=== PATIENT | female | born 1940 | race Caucasian/White ===

== ENCOUNTER → 2016-04-29 | Outpatient (CLI) | payer MEDICARE ==
--- NOTE | 2016-04-30 09:00 | BD ---
EXAMINATION TYPE: MG DEXA axial skeleton. DATE OF EXAM: 04/29/2016 2:34 PM COMPARISON: NONE CLINICAL HISTORY: Height: 61.5 IN Weight: 236 LBS FRAX RISK QUESTIONS: Alcohol (3 or more units per day): NO Family History (Parent hip fracture): NO Glucocorticoids (More than 3mos): NO (Ex: prednisone, prednisolone, methylprednisolone, dexamethasone, and hydrocortisone). History of Fracture in Adulthood: NO Secondary Osteoporosis: 1. Type 1 Diabetes: NO 2. Hyperthyroidism: NO 3. Menopause before 45: NO AGE 47 4. Malnutrition: NO 5. Chronic liver disease: NO Rheumatoid Arthritis: YES Current Tobacco Use: NO RISK FACTORS HISTORY OF: Active: MODERATE Diet low in dairy products/other sources of calcium: YES Postmenopausal woman: AGE 47 MEDICATIONS: Osteoporosis Medications: NOT NOW Which medication: Fosamax How Long AGE 68- 70 Additional Medications: OMEPRAZOLE, GLIPIZIDE, METFORMIN, DIABETES MED, HIGH BLOOD PRESSURE MED, ASTH MA MED,MULTI VIT,VIT B12 EXAM MEASUREMENTS: Bone mineral densitometry was performed using the GoGuide System. Bone mineral density as measured about the Lumbar spine is: ----- L1-L4(G/cm2): 1.455 T Score Values are as follows: ----- L2: 2.5 ----- L3: 2.2 ----- L4: 2.3 ----- L1-L4: 2.3 Bone mineral density has: Increased 6.3% since study of: 07/15/2011 Bone mineral density about the R hip (g/cm2): 0.871 Bone mineral density about the L hip (g/cm2): 0.906 T Score values are as follows: -----R Neck: -1.2 -----L Neck: -1.0 -----R Intertrochanter: -1.1 -----L Intertrochanter: 0.2 Bone mineral density has: Increased 8.0% since study of: 07/15/2011 IMPRESSION: Osteopenia (T Score between -2.5 and -1 as noted by T score values There is slightly increased risk of fracture and the patient may be considered for treatment. Re-Screen 1-2 years.RT HIP NOTE: T-SCORE=SD OF THE YOUNG ADULT MEAN.
--- NOTE | 2016-05-04 09:04 | MM ---
Reason for exam: screening (asymptomatic). Last mammogram was performed 3 years and 8 months ago. History: Patient is postmenopausal. Family history of breast cancer in sister at age 54. Physical Findings: A clinical breast exam by your physician is recommended on an annual basis and results should be correlated with mammographic findings. MG 3D Screening Mammo W/Cad Bilateral CC and MLO view(s) were taken. Prior study comparison: August 12, 2012, bilateral digital screening mammo w/CAD. July 15, 2011, bilateral digital screening mammo w/CAD. March 07, 2010, bilateral digital screening mammogram. There are scattered fibroglandular densities. No significant changes when compared with prior studies. ASSESSMENT: Negative, BI-RAD 1 RECOMMENDATION: Routine screening mammogram of both breasts in 1 year.
== END | disposition home or self-care (01) ==
LOC: RADMAMWWP 14:29
PROVIDERS: ATTEND Family Medicine
DX: Z12.31 Encounter for screening mammogram for malignant neoplasm of breast (principal); M85.80 Other specified disorders of bone density and structure, unspecified site
CPT/HCPCS: 77080; 77063; G0202

== ENCOUNTER 2020-08-05 09:33 | Observation (INO) | payer MEDICARE ==
[2020-08-05 10:03] LABS: Glucose,Whole Blood 131 mg/dL (75-99)
[2020-08-05 10:15] LABS: Basophils % (A) 0 %; Eosinophils # (A) 0.1 k/uL (0-0.7); Eosinophils % (A) 2 %; HCT 28.2 % (34.0-46.0); HGB 8.4 gm/dL (11.4-16.0); Hypochromasia Marked; Lymphocytes # (A) 0.7 k/uL (1.0-4.8); Lymphocytes % (A) 8 %; MCH 24.6 pg (25.0-35.0); MCV 82.2 fL (80.0-100.0); Mean Platelet Volume 7.7; Monocytes # (A) 0.3 k/uL (0-1.0); Monocytes % (A) 3 %; Neutrophils % (A) 86 %; Platelet Count 305 k/uL (150-450); RBC 3.43 m/uL (3.80-5.40); RDW 15.6 % (11.5-15.5); WBC 9.3 k/uL (3.8-10.6)
[2020-08-05 10:26] LABS: Albumin 3.7 g/dL (3.5-5.0); Calcium 8.7 mg/dL (8.4-10.2); Magnesium 1.8 mg/dL (1.6-2.3); Phosphorus 3.4 mg/dL (2.5-4.5); Total Bilirubin 0.3 mg/dL (0.2-1.3); Total Protein 7.2 g/dL (6.3-8.2)
[2020-08-05 10:30] LABS: INR 0.9 (<1.2); Prothrombin Time 10.2 sec (9.0-12.0)
[2020-08-05 10:34] LABS: Amorphous Sediment,Urine Rare /hpf; Appearance,Urine Clear (Clear); Bacteria,Urine Rare /hpf; Bilirubin,Urine Negative (Negative); Blood,Urine Small (Negative); Color,Urine Colorless; Glucose,Urine (UA) Negative (Negative); Ketones,Urine Negative (Negative); Leukocyte Esterase,Urine Moderate (Negative); Mucus,Urine Rare /hpf; Nitrite,Urine Negative (Negative); PH, Urine 6.5 (5.0-8.0); Protein,Urine 1+ (Negative); RBC,Urine 2 /hpf (0-5); Specific Gravity,Urine 1.007 (1.001-1.035); Squamous Epithelial Cell,Urine 1 /hpf (0-4); Urobilinogen,Urine <2.0 mg/dL (<2.0); WBC,Urine 5 /hpf (0-5)
[2020-08-05 10:35] LABS: Partial Thromboplastin Time 21.1 sec (22.0-30.0)
--- NOTE | 2020-08-05 10:47 | XR ---
EXAMINATION TYPE: XR chest 2V DATE OF EXAM: 08/05/2020 COMPARISON: NONE TECHNIQUE: PA and lateral views submitted. HISTORY: Weakness FINDINGS: Elevated right hemidiaphragm with subsegmental consolidation. Heart size is mildly prominent. Lateral view suggest possible sutures along the anterior abdominal wall. No evidence of pneumothorax. Biapic al pleural thickening no sizable pleural effusion. IMPRESSION: 1. Elevated right hemidiaphragm with right basilar atelectasis favored over infiltrate correlate clin ically.
[2020-08-05] MEDS ORDERED: hydrALAZINE HCL 20 MG/ML 1 ML VIAL IVP STA (11:19)
[2020-08-05] MEDS ORDERED: SODIUM CHLORIDE 0.9% 1,000 ML IV ONE (11:36)
[2020-08-05] MEDS: SODIUM CHLORIDE 0.9% 1,000 ML IV SCH (12:08)
--- NOTE | 2020-08-05 12:37 | ED ---
Weakness HPI - General Chief complaint: Weakness Stated complaint: HYPOGLYCEMIC Time Seen by Provider: 08/05/20 09:37 Source: EMS Mode of arrival: EMS Limitations: no limitations - History of Present Illness Initial comments: 79yo female presenting for cc of weakness, falls. Patient states that she had trouble getting off the toilet yesterday after having a bout of diarrhea after taking her first dose of her iron supplement. States that this morning she also felt very weak she states she could hardly get of bed and when she went to stand up she fell back into the bed she denies hitting her head falling to the ground states that she has not sustained any injuries from the fall, but was too weak to walk and called 911. She states that upon arrival EMS had a blood glucose of 70 she states she feels this is very low for her and could've possibly the source of why she's been feeling weak. Patient denies any nausea vomiting chest pain shortness of breath. Pain arm pain headaches. Patient states she has felt lightheaded she states she does have history of chronic vertigo but has no current symptoms of the room spinning at this time. Patient admits to leg swelling b/l. No calf pain, no hemoptysis. patient dneies fevers, cough. Patient has no additional complaints. upon arrival she appears nontoxic in no acute distress. - Related Data Allergies Allergy/AdvReac Type Severity Reaction Status Date / Time shellfish derived [Shellfish] Allergy Rash/Hives Verified 08/05/20 10:10 Sulfa (Sulfonamide Allergy Rash/Hives Verified 08/05/20 10:10 Antibiotics) Review of Systems ROS Statement: Those systems with pertinent positive or pertinent negative responses have been documented in the HPI. ROS Other: All systems not noted in ROS Statement are negative. Past Medical History Past Medical History: Diabetes Mellitus, Hypertension History of Any Multi-Drug Resistant Organisms: None Reported Past Surgical History: Bladder Surgery, Section Past Psychological History: No Psychological Hx Reported Smoking Status: Never smoker Past Alcohol Use History: None Reported Past Drug Use History: None Reported General Exam - General Exam Comments Initial Comments: General: The patient is awake and alert, in no distress Eye: +3 mm pupils are equal, round and reactive to light, extra-ocular movements are intact. No nystagmus. There is normal conjunctiva bilaterally. No signs of icterus. Ears, nose, mouth and throat: There are moist mucous membranes and no oral lesions. Neck: The neck is supple, there is no tenderness or JVD. Cardiovascular: There is a regular rate and rhythm. No murmur, rub or gallop is appreciated. Respiratory: Lungs are clear to auscultation, respirations are non-labored, breath sounds are equal. No wheezes, stridor, rales, or rhonchi. Gastrointestinal: Soft, non-distended, non-tender abdomen without masses or organomegaly noted. There is no rebound or guarding present. Musculoskeletal: Normal ROM, no tenderness. Strength 5/5. Sensation intact. Radial and DP pulses equal bilaterally 2+. Neurological: A&O x 3. CN II-XII intact, There are no obvious motor or sensory deficits. Coordination appears grossly intact. Speech is normal. Skin: Skin is warm and dry and no rashes or lesions are noted. LE non pitting edema b/l. Psychiatric: Cooperative, appropriate mood & affect, normal judgment. Limitations: no limitations Course Vital Signs 08/05/20 08/05/20 08/05/20 09:36 10:09 12:11 Temperature 98.1 F Pulse Rate 103 H 101 H Respiratory 18 18 Rate Blood Pressure 205/94 201/86 186/126 O2 Sat by Pulse 95 100 Oximetry Medical Decision Making - Medical Decision Making Labs consistent with previous values however patient does have significant lactic acidosis. Anion gap is not elevated. Patient BMP within acceptable limits chest x-ray no pleural effusions Covid negative. pt states she feel just too weak to go home and lives alone. she is scared she is going to fall. patient appears nontoxic in no acute distress. Pt evaluated with my attending Dr Whittington is agreeable to care plan and discharge. Ventricular rate 103 bpm, W[place] interval 180 ms, QRS duration 78 ms, QT/QTC 360/471 ms. This is sinus tachycardia with a right axis oval voltage QRS no ST elevation or depression is appreciated - Lab Data Result diagrams: 08/05/20 09:56 08/05/20 09:56 Lab Results 08/05/20 08/05/20 08/05/20 Range/Units 09:56 09:56 09:56 WBC 9.3 (3.8-10.6) k/uL RBC 3.43 L (3.80-5.40) m/uL Hgb 8.4 L (11.4-16.0) gm/dL Hct 28.2 L (34.0-46.0) % MCV 82.2 (80.0-100.0) fL MCH 24.6 L (25.0-35.0) pg MCHC 30.0 L (31.0-37.0) g/dL RDW 15.6 H (11.5-15.5) % Plt Count 305 (150-450) k/uL MPV 7.7 Neutrophils % 86 % Lymphocytes % 8 % Monocytes % 3 % Eosinophils % 2 % Basophils % 0 % Neutrophils # 8.0 H (1.3-7.7) k/uL Lymphocytes # 0.7 L (1.0-4.8) k/uL Monocytes # 0.3 (0-1.0) k/uL Eosinophils # 0.1 (0-0.7) k/uL Basophils # 0.0 (0-0.2) k/uL Hypochromasia Marked PT 10.2 (9.0-12.0) sec INR 0.9 (<1.2) APTT 21.1 L (22.0-30.0) sec Sodium (137-145) mmol/L Potassium (3.5-5.1) mmol/L Chloride (98-107) mmol/L Carbon Dioxide (22-30) mmol/L Anion Gap mmol/L BUN (7-17) mg/dL Creatinine (0.52-1.04) mg/dL Est GFR (CKD-EPI)AfAm (>60 ml/min/1.73 sqM) Est GFR (CKD-EPI)NonAf (>60 ml/min/1.73 sqM) Glucose (74-99) mg/dL POC Glucose (mg/dL) (75-99) mg/dL POC Glu Senior Engineering Team Leader ID Lactic Ac Sepsis Rflx Plasma Lactic Acid Jg (0.7-2.0) mmol/L Calcium (8.4-10.2) mg/dL Phosphorus (2.5-4.5) mg/dL Magnesium (1.6-2.3) mg/dL Total Bilirubin (0.2-1.3) mg/dL AST (14-36) U/L ALT (4-34) U/L Alkaline Phosphatase (38-126) U/L Troponin I (0.000-0.034) ng/mL NT-Pro-B Natriuret Pep pg/mL Total Protein (6.3-8.2) g/dL Albumin (3.5-5.0) g/dL TSH (0.465-4.680) mIU/L Urine Color Colorless Urine Appearance Clear (Clear) Urine pH 6.5 (5.0-8.0) Ur Specific [place] 1.007 (1.001-1.035) Urine Protein 1+ H (Negative) Urine Glucose (UA) Negative (Negative) Urine Ketones Negative (Negative) Urine Blood Small H (Negative) Urine Nitrite Negative (Negative) Urine Bilirubin Negative (Negative) Urine Urobilinogen <2.0 (<2.0) mg/dL Ur Leukocyte Esterase Moderate H (Negative) Urine RBC 2 (0-5) /hpf Urine WBC 5 (0-5) /hpf Ur Squamous Epith Cells 1 (0-4) /hpf Amorphous Sediment Rare H (None) /hpf Urine Bacteria Rare H (None) /hpf Urine Mucus Rare H (None) /hpf Influenza Type A (PCR) (Not Detectd) Influenza Type B (PCR) (Not Detectd) RSV (PCR) (Not Detectd) SARS-CoV-2 (PCR) (Not Detectd) 08/05/20 08/05/20 08/05/20 Range/Units 09:56 09:56 09:56 WBC (3.8-10.6) k/uL RBC (3.80-5.40) m/uL Hgb (11.4-16.0) gm/dL Hct (34.0-46.0) % MCV (80.0-100.0) fL MCH (25.0-35.0) pg MCHC (31.0-37.0) g/dL RDW (11.5-15.5) % Plt Count (150-450) k/uL MPV Neutrophils % % Lymphocytes % % Monocytes % % Eosinophils % % Basophils % % Neutrophils # (1.3-7.7) k/uL Lymphocytes # (1.0-4.8) k/uL Monocytes # (0-1.0) k/uL Eosinophils # (0-0.7) k/uL Basophils # (0-0.2) k/uL Hypochromasia PT (9.0-12.0) sec INR (<1.2) APTT (22.0-30.0) sec Sodium 139 (137-145) mmol/L Potassium 5.0 (3.5-5.1) mmol/L Chloride 107 (98-107) mmol/L Carbon Dioxide 23 (22-30) mmol/L Anion Gap 9 mmol/L BUN 22 H (7-17) mg/dL Creatinine 1.99 H (0.52-1.04) mg/dL Est GFR (CKD-EPI)AfAm 27 (>60 ml/min/1.73 sqM) Est GFR (CKD-EPI)NonAf 23 (>60 ml/min/1.73 sqM) Glucose 124 H (74-99) mg/dL POC Glucose (mg/dL) (75-99) mg/dL POC Glu Senior Engineering Team Leader ID Lactic Ac Sepsis Rflx Plasma Lactic Acid Jg 3.5 H* (0.7-2.0) mmol/L Calcium 8.7 (8.4-10.2) mg/dL Phosphorus 3.4 (2.5-4.5) mg/dL Magnesium 1.8 (1.6-2.3) mg/dL Total Bilirubin 0.3 (0.2-1.3) mg/dL AST 21 (14-36) U/L ALT 12 (4-34) U/L Alkaline Phosphatase 77 (38-126) U/L Troponin I <0.012 (0.000-0.034) ng/mL NT-Pro-B Natriuret Pep pg/mL Total Protein 7.2 (6.3-8.2) g/dL Albumin 3.7 (3.5-5.0) g/dL TSH 0.629 (0.465-4.680) mIU/L Urine Color Urine Appearance (Clear) Urine pH (5.0-8.0) Ur Specific [place] (1.001-1.035) Urine Protein (Negative) Urine Glucose (UA) (Negative) Urine Ketones (Negative) Urine Blood (Negative) Urine Nitrite (Negative) Urine Bilirubin (Negative) Urine Urobilinogen (<2.0) mg/dL Ur Leukocyte Esterase (Negative) Urine RBC (0-5) /hpf Urine WBC (0-5) /hpf Ur Squamous Epith Cells (0-4) /hpf Amorphous Sediment (None) /hpf Urine Bacteria (None) /hpf Urine Mucus (None) /hpf Influenza Type A (PCR) (Not Detectd) Influenza Type B (PCR) (Not Detectd) RSV (PCR) (Not Detectd) SARS-CoV-2 (PCR) (Not Detectd) 08/05/20 08/05/20 08/05/20 Range/Units 09:56 09:59 10:29 WBC (3.8-10.6) k/uL RBC (3.80-5.40) m/uL Hgb (11.4-16.0) gm/dL Hct (34.0-46.0) % MCV (80.0-100.0) fL MCH (25.0-35.0) pg MCHC (31.0-37.0) g/dL RDW (11.5-15.5) % Plt Count (150-450) k/uL MPV Neutrophils % % Lymphocytes % % Monocytes % % Eosinophils % % Basophils % % Neutrophils # (1.3-7.7) k/uL Lymphocytes # (1.0-4.8) k/uL Monocytes # (0-1.0) k/uL Eosinophils # (0-0.7) k/uL Basophils # (0-0.2) k/uL Hypochromasia PT (9.0-12.0) sec INR (<1.2) APTT (22.0-30.0) sec Sodium (137-145) mmol/L Potassium (3.5-5.1) mmol/L Chloride (98-107) mmol/L Carbon Dioxide (22-30) mmol/L Anion Gap mmol/L BUN (7-17) mg/dL Creatinine (0.52-1.04) mg/dL Est GFR (CKD-EPI)AfAm (>60 ml/min/1.73 sqM) Est GFR (CKD-EPI)NonAf (>60 ml/min/1.73 sqM) Glucose (74-99) mg/dL POC Glucose (mg/dL) 131 H (75-99) mg/dL POC Glu Senior Engineering Team Leader ID Claire Koenig Lactic Ac Sepsis Rflx Y Plasma Lactic Acid Jg (0.7-2.0) mmol/L Calcium (8.4-10.2) mg/dL Phosphorus (2.5-4.5) mg/dL Magnesium (1.6-2.3) mg/dL Total Bilirubin (0.2-1.3) mg/dL AST (14-36) U/L ALT (4-34) U/L Alkaline Phosphatase (38-126) U/L Troponin I (0.000-0.034) ng/mL NT-Pro-B Natriuret Pep 496 pg/mL Total Protein (6.3-8.2) g/dL Albumin (3.5-5.0) g/dL TSH (0.465-4.680) mIU/L Urine Color Urine Appearance (Clear) Urine pH (5.0-8.0) Ur Specific [place] (1.001-1.035) Urine Protein (Negative) Urine Glucose (UA) (Negative) Urine Ketones (Negative) Urine Blood (Negative) Urine Nitrite (Negative) Urine Bilirubin (Negative) Urine Urobilinogen (<2.0) mg/dL Ur Leukocyte Esterase (Negative) Urine RBC (0-5) /hpf Urine WBC (0-5) /hpf Ur Squamous Epith Cells (0-4) /hpf Amorphous Sediment (None) /hpf Urine Bacteria (None) /hpf Urine Mucus (None) /hpf Influenza Type A (PCR) (Not Detectd) Influenza Type B (PCR) (Not Detectd) RSV (PCR) (Not Detectd) SARS-CoV-2 (PCR) (Not Detectd) 08/05/20 Range/Units 11:16 WBC (3.8-10.6) k/uL RBC (3.80-5.40) m/uL Hgb (11.4-16.0) gm/dL Hct (34.0-46.0) % MCV (80.0-100.0) fL MCH (25.0-35.0) pg MCHC (31.0-37.0) g/dL RDW (11.5-15.5) % Plt Count (150-450) k/uL MPV Neutrophils % % Lymphocytes % % Monocytes % % Eosinophils % % Basophils % % Neutrophils # (1.3-7.7) k/uL Lymphocytes # (1.0-4.8) k/uL Monocytes # (0-1.0) k/uL Eosinophils # (0-0.7) k/uL Basophils # (0-0.2) k/uL Hypochromasia PT (9.0-12.0) sec INR (<1.2) APTT (22.0-30.0) sec Sodium (137-145) mmol/L Potassium (3.5-5.1) mmol/L Chloride (98-107) mmol/L Carbon Dioxide (22-30) mmol/L Anion Gap mmol/L BUN (7-17) mg/dL Creatinine (0.52-1.04) mg/dL Est GFR (CKD-EPI)AfAm (>60 ml/min/1.73 sqM) Est GFR (CKD-EPI)NonAf (>60 ml/min/1.73 sqM) Glucose (74-99) mg/dL POC Glucose (mg/dL) (75-99) mg/dL POC Glu Senior Engineering Team Leader ID Lactic Ac Sepsis Rflx Plasma Lactic Acid Jg (0.7-2.0) mmol/L Calcium (8.4-10.2) mg/dL Phosphorus (2.5-4.5) mg/dL Magnesium (1.6-2.3) mg/dL Total Bilirubin (0.2-1.3) mg/dL AST (14-36) U/L ALT (4-34) U/L Alkaline Phosphatase (38-126) U/L Troponin I (0.000-0.034) ng/mL NT-Pro-B Natriuret Pep pg/mL Total Protein (6.3-8.2) g/dL Albumin (3.5-5.0) g/dL TSH (0.465-4.680) mIU/L Urine Color Urine Appearance (Clear) Urine pH (5.0-8.0) Ur Specific [place] (1.001-1.035) Urine Protein (Negative) Urine Glucose (UA) (Negative) Urine Ketones (Negative) Urine Blood (Negative) Urine Nitrite (Negative) Urine Bilirubin (Negative) Urine Urobilinogen (<2.0) mg/dL Ur Leukocyte Esterase (Negative) Urine RBC (0-5) /hpf Urine WBC (0-5) /hpf Ur Squamous Epith Cells (0-4) /hpf Amorphous Sediment (None) /hpf Urine Bacteria (None) /hpf Urine Mucus (None) /hpf Influenza Type A (PCR) Not Detected (Not Detectd) Influenza Type B (PCR) Not Detected (Not Detectd) RSV (PCR) Not Detected (Not Detectd) SARS-CoV-2 (PCR) Not Detected (Not Detectd) Disposition Clinical Impression: Lightheaded, Weakness, Lactic acidosis, Dehydration Disposition: ADMITTED IP TO THIS [facility] Condition: Stable Is patient prescribed a controlled substance at d/c from ED?: No Time of Disposition: 12:45 Decision to Admit Reason: Admit from EC Decision Date: 08/05/20 Decision Time: 12:45
[2020-08-05] MEDS ORDERED: NALOXONE 0.4 MG/ML 1 ML VIAL IV PRN (12:44)
[2020-08-05] MEDS ORDERED: amLODIPine 5 MG TAB PO STA (12:58)
--- NOTE | 2020-08-05 15:00 | P.HPIM ---
History of Present Illness 79yo female presenting for cc of weakness, falls. Patient states that she had trouble getting off the toilet yesterday after having a bout of diarrhea after taking her first dose of her iron supplement. States that this morning she also felt very weak she states she could hardly get of bed and when she went to stand up she fell back into the bed she denies hitting her head falling to the ground states that she has not sustained any injuries from the fall, but was too weak to walk and called 911. She states that upon arrival EMS had a blood glucose of 70 she states she feels this is very low for her and could've possibly the source of why she's been feeling weak. Patient denies any nausea vomiting chest pain shortness of breath. Pain arm pain headaches. Patient states she has felt lightheaded she states she does have history of chronic vertigo but has no current symptoms of the room spinning at this time. Patient admits to leg swelling b/l. No calf pain, no hemoptysis. patient dneies fevers, cough. Patient has no additional complaints. Patient doesn't have any signs or symptoms and infection all the workup is negative for any infection at this time. Patient doesn't have any leukocytosis or fever. Patient is bit tachycardic with elevated lactic acid. Patient is on metformin at home. Patient has elevated creatinine 1.99 baseline appears to be 1.8. Patient is found to have lactic acidosis. Lactic acidosis is believed to be secondary to dehydration and intravascular depletion although patient has b een eating and drinking okay patient says she has a broken tooth because of which her diet was not that great for last couple days patient is being admitted for hydration physical therapy and occupational therapy evaluation. Patient has bilateral pedal edema on exam, clinically doesn't appear to be in heart failure exacerbation Review of Systems REVIEW OF SYSTEMS: CONSTITUTIONAL: No fever, no malaise, no fatigue. HEENT: No recent visual problems or hearing problems. Denied any sore throat. CARDIOVASCULAR: No chest pain, orthopnea, PND, no palpitations, no syncope. PULMONARY: No shortness of breath, no cough, no hemoptysis. GASTROINTESTINAL: No diarrhea, no nausea, no vomiting, no abdominal pain. NEUROLOGICAL: No headaches, no weakness, no numbness. HEMATOLOGICAL: Denies any bleeding or petechiae. GENITOURINARY: Denies any burning micturition, frequency, or urgency. MUSCULOSKELETAL/RHEUMATOLOGICAL: Denies any joint pain, swelling, or any muscle pain. ENDOCRINE: Denies any polyuria or polydipsia. The rest of the 14-point review of systems is negative. Past Medical History Past Medical History: Diabetes Mellitus, Hypertension History of Any Multi-Drug Resistant Organisms: None Reported Past Surgical History: Bladder Surgery, Section Past Psychological History: No Psychological Hx Reported Smoking Status: Never smoker Past Alcohol Use History: None Reported Past Drug Use History: None Reported Medications and Allergies Home Medications Medication Instructions Recorded Confirmed Type HYDROcodone/APAP 5-325MG [Chauncey 1 tab PO TID PRN 08/05/20 08/05/20 History 5-325] Irbesartan [Avapro] 150 mg PO HS 08/05/20 08/05/20 History Meclizine [Antivert] 25 mg PO BID PRN 08/05/20 08/05/20 History Montelukast Sodium [Singulair] 10 mg PO HS 08/05/20 08/05/20 History Pantoprazole Sodium [Protonix] 40 mg PO DAILY 08/05/20 08/05/20 History glipiZIDE XL [Glucotrol Xl] 10 mg PO BID@0800,1200 08/05/20 08/05/20 History sitaGLIPtin PHOS/metFORMIN HCL 1 tab PO BID@1200,1800 08/05/20 08/05/20 History [Janumet 50-1,000 mg Tablet] Allergies Allergy/AdvReac Type Severity Reaction Status Date / Time azithromycin Allergy Rash/Hives Verified 08/05/20 13:08 [From Zithromax Z-Fidel] shellfish derived [Shellfish] Allergy Rash/Hives Verified 08/05/20 13:08 Sulfa (Sulfonamide Allergy Rash/Hives Verified 08/05/20 13:08 Antibiotics) Physical Exam Vitals: Vital Signs Temp Pulse Resp BP Pulse Ox 08/05/20 12:11 101 H 18 186/126 100 08/05/20 10:09 201/86 08/05/20 09:36 98.1 F 103 H 18 205/94 95 Intake and Output 08/04/20 08/05/20 08/05/20 22:59 06:59 14:59 Other: Weight 98.43 kg PHYSICAL EXAMINATION: GENERAL: The patient is alert and oriented x3, not in any acute distress. Well developed, well nourished. HEENT: Pupils are round and equally reacting to light. EOMI. No scleral icterus. No conjunctival pallor. Normocephalic, atraumatic. No pharyngeal erythema. No thyromegaly. CARDIOVASCULAR: S1 and S2 present. No murmurs, rubs, or gallops. PULMONARY: Chest is clear to auscultation, no wheezing or crackles. ABDOMEN: Soft, nontender, nondistended, normoactive bowel sounds. No palpable organomegaly. MUSCULOSKELETAL: No joint swelling or deformity. EXTREMITIES: No cyanosis, clubbing, bilateral pedal edema pitting NEUROLOGICAL: Gross neurological examination did not reveal any focal deficits. SKIN: No rashes. Results CBC & Chem 7: 08/05/20 09:56 08/05/20 09:56 Labs: Abnormal Lab Results - Last 24 Hours (Table) 08/05/20 08/05/20 08/05/20 Range/Units 09:56 09:56 09:56 RBC 3.43 L (3.80-5.40) m/uL Hgb 8.4 L (11.4-16.0) gm/dL Hct 28.2 L (34.0-46.0) % MCH 24.6 L (25.0-35.0) pg MCHC 30.0 L (31.0-37.0) g/dL RDW 15.6 H (11.5-15.5) % Neutrophils # 8.0 H (1.3-7.7) k/uL Lymphocytes # 0.7 L (1.0-4.8) k/uL APTT 21.1 L (22.0-30.0) sec BUN (7-17) mg/dL Creatinine (0.52-1.04) mg/dL Glucose (74-99) mg/dL POC Glucose (mg/dL) (75-99) mg/dL Plasma Lactic Acid Jg (0.7-2.0) mmol/L Urine Protein 1+ H (Negative) Urine Blood Small H (Negative) Ur Leukocyte Esterase Moderate H (Negative) Amorphous Sediment Rare H (None) /hpf Urine Bacteria Rare H (None) /hpf Urine Mucus Rare H (None) /hpf 08/05/20 08/05/20 08/05/20 Range/Units 09:56 09:56 09:59 RBC (3.80-5.40) m/uL Hgb (11.4-16.0) gm/dL Hct (34.0-46.0) % MCH (25.0-35.0) pg MCHC (31.0-37.0) g/dL RDW (11.5-15.5) % Neutrophils # (1.3-7.7) k/uL Lymphocytes # (1.0-4.8) k/uL APTT (22.0-30.0) sec BUN 22 H (7-17) mg/dL Creatinine 1.99 H (0.52-1.04) mg/dL Glucose 124 H (74-99) mg/dL POC Glucose (mg/dL) 131 H (75-99) mg/dL Plasma Lactic Acid Jg 3.5 H* (0.7-2.0) mmol/L Urine Protein (Negative) Urine Blood (Negative) Ur Leukocyte Esterase (Negative) Amorphous Sediment (None) /hpf Urine Bacteria (None) /hpf Urine Mucus (None) /hpf 08/05/20 Range/Units 13:19 RBC (3.80-5.40) m/uL Hgb (11.4-16.0) gm/dL Hct (34.0-46.0) % MCH (25.0-35.0) pg MCHC (31.0-37.0) g/dL RDW (11.5-15.5) % Neutrophils # (1.3-7.7) k/uL Lymphocytes # (1.0-4.8) k/uL APTT (22.0-30.0) sec BUN (7-17) mg/dL Creatinine (0.52-1.04) mg/dL Glucose (74-99) mg/dL POC Glucose (mg/dL) (75-99) mg/dL Plasma Lactic Acid Jg 3.7 H* (0.7-2.0) mmol/L Urine Protein (Negative) Urine Blood (Negative) Ur Leukocyte Esterase (Negative) Amorphous Sediment (None) /hpf Urine Bacteria (None) /hpf Urine Mucus (None) /hpf Assessment and Plan Plan: -Generalized weakness: Most probably secondary to dehydration, patient was started on IV fluids. We will also obtain PT and OT consultation -lactic acidosis may be related to dehydration along with the metformin that she is using at home diabetes mellitus. -Acute renal failure: Hold off on metformin and losartan. 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 Patient blood sugars are bit low on admission mildly hypoglycemic. -Bilateral lower extremity edema secondary to chronic venous insufficiency: Will use compression socks -DVT prophylaxis with subcutaneous heparin
[2020-08-05 17:39] LABS: Glucose,Whole Blood 102 mg/dL (75-99)
[2020-08-05] MEDS: INSULIN ASPART (NovoLOG) 100 UNIT/ML VIAL SQ SCH ×2 (17:39→21:56)
[2020-08-05 21:10] LABS: Glucose,Whole Blood 136 mg/dL (75-99)
[2020-08-05] MEDS: MONTELUKAST 10 MG TAB PO SCH (21:56)
[2020-08-05] MEDS: HEPARIN SODIUM,PORCINE/PF 5,000 UNIT/0.5 ML SYRINGE SQ SCH (21:56)
[2020-08-06] MEDS ORDERED: MECLIZINE 25 MG TAB PO PRN (03:42)
[2020-08-06] MEDS: SODIUM CHLORIDE 0.9% 1,000 ML IV SCH ×2 (04:49→16:35)
[2020-08-06 07:09] LABS: Glucose,Whole Blood 106 mg/dL (75-99)
[2020-08-06] MEDS: HYDROcodone/APAP 5-325MG 1 EACH TAB PO PRN ×2 (07:10→16:34)
[2020-08-06] MEDS: PANTOPRAZOLE 40 MG TABLET PO SCH (07:10)
[2020-08-06] MEDS: HEPARIN SODIUM,PORCINE/PF 5,000 UNIT/0.5 ML SYRINGE SQ SCH ×2 (07:10→21:57)
[2020-08-06] MEDS: amLODIPine 5 MG TAB PO SCH (07:10)
[2020-08-06] MEDS: INSULIN ASPART (NovoLOG) 100 UNIT/ML VIAL SQ SCH ×4 (07:11→21:57)
[2020-08-06] MEDS ORDERED: glipiZIDE 10 MG TAB PO SCH (08:00)
[2020-08-06] MEDS ORDERED: amLODIPine 5 MG TAB PO SCH (09:00)
[2020-08-06 10:03] LABS: HCT 23.1 % (37.2-46.3); HGB 6.8 g/dL (12.0-15.0); MCH 24.8 pg (27.0-32.0); MCHC 29.4 g/dL (32.0-37.0); MCV 84.3 fL (80.0-97.0); Mean Platelet Volume 10.5 fL (9.5-12.2); Platelet Count 308 X 10*3/uL (140-440); RBC 2.74 X 10*6/uL (4.10-5.20); WBC 10.41 X 10*3/uL (4.50-10.00)
[2020-08-06 10:58] LABS: African American GFR (CKD) 30.5 (60.0-200.0); Anion Gap 8.5 mmol/L (4.00-12.00); BUN/Creat Ratio 11.67 Ratio (12.00-20.00); Calcium 8.4 mg/dL (8.7-10.3); Carbon Dioxide 23.5 mmol/L (21.6-31.8); Non-African American GFR(CKD) 26.3 (60.0-200.0); Potassium 4.7 mmol/L (3.5-5.5)
[2020-08-06 11:25] LABS: Glucose,Whole Blood 140 mg/dL (75-99)
--- NOTE | 2020-08-06 15:45 | P.PN ---
Subjective Progress Note Date: 08/06/20 79yo female presenting for cc of weakness, falls. Patient states that she had trouble getting off the toilet yesterday after having a bout of diarrhea after taking her first dose of her iron supplement. States that this morning she also felt very weak she states she could hardly get of bed and when she went to stand up she fell back into the bed she denies hitting her head falling to the ground states that she has not sustained any injuries from the fall, but was too weak to walk and called 911. She states that upon arrival EMS had a blood glucose of 70 she states she feels this is very low for her and could've possibly the source of why she's been feeling weak. Patient denies any nausea vomiting chest pain shortness of breath. Pain arm pain headaches. Patient states she has felt lightheaded she states she does have history of chronic vertigo but has no current symptoms of the room spinning at this time. Patient admits to leg swelling b/l. No calf pain, no hemoptysis. patient dneies fevers, cough. Patient has no additional complaints. Patient doesn't have any signs or symptoms and infection all the workup is negative for any infection at this time. Patient doesn't have any leukocytosis or fever. Patient is bit tachycardic with elevated lactic acid. Patient is on metformin at home. Patient has elevated creatinine 1.99 baseline appears to be 1.8. Patient is found to have lactic acidosis. Lactic acidosis is believed to be secondary to dehydration and intravascular depletion although patient has been eating and drinking okay patient says she has a broken tooth because of which her diet was not that great for last couple days patient is being admitted for hydration physical therapy and occupational therapy evaluation. Patient has bilateral pedal edema on exam, clinically doesn't appear to be in heart failure exacerbation 08/06/2020 Urology is seen and evaluated in follow-up today and hemoglobin was found to be 6.8 and awaiting receive a unit of PRBCs. Patient did have multiple episodes of loose diarrhea since Wednesday and noticed some irritation per rectum and is having bright red blood noted in the stool with the possibility of a hemorrhoid. 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 Will prescribe Anusol and monitor hemoglobin closely and will consult GI and have them evaluate the patient. Patient unknown of last colonoscopy. Patient creatinine slightly improved at 1.8 and will continue gentle IV hydratio n and repeat some labs tomorrow along with hemoglobin. Review of systems: Constitutional: No reports of fatigue, fever, or chills Cardiovascular: No reports of chest pain or palpitations Respiratory: No reports of shortness of breath or cough GI: No reports of nausea, vomiting, or diarrhea : No reports of dysuria or retention Neurovascular: No reports of weakness or numbness All medications have been reviewed Objective - Vital Signs Vital signs: Vital Signs Temp 98.0 F 08/06/20 07:00 Pulse 100 08/06/20 07:00 Resp 18 08/06/20 08:00 BP 154/74 08/06/20 07:00 Pulse Ox 95 08/06/20 07:00 Intake & Output 08/05/20 08/06/20 08/06/20 18:59 06:59 18:59 Intake Total 240 Output Total 600 Balance -360 Weight 98.43 kg 98.43 kg Intake: Oral 240 Output: Urine 600 - Exam GENERAL: The patient is alert and oriented x3, not in any acute distress. Well developed, well nourished. HEENT: Pupils are round and equally reacting to light. EOMI. No scleral icterus. No conjunctival pallor. Normocephalic, atraumatic. No pharyngeal erythema. No thyromegaly. CARDIOVASCULAR: S1 and S2 present. No murmurs, rubs, or gallops. PULMONARY: Chest is clear to auscultation, no wheezing or crackles. ABDOMEN: Soft, nontender, nondistended, normoactive bowel sounds. No palpable organomegaly. MUSCULOSKELETAL: No joint swelling or deformity. EXTREMITIES: No cyanosis, clubbing, bilateral pedal edema pitting NEUROLOGICAL: Gross neurological examination did not reveal any focal deficits. SKIN: No rashes. - Labs CBC & Chem 7: 08/06/20 05:50 08/06/20 05:50 Labs: Abnormal Lab Results - Last 24 Hours (Table) 08/05/20 08/05/20 08/05/20 Range/Units 13:19 16:45 17:37 WBC (4.50-10.00) X 10*3/uL RBC (4.10-5.20) X 10*6/uL Hgb (12.0-15.0) g/dL Hct (37.2-46.3) % MCH (27.0-32.0) pg MCHC (32.0-37.0) g/dL RDW (11.5-14.5) % Chloride (96-109) mmol/L Creatinine (0.6-1.5) mg/dL Est GFR (CKD-EPI)AfAm (60.0-200.0) Est GFR (CKD-EPI)NonAf (60.0-200.0) BUN/Creatinine Ratio (12.00-20.00) Ratio Glucose (70-110) mg/dL POC Glucose (mg/dL) 102 H (75-99) mg/dL Plasma Lactic Acid Jg 3.7 H* 3.0 H* (0.7-2.0) mmol/L Calcium (8.7-10.3) mg/dL Crossmatch 08/05/20 08/05/20 08/06/20 Range/Units 20:06 21:09 05:50 WBC 10.41 H (4.50-10.00) X 10*3/uL RBC 2.74 L (4.10-5.20) X 10*6/uL Hgb 6.8 L* (12.0-15.0) g/dL Hct 23.1 L (37.2-46.3) % MCH 24.8 L (27.0-32.0) pg MCHC 29.4 L (32.0-37.0) g/dL RDW 16.0 H (11.5-14.5) % Chloride (96-109) mmol/L Creatinine (0.6-1.5) mg/dL Est GFR (CKD-EPI)AfAm (60.0-200.0) Est GFR (CKD-EPI)NonAf (60.0-200.0) BUN/Creatinine Ratio (12.00-20.00) Ratio Glucose (70-110) mg/dL POC Glucose (mg/dL) 136 H (75-99) mg/dL Plasma Lactic Acid Jg 2.4 H* (0.7-2.0) mmol/L Calcium (8.7-10.3) mg/dL Crossmatch 08/06/20 08/06/20 08/06/20 Range/Units 05:50 06:44 11:04 WBC (4.50-10.00) X 10*3/uL RBC (4.10-5.20) X 10*6/uL Hgb (12.0-15.0) g/dL Hct (37.2-46.3) % MCH (27.0-32.0) pg MCHC (32.0-37.0) g/dL RDW (11.5-14.5) % Chloride 112 H (96-109) mmol/L Creatinine 1.8 H (0.6-1.5) mg/dL Est GFR (CKD-EPI)AfAm 30.5 L (60.0-200.0) Est GFR (CKD-EPI)NonAf 26.3 L (60.0-200.0) BUN/Creatinine Ratio 11.67 L (12.00-20.00) Ratio Glucose 136 H (70-110) mg/dL POC Glucose (mg/dL) 106 H (75-99) mg/dL Plasma Lactic Acid Jg (0.7-2.0) mmol/L Calcium 8.4 L (8.7-10.3) mg/dL Crossmatch See Detail 08/06/20 Range/Units 11:23 WBC (4.50-10.00) X 10*3/uL RBC (4.10-5.20) X 10*6/uL Hgb (12.0-15.0) g/dL Hct (37.2-46.3) % MCH (27.0-32.0) pg MCHC (32.0-37.0) g/dL RDW (11.5-14.5) % Chloride (96-109) mmol/L Creatinine (0.6-1.5) mg/dL Est GFR (CKD-EPI)AfAm (60.0-200.0) Est GFR (CKD-EPI)NonAf (60.0-200.0) BUN/Creatinine Ratio (12.00-20.00) Ratio Glucose (70-110) mg/dL POC Glucose (mg/dL) 140 H (75-99) mg/dL Plasma Lactic Acid Jg (0.7-2.0) mmol/L Calcium (8.7-10.3) mg/dL Crossmatch Assessment and Plan Assessment: -Generalized weakness: Most probably secondary to dehydration, patient was started on IV fluids. Will have PT/OT evaluate the patient -Acute blood loss anemia possibly secondary to chronic disease, acute lower GI bleed, or possible hemorrhoid: Hemoglobin is 6.8 today and will give 1 unit and repeat labs and GI consulted as she had bright red blood per rectum noted. -Possible hemorrhoid: Will use Anusol cream and Tucks pads for relief as she had rectal tenderness status post multiple episodes of diarrhea since Wednesday. GI consulted -lactic acidosis may be related to dehydration along with the metformin that she is using at home diabetes mellitus. Improved. Discontinued metformin and will continue sliding scale and gentle IV hydration -Acute renal failure: Hold off on metformin and losartan. 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 Patient blood sugars are bit low on admission mildly hypoglycemic. -Bilateral lower extremity edema secondary to chronic venous insufficiency: Will use compression socks -DVT prophylaxis with subcutaneous heparin Plan: Will receive 1 unit of PRBCs and recheck hemoglobin and have GI consulted for possible acute lower GI bleed as there was bright red blood noted in the stool. Most likely hemorrhoid but will have GI evaluate the patient. Continue gentle IV hydration and repeat BMP in the morning. PT/OT to evaluate the patient. Patient is refusing rehab if recommended and states she will be returning home once discharged.
[2020-08-06 17:05] LABS: Glucose,Whole Blood 205 mg/dL (75-99)
[2020-08-06 20:57] LABS: Glucose,Whole Blood 164 mg/dL (75-99)
[2020-08-06] MEDS: HYDROCORTISONE SUPPOSITORY 25 MG SUPP RECTAL SCH (21:57)
[2020-08-06] MEDS: MONTELUKAST 10 MG TAB PO SCH (21:57)
[2020-08-07] MEDS: HYDROcodone/APAP 5-325MG 1 EACH TAB PO PRN ×3 (00:23→20:29)
[2020-08-07 04:10] LABS: Glucose,Whole Blood 131 mg/dL (75-99)
[2020-08-07] MEDS: SODIUM CHLORIDE 0.9% 1,000 ML IV SCH ×2 (04:21→16:05)
[2020-08-07 07:05] LABS: Glucose,Whole Blood 177 mg/dL (75-99)
[2020-08-07 07:13] LABS: Anisocytosis Slight; Basophils % (A) 0 %; Eosinophils # (A) 0.3 k/uL (0-0.7); Eosinophils % (A) 4 %; HCT 28.2 % (34.0-46.0); HGB 8.8 gm/dL (11.4-16.0); Hypochromasia Marked; Lymphocytes # (A) 1.2 k/uL (1.0-4.8); Lymphocytes % (A) 17 %; MCH 26.2 pg (25.0-35.0); MCHC 31.2 g/dL (31.0-37.0); MCV 84.2 fL (80.0-100.0); Mean Platelet Volume 7.8; Monocytes # (A) 0.5 k/uL (0-1.0); Monocytes % (A) 8 %; Neutrophils # (A) 4.6 k/uL (1.3-7.7); Neutrophils % (A) 69 %; Platelet Count 258 k/uL (150-450); Poikilocytosis Slight; RBC 3.35 m/uL (3.80-5.40); RDW 16.1 % (11.5-15.5); WBC 6.7 k/uL (3.8-10.6)
[2020-08-07 07:27] LABS: African American GFR (CKD) 27 (>60 ml/min/1.73 sqM); Anion Gap 8 mmol/L; Blood Urea Nitrogen 23 mg/dL (7-17); Calcium 8.3 mg/dL (8.4-10.2); Carbon Dioxide 21 mmol/L (22-30); Chloride 112 mmol/L (98-107); Glucose 167 mg/dL (74-99); Non-African American GFR(CKD) 24 (>60 ml/min/1.73 sqM); Potassium 4.5 mmol/L (3.5-5.1); Sodium 141 mmol/L (137-145)
[2020-08-07] MEDS: PANTOPRAZOLE 40 MG TABLET PO SCH (07:34)
[2020-08-07] MEDS: HEPARIN SODIUM,PORCINE/PF 5,000 UNIT/0.5 ML SYRINGE SQ SCH ×2 (08:33→22:21)
[2020-08-07] MEDS: amLODIPine 5 MG TAB PO SCH (08:33)
[2020-08-07] MEDS: INSULIN ASPART (NovoLOG) 100 UNIT/ML VIAL SQ SCH ×4 (08:33→20:07)
[2020-08-07] MEDS: HYDROCORTISONE SUPPOSITORY 25 MG SUPP RECTAL SCH ×2 (08:34→20:09)
[2020-08-07 11:58] LABS: Glucose,Whole Blood 206 mg/dL (75-99)
--- NOTE | 2020-08-07 12:03 | P.CONS ---
History of Present Illness - Reason for Consult Consult date: 08/07/20 A GI bleed Requesting physician: Praful Cook - Chief Complaint weakness - History of Present Illness This is a pleasant 79-year-old white female who was brought in by EMS with complaints of weakness, confusion, diarrhea, and hypoglycemia 2 days ago. She has a past medical history including diabetes mellitus and hypertension. Symptoms began Wednesday night and Wednesday morning she called EMS. She states 2-3 weeks ago she was having blood work done at her primary care office where she was told that she has anemia and was started on iron. She states her first dose she took was Wednesday and she started having the diarrhea. She also states she was having sweats and feeling hot. She states previous to coming into the hospital she's had no signs or symptoms of GI bleed. She's had no abdominal pain. Her last colonoscopy she states was in 2003 for which she states she had 2 polyps removed. Yesterday while she was here in the hospital she had a bowel movement which he states had no blood evident however she went to urinate and she states she had a large amount of fresh red blood from her rectum, thus gastroenterology was consulted. She denies any current use of NSAIDs or anticoagulation. She states she does have a prior history of hemorrhoids after for which she underwent a hemorrhoidectomy. She states it was painless. She's had no blood since. Fenton hemoglobin was 8.4 and then dropped yesterday to 6.8. She is status post 1 unit of PRBC transfusion with a repeat hemoglobin today of 8.8. Review of Systems Constitutional: Reports night sweats, Reports sweats, Reports weakness Ears, nose, mouth and throat: Denies headache, Denies sore throat Cardiovascular: Denies chest pain, Denies shortness of breath Respiratory: Denies cough Gastrointestinal: Reports BRBPR, Denies coffee ground emesis, Denies constipation, Denies diarrhea, Denies heartburn, Denies hematemesis, Denies melena, Denies nausea, Denies vomiting Genitourinary: Denies dysuria, Denies hematuria Musculoskeletal: Denies myalgias Integumentary: Denies pruritus, Denies rash Neurological: Reports confusion, Reports weakness Psychiatric: Denies anxiety, Denies depression Endocrine: Reports low blood sugars Past Medical History Past Medical History: Diabetes Mellitus, Hypertension History of Any Multi-Drug Resistant Organisms: None Reported Past Surgical History: Bladder Surgery, Section Past Psychological History: No Psychological Hx Reported Smoking Status: Never smoker Past Alcohol Use History: None Reported Past Drug Use History: None Reported Medications and Allergies Home Medications Medication Instructions Recorded Confirmed Type HYDROcodone/APAP 5-325MG [Burr 1 tab PO TID PRN 08/05/20 08/05/20 History 5-325] Irbesartan [Avapro] 150 mg PO HS 08/05/20 08/05/20 History Meclizine [Antivert] 25 mg PO BID PRN 08/05/20 08/05/20 History Montelukast Sodium [Singulair] 10 mg PO HS 08/05/20 08/05/20 History Pantoprazole Sodium [Protonix] 40 mg PO DAILY 08/05/20 08/05/20 History glipiZIDE XL [Glucotrol Xl] 10 mg PO BID@0800,1200 08/05/20 08/05/20 History sitaGLIPtin PHOS/metFORMIN HCL 1 tab PO BID@1200,1800 08/05/20 08/05/20 History [Janumet 50-1,000 mg Tablet] Allergies Allergy/AdvReac Type Severity Reaction Status Date / Time azithromycin Allergy Rash/Hives Verified 08/05/20 13:08 [From Zithromax Z-Fidel] shellfish derived [Shellfish] Allergy Rash/Hives Verified 08/05/20 13:08 Sulfa (Sulfonamide Allergy Rash/Hives Verified 08/05/20 13:08 Antibiotics) Physical Exam Vitals: Vital Signs Temp Pulse Pulse Resp BP BP Pulse Ox 08/07/20 07:00 98.1 F 97 17 174/78 97 08/07/20 02:00 98.0 F 90 16 135/77 95 08/06/20 20:00 97.8 F 93 18 141/58 97 08/06/20 19:00 103 H 18 143/82 08/06/20 15:55 101 H 16 145/84 08/06/20 15:25 101 H 18 140/81 08/06/20 15:15 102 H 16 146/82 08/06/20 14:00 18 Intake and Output 08/06/20 08/07/20 08/07/20 22:59 06:59 14:59 Intake Total 610 1100 120 Balance 610 1100 120 Intake: Intake, IV Titration 900 Amount Sodium Chloride 0.9% 1, 900 000 ml @ 75 mls/hr IV . [id number] [facility] Rx#:[id number] Oral 300 200 120 Blood Product 310 Rc As-1 Unit 310 [id number] Other: Voiding Method Toilet # Voids 2 2 1 General appearance: The patient is alert, oriented, in no acute distress. HET: Head is normocephalic and atraumatic. Oropharynx is clear without lesions. Neck: Supple without lymphadenopathy. Trachea midline. Heart: S1 S2. Regular rate and rhythm. Lungs: Clear to auscultation. Abdomen: Soft, nontender, nondistended with bowel sounds. Extremities: Normal skin color and turgor. No pedal edema. Neurological: Alert and Oriented 3. Results CBC & Chem 7: 08/07/20 06:19 08/07/20 06:19 Labs: Abnormal Lab Results - Last 24 Hours (Table) 08/06/20 08/06/20 08/06/20 Range/Units 11:04 17:04 20:56 RBC (3.80-5.40) m/uL Hgb (11.4-16.0) gm/dL Hct (34.0-46.0) % RDW (11.5-15.5) % Chloride (98-107) mmol/L Carbon Dioxide (22-30) mmol/L BUN (7-17) mg/dL Creatinine (0.52-1.04) mg/dL Glucose (74-99) mg/dL POC Glucose (mg/dL) 205 H 164 H (75-99) mg/dL Calcium (8.4-10.2) mg/dL Crossmatch See Detail 08/07/20 08/07/20 08/07/20 Range/Units 04:08 06:19 06:19 RBC 3.35 L (3.80-5.40) m/uL Hgb 8.8 L (11.4-16.0) gm/dL Hct 28.2 L (34.0-46.0) % RDW 16.1 H (11.5-15.5) % Chloride 112 H (98-107) mmol/L Carbon Dioxide 21 L (22-30) mmol/L BUN 23 H (7-17) mg/dL Creatinine 1.96 H (0.52-1.04) mg/dL Glucose 167 H (74-99) mg/dL POC Glucose (mg/dL) 131 H (75-99) mg/dL Calcium 8.3 L (8.4-10.2) mg/dL Crossmatch 08/07/20 Range/Units 07:03 RBC (3.80-5.40) m/uL Hgb (11.4-16.0) gm/dL Hct (34.0-46.0) % RDW (11.5-15.5) % Chloride (98-107) mmol/L Carbon Dioxide (22-30) mmol/L BUN (7-17) mg/dL Creatinine (0.52-1.04) mg/dL Glucose (74-99) mg/dL POC Glucose (mg/dL) 177 H (75-99) mg/dL Calcium (8.4-10.2) mg/dL Crossmatch Assessment and Plan (1) Rectal bleeding Narrative/Plan: This is a 79-year-old female who presented to the hospital via EMS for weakness, confusion, hypoglycemia with reported 3 episodes of diarrhea previous to coming in. Derrek been consulted for drop in her hemoglobin with bright red blood per rectum yesterday. Patient states she felt like there was at least a couple in the toilet. She states that it was painless. She reports her last colonoscopy in 2003 where she had 2 polyps removed. She had no follow-up since. She's also been having a workup with her primary care physician for anemia, which she states she was started on oral iron however discontinued because it's not making her feel well. She does have a history of hemorrhoids with hemorrhoidectomy after having her children. States her bowel movements are usually normal, without straining or constipation. Possibility of hemorrhoids, diverticular bleed, and neoplasm cannot be ruled out. Patient agreeable to proceed with colonoscopy tomorrow. Current Visit: Yes Status: Acute Code(s): K62.5 - HEMORRHAGE OF ANUS AND RECTUM SNOMED Code(s): 61409386 (2) Anemia Current Visit: Yes Status: Acute Code(s): D64.9 - ANEMIA, UNSPECIFIED SNOMED Code(s): 932954401 (3) Weakness Current Visit: Yes Status: Acute Code(s): R53.1 - WEAKNESS SNOMED Code(s): 92916843 Plan: 1. Continue symptomatic and supportive care 2. Clear liquid diet, nothing by mouth after midnight 3. Bowel prep this evening 4. Repeat CBC daily, transfuse for hemoglobin less than 7 5. Previous iron studies reviewed, with evidence of iron deficiency anemia 6. IV iron 2 Thank you for this consultation, we will continue to follow Dr. Rukhsana Da Silva I agree with the dictator's note, documented as a scribe by Teri Crane.
[2020-08-07] MEDS ORDERED: BENZOCAINE 20 % GEL 15 GM TUBE MM PRN (13:54)
--- NOTE | 2020-08-07 14:25 | P.PN ---
Subjective Progress Note Date: 08/07/20 79yo female presenting for cc of weakness, falls. Patient states that she had trouble getting off the toilet yesterday after having a bout of diarrhea after taking her first dose of her iron supplement. States that this morning she also felt very weak she states she could hardly get of bed and when she went to stand up she fell back into the bed she denies hitting her head falling to the ground states that she has not sustained any injuries from the fall, but was too weak to walk and called 911. She states that upon arrival EMS had a blood glucose of 70 she states she feels this is very low for her and could've possibly the source of why she's been feeling weak. Patient denies any nausea vomiting chest pain shortness of breath. Pain arm pain headaches. Patient states she has felt lightheaded she states she does have history of chronic vertigo but has no current symptoms of the room spinning at this time. Patient admits to leg swelling b/l. No calf pain, no hemoptysis. patient dneies fevers, cough. Patient has no additional complaints. Patient doesn't have any signs or symptoms and infection all the workup is negative for any infection at this time. Patient doesn't have any leukocytosis or fever. Patient is bit tachycardic with elevated lactic acid. Patient is on metformin at home. Patient has elevated creatinine 1.99 baseline appears to be 1.8. Patient is found to have lactic acidosis. Lactic acidosis is believed to be secondary to dehydration and intravascular depletion although patient has been eating and drinking okay patient says she has a broken tooth because of which her diet was not that great for last couple days patient is being admitted for hydration physical therapy and occupational therapy evaluation. Patient has bilateral pedal edema on exam, clinically doesn't appear to be in heart failure exacerbation 08/06/2020 Patient is seen and evaluated in follow-up today and hemoglobin was found to be 6.8 and awaiting receive a unit of PRBCs. Patient did have multiple episodes of loose diarrhea since Wednesday and noticed some irritation per rectum and is having bright red blood noted in the stool with the possibility of a hemorrhoid. 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 Will prescribe Anusol and monitor hemoglobin closely and will consult GI and have them evaluate the patient. Patient unknown of last colonoscopy. Patient creatinine slightly improved at 1.8 and will continue gentle IV hydratio n and repeat some labs tomorrow along with hemoglobin. 08/07/2020 Patient is seen in follow-up this morning and hemoglobin is 8.8 with no further bleeding noted. GI did evaluate the patient and patient will undergo GoLYTELY prep today and have a colonoscopy in the morning. Patient to continue with gentle IV hydration his creatinine was slightly elevated and we'll continue to hold her blood pressure medications and metformin at this time. Continue with sliding scale. Patient will continue with clear liquids and GoLYTELY prep and be nothing by mouth at midnight. Will repeat a.m. labs to monitor kidney functions along with hemoglobin. Discussed with the patient about staying with family for a few days until she feels better she is absolutely against any form of rehab or ECF facility. Review of systems: Constitutional: No reports of fatigue, fever, or chills Cardiovascular: No reports of chest pain or palpitations Respiratory: No reports of shortness of breath or cough GI: No reports of nausea, vomiting, or diarrhea : No reports of dysuria or retention Neurovascular: No reports of weakness or numbness All medications have been reviewed Objective - Vital Signs Vital signs: Vital Signs Temp 98.1 F 08/07/20 07:00 Pulse 97 08/07/20 07:00 Resp 17 08/07/20 07:00 BP 174/78 08/07/20 07:00 Pulse Ox 97 08/07/20 07:00 Intake & Output 08/06/20 08/07/20 08/07/20 18:59 06:59 18:59 Intake Total 0 1710 120 Balance 0 1710 120 Intake: Intake, IV Titration 900 Amount Sodium Chloride 0.9% 1, 900 000 ml @ 75 mls/hr IV . [id number] [facility] Rx#:[id number] Oral 500 120 Blood Product 0 310 Rc As-1 Unit 0 310 [id number] Other: Voiding Method Toilet # Voids 2 1 # Bowel Movements 5 - Exam GENERAL: The patient is alert and oriented x3, not in any acute distress. Well developed, well nourished. HEENT: Pupils are round and equally reacting to light. EOMI. No scleral icterus. No conjunctival pallor. Normocephalic, atraumatic. No pharyngeal erythema. No thyromegaly. Left bottom molar tooth has a fracture near the filling and causing left tongue discomfort from rubbing CARDIOVASCULAR: S1 and S2 present. No murmurs, rubs, or gallops. PULMONARY: Chest is clear to auscultation, no wheezing or crackles. ABDOMEN: Soft, nontender, nondistended, normoactive bowel sounds. No palpable organomegaly. MUSCULOSKELETAL: No joint swelling or deformity. EXTREMITIES: No cyanosis, clubbing, bilateral pedal edema pitting NEUROLOGICAL: Gross neurological examination did not reveal any focal deficits. SKIN: No rashes. - Labs CBC & Chem 7: 08/07/20 06:19 08/07/20 06:19 Labs: Abnormal Lab Results - Last 24 Hours (Table) 08/06/20 08/06/20 08/06/20 Range/Units 11:04 11:23 17:04 RBC (3.80-5.40) m/uL Hgb (11.4-16.0) gm/dL Hct (34.0-46.0) % RDW (11.5-15.5) % Chloride (98-107) mmol/L Carbon Dioxide (22-30) mmol/L BUN (7-17) mg/dL Creatinine (0.52-1.04) mg/dL Glucose (74-99) mg/dL POC Glucose (mg/dL) 140 H 205 H (75-99) mg/dL Calcium (8.4-10.2) mg/dL Crossmatch See Detail 08/06/20 08/07/20 08/07/20 Range/Units 20:56 04:08 06:19 RBC 3.35 L (3.80-5.40) m/uL Hgb 8.8 L (11.4-16.0) gm/dL Hct 28.2 L (34.0-46.0) % RDW 16.1 H (11.5-15.5) % Chloride (98-107) mmol/L Carbon Dioxide (22-30) mmol/L BUN (7-17) mg/dL Creatinine (0.52-1.04) mg/dL Glucose (74-99) mg/dL POC Glucose (mg/dL) 164 H 131 H (75-99) mg/dL Calcium (8.4-10.2) mg/dL Crossmatch 08/07/20 08/07/20 Range/Units 06:19 07:03 RBC (3.80-5.40) m/uL Hgb (11.4-16.0) gm/dL Hct (34.0-46.0) % RDW (11.5-15.5) % Chloride 112 H (98-107) mmol/L Carbon Dioxide 21 L (22-30) mmol/L BUN 23 H (7-17) mg/dL Creatinine 1.96 H (0.52-1.04) mg/dL Glucose 167 H (74-99) mg/dL POC Glucose (mg/dL) 177 H (75-99) mg/dL Calcium 8.3 L (8.4-10.2) mg/dL Crossmatch Assessment and Plan Assessment: -Generalized weakness: Most probably secondary to dehydration, patient will continue on IV fluids. PT/OT evaluated the patient and patient is against any form of rehab. -Dental caries with left lower jaw molar fracture, will use Anbesol and patient daughter at the bedside scheduled a dental appointment for this weekend -Acute blood loss anemia possibly secondary to chronic disease, acute lower GI bleed, or possible hemorrhoid: Hemoglobin is 8.8 today status post 1 unit of PRBC and patient was evaluated by GI and will undergo colonoscopy with no further bleeding noted. -Possible hemorrhoid: Will use Anusol cream and Tucks pads for relief as she had rectal tenderness status post multiple episodes of diarrhea since Wednesday. GI following and planning colonoscopy in the morning -lactic acidosis may be related to dehydration along with the metformin that she is using at home diabetes mellitus. Improved. Discontinued metformin and will continue sliding scale and gentle IV hydration -Acute renal failure: Hold off on metformin and losartan. 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 Patient blood sugars are bit low on admission mildly hypoglycemic. -Bilateral lower extremity edema secondary to chronic venous insufficiency: Will use compression socks -DVT prophylaxis with subcutaneous heparin Plan: Received 1 unit of PRBCs and hemoglobin today is 8.8 with no further bleeding noted. GI evaluated the patient and patient will be undergoing colonoscopy in the morning and will start the GoLYTELY prep today. Patient is having some left tongue discomfort secondary to a broken tooth of the left lower jaw and will add Anbesol for relief. Creatinine continues to be a little elevated and will continue gentle IV hydration and repeat labs in the morning. Patient is a diabetic and will require a glucometer for testing glucose and monitoring blood sugars. Anticipate discharge in 24-48 hours.
[2020-08-07] MEDS ORDERED: LIDOCAINE 1% (10MG/ML) FOR IV START INTRADERMA PRN (14:54)
[2020-08-07] MEDS ORDERED: PEG 3350-NA SULF,BICARB,CL/KCL 4,000 ML BOTTLE PO ONE (15:00)
[2020-08-07] MEDS: SODIUM FERRIC GLUCONAT-SUCROSE 125 MG in SODIUM CHLORIDE 0.9% 100 ML IVPB SCH (15:03)
[2020-08-07 16:53] LABS: Glucose,Whole Blood 195 mg/dL (75-99)
[2020-08-07] MEDS: LACTATED RINGERS 1,000 ML IV SCH (17:01)
[2020-08-07 20:04] LABS: Glucose,Whole Blood 180 mg/dL (75-99)
[2020-08-07] MEDS: MONTELUKAST 10 MG TAB PO SCH (20:08)
[2020-08-08 00:21] LABS: Hemoglobin A1C 5.8 % (4.0-6.0)
[2020-08-08] MEDS: SODIUM CHLORIDE 0.9% 1,000 ML IV SCH (03:18)
[2020-08-08 06:00] LABS: Anisocytosis Slight; Basophils # (A) 0.1 k/uL (0-0.2); Basophils % (A) 1 %; Eosinophils # (A) 0.3 k/uL (0-0.7); Eosinophils % (A) 4 %; HGB 8.8 gm/dL (11.4-16.0); Hypochromasia Moderate; Lymphocytes # (A) 1.3 k/uL (1.0-4.8); Lymphocytes % (A) 16 %; MCH 26.7 pg (25.0-35.0); MCHC 32.5 g/dL (31.0-37.0); MCV 82.3 fL (80.0-100.0); Mean Platelet Volume 7.5; Monocytes # (A) 0.6 k/uL (0-1.0); Monocytes % (A) 7 %; Neutrophils # (A) 5.9 k/uL (1.3-7.7); Neutrophils % (A) 71 %; Platelet Count 288 k/uL (150-450); Poikilocytosis Slight; RBC 3.28 m/uL (3.80-5.40); RDW 16.2 % (11.5-15.5); WBC 8.2 k/uL (3.8-10.6)
[2020-08-08 06:36] LABS: African American GFR (CKD) 31 (>60 ml/min/1.73 sqM); Anion Gap 9 mmol/L; Blood Urea Nitrogen 15 mg/dL (7-17); Calcium 8.6 mg/dL (8.4-10.2); Carbon Dioxide 23 mmol/L (22-30); Chloride 107 mmol/L (98-107); Glucose 148 mg/dL (74-99); Non-African American GFR(CKD) 27 (>60 ml/min/1.73 sqM); Sodium 139 mmol/L (137-145)
[2020-08-08 08:02] LABS: Glucose,Whole Blood 151 mg/dL (75-99)
[2020-08-08] MEDS: INSULIN ASPART (NovoLOG) 100 UNIT/ML VIAL SQ SCH ×2 (08:36→12:05)
[2020-08-08] MEDS: HYDROCORTISONE SUPPOSITORY 25 MG SUPP RECTAL SCH (08:37)
[2020-08-08] MEDS: HYDROcodone/APAP 5-325MG 1 EACH TAB PO PRN ×2 (08:53→15:26)
[2020-08-08] MEDS: HEPARIN SODIUM,PORCINE/PF 5,000 UNIT/0.5 ML SYRINGE SQ SCH (08:54)
[2020-08-08] MEDS: amLODIPine 5 MG TAB PO SCH (08:54)
[2020-08-08] MEDS: SODIUM FERRIC GLUCONAT-SUCROSE 125 MG in SODIUM CHLORIDE 0.9% 100 ML IVPB SCH (08:54)
[2020-08-08] MEDS: PANTOPRAZOLE 40 MG TABLET PO SCH (08:54)
[2020-08-08 11:57] LABS: Glucose,Whole Blood 147 mg/dL (75-99)
[2020-08-08] MEDS ORDERED: IV FLUID CONTINUATION 500 ML IV ONE (14:08)
[2020-08-08] MEDS ORDERED: PROPOFOL 10 MG/ML 20 ML VIAL IV ONE (14:17)
[2020-08-08] MEDS ORDERED: LIDOCAINE 1% INJ 10MG/ML (20 ML MDV) ONE (14:17)
--- NOTE | 2020-08-08 15:00 | P.PCN ---
Date of Procedure: 08/08/20 Procedure(s) Performed: BRIEF HISTORY: Patient is a 79-year-old pleasant white female scheduled for a colonoscopy as a part of evaluation of an episode of rectal bleeding for which she was admitted to the hospital. Her last colonoscopy was in 2003. PROCEDURE PERFORMED: Colonoscopy and snare polypectomy. PREOPERATIVE DIAGNOSIS: Rectal bleeding. IV sedation per Anesthesia. PROCEDURE: After informed consent was obtained, the patient, was brought into the endoscopy unit. IV sedation was administered by Anesthesia under continuous monitoring. Digital rectal examination was normal. Initially the Olympus CF-160 flexible video colonoscope was then inserted in the rectum, gradually advanced into the cecum without any difficulty. Careful examination was performed as the scope was gradually being withdrawn. Ileocecal valve and the appendiceal orifice were visualized and appeared normal. Prep was fair. Mucosa of the cecum, appeared normal. In the ascending colon there was a 5 mm and 1 m polyp removed by snare polypectomy. Hepatic flexure there was a 1 cm polyp removed by snare polypectomy. In the transverse colon there were 4 polyps measuring between 5 mm to 1.5 cm removed by snare polypectomy. In the descending colon there was another 4 polyps measuring between 1-1.5 cm in size status post polypectomy. In the sigmoid colon there were 5 polyps measuring between 5 mm to 1 cm in size status post polypectomy. There are scattered sigmoid diverticulosis seen. The rectum appeared normal. Retroflexion was performed in the rectum and internal hemorrhoids ere seen. The patient tolerated the procedure well. IMPRESSION: 5 mm and 1 cm ascending colon polyp status post polypectomy 1 cm hepatic flexure polyp status post polypectomy 4 polyps in the transverse colon measuring between 5 mm to 1.5 cm, status post snare polypectomy 4 polyps in the descending colon measuring between 1 cm to 1.5 cm status post snare polypectomy 5 polyps in the sigmoid colon measuring between 5 mm to 1 cm in size status post snare polypectomy Scattered sigmoid diverticulosis Small hemorrhoids RECOMMENDATIONS: Findings of this examination were discussed with the patient as well as her family. She was advised to be a high-fiber diet and avoid straining and constipation. She will follow with the biopsy results and have a repeat colonoscopy in 3 years. She'll be seen in office in 2 weeks from discharge from the hospital].
[2020-08-08 15:54] VITALS: TEMP 97
[2020-08-08] MEDS: LACTATED RINGERS 1,000 ML IV SCH (16:04)
[2020-08-08 16:14] VITALS: BP 166/78; PULSE 91; RESP 20
--- NOTE | 2020-08-09 08:57 | P.DS ---
Providers Date of admission: 08/05/20 12:45 Expected date of discharge: 08/08/20 Attending physician: Praful Cook Consults: 08/06/20 14:43 Consult Physician Urgent Consulting Provider: Earnestine Da Silva Consult Reason/Comments: Possible GI bleed/ hemorrhoids/ drop in hemoglobin requiring transfusion Do you want consulting provider notified?: Yes Primary care physician: Irene Perdomo Hospital Course: Final diagnosis -Generalized weakness: Most probably secondary to dehydration -Dental caries with left lower jaw molar fracture -Acute blood loss anemia secondary to hemorrhoid and recent multiple episodes of diarrhea and irritation -Status post colonoscopy showing multiple polyps with diverticulosis and small hemorrhoids -hemorrhoid is noted on colonoscopy -lactic acidosis may be related to dehydration along with the metformin that she is using at home -Acute renal failure secondary to dehydration from diarrhea and also on metformin and losartan. 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 Patient will follow-up with Dr. Perdomo upon discharge. Patient will also follow-up with GI Dr. Da Silva in the outpatient setting. Total time taken is greater than 35 minutes. Hospital course 79yo female presenting for cc of weakness, falls. Patient states that she had trouble getting off the toilet yesterday after having a bout of diarrhea after taking her first dose of her iron supplement. States that this morning she also felt very weak she states she could hardly get of bed and when she went to stand up she fell back into the bed she denies hitting her head falling to the ground states that she has not sustained any injuries from the fall, but was too weak to walk and called 911. She states that upon arrival EMS had a blood glucose of 70 she states she feels this is very low for her and could've possibly the source of why she's been feeling weak. Patient denies any nausea vomiting chest pain shortness of breath. Pain arm pain headaches. Patient states she has felt lightheaded she states she does have history of chronic vertigo but has no current symptoms of the room spinning at this time. Patient admits to leg swelling b/l. No calf pain, no hemoptysis. patient dneies fevers, cough. Patient has no additional complaints. Patient doesn't have any signs or symptoms and infection all the workup is negative for any infection at this time. Patient doesn't have any leukocytosis or fever. Patient is bit tachycardic with elevated lactic acid. Patient is on metformin at home. Patient has elevated creatinine 1.99 baseline appears to be 1.8. Patient is found to have lactic acidosis. Lactic acidosis is believed to be secondary to dehydration and intravascular depletion although patient has been eating and drinking okay patient says she has a broken tooth because of which her diet was not that great for last couple days patient is being admitted for hydration physical therapy and occupational therapy evaluation. Patient has bilateral pedal edema on exam, clinically doesn't appear to be in heart failure exacerbation 08/06/2020 Patient is seen and evaluated in follow-up today and hemoglobin was found to be 6.8 and awaiting receive a unit of PRBCs. Patient did have multiple episodes of loose diarrhea since Wednesday and noticed some irritation per rectum and is having bright red blood noted in the stool with the possibility of a hemorrhoid. 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 Will prescribe Anusol and monitor hemoglobin closely and will consult GI and have them evaluate the patient. Patient unknown of last colonoscopy. Patient creatinine slightly improved at 1.8 and will continue gentle IV hydration and repeat some labs tomorrow along with hemoglobin. 08/07/2020 Patient is seen in follow-up this morning and hemoglobin is 8.8 with no further bleeding noted. GI did evaluate the patient and patient will undergo GoLYTELY prep today and have a colonoscopy in the morning. Patient to continue with gentle IV hydration his creatinine was slightly elevated and we'll continue to hold her blood pressure medications and metformin at this time. Continue with sliding scale. Patient will continue with clear liquids and GoLYTELY prep and be nothing by mouth at midnight. Will repeat a.m. labs to monitor kidney functions along with hemoglobin. Discussed with the patient about staying with family for a few days until she feels better she is absolutely against any form of rehab or ECF facility. 08/08/2020 Patient is seen in follow-up today status post colonoscopy showing multiple polyps with some scattered sigmoid diverticulosis and small hemorrhoids with biopsies obtained. She will follow-up with GI in the outpatient setting for biopsy results. Patient will be started on Januvia and instructed to discontinue metformin and Janumet combination and provided prescriptions for repeat labs in 2-3 days to monitor kidney functions. No further bleeding noted and patient may use Anusol cream as needed for hemorrhoids. Patient will also be following up outpatient with a dentist for her left lower jaw tooth fracture. Currently no reports of chest pain, shortness of breath, or palpitations. Patient is afebrile. No reports of nausea or vomiting and patient is tolerating diet. She will be discharged to home today. On exam vital signs are stable. Cardio S1, S2 are muffled. Respiratory shows diminished breath sounds at the bases with no wheezing or rhonchi noted. Abdomen is soft and nontender. Nervous system shows no focal deficits. Please refer to medication reconciliation sheet for a list of medications. Patient Condition at Discharge: Stable Plan - Discharge Summary New Discharge Prescriptions: New sitaGLIPtin PHOSPHATE [Januvia] 100 mg PO DAILY 30 Days #30 tab amLODIPine [Norvasc] 10 mg PO DAILY 30 Days #60 tab Continue Pantoprazole Sodium [Protonix] 40 mg PO DAILY Montelukast Sodium [Singulair] 10 mg PO HS Meclizine [Antivert] 25 mg PO BID PRN PRN Reason: Vertigo HYDROcodone/APAP 5-325MG [[place] 5-325] 1 tab PO TID PRN #12 tab PRN Reason: Pain Changed glipiZIDE XL [Glucotrol XL] 10 mg PO DAILY #0 Discontinued sitaGLIPtin PHOS/metFORMIN HCL [Janumet 50-1,000 mg Tablet] 1 tab PO BID@1200,1800 Irbesartan [Avapro] 150 mg PO HS Discharge Medication List Meclizine [Antivert] 25 mg PO BID PRN 08/05/20 [History] Montelukast Sodium [Singulair] 10 mg PO HS 08/05/20 [History] Pantoprazole Sodium [Protonix] 40 mg PO DAILY 08/05/20 [History] HYDROcodone/APAP 5-325MG [[place] 5-325] 1 tab PO TID PRN #12 tab 08/08/20 [Rx] amLODIPine [Norvasc] 10 mg PO DAILY 30 Days #60 tab 08/08/20 [Rx] glipiZIDE XL [Glucotrol XL] 10 mg PO DAILY #0 08/08/20 [Rx] sitaGLIPtin PHOSPHATE [Januvia] 100 mg PO DAILY 30 Days #30 tab 08/08/20 [Rx] Follow up Appointment(s)/Referral(s): [facility], [NON-STAFF] - 1-2 Days Earnestine Da Silva MD [STAFF PHYSICIAN] - 08/21/20 1:30 pm (luis eduardogoyo shaw) Irene Perdomo DO [Primary Care Provider] - 1-2 days Ambulatory/Diagnostic Orders: Basic Metabolic Panel [LAB.AMB] Time Frame: 3 Days, Location: None Selected Patient Instructions/Handouts: Dehydration (DC), High Fiber Diet (DC), Colonoscopy (DC) Activity/Diet/Wound Care/Special Instructions: [employer] is the supplier of your glucometer per your insurance guidelines. They have been faxed information and can be contacted at phone: fax: . Activity Limited until follow-up Follow-up primary care provider upon discharge Follow-up with GI in the outpatient setting for biopsy results Repeat labs in a few days to monitor kidney functions Continue with medications as prescribed Continue to monitor your blood sugars and keep a diary for primary care follow- up Continue with heart healthy consistent carb diet high-fiber diet continue with Protonix daily follow up with dentist regarding tooth fracture Discharge Disposition: HOME WITH HOME HEALTH SERVICES
== END 2020-08-08 17:29 | disposition home health service (06) ==
LOC: EC 09:33 → 1SOBS 12:45 → 6NMEDSUR 17:29
PROVIDERS: ADMIT Internal Medicine; ATTEND Internal Medicine
DX: E86.0 Dehydration (principal); D62 Acute posthemorrhagic anemia; K57.30 Diverticulosis of large intestine without perforation or abscess without bleeding; K64.8 Other hemorrhoids; K63.5 Polyp of colon; I10 Essential (primary) hypertension; K02.9 Dental caries, unspecified; K03.81 Cracked tooth; E11.649 Type 2 diabetes mellitus with hypoglycemia without coma; E11.22 Type 2 diabetes mellitus with diabetic chronic kidney disease; N17.9 Acute kidney failure, unspecified; N18.30 Chronic kidney disease, stage 3 unspecified; Z20.822 Contact with and (suspected) exposure to COVID-19; E87.2 Acidosis; R00.0 Tachycardia, unspecified; E11.21 Type 2 diabetes mellitus with diabetic nephropathy; I87.2 Venous insufficiency (chronic) (peripheral); R60.0 Localized edema; K21.9 Gastro-esophageal reflux disease without esophagitis; Z79.899 Other long term (current) drug therapy; Z79.84 Long term (current) use of oral hypoglycemic drugs; Z91.013 Allergy to seafood; Z88.1 Allergy status to other antibiotic agents; Z88.2 Allergy status to sulfonamides; Z98.891 History of uterine scar from previous surgery
CPT/HCPCS: 36430; 96361 ×3; 96374; 99285; 36415; 93005; 97162; 97165; 86900; 86901; 88305; 83880; 80053; 80048 ×3; 83605; 83735; 84100; 84443; 84484; 85025 ×3; 85027; 85610; 85730; 86850; 86920; 81001; 83036; 87636; 71046; 45385; G0378 ×4; P9016; J0360; J2001; J2916 ×2; J2704; J1644 ×4

== ENCOUNTER → 2020-09-30 | Outpatient (CLI) | payer MEDICARE ==
--- NOTE | 2020-09-30 17:02 | US ---
EXAMINATION TYPE: US kidneys/renal and bladder DATE OF EXAM: 09/30/2020 COMPARISON: NONE CLINICAL HISTORY: N18.31 kidney disease. EXAM MEASUREMENTS: Right Kidney: 10.6 x 4.1 x 4.7 cm Left Kidney: 9.1 x 4.8 x 3.6 cm Right Kidney: hydronephrosis, no shadowing renal calculi are seen. 2.5 x 2.5 x 2.1cm cyst inferior po le Left Kidney: 2.3 x 2.2 x 2.2cm exophytic cyst inferior pole Bladder: not fully distended Bilateral Jets seen: no No renal calculi are seen. IMPRESSION: 1. Moderate right hydronephrosis. No shadowing renal calculi are seen. 2. Bilateral lower pole renal cysts. 3. The urinary bladder is not distended and was not visualized.
== END | disposition home or self-care (01) ==
LOC: RADUSWWP 13:25
PROVIDERS: ATTEND Family Medicine
DX: N28.1 Cyst of kidney, acquired (principal); N13.30 Unspecified hydronephrosis
CPT/HCPCS: 76770

== ENCOUNTER 2021-07-05 00:04 | Observation (INO) | payer MEDICARE ==
[2021-07-05 01:29] LABS: Appearance,Urine Clear (Clear); Bilirubin,Urine Negative (Negative); Blood,Urine Large (Negative); Color,Urine Yellow; Glucose,Urine (UA) Negative (Negative); Ketones,Urine Negative (Negative); Leukocyte Esterase,Urine Negative (Negative); Mucus,Urine Rare /hpf; Nitrite,Urine Negative (Negative); Protein,Urine 2+ (Negative); RBC,Urine >182 /hpf (0-5); Specific Gravity,Urine 1.013 (1.001-1.035); Urobilinogen,Urine <2.0 mg/dL (<2.0); WBC,Urine 3 /hpf (0-5)
--- NOTE | 2021-07-05 02:51 | XR ---
EXAMINATION TYPE: XR abdomen 2V DATE OF EXAM: 07/05/2021 COMPARISON: NONE HISTORY: Dysuria TECHNIQUE: 3 views supine and upright FINDINGS: There is no sign of intestinal obstruction or pneumoperitoneum. Fecal pattern is normal. Th ere is no evidence of a mass. There are no pathologic calcifications over the kidneys. IMPRESSION: Nonacute abdomen.
--- NOTE | 2021-07-05 04:38 | ED ---
Female Urogenital HPI - General Chief complaint: Urogenital Stated complaint: Painful Urination Time Seen by Provider: 07/05/21 04:27 Source: patient Mode of arrival: wheelchair - History of Present Illness MD Complaint: dysuria Onset/Timin -: days(s) Location: suprapubic Radiation: non-radiating Severity: moderate Quality: burning Consistency: intermittent Improves with: none Worsens with: urination Associated Symptoms: denies other symptoms - Related Data Home Medications Medication Instructions Recorded Confirmed Meclizine [Antivert] 25 mg PO BID PRN 08/05/20 08/05/20 Montelukast Sodium [Singulair] 10 mg PO HS 08/05/20 08/05/20 Pantoprazole Sodium [Protonix] 40 mg PO DAILY 08/05/20 08/05/20 Previous Rx's Medication Instructions Recorded HYDROcodone/APAP 5-325MG [[place] 1 tab PO TID PRN #12 tab 08/08/20 5-325] amLODIPine [Norvasc] 10 mg PO DAILY 30 Days #60 tab 08/08/20 glipiZIDE XL [Glucotrol XL] 10 mg PO DAILY #0 08/08/20 sitaGLIPtin PHOSPHATE [Januvia] 100 mg PO DAILY 30 Days #30 tab 08/08/20 Allergies Allergy/AdvReac Type Severity Reaction Status Date / Time azithromycin Allergy Rash/Hives Verified 07/05/21 00:31 [From Zithromax Z-Fidel] shellfish derived [Shellfish] Allergy Rash/Hives Verified 07/05/21 00:31 Sulfa (Sulfonamide Allergy Rash/Hives Verified 07/05/21 00:31 Antibiotics) Review of Systems ROS Statement: Those systems with pertinent positive or pertinent negative responses have been documented in the HPI. ROS Other: All systems not noted in ROS Statement are negative. Constitutional: Denies: fever, chills, weakness Respiratory: Denies: cough, dyspnea Cardiovascular: Reports: edema (Chronic). Denies: chest pain, palpitations Gastrointestinal: Reports: as per HPI, abdominal pain. Denies: nausea, vomiting, diarrhea Genitourinary: Reports: dysuria, frequency, hematuria Musculoskeletal: Denies: back pain Skin: Denies: rash Neurological: Denies: headache, weakness, numbness Hematological/Lymphatic: Denies: easy bleeding Past Medical History Past Medical History: Diabetes Mellitus, Hypertension Additional Past Medical History / Comment(s): kidney issues History of Any Multi-Drug Resistant Organisms: None Reported Past Surgical History: Bladder Surgery, Section Past Psychological History: No Psychological Hx Reported Smoking Status: Never smoker Past Alcohol Use History: None Reported Past Drug Use History: None Reported General Exam General appearance: alert, in no apparent distress Head exam: Present: atraumatic, normocephalic Eye exam: Present: normal appearance. Absent: scleral icterus, conjunctival injection Neck exam: Present: normal inspection Respiratory exam: Present: normal lung sounds bilaterally. Absent: respiratory distress, wheezes, rales, rhonchi Cardiovascular Exam: Present: regular rate, normal rhythm, normal heart sounds. Absent: systolic murmur, diastolic murmur, rubs, gallop GI/Abdominal exam: Present: soft. Absent: distended, tenderness, guarding, rebound, rigid, mass Extremities exam: Present: normal inspection, normal capillary refill, pedal edema. Absent: tenderness, calf tenderness Back exam: Present: normal inspection. Absent: CVA tenderness (R), CVA tenderness (L) Neurological exam: Present: alert Skin exam: Present: warm, dry, intact, normal color. Absent: other Course Vital Signs 07/05/21 07/05/21 00:23 06:30 Temperature 98.3 F Pulse Rate 103 H 92 Respiratory 18 16 Rate Blood Pressure 175/83 197/80 O2 Sat by Pulse 95 94 L Oximetry Medical Decision Making - Lab Data Result diagrams: 07/05/21 04:29 07/05/21 04:29 Lab Results 07/05/21 07/05/21 07/05/21 Range/Units 00:39 04:29 04:29 WBC 12.7 H (3.8-10.6) k/uL RBC 3.82 (3.80-5.40) m/uL Hgb 11.6 (11.4-16.0) gm/dL Hct 36.3 (34.0-46.0) % MCV 94.9 (80.0-100.0) fL MCH 30.3 (25.0-35.0) pg MCHC 31.9 (31.0-37.0) g/dL RDW 13.7 (11.5-15.5) % Plt Count 279 (150-450) k/uL MPV 7.8 Neutrophils % 82 % Lymphocytes % 11 % Monocytes % 4 % Eosinophils % 2 % Basophils % 0 % Neutrophils # 10.4 H (1.3-7.7) k/uL Lymphocytes # 1.4 (1.0-4.8) k/uL Monocytes # 0.5 (0-1.0) k/uL Eosinophils # 0.2 (0-0.7) k/uL Basophils # 0.1 (0-0.2) k/uL Sodium 138 (137-145) mmol/L Potassium 5.1 (3.5-5.1) mmol/L Chloride 108 H (98-107) mmol/L Carbon Dioxide 22 (22-30) mmol/L Anion Gap 8 mmol/L BUN 45 H (7-17) mg/dL Creatinine 2.46 H (0.52-1.04) mg/dL Est GFR (CKD-EPI)AfAm 21 (>60 ml/min/1.73 sqM) Est GFR (CKD-EPI)NonAf 18 (>60 ml/min/1.73 sqM) Glucose 152 H (74-99) mg/dL Calcium 9.7 (8.4-10.2) mg/dL Total Bilirubin 0.5 (0.2-1.3) mg/dL AST 20 (14-36) U/L ALT 11 (4-34) U/L Alkaline Phosphatase 69 (38-126) U/L Total Protein 8.3 H (6.3-8.2) g/dL Albumin 4.2 (3.5-5.0) g/dL Urine Color Yellow Urine Appearance Clear (Clear) Urine pH 6.0 (5.0-8.0) Ur Specific [place] 1.013 (1.001-1.035) Urine Protein 2+ H (Negative) Urine Glucose (UA) Negative (Negative) Urine Ketones Negative (Negative) Urine Blood Large H (Negative) Urine Nitrite Negative (Negative) Urine Bilirubin Negative (Negative) Urine Urobilinogen <2.0 (<2.0) mg/dL Ur Leukocyte Esterase Negative (Negative) Urine RBC >182 H (0-5) /hpf Urine WBC 3 (0-5) /hpf Urine Mucus Rare H (None) /hpf Disposition Clinical Impression: Hydronephrosis, RAIMUNDO (acute kidney injury) Disposition: ADMITTED IP TO THIS HOSP Condition: Fair Is patient prescribed a controlled substance at d/c from ED?: No Referrals: Irene Mann DO [Primary Care Provider] - 1-2 days Decision Time: 07:50
[2021-07-05 04:48] LABS: Basophils # (A) 0.1 k/uL (0-0.2); Basophils % (A) 0 %; Eosinophils # (A) 0.2 k/uL (0-0.7); Eosinophils % (A) 2 %; HCT 36.3 % (34.0-46.0); HGB 11.6 gm/dL (11.4-16.0); Lymphocytes # (A) 1.4 k/uL (1.0-4.8); Lymphocytes % (A) 11 %; MCH 30.3 pg (25.0-35.0); MCHC 31.9 g/dL (31.0-37.0); MCV 94.9 fL (80.0-100.0); Mean Platelet Volume 7.8; Monocytes # (A) 0.5 k/uL (0-1.0); Monocytes % (A) 4 %; Neutrophils # (A) 10.4 k/uL (1.3-7.7); Neutrophils % (A) 82 %; Platelet Count 279 k/uL (150-450); RBC 3.82 m/uL (3.80-5.40); RDW 13.7 % (11.5-15.5); WBC 12.7 k/uL (3.8-10.6)
[2021-07-05 05:16] LABS: Albumin 4.2 g/dL (3.5-5.0); Calcium 9.7 mg/dL (8.4-10.2); Potassium 5.1 mmol/L (3.5-5.1); Total Bilirubin 0.5 mg/dL (0.2-1.3); Total Protein 8.3 g/dL (6.3-8.2)
--- NOTE | 2021-07-05 05:25 | CT ---
EXAMINATION TYPE: CT abdomen pelvis wo con DATE OF EXAM: 07/05/2021 COMPARISON: Abdominal pain HISTORY: abd pain CT DLP: 1135.4 mGycm Automated exposure control for dose reduction was used. Images obtained from the diaphragm to the floor the pelvis without contrast. Lung bases are clear of consolidation. Heart size is normal. There is coronary artery calcification. There is no pleural effusion. There is no pericardial effusion. Liver spleen and stomach pancreas appear normal. The bile ducts are not dilated. Gallbladder appears absent. There is no adrenal mass. Kidneys of normal size. There is severe right-sided hydronephrosis. Bladder distends smoothly. There is proximal right-sided hydroureter. There is no inguinal hernia. No free f luid in the pelvis. Uterus is anteverted. No pelvic mass. Appendix is posterior and appears normal. There are multiple sigmoid diverticula. No diverticulitis. There is renal vascular calcification. No right-sided ureteral calculus seen. There is a 2.5 cm cortical cyst lateral left kidney. There is a first-degree L4-5 spondylolisthesis. There is no spondylolysis. There is moderately severe spinal stenosis at L4-5 with facet arthropathy. No compression fracture. The bony pelvis is intact. The hip joints appear intact. IMPRESSION: There is severe right-sided hydronephrosis. No obstructing lesion seen. No significant renal atrophy. No Obstructing calculus seen. Colonic diverticulosis. Nonobstructing small left renal calculi.
[2021-07-05] MEDS ORDERED: PHENAZOPYRIDINE 100 MG TAB PO STA (06:11)
[2021-07-05] MEDS ORDERED: NALOXONE 0.4 MG/ML 1 ML VIAL IV PRN (07:57)
[2021-07-05] MEDS ORDERED: ACETAMINOPHEN TAB 325 MG TAB PO PRN (07:57)
[2021-07-05] MEDS ORDERED: MORPHINE SULFATE 4 MG/ML SYRINGE IV PRN (07:57)
[2021-07-05] MEDS ORDERED: FAMOTIDINE 20 MG TAB PO SCH ×2 (09:00→21:00)
--- NOTE | 2021-07-05 10:02 | P.GSCN ---
History of Present Illness Consult date: 07/05/21 History of present illness: Pleasant 80-year-old female admitted the hospital with painful urination, hematuria, right-sided hydronephrosis and renal insufficiency. Patient stated in the last 24 hours she developed difficulty urinating, dysuria. She follows with for renal insufficiency. It was recommended that she have a consultation with us. In the emergency room she had a computed tomography scan identifying significant right-sided hydronephrosis of indeterminate etiology. There is no stone seen. Her creatinine was 2.6. In reviewing her x-ray she had an ultrasound back in September 2020 identifying right-sided hydronephrosis. The patient does not have stones. She does not have flank pain. She has been nothing by mouth since last night. Given the symptoms, renal insufficiency, hydronephrosis, no evidence of infection or may be something pathologic causing the obstruction. The obstruction may be contributing to the renal insufficiency. Review of Systems All systems: negative - Constitutional Denies fever, Denies weight loss - EENT Eyes: denies blurred vision Ears, nose, mouth and throat: Denies dysphagia - Cardiovascular Denies chest pain, Denies shortness of breath - Respiratory Denies cough, Denies 7 - Gastrointestinal Reports as per HPI - Genitourinary Genitourinary: Denies dysuria, Denies hematuria - Integumentary Denies rash, Denies unusual bruising - Neurological Denies headaches, Denies syncope - Hematologic/Lymphatic Denies easy bleeding, Denies easy bruising Past Medical History Past Medical History: Diabetes Mellitus, Hypertension Additional Past Medical History / Comment(s): kidney issues History of Any Multi-Drug Resistant Organisms: None Reported Past Surgical History: Bladder Surgery, Section Past Psychological History: No Psychological Hx Reported Smoking Status: Never smoker Past Alcohol Use History: None Reported Past Drug Use History: None Reported Medications and Allergies Home Medications Medication Instructions Recorded Confirmed Type Meclizine [Antivert] 25 mg PO BID PRN 08/05/20 08/05/20 History Montelukast Sodium [Singulair] 10 mg PO HS 08/05/20 08/05/20 History Pantoprazole Sodium [Protonix] 40 mg PO DAILY 08/05/20 08/05/20 History HYDROcodone/APAP 5-325MG [[place] 1 tab PO TID PRN #12 tab 08/08/20 Rx 5-325] sitaGLIPtin PHOSPHATE [Januvia] 100 mg PO DAILY 30 Days #30 tab 08/08/20 Rx Furosemide [Lasix] 20 mg PO WEEKLY 07/05/21 07/05/21 History HYDROcodone/APAP 5-325MG [[place] 5] 1 tab PO TID PRN 07/05/21 07/05/21 History Sodium Bicarbonate Tab 07/05/21 07/05/21 History amLODIPine [Norvasc] 5 mg PO DAILY 07/05/21 History glipiZIDE XL [Glucotrol XL] 5 mg PO DAILY 07/05/21 History Allergies Allergy/AdvReac Type Severity Reaction Status Date / Time azithromycin Allergy Rash/Hives Verified 07/05/21 00:31 [From Zithromax Z-Fidel] Iodine and Iodide Containing Allergy Rash/Hives Verified 07/05/21 09:37 Produc shellfish derived [Shellfish] Allergy Rash/Hives Verified 07/05/21 00:31 Sulfa (Sulfonamide Allergy Rash/Hives Verified 07/05/21 00:31 Antibiotics) Surgical - Exam Vital Signs Temp Pulse Resp BP Pulse Ox 98.3 F 103 H 18 175/83 95 07/05/21 00:23 07/05/21 00:23 07/05/21 00:23 07/05/21 00:23 07/05/21 00:23 - General well developed, well nourished - ENT no hearing loss - Respiratory normal expansion, normal respiratory effort - Cardiovascular Rhythm: regular - Abdomen Abdomen: soft, non tender - Integumentary no growths - Neurologic normal sensation - Musculoskeletal normal posture - Psychiatric oriented to time, oriented to person, oriented to place, speech is normal, memory intact Results - Labs 07/05/21 04:29 07/05/21 04:29 Abnormal Lab Results - Last 24 Hours (Table) 07/05/21 07/05/21 07/05/21 Range/Units 00:39 04:29 04:29 WBC 12.7 H (3.8-10.6) k/uL Neutrophils # 10.4 H (1.3-7.7) k/uL Chloride 108 H (98-107) mmol/L BUN 45 H (7-17) mg/dL Creatinine 2.46 H (0.52-1.04) mg/dL Glucose 152 H (74-99) mg/dL Total Protein 8.3 H (6.3-8.2) g/dL Urine Protein 2+ H (Negative) Urine Blood Large H (Negative) Urine RBC >182 H (0-5) /hpf Urine Mucus Rare H (None) /hpf Diabetes panel 07/05/21 Range/Units 04:29 Sodium 138 (137-145) mmol/L Potassium 5.1 (3.5-5.1) mmol/L Chloride 108 H (98-107) mmol/L Carbon Dioxide 22 (22-30) mmol/L BUN 45 H (7-17) mg/dL Creatinine 2.46 H (0.52-1.04) mg/dL Glucose 152 H (74-99) mg/dL Calcium 9.7 (8.4-10.2) mg/dL AST 20 (14-36) U/L ALT 11 (4-34) U/L Alkaline Phosphatase 69 (38-126) U/L Total Protein 8.3 H (6.3-8.2) g/dL Albumin 4.2 (3.5-5.0) g/dL Calcium panel 07/05/21 Range/Units 04:29 Calcium 9.7 (8.4-10.2) mg/dL Albumin 4.2 (3.5-5.0) g/dL Pituitary panel 07/05/21 Range/Units 04:29 Sodium 138 (137-145) mmol/L Potassium 5.1 (3.5-5.1) mmol/L Chloride 108 H (98-107) mmol/L Carbon Dioxide 22 (22-30) mmol/L BUN 45 H (7-17) mg/dL Creatinine 2.46 H (0.52-1.04) mg/dL Glucose 152 H (74-99) mg/dL Calcium 9.7 (8.4-10.2) mg/dL Adrenal panel 07/05/21 Range/Units 04:29 Sodium 138 (137-145) mmol/L Potassium 5.1 (3.5-5.1) mmol/L Chloride 108 H (98-107) mmol/L Carbon Dioxide 22 (22-30) mmol/L BUN 45 H (7-17) mg/dL Creatinine 2.46 H (0.52-1.04) mg/dL Glucose 152 H (74-99) mg/dL Calcium 9.7 (8.4-10.2) mg/dL Total Bilirubin 0.5 (0.2-1.3) mg/dL AST 20 (14-36) U/L ALT 11 (4-34) U/L Alkaline Phosphatase 69 (38-126) U/L Total Protein 8.3 H (6.3-8.2) g/dL Albumin 4.2 (3.5-5.0) g/dL - Imaging CT scan - abdomen: report reviewed, image reviewed CT scan - pelvis: report reviewed, image reviewed Assessment and Plan Assessment: Impression: Painful urination, difficult urination, hematuria, right sided hydronephrosis, acute and chronic renal insufficiency. Medical illnesses. Recommendation: The patient need cystoscopy, retrograde pyelogram, possible stent and procedures as indicated. There is no stone noted. I'm concerned about the hematuria associated with hydronephrosis. Since the patient is nothing by mouth we'll do this today.
[2021-07-05] MEDS ORDERED: MIDAZOLAM 2 MG/2 ML VIAL ONE (11:19)
[2021-07-05] MEDS ORDERED: ONDANSETRON 4 MG/2 ML VIAL ONE (11:19)
[2021-07-05] MEDS ORDERED: LIDOCAINE 1% INJ 10MG/ML (20 ML MDV) ONE (11:19)
[2021-07-05] MEDS ORDERED: fentaNYL (PF) 50 MCG/ML 2 ML AMP ONE (11:19)
[2021-07-05] MEDS ORDERED: PROPOFOL 10 MG/ML 20 ML VIAL IV ONE (11:19)
[2021-07-05] MEDS ORDERED: SODIUM CHLORIDE 0.9% 1,000 ML IV ONE (11:22)
[2021-07-05] MEDS ORDERED: IOPAMIDOL-370 50ML BTL IRRIGATION ONE ×3 (11:36→11:59)
[2021-07-05] MEDS ORDERED: ALPRAZolam 0.5 MG TAB PO PRN (12:12)
[2021-07-05] MEDS ORDERED: SODIUM CHLORIDE 0.45% 1,000 ML IV SCH (12:15)
--- NOTE | 2021-07-05 12:18 | P.OP ---
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 She came to the hospital with this area. She is found to have significant hydronephrosis. She also has hematuria. She is admitted with saw the patient. Because of the above-mentioned findings she'll undergo cystoscopy retrograde pyelogram and stent placement as her creatinine is 2.6 Description of Procedure: Patient brought operating suite she given general anesthesia. She's placed lithotomy position with sterile prep and drape cystoscopy Foroblique lens and 21-Chinese sheath identifies a normal urethra. The bladder howard a totally unremarkable. Both ureteral orifices were normal. Within a cone-tipped catheter a right retrograde pyelogram performed. Above the right iliac vessels there is a distinct filling defect and irregularity with obstruction consistent with urothelial carcinoma. Pass an 035 wire through the ureter up into the collecting system over this passed a reentry ureteral catheter so that I can pass the ureteroscope up to the area of abnormality. I do so. It is very edematous irregular consistent with urothelial carcinoma although quite bloody and somewhat difficult to see. Over the wire pass a scope into the collecting system and again there is so much edema and blunt I cannot really tell anything else. I do pull back ureteroscopy but again due to bleeding it is impossible to say for certain but is totally consistent with urothelial carcinoma. Removed the ureteroscope. The wires and backloaded onto the cystoscope. 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 The patient will probably need a nephroureterectomy at some point time. This will be discussed with the patient later today or tomorrow.
--- NOTE | 2021-07-05 12:31 | FL ---
EXAMINATION TYPE: FL urography retrograde DATE OF EXAM: 07/05/2021 COMPARISON: CT abdomen and pelvis earlier today HISTORY: Right ureter stricture. Right-sided hydronephrosis. TECHNIQUE: Fluoroscopy. FINDINGS: Fluoroscopic guidance was provided during right ureter stent insertion procedure performed by urologist. A total of 1.54 minutes of fluoroscopic time was utilized during the procedure and 5 spot images was acquired. Images acquired show proximal portion of ureter stent after access. IMPRESSION: As Above.
[2021-07-05] MEDS ORDERED: ALPRAZolam 0.25 MG TAB PO PRN (14:26)
[2021-07-05] MEDS: HYDROcodone/APAP 5-325MG 1 EACH TAB PO PRN (14:26)
[2021-07-05] MEDS ORDERED: polyethylene glycoL 3350 17 GM POWD.PACK PO PRN (14:27)
--- NOTE | 2021-07-05 14:35 | P.HPIM ---
History of Present Illness Patient is a pleasant 80-year-old female came in with the complaints hematuria right-sided flank pain and right-sided hydronephrosis and found to have elevated creatinine of around 2.4 baseline is around 1.4. Patient was evaluated by urology. Patient underwent cystoscopy by ureteral stent placement and found to have a lesion in the ureter probably urothelial cancer. Patient doesn't have any fever chills. Patient is still having significant dysuria although urine is significant for hematuria no white blood cell count not significant for any UTI. REVIEW OF SYSTEMS: CONSTITUTIONAL: No fever, no malaise, no fatigue. HEENT: No recent visual problems or hearing problems. Denied any sore throat. CARDIOVASCULAR: No chest pain, orthopnea, PND, no palpitations, no syncope. PULMONARY: No shortness of breath, no cough, no hemoptysis. GASTROINTESTINAL: No diarrhea, no nausea, no vomiting NEUROLOGICAL: No headaches, no weakness, no numbness. HEMATOLOGICAL: Denies any bleeding or petechiae. GENITOURINARY: As mentioned in HPI MUSCULOSKELETAL/RHEUMATOLOGICAL: Denies any joint pain, swelling, or any muscle pain. ENDOCRINE: Denies any polyuria or polydipsia. The rest of the 14-point review of systems is negative. PHYSICAL EXAMINATION: GENERAL: The patient is alert and oriented x3, not in any acute distress. Well developed, well nourished. HEENT: Pupils are round and equally reacting to light. EOMI. No scleral icterus. No conjunctival pallor. Normocephalic, atraumatic. No pharyngeal erythema. No thyromegaly. CARDIOVASCULAR: S1 and S2 present. No murmurs, rubs, or gallops. PULMONARY: Chest is clear to auscultation, no wheezing or crackles. ABDOMEN: Soft and is in the right lower quadrant as well as right flank area., nondistended, normoactive bowel sounds. No palpable organomegaly. MUSCULOSKELETAL: No joint swelling or deformity. EXTREMITIES: No cyanosis, clubbing, or pedal edema. NEUROLOGICAL: Gross neurological examination did not reveal any focal deficits. SKIN: No rashes. Assessment and plan -Acute renal failure secondary to obstructive uropathy from possible urothelial cancer as mentioned above patient underwent a cystoscopy and a stent placement. Patient is on IV fluids which will be continued and old off on diuretics. -Hematuria secondary to above-mentioned reasons symptomatic treatmentpyridium for burning sensation-Chronic kidney disease secondary to diabetic nephropathy patient has stage III chronic kidney disease. Baseline creatinine around 1.4 I from hypertension resume amlodipine -Type 2 diabetes mellitus hold off on oral hypoglycemic agents patient will be started on sliding scale insulin - DVT prophylaxis: Once hematuria resolves patient was started on subcutaneous heparin twice a day Past Medical History Past Medical History: Diabetes Mellitus, Hypertension Additional Past Medical History / Comment(s): kidney issues History of Any Multi-Drug Resistant Organisms: None Reported Past Surgical History: Bladder Surgery, Section Past Psychological History: No Psychological Hx Reported Smoking Status: Never smoker Past Alcohol Use History: None Reported Past Drug Use History: None Reported Medications and Allergies Home Medications Medication Instructions Recorded Confirmed Type Montelukast Sodium [Singulair] 10 mg PO HS 08/05/20 07/05/21 History Pantoprazole Sodium [Protonix] 40 mg PO DAILY 08/05/20 07/05/21 History ALPRAZolam [Xanax] 0.5 mg PO DAILY PRN 07/05/21 07/05/21 History Furosemide [Lasix] 20 mg PO TUTH 07/05/21 07/05/21 History HYDROcodone/APAP 5-325MG [[place] 5] 1 tab PO TID PRN 07/05/21 07/05/21 History Sodium Bicarbonate Tab 650 mg PO DAILY@1200 07/05/21 07/05/21 History amLODIPine [Norvasc] 10 mg PO DAILY 07/05/21 07/05/21 History glipiZIDE XL [Glucotrol Xl] 5 mg PO DAILY 07/05/21 07/05/21 History sitaGLIPtin PHOSPHATE [Januvia] 100 mg PO DAILY@1200 07/05/21 07/05/21 History Allergies Allergy/AdvReac Type Severity Reaction Status Date / Time azithromycin Allergy Rash/Hives Verified 07/05/21 12:03 [From Zithromax Z-Fidel] Iodine and Iodide Containing Allergy Rash/Hives Verified 07/05/21 12:03 Produc shellfish derived [Shellfish] Allergy Rash/Hives Verified 07/05/21 12:03 Sulfa (Sulfonamide Allergy Rash/Hives Verified 07/05/21 12:03 Antibiotics) Physical Exam Vitals: Vital Signs Temp Pulse Pulse Pulse Resp BP BP 07/05/21 12:47 86 16 190/72 07/05/21 12:33 83 16 187/81 07/05/21 12:18 97 F L 88 16 175/81 07/05/21 09:19 97.6 F 84 18 181/85 07/05/21 07:57 97.7 F 89 18 168/67 07/05/21 06:30 92 16 197/80 07/05/21 00:23 98.3 F 103 H 18 175/83 Pulse Ox 07/05/21 12:47 95 07/05/21 12:33 99 07/05/21 12:18 96 07/05/21 09:19 97 07/05/21 07:57 97 07/05/21 06:30 94 L 07/05/21 00:23 95 Intake and Output 07/04/21 07/05/21 07/05/21 22:59 06:59 14:59 Intake Total 120 Output Total 0 Balance 120 Intake: IV 120 Output: Estimated Blood Loss 0 Other: Voiding Method Diaper Weight 98.883 kg 98.883 kg Results CBC & Chem 7: 07/05/21 04:29 07/05/21 04:29 Labs: Abnormal Lab Results - Last 24 Hours (Table) 07/05/21 07/05/21 07/05/21 Range/Units 00:39 04:29 04:29 WBC 12.7 H (3.8-10.6) k/uL Neutrophils # 10.4 H (1.3-7.7) k/uL Chloride 108 H (98-107) mmol/L BUN 45 H (7-17) mg/dL Creatinine 2.46 H (0.52-1.04) mg/dL Glucose 152 H (74-99) mg/dL Total Protein 8.3 H (6.3-8.2) g/dL Urine Protein 2+ H (Negative) Urine Blood Large H (Negative) Urine RBC >182 H (0-5) /hpf Urine Mucus Rare H (None) /hpf Thrombosis Risk Factor Assmnt - Choose All That Apply Each Factor Represents 1 point: Minor surgery planned, Obesity (BMI >25) Each Risk Factor Represents 3 Points: Age 75 years or older Thrombosis Risk Factor Assessment Total Risk Factor Score: 5 Thrombosis Risk Factor Assessment Level: High Risk
[2021-07-05] MEDS: amLODIPine 10 MG TAB PO SCH (15:17)
[2021-07-05] MEDS: SODIUM CHLORIDE 0.9% 1,000 ML IV SCH (15:20)
[2021-07-05 15:21] VITALS: RESP 18
--- NOTE | 2021-07-05 15:49 | P.PN ---
Subjective Progress Note Date: 07/05/21 I just had a 45 minute discussion with the patient and her daughter about the clinical situation. The patient has hydronephrosis now for several months on the right side, this is asymptomatic hydronephrosis. She has microscopic hematuria. Computed tomography scan showed a proximal obstruction without o bvious stone. Retrograde pyelogram shows a distinct filling defect in the mid to proximal right ureter. Attempts at biopsying or identify this was challenging due to the bleeding from the presumed tumor. A double-J catheter was placed Based on the clinical findings of a slow progression of disease, hematuria, obstruction of the proximal ureter without a stone and filling defect on retrograde pyelogram ,significant bleeding from the area of obstruction is CONSISTENT with a ureteral cancer. I did not identify any obvious lymphadenopathy on the computed tomography scan. The liver looks clear. I discussed with the patient and her daughter that I would like to review the computed tomography scan with radiology. Whether further metastatic workup would be required will be dependent on their interpretation. We then discussed treatment including open nephroureterectomy, robotic nephroureterectomy. We also discussed having the surgery done at a [facility] center such as [facility] which is near her daughter's house in [place]. They will discuss this tonight. I will see the patient in the morning. From my standpoint she can be discharged home while the final decisions as to further evaluation and/or treatment are made. Objective - Vital Signs Vital signs: Vital Signs Temp 97.6 F 07/05/21 13:45 Pulse 86 07/05/21 14:30 Resp 18 07/05/21 13:45 BP 180/80 07/05/21 14:30 Pulse Ox 95 07/05/21 14:00 Intake & Output 07/04/21 07/05/21 07/05/21 18:59 06:59 18:59 Intake Total 120 Output Total 0 Balance 120 Weight 98.883 kg 98.883 kg Intake: IV 120 Output: Estimated Blood Loss 0 Other: Voiding Method Diaper - Labs CBC & Chem 7: 07/05/21 04:29 07/05/21 04:29 Labs: Abnormal Lab Results - Last 24 Hours (Table) 07/05/21 07/05/21 07/05/21 Range/Units 00:39 04:29 04:29 WBC 12.7 H (3.8-10.6) k/uL Neutrophils # 10.4 H (1.3-7.7) k/uL Chloride 108 H (98-107) mmol/L BUN 45 H (7-17) mg/dL Creatinine 2.46 H (0.52-1.04) mg/dL Glucose 152 H (74-99) mg/dL Total Protein 8.3 H (6.3-8.2) g/dL Urine Protein 2+ H (Negative) Urine Blood Large H (Negative) Urine RBC >182 H (0-5) /hpf Urine Mucus Rare H (None) /hpf
[2021-07-05 16:07] LABS: Glucose,Whole Blood 149 mg/dL (75-99)
[2021-07-05] MEDS: INSULIN ASPART (NovoLOG) 100 UNIT/ML VIAL SQ SCH ×2 (18:35→21:15)
[2021-07-05 20:47] LABS: Glucose,Whole Blood 130 mg/dL (75-99)
[2021-07-05] MEDS ORDERED: MONTELUKAST 10 MG TAB PO SCH (21:00)
[2021-07-05] MEDS: HYDROmorphone 0.5 MG/0.5 ML SYRINGE IVP PRN (21:38)
[2021-07-06] MEDS: HYDROmorphone 0.5 MG/0.5 ML SYRINGE IVP PRN (02:27)
[2021-07-06 06:26] LABS: Glucose,Whole Blood 99 mg/dL (75-99)
[2021-07-06] MEDS ORDERED: PANTOPRAZOLE 40 MG TABLET PO SCH (07:30)
[2021-07-06] MEDS: INSULIN ASPART (NovoLOG) 100 UNIT/ML VIAL SQ SCH ×2 (07:36→11:43)
[2021-07-06] MEDS: amLODIPine 10 MG TAB PO SCH (07:37)
[2021-07-06] MEDS: SODIUM CHLORIDE 0.9% 1,000 ML IV SCH (07:43)
[2021-07-06] MEDS ORDERED: ENOXAPARIN 40 MG/0.4 ML SYRINGE SQ SCH (09:00)
[2021-07-06] MEDS ORDERED: amLODIPine 10 MG TAB PO SCH (09:00)
[2021-07-06 09:58] LABS: HCT 31.8 % (37.2-46.3); HGB 9.7 g/dL (12.0-15.0); MCH 29.7 pg (27.0-32.0); MCHC 30.5 g/dL (32.0-37.0); MCV 97.2 fL (80.0-97.0); Mean Platelet Volume 10.7 fL (9.5-12.2); NRBC Per 100 WBC 0 /100 WBCS (0.0-0.0); Platelet Count 240 X 10*3/uL (140-440); RBC 3.27 X 10*6/uL (4.10-5.20); RDW 12.9 % (11.5-14.5); WBC 10.17 X 10*3/uL (4.50-10.00)
[2021-07-06] MEDS ORDERED: BENZOCAINE/MENTHOL LOZENG 1 EACH LOZENGE MUCOUS MEM PRN (10:54)
[2021-07-06] MEDS ORDERED: PHENAZOPYRIDINE 200 MG TAB PO SCH (11:00)
--- NOTE | 2021-07-06 11:03 | P.PN ---
Subjective Progress Note Date: 07/06/21 The patient is in the hospital with right hydronephrosis due to an obstructing lesion in the right mid upper ureter consistent with urothelial carcinoma. She has also had hematuria there is no evidence of infection. There is no evidence of stones. It is my belief she has a urothelial carcinoma based on the clinical evidence of. Scopic cleared appears as if there is a tumor. I discussed with the patient in the family the treatment and evaluation options. The plan is for me to review the CAT scan with radiology to make sure there is no obvious metastatic disease. If there is none and then she'll be set up for a right nephroureterectomy. She wishes that I do it so this will be done open. The risks complications and alternatives have been discussed. Referral to a Medical Center is also been discussed. From urologic standpoint she can be discharged home today and I will follow with her in the near future after review the x-rays with radiology. I'll then set her up for surgery assuming there is no obvious metastatic disease which I do not see personally on x-ray. Objective - Vital Signs Vital signs: Vital Signs Temp 98.5 F 07/06/21 02:00 Pulse 86 07/06/21 02:00 Resp 18 07/06/21 07:45 BP 136/76 07/06/21 02:00 Pulse Ox 93 L 07/06/21 02:00 Intake & Output 07/05/21 07/06/21 07/06/21 18:59 06:59 18:59 Intake Total 120 Output Total 0 Balance 120 Weight 98.883 kg 100.335 kg Intake: IV 120 Output: Estimated Blood Loss 0 Other: Voiding Method Diaper Toilet Toilet # Voids 2 4 1 # Bowel Movements 1 - Labs CBC & Chem 7: 07/06/21 06:40 07/05/21 04:29 Labs: Abnormal Lab Results - Last 24 Hours (Table) 07/05/21 07/05/21 07/06/21 Range/Units 16:05 20:37 06:40 WBC 10.17 H (4.50-10.00) X 10*3/uL RBC 3.27 L (4.10-5.20) X 10*6/uL Hgb 9.7 L (12.0-15.0) g/dL Hct 31.8 L (37.2-46.3) % MCV 97.2 H (80.0-97.0) fL MCHC 30.5 L (32.0-37.0) g/dL POC Glucose (mg/dL) 149 H 130 H (75-99) mg/dL
[2021-07-06 11:19] LABS: Glucose,Whole Blood 136 mg/dL (75-99)
[2021-07-06] MEDS ORDERED: LINAGLIPTIN 5 MG TABLET PO SCH (12:00)
[2021-07-06] MEDS ORDERED: SODIUM BICARBONATE TAB 650 MG TAB PO SCH (12:00)
[2021-07-06] MEDS ORDERED: FUROSEMIDE 10 MG/ML 4 ML VIAL IV STA (12:20)
--- NOTE | 2021-07-06 12:20 | P.NPCON ---
History of Present Illness - Reason for Consult chronic renal failure - History of Present Illness Patient is a 80-year-old female with history of chronic kidney disease NKF stage IV with previous creatinine around 2.3-2.4 mg/dL. Patient is admitted to the hospital with complaints of abdominal pain, discom fort as well as brian bleeding in the urine. Abdominal CT shows severe right-sided hydronephrosis. Patient had cystoscopy yesterday on 07/05/2021 with right ureteroscopy and was found to have lesion highly suggestive of a right urothelial carcinoma of the proximal ureter right nephroureterectomy has been suggested. A right ureteral stent was placed Patient's daughter is present with her and at this time they're considering open nephrectomy locally versus robotic-assisted laparoscopic procedure at of . It appears that they're leaning 2 words staying local Review of Systems Continues to have hematuria Other systems negative Past Medical History Past Medical History: Diabetes Mellitus, Hypertension Additional Past Medical History / Comment(s): kidney issues History of Any Multi-Drug Resistant Organisms: None Reported Past Surgical History: Bladder Surgery, Section Past Psychological History: No Psychological Hx Reported Smoking Status: Never smoker Past Alcohol Use History: None Reported Past Drug Use History: None Reported Medications and Allergies Home Medications Medication Instructions Recorded Confirmed Type Montelukast Sodium [Singulair] 10 mg PO HS 08/05/20 07/05/21 History Pantoprazole Sodium [Protonix] 40 mg PO DAILY 08/05/20 07/05/21 History ALPRAZolam [Xanax] 0.5 mg PO DAILY PRN 07/05/21 07/05/21 History Furosemide [Lasix] 20 mg PO TUTH 07/05/21 07/05/21 History HYDROcodone/APAP 5-325MG [[place] 1 tab PO TID PRN 07/05/21 07/05/21 History 5-325] Sodium Bicarbonate Tab 650 mg PO DAILY@1200 07/05/21 07/05/21 History amLODIPine [Norvasc] 10 mg PO DAILY 07/05/21 07/05/21 History glipiZIDE XL [Glucotrol XL] 5 mg PO DAILY 07/05/21 07/05/21 History sitaGLIPtin PHOSPHATE [Januvia] 100 mg PO DAILY@1200 07/05/21 07/05/21 History Acetaminophen Tab [Tylenol] 650 mg PO Q6HR PRN tab 07/06/21 Rx Phenazopyridine [Pyridium] 200 mg PO TID PRN #9 tab 07/06/21 Rx Allergies Allergy/AdvReac Type Severity Reaction Status Date / Time azithromycin Allergy Rash/Hives Verified 07/05/21 12:03 [From Zithromax Z-Fidel] Iodine and Iodide Containing Allergy Rash/Hives Verified 07/05/21 12:03 Produc shellfish derived [Shellfish] Allergy Rash/Hives Verified 07/05/21 12:03 Sulfa (Sulfonamide Allergy Rash/Hives Verified 07/05/21 12:03 Antibiotics) Physical Exam Vitals: Vital Signs Temp Pulse Pulse Resp BP Pulse Ox 07/06/21 07:45 18 07/06/21 02:00 98.5 F 86 18 136/76 93 L 07/05/21 19:29 81 18 174/83 07/05/21 14:30 86 180/80 07/05/21 14:15 97 190/78 07/05/21 14:00 85 184/87 95 07/05/21 13:45 97.6 F 90 18 194/75 92 L 07/05/21 12:47 86 16 190/72 95 07/05/21 12:33 83 16 187/81 99 07/05/21 12:18 97 F L 88 16 175/81 96 Intake and Output 07/05/21 07/06/21 07/06/21 22:59 06:59 14:59 Other: Voiding Method Toilet Toilet # Voids 2 4 1 # Bowel Movements 1 Weight 100.335 kg Awake, comfortable, not in any acute distress Examination of the heart S1 and S2 Examination lungs decreased breath sounds at the bases Abdomen is soft nontender Examination lower extremity shows 3+ edema bilaterally 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 Chronic kidney disease NKF stage IV secondary to nephrosclerosis possibly the right hydronephrosis contributing to the CK D as well. Baseline creatinine about 2.3 mg/dL as of October 2020. Discussed with patient regarding impact of nephrectomy. At this time it is unclear as to how much the right kidney is con tributing to the renal function since this appears to be chronic. Patient is advised that renal function maY deteriorate significantly enough to require renal replacement therapy. 2. Right hydronephrosis secondary to right ureteral lesion most likely urothelial carcinoma with plans for right nephroureterectomy 3. Bilateral lower extremity edema, Norvasc appropriately discontinued 4. Hematuria secondary to above, CBC being monitored 5. Metabolic acidosis associated with chronic kidney disease maintained on sodium bicarb Plan: IV Lasix 1 DC Norvasc Repeat labs in a.m. Monitor CBC
[2021-07-06 12:46] LABS: African American GFR (CKD) 18.5 (60.0-200.0); Anion Gap 13.8 mmol/L (10.00-18.00); BUN/Creat Ratio 16.19 Ratio (12.00-20.00); Blood Urea Nitrogen 43.7 mg/dL (9.0-27.0); Carbon Dioxide 18.2 mmol/L (20.0-27.5); Potassium 5.2 mmol/L (3.5-5.5)
[2021-07-06 15:00] VITALS: BP 145/72; PULSE 89; TEMP 98.6
[2021-07-06] MEDS: HYDROcodone/APAP 5-325MG 1 EACH TAB PO PRN (15:32)
[2021-07-06] MEDS ORDERED: carvediloL 6.25 MG TAB PO SCH (17:30)
[2021-07-06 17:42] LABS: % Iron Saturation 10.94 (12.00-45.00)
--- NOTE | 2021-07-07 14:37 | P.DS ---
Providers Date of admission: 07/05/21 07:57 Expected date of discharge: 07/06/21 Attending physician: Violeta Cunningham Consults: 07/05/21 07:58 Consult Physician Routine Consulting Provider: Gregory Zhao Consult Reason/Comments: Hydronephrosis Do you want consulting provider notified?: Yes Consult Physician Routine Consulting Provider: Laurie Walker Consult Reason/Comments: Acute on chronic renal failure Do you want consulting provider notified?: Yes Primary care physician: Irene Perdomo Hospital Course: Final diagnosis Acute renal failure secondary to obstructive uropathy from possible urothelial cancer Status post cystoscopy and ureteral stent placement with urology Hematuria secondary to the above-mentioned diagnosis Chronic kidney disease secondary to diabetic nephropathy, stage III chronic kidney disease Hypertension Type 2 diabetes mellitus DVT prophylaxis Full code Discharge disposition Patient is being discharged in a stable condition with guarded prognosis to home. Patient will follow-up with Dr. Perdomo in the outpatient setting upon discharge. Patient is to also follow-up with Dr. Pavel gonzales in the outpatient setting. [facility] office will be contacting patient in regards to further testing and outpatient procedures. Prescriptions provided for repeat labs and recommend monitoring CBC closely. Total time taken is greater than 35 minutes. Hospital course This is a 80-year-old female who was recently admitted with hematuria and right- sided flank pain and found to have right-sided hydronephrosis with elevated creatinine. Patient was evaluated by urology and underwent cystoscopy with ureteral stent placement and found to have a lesion in the ureter which is most probably urothelial cancer and urology following closely and discussing the imaging with radiology and will be following up with the patient and arranging for outpatient procedure. Family at the bedside along with patient and this was discussed in detail with Dr. Zhao. She was also seen and evaluated by nephrology and will follow-up in the outpatient setting. Patient is reported to having some continued bleeding noted although hemoglobin is stable and states sh e would like to go home and follow-up outpatient. Currently no reports of chest pain, shortness of breath, or palpitations. Patient is afebrile. No reports of nausea or vomiting and patient is tolerating diet. Patient will be discharged home today. Guarded prognosis. Physical exam: GENERAL EXAM: Alert and oriented 3, sitting up in bed, no acute distress HEAD: Normocephalic/atraumatic,MMM. EYES: Normal reaction of pupils, equal size. Conjunctiva pink, sclera white. NECK: Supple, no JVD LUNGS: Equal air entry with minimal expiratory wheeze CVS: Regular rate and rhythm, normal S1 and S2, no gallops, no murmurs, no rubs ABDOMEN: Soft, nontender. normal bowel sounds, no guarding or rigidity. EXTREMITIES: No clubbing, no edema, no cyanosis, 2+ pulses and upper and lower extremities. SKIN: Warm and dry, no rashes NERVOUS SYSTEM: Cranial nerves II through XII grossly intact No focal deficits, tone is normal in all 4 extremities. PSYCHIATRIC: Alert and oriented -3. Mood and affect normal. Please refer to medication reconciliation sheet for a list of medications. The impression and plan of care has been dictated by Mari Abrams, Nurse Practitioner as directed. Dr. Joey MD I have performed a history and examination and MDM of this patient, discussed the same with the dictator, and agree with the dictator's assessment and plan as written ,documented as a scribe. Based on total visit time, I have performed more than 50% of the visit. Patient Condition at Discharge: Fair Plan - Discharge Summary Discharge Rx Participant: No New Discharge Prescriptions: New Phenazopyridine [Pyridium] 200 mg PO TID PRN #9 tab PRN Reason: Pain Acetaminophen Tab [Tylenol] 650 mg PO Q6HR PRN tab PRN Reason: Mild Pain Or Fever > 100.5 Continue Pantoprazole Sodium [Protonix] 40 mg PO DAILY Sodium Bicarbonate Tab 650 mg PO DAILY@1200 HYDROcodone/APAP 5-325MG [[place] 5-325] 1 tab PO TID PRN PRN Reason: Pain glipiZIDE XL [Glucotrol XL] 5 mg PO DAILY amLODIPine [Norvasc] 10 mg PO DAILY sitaGLIPtin PHOSPHATE [Januvia] 100 mg PO DAILY@1200 Montelukast Sodium [Singulair] 10 mg PO HS Furosemide [Lasix] 20 mg PO TUTH ALPRAZolam [Xanax] 0.5 mg PO DAILY PRN PRN Reason: Anxiety Discharge Medication List Montelukast Sodium [Singulair] 10 mg PO HS 08/05/20 [History] Pantoprazole Sodium [Protonix] 40 mg PO DAILY 08/05/20 [History] ALPRAZolam [Xanax] 0.5 mg PO DAILY PRN 07/05/21 [History] Furosemide [Lasix] 20 mg PO TUTH 07/05/21 [History] HYDROcodone/APAP 5-325MG [[place] 5-325] 1 tab PO TID PRN 07/05/21 [History] Sodium Bicarbonate Tab 650 mg PO DAILY@1200 07/05/21 [History] amLODIPine [Norvasc] 10 mg PO DAILY 07/05/21 [History] glipiZIDE XL [Glucotrol XL] 5 mg PO DAILY 07/05/21 [History] sitaGLIPtin PHOSPHATE [Januvia] 100 mg PO DAILY@1200 07/05/21 [History] Acetaminophen Tab [Tylenol] 650 mg PO Q6HR PRN tab 07/06/21 [Rx] Phenazopyridine [Pyridium] 200 mg PO TID PRN #9 tab 07/06/21 [Rx] Follow up Appointment(s)/Referral(s): Irene Perdomo DO [Primary Care Provider] - 1-2 days (office closed at time of discharge. Please call Wednesday to schedule appointment ) Gregory Zhao MD [STAFF PHYSICIAN] - 1 Week (Dr. Zhao's office will be calling to arrange for an appointment outpatient) Ambulatory/Diagnostic Orders: Basic Metabolic Panel [LAB.AMB] Time Frame: 2 Days, Location: None Selected Complete Blood Count w/diff [LAB.AMB] Time Frame: 2 Days, Location: None Selected Patient Instructions/Handouts: Hydronephrosis (DC) Activity/Diet/Wound Care/Special Instructions: Activity Limited until follow-up Follow-up with primary care provider on discharge Urology office will be calling to schedule an appointment Follow-up with urology outpatient Monitor for any worsening bleeding Recommend repeat labs in 2 days to monitor hemoglobin Continue diabetic diet Discharge Disposition: HOME SELF-CARE
[2021-07-08] MEDS ORDERED: FUROSEMIDE 20 MG TAB PO SCH (09:00)
== END 2021-07-06 15:38 | disposition home or self-care (01) ==
LOC: EC 00:04 → INTOOBSV 07:57 → 4SSUR 07:57 → UNDODISIN 07-06 15:38
PROVIDERS: ADMIT Hospitalist; ATTEND Hospitalist
PROC: BT1D1ZZ Fluoroscopy of Right Kidney, Ureter and Bladder using Low Osmolar Contrast (ICD-10-PCS; 2021-07-05)
PROC: 0T9680Z Drainage of Right Ureter with Drainage Device, Via Natural or Artificial Opening Endoscopic (ICD-10-PCS; principal; 2021-07-05 10:43)
DX: N13.1 Hydronephrosis with ureteral stricture, not elsewhere classified (principal); N28.9 Disorder of kidney and ureter, unspecified; N17.9 Acute kidney failure, unspecified; E87.2 Acidosis; I12.9 Hypertensive chronic kidney disease with stage 1 through stage 4 chronic kidney disease, or unspecified chronic kidney disease; N18.30 Chronic kidney disease, stage 3 unspecified; E11.22 Type 2 diabetes mellitus with diabetic chronic kidney disease; K57.30 Diverticulosis of large intestine without perforation or abscess without bleeding; E66.9 Obesity, unspecified; Z68.41 Body mass index [BMI] 40.0-44.9, adult; Z79.84 Long term (current) use of oral hypoglycemic drugs; Z79.899 Other long term (current) drug therapy; Z88.2 Allergy status to sulfonamides; Z88.1 Allergy status to other antibiotic agents; Z91.013 Allergy to seafood; Z98.891 History of uterine scar from previous surgery; Z98.890 Other specified postprocedural states
CPT/HCPCS: 52351; 52332; 99285; 36415; 80053; 80048; 83540; 83550; 85025; 85027; 81001; 74420; 74019; 74176; G0378 ×2; C2625; C1758; C1769; J2250; J1940; J2405; J2001; J3010; J2704; J1170 ×2; Q9967

== ENCOUNTER → 2021-07-14 | Outpatient (CLI) | payer MEDICARE ==
--- NOTE | 2021-07-14 13:00 | XR ---
EXAMINATION TYPE: XR chest 2V DATE OF EXAM: 07/14/2021 COMPARISON: X-ray dated 08/05/2020 HISTORY: Presurgical testing TECHNIQUE: Frontal and lateral views of the chest are obtained. FINDINGS: Slightly prominent interstitial lung markings, nonspecific. Grossly unremarkable lungs otherwise. No sizable pleural effusion or definite pneumothorax. Slightly increased cardiac transverse diameter. Elevated right hemidiaphragm. Degenerative changes of the thoracic spine. IMPRESSION: As above.
[2021-07-14 14:16] LABS: Appearance,Urine Cloudy (Clear); Bacteria,Urine Occasional /hpf; Bilirubin,Urine Negative (Negative); Blood,Urine Large (Negative); Color,Urine Dark Brown; Glucose,Urine (UA) Negative (Negative); Ketones,Urine Negative (Negative); Leukocyte Esterase,Urine Moderate (Negative); Nitrite,Urine Negative (Negative); Protein,Urine 2+ (Negative); RBC,Urine >182 /hpf (0-5); Specific Gravity,Urine 1.013 (1.001-1.035); Squamous Epithelial Cell,Urine 1 /hpf (0-4); Urobilinogen,Urine <2.0 mg/dL (<2.0); WBC,Urine 36 /hpf (0-5)
[2021-07-14 18:28] LABS: Basophils # (A) 0.09 X 10*3/uL (0.00-0.10); Basophils % (A) 0.9 %; Eosinophils # (A) 0.26 X 10*3/uL (0.04-0.35); Eosinophils % (A) 2.6 %; HCT 33.3 % (37.2-46.3); HGB 9.7 g/dL (12.0-15.0); Immature Grans, Automated 0.5 %; Lymphocytes # (A) 1.63 X 10*3/uL (0.90-5.00); MCH 28.5 pg (27.0-32.0); MCHC 29.1 g/dL (32.0-37.0); MCV 97.9 fL (80.0-97.0); Mean Platelet Volume 10.4 fL (9.5-12.2); Monocytes # (A) 0.69 X 10*3/uL (0.20-1.00); Monocytes % (A) 6.8 %; NRBC Per 100 WBC 0 /100 WBCS (0.0-0.0); Neutrophils # (A) 7.46 X 10*3/uL (1.80-7.70); Neutrophils % (A) 73.2 %; Platelet Count 335 X 10*3/uL (140-440); RDW 12.6 % (11.5-14.5); WBC 10.18 X 10*3/uL (4.50-10.00)
[2021-07-14 18:42] LABS: African American GFR (CKD) 19.4 (60.0-200.0); Albumin 3.9 g/dL (3.8-4.9); Albumin/Globulin Ratio 1.11 (1.60-3.17); Anion Gap 13.2 mmol/L (10.00-18.00); BUN/Creat Ratio 15.88 Ratio (12.00-20.00); Blood Urea Nitrogen 41.3 mg/dL (9.0-27.0); Calcium 9.1 mg/dL (8.7-10.3); Carbon Dioxide 16.8 mmol/L (20.0-27.5); Globulin 3.5 g/dL (1.6-3.3); Non-African American GFR(CKD) 16.7 (60.0-200.0); Potassium 4.8 mmol/L (3.5-5.5); Total Bilirubin 0.2 mg/dL (0.30-1.20); Total Protein 7.4 g/dL (6.2-8.2)
== END | disposition home or self-care (01) ==
LOC: LABPAT 12:02
PROVIDERS: ATTEND Urology
DX: Z01.812 Encounter for preprocedural laboratory examination (principal); C66.1 Malignant neoplasm of right ureter
CPT/HCPCS: 36415; 71046; 80053; 81001; 85025; 87086

== ENCOUNTER 2021-07-23 09:16 | Inpatient (IN) | payer MEDICARE ==
--- NOTE | 2021-07-22 17:30 | P.GSHP ---
History of Present Illness H&P Date: 07/22/21 80 yo female who came to the hospital recently with dysuria and hematuria. She was found to have arf[cr 2.6] A ct scan identified right hydronephrosis. A cysto , right retrograde and ureteroscopy identified a mid to proximal ureteral mass c/w ca of the right ureter. Metastatic w/u was negative. THe xrays were reviewed with radiology and they concurred that this was c/w ca of the right ureter. She comes for a right nephroureterctomy. The risks, alternatives and complications were discussed. he understands that dialysis is possible in the future. She comes for this procedure. - Constitutional Constitutional: Denies chills, Denies fever - EENT Eyes: denies blurred vision, denies pain Ears, nose, mouth and throat: Denies headache, Denies sore throat - Cardiovascular Cardiovascular: Denies chest pain, Denies shortness of breath - Respiratory Respiratory: Denies cough, Denies 7 - Gastrointestinal Gastrointestinal: Denies abdominal pain, Denies diarrhea, Denies nausea, Denies vomiting - Genitourinary (Female) Genitourinary: Denies dysuria, Denies hematuria - Genitourinary (Male) Genitourinary: Denies dysuria, Denies hematuria - Musculoskeletal Musculoskeletal: Denies myalgias - Integumentary Integumentary: Denies pruritus, Denies rash - Neurological Neurological: Denies numbness, Denies weakness - Psychiatric Psychiatric: Denies anxiety, Denies depression - Endocrine Endocrine: Denies fatigue, Denies weight change Past Medical History Past Medical History: Asthma, Diabetes Mellitus, Hypertension, Osteoarthritis (OA), Renal Disease Additional Past Medical History / Comment(s): rt kidney CA,bloody urine History of Any Multi-Drug Resistant Organisms: None Reported Past Surgical History: Section, Cholecystectomy Additional Past Surgical History / Comment(s): c sect x2 Past Anesthesia/Blood Transfusion Reactions: No Reported Reaction Additional Past Anesthesia/Blood Transfusion Reaction / Comment(s): no problems blood transfusion Smoking Status: Never smoker - Past Family History Mother Family Medical History: No Reported History Sister(s) Family Medical History: Cancer Additional Family Medical History / Comment(s): breast Father Family Medical History: Liver Disease Medications and Allergies Home Medications Medication Instructions Recorded Confirmed Type Montelukast Sodium [Singulair] 10 mg PO HS 08/05/20 07/21/21 History Pantoprazole Sodium [Protonix] 40 mg PO QAM 08/05/20 07/21/21 History ALPRAZolam [Xanax] 0.5 mg PO DAILY PRN 07/05/21 07/21/21 History Furosemide [Lasix] 20 mg PO TUTH 07/05/21 07/21/21 History HYDROcodone/APAP 5-325MG [[place] 1 - 2 tab PO TID PRN 07/05/21 07/21/21 History 5-325] Sodium Bicarbonate Tab 650 mg PO TID 07/05/21 07/21/21 History amLODIPine [Norvasc] 5 mg PO QAM 07/05/21 07/21/21 History glipiZIDE XL [Glucotrol XL] 5 mg PO DAILY 07/05/21 07/21/21 History sitaGLIPtin PHOSPHATE [Januvia] 100 mg PO DAILY@1200 07/05/21 07/21/21 History Phenazopyridine [Pyridium] 200 mg PO TID PRN #9 tab 07/06/21 07/21/21 Rx Diclofenac Sodium [Voltaren 1 applic TOPICAL DAILY PRN 07/21/21 07/21/21 History Arthritis Pain 1% Gel] Allergies Allergy/AdvReac Type Severity Reaction Status Date / Time adhesive tape Allergy brown skin Verified 07/21/21 14:47 azithromycin Allergy Rash/Hives Verified 07/21/21 14:09 [From Zithromax Z-Fidel] Iodine and Iodide Containing Allergy Rash/Hives Verified 07/21/21 14:09 Produc shellfish derived [Shellfish] Allergy Rash/Hives Verified 07/21/21 14:09 Sulfa (Sulfonamide Allergy Rash/Hives Verified 07/21/21 14:09 Antibiotics) iron AdvReac Nausea & Verified 07/21/21 14:10 Vomiting & Diarrhea,hypoglycemia Surgical - Exam - General well developed, well nourished, no distress - Eyes normal ocular movement, no icteric - ENT no hearing loss, no congestion - Neck no masses, trachea midline - Respiratory normal respiratory effort, clear to auscultation - Abdomen Abdomen: soft, non tender, no guarding, no rigid, no rebound - Integumentary no rash, no abnormal pigmentation - Neurologic no disoriented, no combative - Psychiatric oriented to time, oriented to person, oriented to place, speech is normal, memory intact Results - Imaging Abdominal x-ray: report reviewed, image reviewed CT scan - abdomen: report reviewed, image reviewed CT scan - pelvis: report reviewed, image reviewed Assessment and Plan Assessment: Impression: right ureteral cancer. crf Plan: right nephroureterctomy
[~2021-07-23 09:16] MED LIST: DEXAMETHASONE SOD PHOSPHATE 4 MG/ML 1 ML VIAL IV ONE; HYDROmorphone 0.5 MG/0.5 ML SYRINGE IVP PRN; ONDANSETRON 4 MG/2 ML VIAL IVP ONE
[2021-07-23 10:17] LABS: Glucose,Whole Blood 105 mg/dL (75-99)
[2021-07-23] MEDS ORDERED: ONDANSETRON 4 MG/2 ML VIAL ONE (10:19)
[2021-07-23] MEDS: LACTATED RINGERS 1,000 ML IV SCH ×2 (10:22→15:27)
[2021-07-23] MEDS ORDERED: fentaNYL (PF) 50 MCG/ML 2 ML AMP IVP ONE (10:37)
[2021-07-23] MEDS ORDERED: MIDAZOLAM 2 MG/2 ML VIAL IVP ONE (10:37)
[2021-07-23] MEDS ORDERED: SUCCINYLCHOLINE CHLORIDE 100 MG/5 ML SYR IV ONE (11:00)
[2021-07-23] MEDS ORDERED: NEOSTIGMINE 1 MG/ML 10 ML VIAL ONE (11:00)
[2021-07-23] MEDS ORDERED: LIDOCAINE 2% INJ 20 MG/ML (2 ML VIAL) ONE (11:00)
[2021-07-23] MEDS ORDERED: fentaNYL (PF) 50 MCG/ML 2 ML AMP ONE (11:00)
[2021-07-23] MEDS ORDERED: GLYCOPYRROLATE 0.2 MG/ML 2 ML VIAL ONE (11:00)
[2021-07-23] MEDS ORDERED: MIDAZOLAM 2 MG/2 ML VIAL ONE (11:00)
[2021-07-23] MEDS ORDERED: PROPOFOL 10 MG/ML 20 ML VIAL IV ONE (11:00)
[2021-07-23] MEDS ORDERED: ROCURONIUM 10 MG/ML (5 ML VIAL) IV ONE (11:00)
[2021-07-23] MEDS ORDERED: NALOXONE 0.4 MG/ML 1 ML VIAL IV PRN (11:16)
--- NOTE | 2021-07-23 11:19 | P.ANPRN ---
Procedure Note - Anesthesia - Epidural/Spinal Epidural Time Out Performed: Yes Date of Procedure: 07/23/21 Procedure Start Time: 10:37 Procedure Stop Time: 10:50 Location of Patient: PreOp Indication: Acute Post-Operative Pain, Requested by Surgeon (Dr Zhao) Sedation Type: Sedate with meaningful contact maintained Preparation: Sterile Dressing Position: Sitting Catheter: Indwelling Needle Guage: 18 Injectate: Test Dose Lidocaine1.5% w/1:200,000 epi (3cc without reponse) Blood Aspirated: No Pain Paresthesia on Injection Noted: No Events: Uneventful and Well Tolerated
[2021-07-23] MEDS ORDERED: LACTATED RINGERS 1,000 ML IV ONE (12:40)
--- NOTE | 2021-07-23 14:08 | P.OP ---
Date of Procedure: 07/23/21 Preoperative Diagnosis: Right ureteral cancer Postoperative Diagnosis: Same Procedure(s) Performed: Right nephro ureterectomy Anesthesia: GETA, epidural Surgeon: Gregory Zhao Dough Mixing Machine Operator #1: Franky Patel Estimated Blood Loss (ml): 300 Pathology: other (Kidney and ureter right) Condition: stable Disposition: PACU Indications for Procedure: Patient is a 80. She is in the hospital recently with hematuria and flank pain. She had right hydronephrosis. A retrograde pyelogram identified a tumor in the proximal ureter. She come for right nephroureterectomy metastatic workup was negative Description of Procedure: Patient is brought to the operating suite. She is given an epidural followed by general endotracheal anesthesia. The epidural for intraoperative and postoperative pain control. Steinberg catheters introduced sterilely. She is prepped and draped abdominally. A right subcostal incision is made. I dissect through the rectus fascia and oblique fascia. There is dense adherence of the omentum to the peritoneum. I tediously dissect this off the peritoneum. His in densely adherent to the liver which after dissect off it. I then dissected off the body wall. Once I get the omentum off the liver and body wall and then have to remove the colonic attachments to the liver. Once this is done I'm able to incise the white line of Toldt and reflect the colon medially. I then do a Tunas maneuver and reflect the duodenum medially. I then identify the vena cava. Identify larger right gonadal vein which is taken between 2-0 silk ties. I eventually identify the renal vein. Behind it is identified the right renal artery which is tied with 2-0 silk. Then doubly ligate the renal vein and transected. I then moved down to the renal artery and doubly ligate and transect it. Dissect the top of the kidney off the adrenal gland is we do not need to remove the adrenal gland appeared I dissect the kidney off the body wall laterally and then medially. Identify the ureter. I followed the ureter distally. I then clamped below the level a tumor proximally and distally. I transected the ureter and deliver the kidney and the ureter proximal ureter from the wound. I then 9 continue to the dissect the distal ureter down to the iliac vessels. I make a counter suprapubic incision. I dissected open the rectus fascia in the midline. I dissect extraperitoneally down to the bladder. Identify where the ureter and the bladder and I followed the ureter proximally. I transected tie and then transect the ureter after he leaves the bladder. I do not need to completely open the bladder is there was no tumor in the distal ureter and endoscopically. I removed the ureter and the rest of the ureter from the wound. I then closed the rectus fascia with a running double-stranded 0 PDS a. I then closed the abdominal the upper abdominal wound with #1 Vicryl in 3 layers. I then closed the skin both this both suprapubically and subcostally with jerry. Blood loss is approximately 300 mL. The patient's awake and returned recovery in good condition. She continues to make urine. I inspect the ureter on the kidney side and see the tumor emanating in the proximal ureter. The patient tolerated procedure well be placed in the hospital postoperatively.
[2021-07-23] MEDS ORDERED: diphenhydrAMINE 50 MG/ML 1 ML VIAL IVP ONE (14:40)
[2021-07-23] MEDS: ROPIVACAINE 250 MG, fentaNYL (PF) 625 MCG in SODIUM CHLORIDE 0.9% 188 ML EPIDURAL PRN (14:59)
[2021-07-23 16:21] LABS: Glucose,Whole Blood 290 mg/dL (75-99)
[2021-07-23] MEDS: SODIUM CHLORIDE 0.45% 1,000 ML IV SCH (17:39)
[2021-07-23] MEDS: INSULIN ASPART (NovoLOG) 100 UNIT/ML VIAL SQ SCH ×2 (17:40→21:41)
--- NOTE | 2021-07-23 19:21 | P.CONS ---
History of Present Illness - History of Present Illness This is a pleasant 80 years old female with past medical history of diabetes mellitus, asthma, hypertension, osteoarthritis, right kidney cancer. She was admitted today under urology service and underwent right nephroureterectomy. Today is postop day #0. Medical consult has been requested for postoperative management of glucose and diabetes. Patient was in her bed in the room for 78, she was sleepy from anesthesia and during her surgery today, therefore information were limited Currently at to check his 89 At home patient is on glipizide 5 mg by mouth daily and sitagliptin 100 mg daily. Which is Currently switched to limit lifting 5 mg daily for nonformulary. Patient just came from surgery and he started eating therefore we would recommend to hold his diabetes medication today and continue with insulin sliding scale, discussed with bed side nurse Review of Systems n/a inflammation could not be obtained because patient was sleepy from her anesthesia during surgery Past Medical History Past Medical History: Asthma, Diabetes Mellitus, Hypertension, Osteoarthritis (OA), Renal Disease Additional Past Medical History / Comment(s): rt kidney CA,bloody urine History of Any Multi-Drug Resistant Organisms: None Reported Past Surgical History: Section, Cholecystectomy Additional Past Surgical History / Comment(s): c sect x2 Past Anesthesia/Blood Transfusion Reactions: No Reported Reaction Additional Past Anesthesia/Blood Transfusion Reaction / Comm: no problems blood transfusion Smoking Status: Never smoker - Past Family History Mother Family Medical History: No Reported History Sister(s) Family Medical History: Cancer Additional Family Medical History / Comment(s): breast Father Family Medical History: Liver Disease Medications and Allergies Home Medications Medication Instructions Recorded Confirmed Type Montelukast Sodium [Singulair] 10 mg PO HS 08/05/20 07/21/21 History Pantoprazole Sodium [Protonix] 40 mg PO QAM 08/05/20 07/21/21 History ALPRAZolam [Xanax] 0.5 mg PO DAILY PRN 07/05/21 07/21/21 History Furosemide [Lasix] 20 mg PO TUTH 07/05/21 07/21/21 History HYDROcodone/APAP 5-325MG [[place] 1 - 2 tab PO TID PRN 07/05/21 07/21/21 History 5-325] Sodium Bicarbonate Tab 650 mg PO TID 07/05/21 07/21/21 History amLODIPine [Norvasc] 5 mg PO QAM 07/05/21 07/21/21 History glipiZIDE XL [Glucotrol XL] 5 mg PO DAILY 07/05/21 07/21/21 History sitaGLIPtin PHOSPHATE [Januvia] 100 mg PO DAILY@1200 07/05/21 07/21/21 History Phenazopyridine [Pyridium] 200 mg PO TID PRN #9 tab 07/06/21 07/21/21 Rx Diclofenac Sodium [Voltaren 1 applic TOPICAL DAILY PRN 07/21/21 07/21/21 History Arthritis Pain 1% Gel] Allergies Allergy/AdvReac Type Severity Reaction Status Date / Time adhesive tape Allergy brown skin Verified 07/23/21 09:37 azithromycin Allergy Rash/Hives Verified 07/23/21 09:37 [From Zithromax Z-Fidel] Iodine and Iodide Containing Allergy Rash/Hives Verified 07/23/21 09:37 Produc shellfish derived [Shellfish] Allergy Rash/Hives Verified 07/23/21 09:37 Sulfa (Sulfonamide Allergy Rash/Hives Verified 07/23/21 09:37 Antibiotics) iron AdvReac Nausea & Verified 07/23/21 09:37 Vomiting & Diarrhea,hypoglycemia Physical Exam Vitals: Vital Signs Temp Pulse Pulse Resp BP Pulse Ox 07/23/21 15:01 77 16 109/54 94 L 07/23/21 14:45 68 16 115/53 94 L 07/23/21 14:16 77 16 114/56 98 07/23/21 14:00 97.0 F L 76 16 151/65 99 07/23/21 10:55 90 16 173/74 96 07/23/21 10:23 97.8 F 85 16 187/78 98 Intake and Output 07/23/21 07/23/21 07/23/21 06:59 14:59 22:59 Intake Total 1574 Output Total 500 Balance 1074 Intake: IV 1574 Output: Urine 200 Estimated Blood Loss 300 Other: Weight 97.8 kg -GENERAL: The patient is sleepy from surgery, not in any acute distress. Well developed, well nourished. HEENT: Pupils are round and equally reacting to light. EOMI. No scleral icterus. No conjunctival pallor. Normocephalic, atraumatic. No pharyngeal erythema. No thyromegaly. CARDIOVASCULAR: S1 and S2 present. No murmurs, rubs, or gallops. PULMONARY: Chest is clear to auscultation, no wheezing or crackles. -ABDOMEN: Soft, nontender, nondistended, normoactive bowel sounds. No palpable organomegaly. Right surgical wound with a Place, rest of the exam is deferred to surgery primary team MUSCULOSKELETAL: No joint swelling or deformity. EXTREMITIES: No cyanosis, clubbing, or pedal edema. NEUROLOGICAL: Gross neurological examination did not reveal any focal deficits. SKIN: No rashes. No petechiae Results Labs: Abnormal Lab Results - Last 24 Hours (Table) 07/23/21 Range/Units 10:16 POC Glucose (mg/dL) 105 H (75-99) mg/dL Assessment and Plan Assessment: Right kidney cancer status post right nephroureterectomy Type 2 diabetes mellitus Hypertension History of osteoarthritis History of asthma, not an active issue Plan: This is a pleasant 8 years old female who presents for right nephrectomy. Continue with monitoring glucose Hold diabetes medication on 07/23 and continue with insulin sliding scale. Tomorrow patient can resume her glipizide 2.5 twice a day but I would hold linagliptin for now Labs and medication were reviewed.. Continue same treatment. Continue with symptomatic treatment. Resume home medication. Monitor lytes and vitals. DVT and GI prophylaxis. Further recommendations depends on the clinical course of the patient DVT prophylaxis: (Deferred management Per surgery primary team) GI Prophylaxis: Ppi Thank you for consulting us, we will follow up with you
[2021-07-23 20:41] LABS: Glucose,Whole Blood 242 mg/dL (75-99)
[2021-07-23] MEDS: MONTELUKAST 10 MG TAB PO SCH (21:42)
[2021-07-24] MEDS: SODIUM CHLORIDE 0.45% 1,000 ML IV SCH ×3 (02:28→20:58)
--- NOTE | 2021-07-24 06:48 | P.PN ---
Progress Note - Text Progress Note Date: 07/24/21 POD 1 catheter day 2 for nephrectomy. catheter running at 8cc/hr, increased overnight. Pain better with increase. Still having some pain in upper abdomen, nothing down low. no lower ext weakness. Vitals stable, mentation is clear this morning. Catheter is in place, clean and dry site. Steinberg in place for surgical reasons. Catheter can be removed from the epidural stand point. Can continue to increase catheter up to 12cc/hr as tolerated if BP is stable. recommend getting out of bed today if tolerated. If pain is not controlled with epidural despite increase in rate, the catheter can be d/c tomorrow.
[2021-07-24 06:55] LABS: Glucose,Whole Blood 177 mg/dL (75-99)
--- NOTE | 2021-07-24 07:33 | P.PN ---
Subjective Progress Note Date: 07/24/21 The patient is in her first postoperative day from a right nephroureterectomy for ureteral cancer. She is doing well. The epidural is controlling her pain. Her vital signs are stable. Urine output adequate. The medical doctors are controlling her diabetes. Her wounds are dry. Her abdomen is soft. I will continue with epidural catheter and Steinberg catheter. When the epidural comes out the Steinberg may come out also. Discussed a follow-up cystoscopy with cauterization of the right ureteral stump at a later date. I will increase her diet to clear liquids. She'll be up and around sitting and ambulating. I will add incentive spirometry. Her BUN/creatinine from this morning are pending Objective - Vital Signs Vital signs: Vital Signs Temp 98.5 F 07/24/21 01:33 Pulse 89 07/24/21 01:33 Resp 18 07/24/21 01:33 BP 130/72 07/24/21 01:33 Pulse Ox 93 L 07/24/21 01:33 Intake & Output 07/23/21 07/24/21 07/24/21 18:59 06:59 18:59 Intake Total 1574 53.70 Output Total 500 1000 Balance 1074 -946.30 Weight 97.8 kg Intake: IV 1574 Intake, IV Titration 0 53.70 Amount Ropivacaine 250 mg 0 53.70 fentaNYL (PF) 625 mcg In Sodium Chloride 0.9% 188 ml @ Per Protocol EPIDURAL .Q0M PRN Rx#: [id number] Output: Urine 200 1000 Estimated Blood Loss 300 Other: Voiding Method Indwelling Catheter - Labs Labs: Abnormal Lab Results - Last 24 Hours (Table) 07/23/21 07/23/21 07/23/21 Range/Units 10:16 16:19 20:39 POC Glucose (mg/dL) 105 H 290 H 242 H (75-99) mg/dL 07/24/21 Range/Units 06:43 POC Glucose (mg/dL) 177 H (75-99) mg/dL
[2021-07-24] MEDS: amLODIPine 5 MG TAB PO SCH (08:37)
[2021-07-24] MEDS: FUROSEMIDE 20 MG TAB PO SCH (08:37)
[2021-07-24] MEDS: INSULIN ASPART (NovoLOG) 100 UNIT/ML VIAL SQ SCH ×4 (08:37→20:46)
[2021-07-24] MEDS: PANTOPRAZOLE 40 MG TABLET PO SCH (08:37)
[2021-07-24 09:43] LABS: Basophils # (A) 0.03 X 10*3/uL (0.00-0.10); Basophils % (A) 0.2 %; Eosinophils # (A) 0 X 10*3/uL (0.04-0.35); Eosinophils % (A) 0 %; HCT 25.5 % (37.2-46.3); Immature Grans, Automated 0.7 %; Lymphocytes # (A) 0.96 X 10*3/uL (0.90-5.00); MCH 30.3 pg (27.0-32.0); MCHC 31.4 g/dL (32.0-37.0); MCV 96.6 fL (80.0-97.0); Monocytes # (A) 1.45 X 10*3/uL (0.20-1.00); Monocytes % (A) 7.6 %; NRBC Per 100 WBC 0 /100 WBCS (0.0-0.0); Neutrophils # (A) 16.55 X 10*3/uL (1.80-7.70); Neutrophils % (A) 86.5 %; Platelet Count 281 X 10*3/uL (140-440); RBC 2.64 X 10*6/uL (4.10-5.20); RDW 13.2 % (11.5-14.5); WBC 19.12 X 10*3/uL (4.50-10.00)
[2021-07-24] MEDS: BENZOCAINE/MENTHOL LOZENG 1 EACH LOZENGE MUCOUS MEM PRN ×3 (10:07→20:57)
[2021-07-24 11:23] LABS: Glucose,Whole Blood 125 mg/dL (75-99)
[2021-07-24] MEDS: ROPIVACAINE 250 MG, fentaNYL (PF) 625 MCG in SODIUM CHLORIDE 0.9% 188 ML EPIDURAL PRN (11:57)
[2021-07-24] MEDS ORDERED: LINAGLIPTIN 5 MG TABLET PO SCH (12:00)
[2021-07-24] MEDS: LACTATED RINGERS 1,000 ML IV SCH (12:06)
--- NOTE | 2021-07-24 12:06 | P.PN ---
Subjective This is a pleasant 80 years old female with past medical history of diabetes mellitus, asthma, hypertension, osteoarthritis, right kidney cancer. She was admitted today under urology service and underwent right nephroureterectomy. Today is postop day #0. Medical consult has been requested for postoperative management of glucose and diabetes. Patient was in her bed in the room for 78, she was sleepy from anesthesia and during her surgery today, therefore information were limited Currently at to check his 89 At home patient is on glipizide 5 mg by mouth daily and sitagliptin 100 mg daily. Which is Currently switched to limit lifting 5 mg daily for nonformulary. Patient just came from surgery and he started eating therefore we would rec ommend to hold his diabetes medication today and continue with insulin sliding scale, discussed with bed side nurse 07/24/2021 Patient is awake and alert today, she is complaining from some little pain at the surgical site. She was started eating clear liquids diet and some Jello this morning. Her glucose is controlled. She is currently kept on glipizide 2.5 mg twice a day. linagliptin still on hold. She is a little short of breath most likely from post operative effect. However we will check chest x-rays, as her oxygen little bit on the low normal side. Patient does not have chest pain or significant cough and or tachypnea. WBCs elevated 19.1, most likely secondary to surgical effect as well as low hemoglobin of 8. She still on normal saline 100 mL per hour. Discussed with the primary team and surgery team to start on DVT prophylaxis on subcu heparin. Objective - Vital Signs Vital signs: Vital Signs Temp 98.8 F 07/24/21 06:57 Pulse 90 07/24/21 06:57 Resp 18 07/24/21 06:57 BP 118/69 07/24/21 06:57 Pulse Ox 93 L 07/24/21 06:57 Intake & Output 07/23/21 07/24/21 07/24/21 18:59 06:59 18:59 Intake Total 1574 53.70 Output Total 500 1000 Balance 1074 -946.30 Weight 97.8 kg Intake: IV 1574 Intake, IV Titration 0 53.70 Amount Ropivacaine 250 mg 0 53.70 fentaNYL (PF) 625 mcg In Sodium Chloride 0.9% 188 ml @ Per Protocol EPIDURAL .Q0M PRN Rx#: [id number] Output: Urine 200 1000 Estimated Blood Loss 300 Other: Voiding Method Indwelling Catheter Indwelling Catheter - Exam GENERAL: The patient is alert and oriented x3, not in any acute distress. Well developed, well nourished. HEENT: Pupils are round and equally reacting to light. EOMI. No scleral icterus. No conjunctival pallor. Normocephalic, atraumatic. No pharyngeal erythema. No thyromegaly. CARDIOVASCULAR: S1 and S2 present. No murmurs, rubs, or gallops. PULMONARY: Chest is clear to auscultation, no wheezing or crackles. -ABDOMEN: Soft, nontender, nondistended, normoactive bowel sounds. No palpable organomegaly. right-side surgical wound with a Place, rest of the exam is de ferred to surgery primary team surgical wound with a Place, rest of the exam is deferred to surgery primary team MUSCULOSKELETAL: No joint swelling or deformity. EXTREMITIES: No cyanosis, clubbing, or pedal edema. NEUROLOGICAL: Gross neurological examination did not reveal any focal deficits. SKIN: No rashes. no petechiae. - Labs CBC & Chem 7: 07/24/21 05:13 Labs: Abnormal Lab Results - Last 24 Hours (Table) 07/23/21 07/23/21 07/23/21 Range/Units 10:16 16:19 20:39 WBC (4.50-10.00) X 10*3/uL RBC (4.10-5.20) X 10*6/uL Hgb (12.0-15.0) g/dL Hct (37.2-46.3) % MCHC (32.0-37.0) g/dL Immature Gran # (0.00-0.04) X 10*3/uL Neutrophils # (1.80-7.70) X 10*3/uL Monocytes # (0.20-1.00) X 10*3/uL Eosinophils # (0.04-0.35) X 10*3/uL POC Glucose (mg/dL) 105 H 290 H 242 H (75-99) mg/dL 07/24/21 07/24/21 Range/Units 05:13 06:43 WBC 19.12 H (4.50-10.00) X 10*3/uL RBC 2.64 L (4.10-5.20) X 10*6/uL Hgb 8.0 L (12.0-15.0) g/dL Hct 25.5 L (37.2-46.3) % MCHC 31.4 L (32.0-37.0) g/dL Immature Gran # 0.13 H (0.00-0.04) X 10*3/uL Neutrophils # 16.55 H (1.80-7.70) X 10*3/uL Monocytes # 1.45 H (0.20-1.00) X 10*3/uL Eosinophils # 0 L (0.04-0.35) X 10*3/uL POC Glucose (mg/dL) 177 H (75-99) mg/dL Assessment and Plan Assessment: Right kidney cancer status post right nephroureterectomy Type 2 diabetes mellitus Hypertension History of osteoarthritis History of asthma, not an active issue Plan: This is a pleasant 8 years old female who presents for right nephrectomy. Continue with monitoring glucose Hold diabetes medication on 07/23 and continue with insulin sliding scale. Tomorrow patient can resume her glipizide 2.5 twice a day but I would hold linagliptin for now Labs and medication were reviewed.. Continue same treatment. Continue with symptomatic treatment. Resume home medication. Monitor lytes and vitals. DVT and GI prophylaxis. Further recommendations depends on the clinical course of the patient DVT prophylaxis: (Deferred management Per surgery primary team) GI Prophylaxis: Ppi Thank you for consulting us, we will follow up with you
[2021-07-24 16:12] LABS: Glucose,Whole Blood 130 mg/dL (75-99)
--- NOTE | 2021-07-24 16:44 | XR ---
EXAMINATION TYPE: XR chest 1V DATE OF EXAM: 07/24/2021 COMPARISON: X-ray dated 07/14/2021 HISTORY: Pain TECHNIQUE: Single frontal view of the chest is obtained. FINDINGS: Persistent elevation of the right hemidiaphragm. Suspected bilateral basal pulmonary atelectasis. Neal ssly unremarkable lungs otherwise. Increased cardiac transverse diameter. No sizable pleural effusion. No definite pneumothorax. Degener ative changes of the thoracic spine. IMPRESSION: As above.
[2021-07-24 20:39] LABS: Glucose,Whole Blood 97 mg/dL (75-99)
[2021-07-24] MEDS: MONTELUKAST 10 MG TAB PO SCH (20:57)
[2021-07-24] MEDS: ALPRAZolam 0.5 MG TAB PO PRN (22:26)
[2021-07-25 06:43] LABS: Glucose,Whole Blood 96 mg/dL (75-99)
--- NOTE | 2021-07-25 07:04 | P.PN ---
Progress Note - Text Progress Note Date: 07/25/21 POD 2 with epidural catheter placed for post operative pain management. Patient seen and examined this morning. Epidural rate increased to 9cc/hr. Patient reports better pain relief than yesterday. Can increased rate up to 12cc/hr if vital signs remain stable. Patient denies motor or sensory weakness in her lower extremities. Continue with Physical therapy to get patient ambulating today. Site is clean and dry. Continue epidural catheter today, removal over the weekend. We will continue to follow.
--- NOTE | 2021-07-25 07:47 | P.PN ---
Subjective Progress Note Date: 07/25/21 The patient is in her second postoperative day from a right nephroureterectomy. Her pain is reasonably well controlled. Vital signs are stable. Urine output is good. Wounds are dry. She is tolerating liquids at. She was up in the chair yesterday. Not get done yesterday. I will do a BUN/creatinine and CBC this morning. She'll continue on liquids and advanced as tolerated. She'll ambulate. We'll continue with epidural. The Steinberg catheter will come out when epidural comes out. Objective - Vital Signs Vital signs: Vital Signs Temp 98.5 F 07/25/21 07:22 Pulse 102 H 07/25/21 07:22 Resp 17 07/25/21 07:22 BP 156/69 07/25/21 07:22 Pulse Ox 93 L 07/25/21 07:22 Intake & Output 07/24/21 07/25/21 07/25/21 18:59 06:59 18:59 Intake Total 81.683 Output Total 700 800 Balance -618.317 -800 Intake: Intake, IV Titration 81.683 Amount Ropivacaine 250 mg 81.683 fentaNYL (PF) 625 mcg In Sodium Chloride 0.9% 188 ml @ Per Protocol EPIDURAL .Q0M PRN Rx#: [id number] Output: Urine 700 800 Other: Voiding Method Indwelling Catheter Indwelling Catheter - Labs CBC & Chem 7: 07/24/21 05:13 Labs: Abnormal Lab Results - Last 24 Hours (Table) 07/24/21 07/24/21 07/24/21 Range/Units 05:13 11:20 16:08 WBC 19.12 H (4.50-10.00) X 10*3/uL RBC 2.64 L (4.10-5.20) X 10*6/uL Hgb 8.0 L (12.0-15.0) g/dL Hct 25.5 L (37.2-46.3) % MCHC 31.4 L (32.0-37.0) g/dL Immature Gran # 0.13 H (0.00-0.04) X 10*3/uL Neutrophils # 16.55 H (1.80-7.70) X 10*3/uL Monocytes # 1.45 H (0.20-1.00) X 10*3/uL Eosinophils # 0 L (0.04-0.35) X 10*3/uL POC Glucose (mg/dL) 125 H 130 H (75-99) mg/dL
[2021-07-25] MEDS: INSULIN ASPART (NovoLOG) 100 UNIT/ML VIAL SQ SCH ×4 (08:06→22:01)
[2021-07-25] MEDS: HEPARIN SODIUM,PORCINE/PF 5,000 UNIT/0.5 ML SYRINGE SQ SCH ×2 (08:10→19:59)
[2021-07-25] MEDS: PANTOPRAZOLE 40 MG TABLET PO SCH (08:10)
[2021-07-25] MEDS: amLODIPine 5 MG TAB PO SCH (08:10)
[2021-07-25] MEDS: SODIUM CHLORIDE 0.45% 1,000 ML IV SCH ×2 (08:20→17:10)
[2021-07-25 08:22] LABS: African American GFR (CKD) 18 (>60 ml/min/1.73 sqM); Anion Gap 7 mmol/L; Blood Urea Nitrogen 49 mg/dL (7-17); Calcium 7.9 mg/dL (8.4-10.2); Carbon Dioxide 22 mmol/L (22-30); Chloride 107 mmol/L (98-107); Glucose 84 mg/dL (74-99); Non-African American GFR(CKD) 15 (>60 ml/min/1.73 sqM); Sodium 136 mmol/L (137-145)
[2021-07-25 09:43] LABS: HGB 6.7 g/dL (12.0-15.0); MCH 28.5 pg (27.0-32.0); MCHC 29.1 g/dL (32.0-37.0); MCV 97.9 fL (80.0-97.0); NRBC Per 100 WBC 0 /100 WBCS (0.0-0.0); Platelet Count 188 X 10*3/uL (140-440); RBC 2.35 X 10*6/uL (4.10-5.20); RDW 13.3 % (11.5-14.5); WBC 17.38 X 10*3/uL (4.50-10.00)
[2021-07-25 10:12] LABS: Basophils # (A) 0.07 X 10*3/uL (0.00-0.10); Basophils % (A) 0.4 %; Eosinophils % (A) 1.2 %; Immature Grans, Automated 0.7 %; Lymphocytes # (A) 1.57 X 10*3/uL (0.90-5.00); Monocytes # (A) 1.65 X 10*3/uL (0.20-1.00); Monocytes % (A) 9.5 %; Neutrophils # (A) 13.77 X 10*3/uL (1.80-7.70); Neutrophils % (A) 79.2 %
[2021-07-25 11:42] LABS: Glucose,Whole Blood 124 mg/dL (75-99)
[2021-07-25] MEDS: ROPIVACAINE 250 MG, fentaNYL (PF) 625 MCG in SODIUM CHLORIDE 0.9% 188 ML EPIDURAL PRN (12:38)
[2021-07-25] MEDS: LACTATED RINGERS 1,000 ML IV SCH (13:40)
--- NOTE | 2021-07-25 14:20 | P.PN ---
Subjective Progress Note Date: 07/25/21 Patient's creatinine is 2.79. Hemoglobin is dropped to 6.7 which at her age I want to give her unit of packed cells. She is 8 preoperatively. I'll give her urine when unit of packed cells repeat her labs in the morning. Most of this anemia is chronic but I there is some acute blood loss and the hemoglobin 6.7 and at 80-year-old I will give her a unit of blood. Objective - Vital Signs Vital signs: Vital Signs Temp 97.9 F 07/25/21 14:00 Pulse 99 07/25/21 14:00 Resp 18 07/25/21 14:00 BP 142/78 07/25/21 14:00 Pulse Ox 92 L 07/25/21 14:00 Intake & Output 07/24/21 07/25/21 07/25/21 18:59 06:59 18:59 Intake Total 81.683 222.15 Output Total 700 800 Balance -618.317 -800 222.15 Intake: Intake, IV Titration 81.683 222.15 Amount Ropivacaine 250 mg 81.683 222.15 fentaNYL (PF) 625 mcg In Sodium Chloride 0.9% 188 ml @ Per Protocol EPIDURAL .Q0M PRN Rx#: [id number] Output: Urine 700 800 Other: Voiding Method Indwelling Catheter Indwelling Catheter Indwelling Catheter - Labs CBC & Chem 7: 07/25/21 04:39 07/25/21 04:39 Labs: Abnormal Lab Results - Last 24 Hours (Table) 07/24/21 07/25/21 07/25/21 Range/Units 16:08 04:39 04:39 WBC 17.38 H (4.50-10.00) X 10*3/uL RBC 2.35 L (4.10-5.20) X 10*6/uL Hgb 6.7 L* (12.0-15.0) g/dL Hct 23.0 L (37.2-46.3) % MCV 97.9 H (80.0-97.0) fL MCHC 29.1 L (32.0-37.0) g/dL Immature Gran # 0.12 H (0.00-0.04) X 10*3/uL Neutrophils # 13.77 H (1.80-7.70) X 10*3/uL Monocytes # 1.65 H (0.20-1.00) X 10*3/uL Sodium 136 L (137-145) mmol/L BUN 49 H (7-17) mg/dL Creatinine 2.79 H (0.52-1.04) mg/dL POC Glucose (mg/dL) 130 H (75-99) mg/dL Calcium 7.9 L (8.4-10.2) mg/dL 07/25/21 Range/Units 11:40 WBC (4.50-10.00) X 10*3/uL RBC (4.10-5.20) X 10*6/uL Hgb (12.0-15.0) g/dL Hct (37.2-46.3) % MCV (80.0-97.0) fL MCHC (32.0-37.0) g/dL Immature Gran # (0.00-0.04) X 10*3/uL Neutrophils # (1.80-7.70) X 10*3/uL Monocytes # (0.20-1.00) X 10*3/uL Sodium (137-145) mmol/L BUN (7-17) mg/dL Creatinine (0.52-1.04) mg/dL POC Glucose (mg/dL) 124 H (75-99) mg/dL Calcium (8.4-10.2) mg/dL
--- NOTE | 2021-07-25 14:38 | CDI ---
Documentation Clarification Form Date: 07/25/2021 02:30:23 PM From: Tasneem Piper CCS, CCDS Admit Date: 07/23/2021 09:16:00 AM Patient Name: Cathy Burton Visit Number: [id number] Discharge Date: ATTENTION: The Clinical Documentation Specialists (CDI) and [facility] Coding Staff appreciate your assistance in clarifying documentation. Please respond to the clarification below the line at the bottom and electronically sign. The CDI & [facility] Coding staff will review the response and follow-up if needed. Please note: Queries are made part of the Legal Health Record. If you have any questions, please contact the author of this message via ITS. Dr. Gregory Zhao: The following anemia diagnosis is documented in the 07/25 Urology Progress Note: Most of this Anemia is chronic but I there is some Acute Blood Loss and the Hemoglobin 6.7 and at [id number] I will give her a unit of blood. Additional clarification is requested regarding the relationship, if any, that exists between the diagnosis of Acute Blood Loss Anemia and the procedure. Patients Admitting Diagnosis per the 07/23 Procedure Note: Right Ureteral Cancer Post-Operative Diagnosis: Same Procedure performed 07/23: Right Nephroureterectomy History/Risk Factors per the 07/22 H/P: Asthma, DM II, Hypertension, Osteoarthritis, Right Kidney Cancer with Hematuria Clinical Indicators: Presented to the ED on 07/23 for the above documented procedure. 07/23 Hemoglobin: not documented. 07/24: 8.0. 07/25: 6.7 07/23 Hematocrit: not documented. 07/24: 25.5. 07/25: 23.0 Treatment 07/25: 1 Unit PRBCs ordered (pending transfusion), Heparin SQ q12H What relationship, if any, exists between the diagnosis of Acute Blood Loss Anemia and the procedure: [ ] ABLA is a complication of surgical procedure [ ] ABLA is an expected outcome of the surgical procedure [ ] ABLA is related to patients co-morbid condition(s) of, please specify: & not a complication of the procedure [ ] Other please specify: [ ] Unable to determine (Template Last Revised: June 2020) The anemia is due to the disease and the surgery both MTDD
[2021-07-25 14:43] LABS: HCT 26.4 % (34.0-46.0); Hypochromasia Moderate; MCH 30.1 pg (25.0-35.0); MCHC 31.1 g/dL (31.0-37.0); MCV 96.9 fL (80.0-100.0); Mean Platelet Volume 8.1; Platelet Count 253 k/uL (150-450); RBC 2.72 m/uL (3.80-5.40); RDW 13.9 % (11.5-15.5); Reticulocyte % 3.3 % (0.5-2.0); WBC 18.4 k/uL (3.8-10.6)
[2021-07-25 14:57] LABS: HGB 8.2 gm/dL (11.4-16.0)
[2021-07-25 16:48] LABS: Glucose,Whole Blood 92 mg/dL (75-99)
--- NOTE | 2021-07-25 17:17 | P.PN ---
Subjective This is a pleasant 80 years old female with past medical history of diabetes mellitus, asthma, hypertension, osteoarthritis, right kidney cancer. She was admitted today under urology service and underwent right nephroureterectomy. Today is postop day #0. Medical consult has been requested for postoperative management of glucose and diabetes. Patient was in her bed in the room for 78, she was sleepy from anesthesia and during her surgery today, therefore information were limited Currently at to check his 105 At home patient is on glipizide 5 mg by mouth daily and sitagliptin 100 mg daily. Which is Currently switched to limit lifting 5 mg daily for nonformulary. Patient just came from surgery and he started eating therefore we would rec ommend to hold his diabetes medication today and continue with insulin sliding scale, discussed with bed side nurse 07/24/2021 Patient is awake and alert today, she is complaining from some little pain at the surgical site. She was started eating clear liquids diet and some Jello this morning. Her glucose is controlled. She is currently kept on glipizide 2.5 mg twice a day. linagliptin still on hold. She is a little short of breath most likely from post operative effect. However we will check chest x-rays, as her oxygen little bit on the low normal side. Patient does not have chest pain or significant cough and or tachypnea. WBCs elevated 19.1, most likely secondary to surgical effect as well as low hemoglobin of 8. She still on normal saline 100 mL per hour. Discussed with the primary team and surgery team to start on DVT prophylaxis on subcu heparin. 07/25/2021 Patient sitting in chair, not in distress, no specific complaint. She is hemodynamically stable. Labs done today hemoglobin was 6.7 compared to yesterday of 8. Hemoglobin and she is back to 8.2. She has leukocytosis with WBC 18,000. Creatinine is stable at 2.7. Glucose controlled on glipizide 2.5 twice a day. Limit lifting is on hold since admission as it is felt patient does not need it. Currently kept on normal saline 100 mL per hour Also she is on Protonix and subcu heparin. We will ask for UA, ordered Chest x-ray 2 yesterday was stable showing elevation of right hemidiaphragm, and atelectasis, grossly unremarkable lungs otherwise Objective - Vital Signs Vital signs: Vital Signs Temp 97.9 F 07/25/21 14:00 Pulse 99 07/25/21 14:00 Resp 18 07/25/21 14:00 BP 142/78 07/25/21 14:00 Pulse Ox 92 L 07/25/21 14:00 Intake & Output 07/24/21 07/25/21 07/25/21 18:59 06:59 18:59 Intake Total 81.683 222.15 Output Total 700 800 Balance -618.317 -800 222.15 Intake: Intake, IV Titration 81.683 222.15 Amount Ropivacaine 250 mg 81.683 222.15 fentaNYL (PF) 625 mcg In Sodium Chloride 0.9% 188 ml @ Per Protocol EPIDURAL .Q0M PRN Rx#: [id number] Output: Urine 700 800 Other: Voiding Method Indwelling Catheter Indwelling Catheter Indwelling Catheter - Exam GENERAL: The patient is alert and oriented x3, not in any acute distress. Well developed, well nourished. HEENT: Pupils are round and equally reacting to light. EOMI. No scleral icterus. No conjunctival pallor. Normocephalic, atraumatic. No pharyngeal erythema. No thyromegaly. CARDIOVASCULAR: S1 and S2 present. No murmurs, rubs, or gallops. PULMONARY: Chest is clear to auscultation, no wheezing or crackles. -ABDOMEN: Soft, nontender, nondistended, normoactive bowel sounds. No palpable organomegaly. right-side surgical wound with a Place, rest of the exam is deferred to surgery primary team surgical wound with a Place, rest of the exam is deferred to surgery primary team MUSCULOSKELETAL: No joint swelling or deformity. EXTREMITIES: No cyanosis, clubbing, or pedal edema. NEUROLOGICAL: Gross neurological examination did not reveal any focal deficits. SKIN: No rashes. no petechiae. - Labs CBC & Chem 7: 07/25/21 13:47 07/25/21 04:39 Labs: Abnormal Lab Results - Last 24 Hours (Table) 07/24/21 07/25/21 07/25/21 Range/Units 16:08 04:39 04:39 WBC 17.38 H (4.50-10.00) X 10*3/uL RBC 2.35 L (4.10-5.20) X 10*6/uL Hgb 6.7 L* (12.0-15.0) g/dL Hct 23.0 L (37.2-46.3) % MCV 97.9 H (80.0-97.0) fL MCHC 29.1 L (32.0-37.0) g/dL Immature Gran # 0.12 H (0.00-0.04) X 10*3/uL Neutrophils # 13.77 H (1.80-7.70) X 10*3/uL Monocytes # 1.65 H (0.20-1.00) X 10*3/uL Retic Count (0.5-2.0) % Sodium 136 L (137-145) mmol/L BUN 49 H (7-17) mg/dL Creatinine 2.79 H (0.52-1.04) mg/dL POC Glucose (mg/dL) 130 H (75-99) mg/dL Calcium 7.9 L (8.4-10.2) mg/dL 07/25/21 07/25/21 Range/Units 11:40 13:47 WBC 18.4 H (4.50-10.00) X 10*3/uL RBC 2.72 L (4.10-5.20) X 10*6/uL Hgb 8.2 L D (12.0-15.0) g/dL Hct 26.4 L (37.2-46.3) % MCV (80.0-97.0) fL MCHC (32.0-37.0) g/dL Immature Gran # (0.00-0.04) X 10*3/uL Neutrophils # (1.80-7.70) X 10*3/uL Monocytes # (0.20-1.00) X 10*3/uL Retic Count 3.3 H (0.5-2.0) % Sodium (137-145) mmol/L BUN (7-17) mg/dL Creatinine (0.52-1.04) mg/dL POC Glucose (mg/dL) 124 H (75-99) mg/dL Calcium (8.4-10.2) mg/dL Assessment and Plan Assessment: Right kidney cancer status post right nephroureterectomy Type 2 diabetes mellitus Hypertension History of osteoarthritis History of asthma, not an active issue Plan: This is a pleasant 8 years old female who presents for right nephrectomy. Continue with monitoring glucose Continue with glipizide 2.5 twice a day but I would hold linagliptin for now. Keep monitoring glucose Continue with normal saline Encourage incentive spirometry Labs and medication were reviewed.. Continue same treatment. Continue with symptomatic treatment. Resume home medication. Monitor lytes and vitals. DVT and GI prophylaxis. Further recommendations depends on the clinical course of the patient DVT prophylaxis: (Deferred management Per surgery primary team) GI Prophylaxis: Ppi Thank you for consulting us, we will follow up with you
[2021-07-25 18:05] LABS: Appearance,Urine Clear (Clear); Bacteria,Urine Rare /hpf; Bilirubin,Urine Negative (Negative); Blood,Urine Moderate (Negative); Color,Urine Yellow; Glucose,Urine (UA) Negative (Negative); Ketones,Urine Negative (Negative); Leukocyte Esterase,Urine Small (Negative); Mucus,Urine Rare /hpf; Nitrite,Urine Negative (Negative); Protein,Urine 1+ (Negative); RBC,Urine 36 /hpf (0-5); Specific Gravity,Urine 1.013 (1.001-1.035); Squamous Epithelial Cell,Urine <1 /hpf (0-4); Urobilinogen,Urine <2.0 mg/dL (<2.0); WBC,Urine 10 /hpf (0-5)
[2021-07-25] MEDS: MONTELUKAST 10 MG TAB PO SCH (19:59)
[2021-07-25 21:53] LABS: Glucose,Whole Blood 114 mg/dL (75-99)
[2021-07-25] MEDS: ALPRAZolam 0.5 MG TAB PO PRN (22:36)
[2021-07-26] MEDS: SODIUM CHLORIDE 0.45% 1,000 ML IV SCH ×3 (05:36→23:46)
[2021-07-26 07:35] LABS: Glucose,Whole Blood 162 mg/dL (75-99)
[2021-07-26] MEDS: HEPARIN SODIUM,PORCINE/PF 5,000 UNIT/0.5 ML SYRINGE SQ SCH ×2 (08:07→22:46)
[2021-07-26] MEDS: INSULIN ASPART (NovoLOG) 100 UNIT/ML VIAL SQ SCH ×4 (08:07→22:41)
[2021-07-26] MEDS: amLODIPine 5 MG TAB PO SCH (08:07)
[2021-07-26] MEDS: PANTOPRAZOLE 40 MG TABLET PO SCH (08:07)
[2021-07-26] MEDS ORDERED: NALOXONE 0.4 MG/ML 1 ML VIAL IV PRN (08:28)
--- NOTE | 2021-07-26 08:31 | P.PN ---
Subjective Progress Note Date: 07/26/21 The patient is in her third postoperative day from a left nephroureterectomy. She is in moderate pain. 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 She is splinting and therefore some atelectasis. She's been encouraged to increase her respiratory effort. Her dressings removed and her wounds look good. Her hemoglobin yesterday had dropped to 6.8 but repeat at 8.2. The anemia is chronic aggravated by some mild blood loss intraoperatively. This juncture we will not transfuse her. Urine output is good. We'll discontinue her Steinberg. We'll continue with the recuperation. Objective - Vital Signs Vital signs: Vital Signs Temp 98.3 F 07/26/21 07:37 Pulse 102 H 07/26/21 07:37 Resp 18 07/26/21 07:37 BP 118/64 07/26/21 07:37 Pulse Ox 90 L 07/26/21 07:37 Intake & Output 07/25/21 07/26/21 07/26/21 18:59 06:59 18:59 Intake Total 222.15 1500 Output Total 1500 Balance -1277.85 1500 Intake: Intake, IV Titration 222.15 1200 Amount Ropivacaine 250 mg 222.15 fentaNYL (PF) 625 mcg In Sodium Chloride 0.9% 188 ml @ Per Protocol EPIDURAL .Q0M PRN Rx#: [id number] Sodium Chloride 0.45% 1, 1200 000 ml @ 100 mls/hr IV . Q10H KIP Rx#:[id number] Oral 300 Output: Urine 1500 Other: Voiding Method Indwelling Catheter Indwelling Catheter - Labs CBC & Chem 7: 07/25/21 13:47 07/25/21 04:39 Labs: Abnormal Lab Results - Last 24 Hours (Table) 07/25/21 07/25/21 07/25/21 Range/Units 04:39 11:40 13:47 WBC 17.38 H 18.4 H (4.50-10.00) X 10*3/uL RBC 2.35 L 2.72 L (4.10-5.20) X 10*6/uL Hgb 6.7 L* 8.2 L D (12.0-15.0) g/dL Hct 23.0 L 26.4 L (37.2-46.3) % MCV 97.9 H (80.0-97.0) fL MCHC 29.1 L (32.0-37.0) g/dL Immature Gran # 0.12 H (0.00-0.04) X 10*3/uL Neutrophils # 13.77 H (1.80-7.70) X 10*3/uL Monocytes # 1.65 H (0.20-1.00) X 10*3/uL Retic Count 3.3 H (0.5-2.0) % POC Glucose (mg/dL) 124 H (75-99) mg/dL Urine Protein (Negative) Urine Blood (Negative) Ur Leukocyte Esterase (Negative) Urine RBC (0-5) /hpf Urine WBC (0-5) /hpf Urine Bacteria (None) /hpf Urine Mucus (None) /hpf 07/25/21 07/25/21 07/26/21 Range/Units 17:00 21:52 07:33 WBC (4.50-10.00) X 10*3/uL RBC (4.10-5.20) X 10*6/uL Hgb (12.0-15.0) g/dL Hct (37.2-46.3) % MCV (80.0-97.0) fL MCHC (32.0-37.0) g/dL Immature Gran # (0.00-0.04) X 10*3/uL Neutrophils # (1.80-7.70) X 10*3/uL Monocytes # (0.20-1.00) X 10*3/uL Retic Count (0.5-2.0) % POC Glucose (mg/dL) 114 H 162 H (75-99) mg/dL Urine Protein 1+ H (Negative) Urine Blood Moderate H (Negative) Ur Leukocyte Esterase Small H (Negative) Urine RBC 36 H (0-5) /hpf Urine WBC 10 H (0-5) /hpf Urine Bacteria Rare H (None) /hpf Urine Mucus Rare H (None) /hpf
[2021-07-26 09:18] LABS: African American GFR (CKD) 10 (>60 ml/min/1.73 sqM); Anion Gap 4 mmol/L; Blood Urea Nitrogen 67 mg/dL (7-17); Calcium 11.8 mg/dL (8.4-10.2); Carbon Dioxide 32 mmol/L (22-30); Chloride 98 mmol/L (98-107); Glucose 92 mg/dL (74-99); Non-African American GFR(CKD) 9 (>60 ml/min/1.73 sqM); Potassium 4.4 mmol/L (3.5-5.1); Sodium 134 mmol/L (137-145)
[2021-07-26 10:06] LABS: Basophils # (A) 0.05 X 10*3/uL (0.00-0.10); Basophils % (A) 0.3 %; Eosinophils # (A) 0.05 X 10*3/uL (0.04-0.35); Eosinophils % (A) 0.3 %; HCT 22.5 % (37.2-46.3); HGB 6.9 g/dL (12.0-15.0); Immature Grans, Automated 0.7 %; Lymphocytes # (A) 1.03 X 10*3/uL (0.90-5.00); Lymphocytes % (A) 5.6 %; MCH 29.1 pg (27.0-32.0); MCHC 30.7 g/dL (32.0-37.0); MCV 94.9 fL (80.0-97.0); Mean Platelet Volume 10.9 fL (9.5-12.2); Monocytes # (A) 1.77 X 10*3/uL (0.20-1.00); Monocytes % (A) 9.6 %; NRBC Per 100 WBC 0 /100 WBCS (0.0-0.0); Neutrophils # (A) 15.34 X 10*3/uL (1.80-7.70); Neutrophils % (A) 83.5 %; Platelet Count 188 X 10*3/uL (140-440); RBC 2.37 X 10*6/uL (4.10-5.20); RDW 13.1 % (11.5-14.5); WBC 18.36 X 10*3/uL (4.50-10.00)
[2021-07-26 11:45] LABS: Glucose,Whole Blood 199 mg/dL (75-99)
[2021-07-26] MEDS: HYDROmorphone PCA 10 MG/50 ML BAG IV PRN (11:50)
--- NOTE | 2021-07-26 12:19 | P.PN ---
Progress Note - Text Progress Note Date: 07/26/21 (4434) Anesthesia Postop day #3 Status post right nephroureterectomy with epidural day #4 Patient seen and examined. 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 VAS currently 8 out of 10. No nausea vomiting or pruritus. Epidural was stopped about 2-1/2 hours ago. Objective: Vital signs reviewed Lungs: Good chest excursion Abdomen: Appears nondistended Other: Epidural Site Intact without induration. Dressing intact Neuro: No apparent motor block. Sensory within normal limits. Assessment: Status post right nephro ureterectomy postop day #3 Plan: Continue current care with your medical management. Discontinue epidural today. Patient received subcu heparin at 8:07 AM. Spoke with nurse to discontinue catheter between 2 and 3 PM today. She stated understanding.
[2021-07-26] MEDS: LACTATED RINGERS 1,000 ML IV SCH (12:55)
[2021-07-26 16:15] LABS: Glucose,Whole Blood 142 mg/dL (75-99)
--- NOTE | 2021-07-26 21:05 | P.PN ---
Subjective Progress Note Date: 07/26/21 The hgb is at 6.9, cr at 4.5, I will give her some packed cells to see if that helps her bun/cr She is resting comfortably Objective - Vital Signs Vital signs: Vital Signs Temp 98.4 F 07/26/21 14:00 Pulse 86 07/26/21 14:00 Resp 17 07/26/21 14:00 BP 142/73 07/26/21 14:00 Pulse Ox 97 07/26/21 14:00 Intake & Output 07/26/21 07/26/21 07/27/21 06:59 18:59 06:59 Intake Total 1500 Output Total 2300 Balance 1500 -2300 Intake: Intake, IV Titration 1200 Amount Sodium Chloride 0.45% 1, 1200 000 ml @ 100 mls/hr IV . Q10H KIP Rx#:[id number] Oral 300 Output: Urine 2300 Other: Voiding Method Indwelling Catheter Indwelling Catheter - Labs CBC & Chem 7: 07/26/21 05:08 07/26/21 05:08 Labs: Abnormal Lab Results - Last 24 Hours (Table) 07/25/21 07/26/21 07/26/21 Range/Units 21:52 05:08 05:08 WBC 18.36 H (4.50-10.00) X 10*3/uL RBC 2.37 L (4.10-5.20) X 10*6/uL Hgb 6.9 L* (12.0-15.0) g/dL Hct 22.5 L (37.2-46.3) % MCHC 30.7 L (32.0-37.0) g/dL Immature Gran # 0.12 H (0.00-0.04) X 10*3/uL Neutrophils # 15.34 H (1.80-7.70) X 10*3/uL Monocytes # 1.77 H (0.20-1.00) X 10*3/uL Sodium 134 L (137-145) mmol/L Carbon Dioxide 32 H (22-30) mmol/L BUN 67 H (7-17) mg/dL Creatinine 4.37 H (0.52-1.04) mg/dL POC Glucose (mg/dL) 114 H (75-99) mg/dL Calcium 11.8 H (8.4-10.2) mg/dL 04/23/22 04/23/22 04/23/22 Range/Units 07:33 11:43 16:13 WBC (4.50-10.00) X 10*3/uL RBC (4.10-5.20) X 10*6/uL Hgb (12.0-15.0) g/dL Hct (37.2-46.3) % MCHC (32.0-37.0) g/dL Immature Gran # (0.00-0.04) X 10*3/uL Neutrophils # (1.80-7.70) X 10*3/uL Monocytes # (0.20-1.00) X 10*3/uL Sodium (137-145) mmol/L Carbon Dioxide (22-30) mmol/L BUN (7-17) mg/dL Creatinine (0.52-1.04) mg/dL POC Glucose (mg/dL) 162 H 199 H 142 H (75-99) mg/dL Calcium (8.4-10.2) mg/dL
[2021-07-26 22:03] LABS: Glucose,Whole Blood 98 mg/dL (75-99)
[2021-07-26] MEDS: MONTELUKAST 10 MG TAB PO SCH (22:47)
--- NOTE | 2021-07-26 23:31 | P.PN ---
Subjective Progress Note Date: 07/26/21 This is a pleasant 80 years old female with past medical history of diabetes mellitus, asthma, hypertension, osteoarthritis, right kidney cancer. She was admitted today under urology service and underwent right nephroureterectomy. Today is postop day #0. Medical consult has been requested for postoperative management of glucose and diabetes. Patient was in her bed in the room for 78, she was sleepy from anesthesia and during her surgery today, therefore information were limited Currently at to check his 105 At home patient is on glipizide 5 mg by mouth daily and sitagliptin 100 mg daily. Which is Currently switched to limit lifting 5 mg daily for nonformulary. Patient just came from surgery and he started eating therefore we would recommend to hold his diabetes medication today and continue with insulin sliding scale, discussed with bed side nurse 07/24/2021 Patient is awake and alert today, she is complaining from some little pain at the surgical site. She was started eating clear liquids diet and some Jello this morning. Her glucose is controlled. She is currently kept on glipizide 2.5 mg twice a day. linagliptin still on hold. She is a little short of breath most likely from post operative effect. However we will check chest x-rays, as her oxygen little bit on the low normal side. Patient does not have chest pain or significant cough and or tachypnea. WBCs elevated 19.1, most likely secondary to surgical effect as well as low hemoglobin of 8. She still on normal saline 100 mL per hour. Discussed with the primary team and surgery team to start on DVT prophylaxis on subcu heparin. 07/25/2021 Patient sitting in chair, not in distress, no specific complaint. She is hemodynamically stable. Labs done today hemoglobin was 6.7 compared to yesterday of 8. Hemoglobin and she is back to 8.2. She has leukocytosis with WBC 18,000. Creatinine is stable at 2.7. Glucose controlled on glipizide 2.5 twice a day. Limit lifting is on hold since admission as it is felt patient does not need it. Currently kept on normal saline 100 mL per hour Also she is on Protonix and subcu heparin. We will ask for UA, ordered Chest x-ray 2 yesterday was stable showing elevation of right hemidiaphragm, and atelectasis, grossly unremarkable lungs otherwise 07/26/2021 Patient is currently lying in the bed. Awake alert and oriented x3. Patient is status post rt nephroureterectomy. Pain is fairly controlled. Patient is on [employer] pump. Patient does have a history of right nephrectomy. Laboratory data showed WBC 18.3 hemoglobin 6.9 and platelets 188 Sodium 134 potassium 4.4 chloride 98 BUN 67 creatinine worsened to 4.37. Calcium 11.8 and magnesium 1.6 Patient is being current IV hydration with half-normal saline at 100 cc/h. Current medications reviewed. Objective - Vital Signs Vital signs: Vital Signs Temp 98.3 F 07/26/21 07:37 Pulse 102 H 07/26/21 07:37 Resp 18 07/26/21 07:37 BP 118/64 07/26/21 07:37 Pulse Ox 90 L 07/26/21 07:37 Intake & Output 07/25/21 07/26/21 07/26/21 18:59 06:59 18:59 Intake Total 222.15 1500 Output Total 1500 Balance -1277.85 1500 Intake: Intake, IV Titration 222.15 1200 Amount Ropivacaine 250 mg 222.15 fentaNYL (PF) 625 mcg In Sodium Chloride 0.9% 188 ml @ Per Protocol EPIDURAL .Q0M PRN Rx#: [id number] Sodium Chloride 0.45% 1, 1200 000 ml @ 100 mls/hr IV . Q10H KIP Rx#:[id number] Oral 300 Output: Urine 1500 Other: Voiding Method Indwelling Catheter Indwelling Catheter Indwelling Catheter - Exam - Exam GENERAL: The patient is alert and oriented x3, not in any acute distress. Well developed, well nourished. HEENT: Pupils are round and equally reacting to light. EOMI. No scleral icterus. No conjunctival pallor. Normocephalic, atraumatic. No pharyngeal erythema. No thyromegaly. CARDIOVASCULAR: S1 and S2 present. No murmurs, rubs, or gallops. PULMONARY: Chest is clear to auscultation, no wheezing or crackles. -ABDOMEN: Soft, nontender, nondistended, normoactive bowel sounds. No palpable organomegaly. right-side surgical wound with a Place MUSCULOSKELETAL: No joint swelling or deformity. EXTREMITIES: No cyanosis, clubbing, or pedal edema. NEUROLOGICAL: Gross neurological examination did not reveal any focal deficits. SKIN: No rashes. no petechiae. - Labs CBC & Chem 7: 07/26/21 05:08 07/26/21 05:08 Labs: Abnormal Lab Results - Last 24 Hours (Table) 07/25/21 07/25/21 07/25/21 Range/Units 11:40 13:47 17:00 WBC 18.4 H (3.8-10.6) k/uL RBC 2.72 L (3.80-5.40) m/uL Hgb 8.2 L D (11.4-16.0) gm/dL Hct 26.4 L (34.0-46.0) % MCHC (32.0-37.0) g/dL Immature Gran # (0.00-0.04) X 10*3/uL Neutrophils # (1.80-7.70) X 10*3/uL Monocytes # (0.20-1.00) X 10*3/uL Retic Count 3.3 H (0.5-2.0) % Sodium (137-145) mmol/L Carbon Dioxide (22-30) mmol/L BUN (7-17) mg/dL Creatinine (0.52-1.04) mg/dL POC Glucose (mg/dL) 124 H (75-99) mg/dL Calcium (8.4-10.2) mg/dL Urine Protein 1+ H (Negative) Urine Blood Moderate H (Negative) Ur Leukocyte Esterase Small H (Negative) Urine RBC 36 H (0-5) /hpf Urine WBC 10 H (0-5) /hpf Urine Bacteria Rare H (None) /hpf Urine Mucus Rare H (None) /hpf 07/25/21 07/26/21 07/26/21 Range/Units 21:52 05:08 05:08 WBC 18.36 H (3.8-10.6) k/uL RBC 2.37 L (3.80-5.40) m/uL Hgb 6.9 L* (11.4-16.0) gm/dL Hct 22.5 L (34.0-46.0) % MCHC 30.7 L (32.0-37.0) g/dL Immature Gran # 0.12 H (0.00-0.04) X 10*3/uL Neutrophils # 15.34 H (1.80-7.70) X 10*3/uL Monocytes # 1.77 H (0.20-1.00) X 10*3/uL Retic Count (0.5-2.0) % Sodium 134 L (137-145) mmol/L Carbon Dioxide 32 H (22-30) mmol/L BUN 67 H (7-17) mg/dL Creatinine 4.37 H (0.52-1.04) mg/dL POC Glucose (mg/dL) 114 H (75-99) mg/dL Calcium 11.8 H (8.4-10.2) mg/dL Urine Protein (Negative) Urine Blood (Negative) Ur Leukocyte Esterase (Negative) Urine RBC (0-5) /hpf Urine WBC (0-5) /hpf Urine Bacteria (None) /hpf Urine Mucus (None) /hpf 07/26/21 Range/Units 07:33 WBC (3.8-10.6) k/uL RBC (3.80-5.40) m/uL Hgb (11.4-16.0) gm/dL Hct (34.0-46.0) % MCHC (32.0-37.0) g/dL Immature Gran # (0.00-0.04) X 10*3/uL Neutrophils # (1.80-7.70) X 10*3/uL Monocytes # (0.20-1.00) X 10*3/uL Retic Count (0.5-2.0) % Sodium (137-145) mmol/L Carbon Dioxide (22-30) mmol/L BUN (7-17) mg/dL Creatinine (0.52-1.04) mg/dL POC Glucose (mg/dL) 162 H (75-99) mg/dL Calcium (8.4-10.2) mg/dL Urine Protein (Negative) Urine Blood (Negative) Ur Leukocyte Esterase (Negative) Urine RBC (0-5) /hpf Urine WBC (0-5) /hpf Urine Bacteria (None) /hpf Urine Mucus (None) /hpf Assessment and Plan Assessment: Right kidney cancer status post right nephroureterectomy Anemia of chronic disease and mild acute blood loss anemia hemoglobin 6.9 today. Type 2 diabetes mellitus Hypertension History of osteoarthritis History of asthma, not an active issue Plan: This is a pleasant 80 years old female who presents for right nephrectomy. Continue with monitoring glucose Continue with glipizide 2.5 twice a day but I would hold linagliptin for now. Keep monitoring glucose Continue with normal saline Encourage incentive spirometry Labs and medication were reviewed..monitor H&H. Monitor lytes and vitals. DVT and GI prophylaxis. Further recommendations depends on the clinical course of the patient DVT prophylaxis: (Deferred management Per surgery primary team) GI Prophylaxis: Ppi Time with Patient: Greater than 30
[2021-07-27 07:11] LABS: Glucose,Whole Blood 62 mg/dL (75-99)
[2021-07-27] MEDS: INSULIN ASPART (NovoLOG) 100 UNIT/ML VIAL SQ SCH ×4 (07:21→21:11)
[2021-07-27] MEDS: PANTOPRAZOLE 40 MG TABLET PO SCH (07:28)
[2021-07-27] MEDS: SODIUM CHLORIDE 0.45% 1,000 ML IV SCH ×2 (07:28→17:29)
[2021-07-27 07:43] LABS: Glucose,Whole Blood 66 mg/dL (75-99)
[2021-07-27] MEDS: HEPARIN SODIUM,PORCINE/PF 5,000 UNIT/0.5 ML SYRINGE SQ SCH ×2 (08:11→21:11)
[2021-07-27] MEDS: amLODIPine 5 MG TAB PO SCH (08:11)
[2021-07-27 08:25] LABS: Glucose,Whole Blood 96 mg/dL (75-99)
[2021-07-27 09:10] LABS: Basophils # (A) 0.04 X 10*3/uL (0.00-0.10); Basophils % (A) 0.3 %; Eosinophils # (A) 0.39 X 10*3/uL (0.04-0.35); Eosinophils % (A) 2.5 %; HCT 25.2 % (37.2-46.3); HGB 7.7 g/dL (12.0-15.0); Immature Grans, Automated 0.7 %; Lymphocytes # (A) 1.17 X 10*3/uL (0.90-5.00); Lymphocytes % (A) 7.4 %; MCH 29.4 pg (27.0-32.0); MCHC 30.6 g/dL (32.0-37.0); MCV 96.2 fL (80.0-97.0); Monocytes # (A) 1.74 X 10*3/uL (0.20-1.00); Monocytes % (A) 11.1 %; NRBC Per 100 WBC 0 /100 WBCS (0.0-0.0); Neutrophils # (A) 12.26 X 10*3/uL (1.80-7.70); Platelet Count 212 X 10*3/uL (140-440); RBC 2.62 X 10*6/uL (4.10-5.20); RDW 13.2 % (11.5-14.5); WBC 15.71 X 10*3/uL (4.50-10.00)
[2021-07-27 09:29] LABS: African American GFR (CKD) 18.5 (60.0-200.0); Anion Gap 11.1 mmol/L (10.00-18.00); BUN/Creat Ratio 15.59 Ratio (12.00-20.00); Blood Urea Nitrogen 42.1 mg/dL (9.0-27.0); Calcium 7.8 mg/dL (8.7-10.3); Carbon Dioxide 18.9 mmol/L (20.0-27.5); Potassium 4.4 mmol/L (3.5-5.5)
--- NOTE | 2021-07-27 10:43 | P.PN ---
Subjective Progress Note Date: 07/27/21 The patient is in her third day status post right nephroureterectomy for ureteral cancer. Her hemoglobin drifted to 6.9. Her creatinine elevated at 4.7. She was given a unit of packed cells and her hemoglobin was up to 7.7 and creatinine down to 2.7. To maximize her respiratory status her medical cond ition I'll give her 1 more unit of blood. She'll continue to work on the respiration. Her wound looks good. Her pain is reasonably under control. She is eating a little bit. She is passing gas. We will continue with her postoperative care. Objective - Vital Signs Vital signs: Vital Signs Temp 99.3 F 07/27/21 07:55 Pulse 109 H 07/27/21 08:00 Resp 16 07/27/21 07:55 BP 138/69 07/27/21 07:55 Pulse Ox 94 L 07/27/21 08:05 Intake & Output 07/26/21 07/27/21 07/27/21 18:59 06:59 18:59 Intake Total 310 596 Output Total 2300 100 Balance -2300 210 596 Intake: Oral 596 Blood Product 310 Rc As-1 Unit 310 [id number] Output: Urine 2300 100 Other: Voiding Method Indwelling Catheter # Bowel Movements 0 - Labs CBC & Chem 7: 07/27/21 04:59 07/27/21 04:59 Labs: Abnormal Lab Results - Last 24 Hours (Table) 07/26/21 07/26/21 07/26/21 Range/Units 11:43 16:13 21:42 WBC (4.50-10.00) X 10*3/uL RBC (4.10-5.20) X 10*6/uL Hgb (12.0-15.0) g/dL Hct (37.2-46.3) % MCHC (32.0-37.0) g/dL Immature Gran # (0.00-0.04) X 10*3/uL Neutrophils # (1.80-7.70) X 10*3/uL Monocytes # (0.20-1.00) X 10*3/uL Eosinophils # (0.04-0.35) X 10*3/uL Sodium (135-145) mmol/L Carbon Dioxide (20.0-27.5) mmol/L BUN (9.0-27.0) mg/dL Creatinine (0.6-1.5) mg/dL Est GFR (CKD-EPI)AfAm (60.0-200.0) Est GFR (CKD-EPI)NonAf (60.0-200.0) Glucose (70-110) mg/dL POC Glucose (mg/dL) 199 H 142 H (75-99) mg/dL Calcium (8.7-10.3) mg/dL Crossmatch See Detail 07/27/21 07/27/21 07/27/21 Range/Units 04:59 04:59 07:08 WBC 15.71 H (4.50-10.00) X 10*3/uL RBC 2.62 L (4.10-5.20) X 10*6/uL Hgb 7.7 L (12.0-15.0) g/dL Hct 25.2 L (37.2-46.3) % MCHC 30.6 L (32.0-37.0) g/dL Immature Gran # 0.11 H (0.00-0.04) X 10*3/uL Neutrophils # 12.26 H (1.80-7.70) X 10*3/uL Monocytes # 1.74 H (0.20-1.00) X 10*3/uL Eosinophils # 0.39 H (0.04-0.35) X 10*3/uL Sodium 134 L (135-145) mmol/L Carbon Dioxide 18.9 L (20.0-27.5) mmol/L BUN 42.1 H (9.0-27.0) mg/dL Creatinine 2.7 H (0.6-1.5) mg/dL Est GFR (CKD-EPI)AfAm 18.5 L (60.0-200.0) Est GFR (CKD-EPI)NonAf 16.0 L (60.0-200.0) Glucose 46 L* (70-110) mg/dL POC Glucose (mg/dL) 62 L (75-99) mg/dL Calcium 7.8 L (8.7-10.3) mg/dL Crossmatch 07/27/21 Range/Units 07:42 WBC (4.50-10.00) X 10*3/uL RBC (4.10-5.20) X 10*6/uL Hgb (12.0-15.0) g/dL Hct (37.2-46.3) % MCHC (32.0-37.0) g/dL Immature Gran # (0.00-0.04) X 10*3/uL Neutrophils # (1.80-7.70) X 10*3/uL Monocytes # (0.20-1.00) X 10*3/uL Eosinophils # (0.04-0.35) X 10*3/uL Sodium (135-145) mmol/L Carbon Dioxide (20.0-27.5) mmol/L BUN (9.0-27.0) mg/dL Creatinine (0.6-1.5) mg/dL Est GFR (CKD-EPI)AfAm (60.0-200.0) Est GFR (CKD-EPI)NonAf (60.0-200.0) Glucose (70-110) mg/dL POC Glucose (mg/dL) 66 L (75-99) mg/dL Calcium (8.7-10.3) mg/dL Crossmatch
[2021-07-27 11:29] LABS: Glucose,Whole Blood 123 mg/dL (75-99)
[2021-07-27] MEDS: LACTATED RINGERS 1,000 ML IV SCH (11:32)
[2021-07-27 17:18] LABS: Glucose,Whole Blood 122 mg/dL (75-99)
[2021-07-27] MEDS: MONTELUKAST 10 MG TAB PO SCH (21:11)
[2021-07-27 21:21] LABS: Glucose,Whole Blood 129 mg/dL (75-99)
[2021-07-27] MEDS ORDERED: ONDANSETRON 4 MG/2 ML VIAL IVP PRN (22:53)
--- NOTE | 2021-07-28 01:52 | P.PN ---
Subjective Progress Note Date: 07/27/21 This is a pleasant 80 years old female with past medical history of diabetes mellitus, asthma, hypertension, osteoarthritis, right kidney cancer. She was admitted today under urology service and underwent right nephroureterectomy. Today is postop day #0. Medical consult has been requested for postoperative management of glucose and diabetes. Patient was in her bed in the room for 78, she was sleepy from anesthesia and during her surgery today, therefore information were limited Currently at to check his 105 At home patient is on glipizide 5 mg by mouth daily and sitagliptin 100 mg daily. Which is Currently switched to limit lifting 5 mg daily for nonformulary. Patient just came from surgery and he started eating therefore we would recommend to hold his diabetes medication today and continue with insulin sliding scale, discussed with bed side nurse 07/24/2021 Patient is awake and alert today, she is complaining from some little pain at the surgical site. She was started eating clear liquids diet and some Jello this morning. Her glucose is controlled. She is currently kept on glipizide 2.5 mg twice a day. linagliptin still on hold. She is a little short of breath most likely from post operative effect. However we will check chest x-rays, as her oxygen little bit on the low normal side. Patient does not have chest pain or significant cough and or tachypnea. WBCs elevated 19.1, most likely secondary to surgical effect as well as low hemoglobin of 8. She still on normal saline 100 mL per hour. Discussed with the primary team and surgery team to start on DVT prophylaxis on subcu heparin. 07/25/2021 Patient sitting in chair, not in distress, no specific complaint. She is hemodynamically stable. Labs done today hemoglobin was 6.7 compared to yesterday of 8. Hemoglobin and she is back to 8.2. She has leukocytosis with WBC 18,000. Creatinine is stable at 2.7. Glucose controlled on glipizide 2.5 twice a day. Limit lifting is on hold since admission as it is felt patient does not need it. Currently kept on normal saline 100 mL per hour Also she is on Protonix and subcu heparin. We will ask for UA, ordered Chest x-ray 2 yesterday was stable showing elevation of right hemidiaphragm, and atelectasis, grossly unremarkable lungs otherwise 07/26/2021 Patient is currently lying in the bed. Awake alert and oriented x3. Patient is status post rt nephroureterectomy. Pain is fairly controlled. Patient is on SEAT P[employer] INSPECTOR pump. Patient does have a history of right nephrectomy. Laboratory data showed WBC 18.3 hemoglobin 6.9 and platelets 188 Sodium 134 potassium 4.4 chloride 98 BUN 67 creatinine worsened to 4.37. Calcium 11.8 and magnesium 1.6 Patient is being current IV hydration with half-normal saline at 100 cc/h. 07/27/2021 Patient is currently lying in bed. Still complains of right flank and abdominal pain. No fever no chills. No nausea vomiting or diarrhea. Patient was tachycardic this morning with heart rate around 107. Hemoglobin level improved to 7.7 after 1 unit of PRBC transfusion. Laboratory data showed WBC 15.7 hemoglobin 7.7 platelets 212 Sodium 134 potassium 4.4 chloride 104 BUN 42.1 and creatinine 2.7 and blood sugar is 46 this morning. Glipizide will be on hold and continue with insulin sliding scale. Encourage oral intake. Current medications reviewed. Objective - Vital Signs Vital signs: Vital Signs Temp 98.7 F 07/27/21 14:40 Pulse 108 H 07/27/21 14:40 Resp 16 07/27/21 14:40 BP 152/75 07/27/21 14:40 Pulse Ox 97 07/27/21 14:40 Intake & Output 07/26/21 07/27/21 07/27/21 18:59 06:59 18:59 Intake Total 310 1142 Output Total 2300 100 Balance -2300 210 1142 Intake: Oral 832 Blood Product 310 310 As-1 Unit 310 [id number] As-1 Unit 310 [id number] Output: Urine 2300 100 Other: Voiding Method Indwelling Catheter # Bowel Movements 0 - Exam - Exam GENERAL: The patient is alert and oriented x3, not in any acute distress. Well developed, well nourished. HEENT: Pupils are round and equally reacting to light. EOMI. No scleral icterus. No conjunctival pallor. Normocephalic, atraumatic. No pharyngeal erythema. No thyromegaly. CARDIOVASCULAR: S1 and S2 present. No murmurs, rubs, or gallops. PULMONARY: Chest is clear to auscultation, no wheezing or crackles. -ABDOMEN: Soft, nontender, nondistended, normoactive bowel sounds. No palpable organomegaly. right-side surgical wound with a Place MUSCULOSKELETAL: No joint swelling or deformity. EXTREMITIES: No cyanosis, clubbing, or pedal edema. NEUROLOGICAL: Gross neurological examination did not reveal any focal deficits. SKIN: No rashes. no petechiae. - Labs CBC & Chem 7: 07/27/21 04:59 07/27/21 04:59 Labs: Abnormal Lab Results - Last 24 Hours (Table) 07/26/21 07/26/21 07/27/21 Range/Units 16:13 21:42 04:59 WBC 15.71 H (4.50-10.00) X 10*3/uL RBC 2.62 L (4.10-5.20) X 10*6/uL Hgb 7.7 L (12.0-15.0) g/dL Hct 25.2 L (37.2-46.3) % MCHC 30.6 L (32.0-37.0) g/dL Immature Gran # 0.11 H (0.00-0.04) X 10*3/uL Neutrophils # 12.26 H (1.80-7.70) X 10*3/uL Monocytes # 1.74 H (0.20-1.00) X 10*3/uL Eosinophils # 0.39 H (0.04-0.35) X 10*3/uL Sodium (135-145) mmol/L Carbon Dioxide (20.0-27.5) mmol/L BUN (9.0-27.0) mg/dL Creatinine (0.6-1.5) mg/dL Est GFR (CKD-EPI)AfAm (60.0-200.0) Est GFR (CKD-EPI)NonAf (60.0-200.0) Glucose (70-110) mg/dL POC Glucose (mg/dL) 142 H (75-99) mg/dL Calcium (8.7-10.3) mg/dL Crossmatch See Detail 07/27/21 07/27/21 07/27/21 Range/Units 04:59 07:08 07:42 WBC (4.50-10.00) X 10*3/uL RBC (4.10-5.20) X 10*6/uL Hgb (12.0-15.0) g/dL Hct (37.2-46.3) % MCHC (32.0-37.0) g/dL Immature Gran # (0.00-0.04) X 10*3/uL Neutrophils # (1.80-7.70) X 10*3/uL Monocytes # (0.20-1.00) X 10*3/uL Eosinophils # (0.04-0.35) X 10*3/uL Sodium 134 L (135-145) mmol/L Carbon Dioxide 18.9 L (20.0-27.5) mmol/L BUN 42.1 H (9.0-27.0) mg/dL Creatinine 2.7 H (0.6-1.5) mg/dL Est GFR (CKD-EPI)AfAm 18.5 L (60.0-200.0) Est GFR (CKD-EPI)NonAf 16.0 L (60.0-200.0) Glucose 46 L* (70-110) mg/dL POC Glucose (mg/dL) 62 L 66 L (75-99) mg/dL Calcium 7.8 L (8.7-10.3) mg/dL Crossmatch 07/27/21 Range/Units 11:28 WBC (4.50-10.00) X 10*3/uL RBC (4.10-5.20) X 10*6/uL Hgb (12.0-15.0) g/dL Hct (37.2-46.3) % MCHC (32.0-37.0) g/dL Immature Gran # (0.00-0.04) X 10*3/uL Neutrophils # (1.80-7.70) X 10*3/uL Monocytes # (0.20-1.00) X 10*3/uL Eosinophils # (0.04-0.35) X 10*3/uL Sodium (135-145) mmol/L Carbon Dioxide (20.0-27.5) mmol/L BUN (9.0-27.0) mg/dL Creatinine (0.6-1.5) mg/dL Est GFR (CKD-EPI)AfAm (60.0-200.0) Est GFR (CKD-EPI)NonAf (60.0-200.0) Glucose (70-110) mg/dL POC Glucose (mg/dL) 123 H (75-99) mg/dL Calcium (8.7-10.3) mg/dL Crossmatch Assessment and Plan Assessment: Right kidney cancer status post right nephroureterectomy Anemia of chronic disease and mild acute blood loss anemia hemoglobin 6.9 --7.7. Type 2 diabetes mellitus Hypertension History of osteoarthritis History of asthma, not an active issue Plan: This is a pleasant 80 years old female who presents for right nephrectomy. Continue with monitoring glucose hold glipizide 2.5 twice a day and linagliptin for now. Keep monitoring glucose. SSI Continue with normal saline Encourage incentive spirometry Labs and medication were reviewed..monitor H&H. Monitor lytes and vitals. DVT and GI prophylaxis. Further recommendations depends on the clinical course of the patient DVT prophylaxis: (Deferred management Per surgery primary team) GI Prophylaxis: Ppi Time with Patient: Greater than 30
[2021-07-28] MEDS ORDERED: HEPARIN SODIUM,PORCINE 5,000 UNIT/ML 1 ML VIAL ONE (09:00)
[2021-07-28] MEDS ORDERED: PANTOPRAZOLE 40 MG TABLET PO ONE (09:00)
[2021-07-28] MEDS ORDERED: amLODIPine 5 MG TAB ONE (09:00)
[2021-07-28 10:45] LABS: Glucose,Whole Blood 140 mg/dL (75-99)
[2021-07-28 11:40] LABS: Glucose,Whole Blood 131 mg/dL (75-99)
[2021-07-28] MEDS: SODIUM CHLORIDE 0.45% 1,000 ML IV SCH (11:45)
[2021-07-28] MEDS: INSULIN ASPART (NovoLOG) 100 UNIT/ML VIAL SQ SCH ×4 (11:45→21:41)
[2021-07-28] MEDS: amLODIPine 5 MG TAB PO SCH (11:46)
[2021-07-28] MEDS: LACTATED RINGERS 1,000 ML IV SCH (11:46)
[2021-07-28] MEDS: PANTOPRAZOLE 40 MG TABLET PO SCH (11:46)
[2021-07-28] MEDS: HEPARIN SODIUM,PORCINE/PF 5,000 UNIT/0.5 ML SYRINGE SQ SCH ×2 (11:46→21:41)
[2021-07-28 13:03] LABS: African American GFR (CKD) 20 (>60 ml/min/1.73 sqM); Anion Gap 8 mmol/L; Blood Urea Nitrogen 49 mg/dL (7-17); Calcium 7.4 mg/dL (8.4-10.2); Carbon Dioxide 17 mmol/L (22-30); Chloride 106 mmol/L (98-107); Glucose 154 mg/dL (74-99); Non-African American GFR(CKD) 17 (>60 ml/min/1.73 sqM); Potassium 4.9 mmol/L (3.5-5.1); Sodium 131 mmol/L (137-145)
--- NOTE | 2021-07-28 13:05 | P.PN ---
Subjective Progress Note Date: 07/28/21 This is a pleasant 80 years old female with past medical history of diabetes mellitus, asthma, hypertension, osteoarthritis, right kidney cancer. She was admitted today under urology service and underwent right nephroureterectomy. Today is postop day #0. Medical consult has been requested for postoperative management of glucose and diabetes. Patient was in her bed in the room for 78, she was sleepy from anesthesia and during her surgery today, therefore information were limited Currently at to check his 105 At home patient is on glipizide 5 mg by mouth daily and sitagliptin 100 mg daily. Which is Currently switched to limit lifting 5 mg daily for nonformulary. Patient just came from surgery and he started eating therefore we would recommend to hold his diabetes medication today and continue with insulin sliding scale, discussed with bed side nurse 07/24/2021 Patient is awake and alert today, she is complaining from some little pain at the surgical site. She was started eating clear liquids diet and some Jello this morning. Her glucose is controlled. She is currently kept on glipizide 2.5 mg twice a day. linagliptin still on hold. She is a little short of breath most likely from post operative effect. However we will check chest x-rays, as her oxygen little bit on the low normal side. Patient does not have chest pain or significant cough and or tachypnea. WBCs elevated 19.1, most likely secondary to surgical effect as well as low hemoglobin of 8. She still on normal saline 100 mL per hour. Discussed with the primary team and surgery team to start on DVT prophylaxis on subcu heparin. 07/25/2021 Patient sitting in chair, not in distress, no specific complaint. She is hemodynamically stable. Labs done today hemoglobin was 6.7 compared to yesterday of 8. Hemoglobin and she is back to 8.2. She has leukocytosis with WBC 18,000. Creatinine is stable at 2.7. Glucose controlled on glipizide 2.5 twice a day. Limit lifting is on hold since admission as it is felt patient does not need it. Currently kept on normal saline 100 mL per hour Also she is on Protonix and subcu heparin. We will ask for UA, ordered Chest x-ray 2 yesterday was stable showing elevation of right hemidiaphragm, and atelectasis, grossly unremarkable lungs otherwise 07/26/2021 Patient is currently lying in the bed. Awake alert and oriented x3. Patient is status post rt nephroureterectomy. Pain is fairly controlled. Patient is on NATURALIZATION EXAMINER pump. Patient does have a history of right nephrectomy. Laboratory data showed WBC 18.3 hemoglobin 6.9 and platelets 188 Sodium 134 potassium 4.4 chloride 98 BUN 67 creatinine worsened to 4.37. Calcium 11.8 and magnesium 1.6 Patient is being current IV hydration with half-normal saline at 100 cc/h. 07/27/2021 Patient is currently lying in bed. Still complains of right flank and abdominal pain. No fever no chills. No nausea vomiting or diarrhea. Patient was tachycardic this morning with heart rate around 107. Hemoglobin level improved to 7.7 after 1 unit of PRBC transfusion. Laboratory data showed WBC 15.7 hemoglobin 7.7 platelets 212 Sodium 134 potassium 4.4 chloride 104 BUN 42.1 and creatinine 2.7 and blood sugar is 46 this morning. Glipizide will be on hold and continue with insulin sliding scale. Encourage oral intake. 07/28/2021 Patient evaluated today resting in bed. She is postoperative day #5 right nephroureterectomy. She is currently denying any pain, no acute events overnight. She is requesting to lay on her side. Main complaint today is abdominal distention and states she has not had a BM in 5 days. She is passing some gas. She is distended with tympanic abdomen. Lactulose x 1 has been ordered. Labs today are pending. Patient is being followed closely by urology. Review of Systems Constitutional: Denied any fatigue denied any fever. Cardio vascular: denied any chest pain, palpitations Gastrointestinal: denied any nausea, vomiting, diarrhea, Reports constipation Pulmonary: Denied any shortness of breath cough Neurologic denied any new focal deficits All inpatient medications were reviewed and appropriate changes in these medications as dictated in the interval history and assessment and plan. PHYSICAL EXAMINATION: GENERAL: The patient is alert and oriented x3, not in any acute distress. Well developed, well nourished. HEENT: Pupils are round and equally reacting to light. EOMI. No scleral icterus. No conjunctival pallor. Normocephalic, atraumatic. No pharyngeal erythema. No thyromegaly. CARDIOVASCULAR: S1 and S2 present. No murmurs, rubs, or gallops. PULMONARY: Chest is clear to auscultation, no wheezing or crackles. ABDOMEN: Soft, tender, distended, tympanic on examination, hypoactive bowel sounds. No palpable organomegaly. MUSCULOSKELETAL: No joint swelling or deformity. EXTREMITIES: No cyanosis, clubbing, or pedal edema. NEUROLOGICAL: Gross neurological examination did not reveal any focal deficits. SKIN: No rashes. right upper quadrant incision and medial lower quadrant abdominal incision present with staple closure Assessment and Plan Assessment Right kidney cancer status post right nephroureterectomy Anemia of chronic disease and mild acute blood loss anemia hemoglobin 6.9 --7.7 status post 2 unit PRBCs Leukocytosis, reactive Type 2 diabetes mellitus Hypertension History of osteoarthritis History of asthma, not an active issue GI Prophylaxis DVT Prophylaxis Plan Bowel Regimine Continue with NATURALIZATION EXAMINER pump as per anesthesia/primary EKG once for tachycardia Abdomen xray Lactulose x1 Repeat labs in AM Continue to encourage incentive spirometry PT/OT consultation Thank you kindly for this consultation. The impression and plan of care has been dictated by Megan Unger, Nurse Practitioner as directed. Dr. Joey MD I have performed a history and physical examination and medical decision making of this patient, discussed the same with the dictator, and agree with the dictators assessment and plan as written, documented as a scribe. Based on total visit time, I have performed more than 50% of this visit. Objective - Vital Signs Vital signs: Vital Signs Temp 97.6 F 07/28/21 02:22 Pulse 114 H 07/28/21 02:22 Resp 19 07/28/21 02:22 BP 168/76 07/28/21 02:22 Pulse Ox 92 L 07/28/21 02:22 Intake & Output 07/27/21 07/28/21 07/28/21 18:59 06:59 18:59 Intake Total 1378 Balance 1378 Intake: Oral 1068 Blood Product 310 Rc As-1 Unit 310 [id number] Other: # Voids 1 - Labs CBC & Chem 7: 07/27/21 04:59 07/27/21 04:59 Labs: Abnormal Lab Results - Last 24 Hours (Table) 07/26/21 07/27/21 07/27/21 Range/Units 21:42 11:28 17:13 POC Glucose (mg/dL) 123 H 122 H (75-99) mg/dL Crossmatch See Detail 07/27/21 07/28/21 Range/Units 20:46 06:58 POC Glucose (mg/dL) 129 H 140 H (75-99) mg/dL Crossmatch Assessment and Plan Time with Patient: Less than 30
[2021-07-28] MEDS ORDERED: LACTULOSE 20 GM/30 ML CUP ONE (13:17)
[2021-07-28] MEDS ORDERED: LACTULOSE 20 GM/30 ML CUP PO ONE (13:30)
[2021-07-28 13:51] LABS: HCT 31.1 % (34.0-46.0); Hypochromasia Slight; MCH 30.7 pg (25.0-35.0); MCHC 31.9 g/dL (31.0-37.0); MCV 96.2 fL (80.0-100.0); Mean Platelet Volume 9.6; Platelet Count 238 k/uL (150-450); RBC 3.23 m/uL (3.80-5.40); RDW 13.6 % (11.5-15.5); WBC 15.2 k/uL (3.8-10.6)
[2021-07-28 13:58] LABS: HGB 9.9 gm/dL (11.4-16.0)
--- NOTE | 2021-07-28 14:19 | P.PN ---
Subjective Progress Note Date: 07/28/21 POD #5 S/P right NephU , recieved 2 units of blood this weekend , Hgb now stable 9.9. Her creatinine down 2.5 from 4.7. tolerating diet, Denies N/V. passing flatus. Her pain is controlled Objective - Vital Signs Vital signs: Vital Signs Temp 97.6 F 07/28/21 02:22 Pulse 114 H 07/28/21 02:22 Resp 19 07/28/21 02:22 BP 168/76 07/28/21 02:22 Pulse Ox 92 L 07/28/21 02:22 Intake & Output 07/27/21 07/28/21 07/28/21 18:59 06:59 18:59 Intake Total 1378 Output Total 500 Balance 1378 -500 Intake: Oral 1068 Blood Product 310 Rc As-1 Unit 310 [id number] Output: Urine 500 Other: # Voids 1 - Constitutional General appearance: Present: no acute distress - Gastrointestinal General gastrointestinal: Present: soft, tenderness. Absent: distended - Labs CBC & Chem 7: 07/28/21 05:17 07/28/21 05:17 Labs: Abnormal Lab Results - Last 24 Hours (Table) 07/26/21 07/27/21 07/27/21 Range/Units 21:42 17:13 20:46 WBC (3.8-10.6) k/uL RBC (3.80-5.40) m/uL Hgb (11.4-16.0) gm/dL Hct (34.0-46.0) % Sodium (137-145) mmol/L Carbon Dioxide (22-30) mmol/L BUN (7-17) mg/dL Creatinine (0.52-1.04) mg/dL Glucose (74-99) mg/dL POC Glucose (mg/dL) 122 H 129 H (75-99) mg/dL Calcium (8.4-10.2) mg/dL Crossmatch See Detail 07/28/21 07/28/21 07/28/21 Range/Units 05:17 05:17 06:58 WBC 15.2 H (3.8-10.6) k/uL RBC 3.23 L (3.80-5.40) m/uL Hgb 9.9 L D (11.4-16.0) gm/dL Hct 31.1 L (34.0-46.0) % Sodium 131 L (137-145) mmol/L Carbon Dioxide 17 L (22-30) mmol/L BUN 49 H (7-17) mg/dL Creatinine 2.54 H (0.52-1.04) mg/dL Glucose 154 H (74-99) mg/dL POC Glucose (mg/dL) 140 H (75-99) mg/dL Calcium 7.4 L (8.4-10.2) mg/dL Crossmatch 07/28/21 Range/Units 11:39 WBC (3.8-10.6) k/uL RBC (3.80-5.40) m/uL Hgb (11.4-16.0) gm/dL Hct (34.0-46.0) % Sodium (137-145) mmol/L Carbon Dioxide (22-30) mmol/L BUN (7-17) mg/dL Creatinine (0.52-1.04) mg/dL Glucose (74-99) mg/dL POC Glucose (mg/dL) 131 H (75-99) mg/dL Calcium (8.4-10.2) mg/dL Crossmatch Assessment and Plan Assessment: POD # 5 S/P RT NephU, slow to progress given age and comorbidities -Pain control -Ambulate
--- NOTE | 2021-07-28 16:30 | XR ---
EXAMINATION TYPE: XR abdomen 2V DATE OF EXAM: 07/28/2021 HISTORY: Pain. Technique: 4 views of the abdomen are submitted. Comparison: 07/05/2021 Findings: There is no convincing evidence of pneumoperitoneum. Upper abdominal skin jerry are noted. [place] also seen within the left inguinal region. There are distended loops of small bowel which could reflect postoperative ileus. Air is seen within the colon. No sizable air-fluid levels are seen. No mass effects are noted. No renal calcifications are identified. IMPRESSION: 1. Correlate for postoperative ileus. Distal obstruction difficult to exclude. Continued progress mike dies are advised.
[2021-07-28 17:27] LABS: Glucose,Whole Blood 141 mg/dL (75-99)
[2021-07-28] MEDS: HYDROmorphone PCA 10 MG/50 ML BAG IV PRN (18:27)
[2021-07-28 21:14] LABS: Glucose,Whole Blood 189 mg/dL (75-99)
[2021-07-28] MEDS: MONTELUKAST 10 MG TAB PO SCH (21:41)
[2021-07-29] MEDS: SODIUM CHLORIDE 0.45% 1,000 ML IV SCH ×2 (00:45→09:33)
[2021-07-29] MEDS: LACTATED RINGERS 1,000 ML IV SCH (06:44)
[2021-07-29 07:01] LABS: Glucose,Whole Blood 160 mg/dL (75-99)
[2021-07-29] MEDS ORDERED: methocarbamoL 750 MG TAB PO PRN (09:04)
[2021-07-29] MEDS: HEPARIN SODIUM,PORCINE/PF 5,000 UNIT/0.5 ML SYRINGE SQ SCH ×2 (09:08→20:31)
[2021-07-29 09:09] LABS: Basophils # (A) 0.07 X 10*3/uL (0.00-0.10); Basophils % (A) 0.5 %; Eosinophils # (A) 0.58 X 10*3/uL (0.04-0.35); Eosinophils % (A) 3.9 %; HCT 32.6 % (37.2-46.3); Immature Grans, Automated 0.9 %; Lymphocytes % (A) 5.3 %; MCH 28.8 pg (27.0-32.0); MCHC 30.7 g/dL (32.0-37.0); MCV 93.9 fL (80.0-97.0); Mean Platelet Volume 10.7 fL (9.5-12.2); Monocytes # (A) 1.41 X 10*3/uL (0.20-1.00); Monocytes % (A) 9.4 %; NRBC Per 100 WBC 0 /100 WBCS (0.0-0.0); Neutrophils # (A) 11.99 X 10*3/uL (1.80-7.70); Platelet Count 246 X 10*3/uL (140-440); RBC 3.47 X 10*6/uL (4.10-5.20); RDW 13.3 % (11.5-14.5); WBC 14.99 X 10*3/uL (4.50-10.00)
[2021-07-29] MEDS: INSULIN ASPART (NovoLOG) 100 UNIT/ML VIAL SQ SCH ×4 (09:09→20:38)
[2021-07-29] MEDS: FUROSEMIDE 20 MG TAB PO SCH (09:09)
[2021-07-29] MEDS: PANTOPRAZOLE 40 MG TABLET PO SCH (09:09)
[2021-07-29] MEDS: amLODIPine 5 MG TAB PO SCH (09:14)
[2021-07-29 09:29] LABS: African American GFR (CKD) 18.5 (60.0-200.0); Anion Gap 12.5 mmol/L (10.00-18.00); BUN/Creat Ratio 19.85 Ratio (12.00-20.00); Blood Urea Nitrogen 53.6 mg/dL (9.0-27.0); Carbon Dioxide 16.5 mmol/L (20.0-27.5); Potassium 4.7 mmol/L (3.5-5.5)
[2021-07-29] MEDS: LIDOCAINE 4% CREAM 5 GM TUBE TOPICAL PRN ×3 (10:17→20:32)
[2021-07-29] MEDS: HYDROcodone/APAP 5-325MG 1 EACH TAB PO PRN ×3 (10:19→20:36)
--- NOTE | 2021-07-29 11:03 | P.PN ---
Subjective POD #6 S/P right NephU, distention slightly worse compared to yesterday. Indicated she's still passing flatus, denies any nausea or vomiting. Her creatinine stable at 2.7. Her pain is mainly at her joint rather than incision Objective - Vital Signs Vital signs: Vital Signs Temp 97.8 F 07/29/21 07:28 Pulse 105 H 07/29/21 07:28 Resp 17 07/29/21 07:28 BP 169/94 07/29/21 07:28 Pulse Ox 95 07/29/21 07:28 Intake & Output 07/28/21 07/29/21 07/29/21 18:59 06:59 18:59 Output Total 500 Balance -500 Output: Urine 500 Other: Voiding Method Bedside Commode External Catheter External Catheter - Constitutional General appearance: Present: no acute distress - Gastrointestinal General gastrointestinal: Present: distended, soft, tenderness (Lower quadrant ) - Integumentary Integumentary Comment(s): Incision: CDI - Psychiatric Psychiatric: Present: A&O x's 3 - Labs CBC & Chem 7: 07/29/21 04:34 07/29/21 04:34 Labs: Abnormal Lab Results - Last 24 Hours (Table) 07/28/21 07/28/21 07/28/21 Range/Units 05:17 05:17 06:58 WBC 15.2 H (3.8-10.6) k/uL RBC 3.23 L (3.80-5.40) m/uL Hgb 9.9 L D (11.4-16.0) gm/dL Hct 31.1 L (34.0-46.0) % MCHC (32.0-37.0) g/dL Immature Gran # (0.00-0.04) X 10*3/uL Neutrophils # (1.80-7.70) X 10*3/uL Lymphocytes # (0.90-5.00) X 10*3/uL Monocytes # (0.20-1.00) X 10*3/uL Eosinophils # (0.04-0.35) X 10*3/uL Sodium 131 L (137-145) mmol/L Carbon Dioxide 17 L (22-30) mmol/L BUN 49 H (7-17) mg/dL Creatinine 2.54 H (0.52-1.04) mg/dL Est GFR (CKD-EPI)AfAm (60.0-200.0) Est GFR (CKD-EPI)NonAf (60.0-200.0) Glucose 154 H (74-99) mg/dL POC Glucose (mg/dL) 140 H (75-99) mg/dL Calcium 7.4 L (8.4-10.2) mg/dL 07/28/21 07/28/21 07/28/21 Range/Units 11:39 17:26 21:13 WBC (3.8-10.6) k/uL RBC (3.80-5.40) m/uL Hgb (11.4-16.0) gm/dL Hct (34.0-46.0) % MCHC (32.0-37.0) g/dL Immature Gran # (0.00-0.04) X 10*3/uL Neutrophils # (1.80-7.70) X 10*3/uL Lymphocytes # (0.90-5.00) X 10*3/uL Monocytes # (0.20-1.00) X 10*3/uL Eosinophils # (0.04-0.35) X 10*3/uL Sodium (137-145) mmol/L Carbon Dioxide (22-30) mmol/L BUN (7-17) mg/dL Creatinine (0.52-1.04) mg/dL Est GFR (CKD-EPI)AfAm (60.0-200.0) Est GFR (CKD-EPI)NonAf (60.0-200.0) Glucose (74-99) mg/dL POC Glucose (mg/dL) 131 H 141 H 189 H (75-99) mg/dL Calcium (8.4-10.2) mg/dL 07/29/21 07/29/21 07/29/21 Range/Units 04:34 04:34 06:59 WBC 14.99 H (3.8-10.6) k/uL RBC 3.47 L (3.80-5.40) m/uL Hgb 10.0 L (11.4-16.0) gm/dL Hct 32.6 L (34.0-46.0) % MCHC 30.7 L (32.0-37.0) g/dL Immature Gran # 0.14 H (0.00-0.04) X 10*3/uL Neutrophils # 11.99 H (1.80-7.70) X 10*3/uL Lymphocytes # 0.80 L (0.90-5.00) X 10*3/uL Monocytes # 1.41 H (0.20-1.00) X 10*3/uL Eosinophils # 0.58 H (0.04-0.35) X 10*3/uL Sodium 132 L (137-145) mmol/L Carbon Dioxide 16.5 L (22-30) mmol/L BUN 53.6 H (7-17) mg/dL Creatinine 2.7 H (0.52-1.04) mg/dL Est GFR (CKD-EPI)AfAm 18.5 L (60.0-200.0) Est GFR (CKD-EPI)NonAf 16.0 L (60.0-200.0) Glucose 161 H (74-99) mg/dL POC Glucose (mg/dL) 160 H (75-99) mg/dL Calcium 8.0 L (8.4-10.2) mg/dL Assessment and Plan Assessment: POD # 6 S/P RT NephU, slow to progress given age and comorbidities -Pain control -Ambulate -Given worsening distention will place on CLD -D/C DIRECTOR OF SPORTS PERFORMANCE and switch to [place] and Robaxin for pain control.
[2021-07-29 11:30] LABS: Glucose,Whole Blood 155 mg/dL (75-99)
--- NOTE | 2021-07-29 15:06 | P.PN ---
Subjective Progress Note Date: 07/29/21 This is a pleasant 80 years old female with past medical history of diabetes mellitus, asthma, hypertension, osteoarthritis, right kidney cancer. She was admitted today under urology service and underwent right nephroureterectomy. Today is postop day #0. Medical consult has been requested for postoperative management of glucose and diabetes. Patient was in her bed in the room for 78, she was sleepy from anesthesia and during her surgery today, therefore information were limited Currently at to check his 105 At home patient is on glipizide 5 mg by mouth daily and sitagliptin 100 mg daily. Which is Currently switched to limit lifting 5 mg daily for nonformulary. Patient just came from surgery and he started eating therefore we would recommend to hold his diabetes medication today and continue with insulin sliding scale, discussed with bed side nurse 07/24/2021 Patient is awake and alert today, she is complaining from some little pain at the surgical site. She was started eating clear liquids diet and some Jello this morning. Her glucose is controlled. She is currently kept on glipizide 2.5 mg twice a day. linagliptin still on hold. She is a little short of breath most likely from post operative effect. However we will check chest x-rays, as her oxygen little bit on the low normal side. Patient does not have chest pain or significant cough and or tachypnea. WBCs elevated 19.1, most likely secondary to surgical effect as well as low hemoglobin of 8. She still on normal saline 100 mL per hour. Discussed with the primary team and surgery team to start on DVT prophylaxis on subcu heparin. 07/25/2021 Patient sitting in chair, not in distress, no specific complaint. She is hemodynamically stable. Labs done today hemoglobin was 6.7 compared to yesterday of 8. Hemoglobin and she is back to 8.2. She has leukocytosis with WBC 18,000. Creatinine is stable at 2.7. Glucose controlled on glipizide 2.5 twice a day. Limit lifting is on hold since admission as it is felt patient does not need it. Currently kept on normal saline 100 mL per hour Also she is on Protonix and subcu heparin. We will ask for UA, ordered Chest x-ray 2 yesterday was stable showing elevation of right hemidiaphragm, and atelectasis, grossly unremarkable lungs otherwise 07/26/2021 Patient is currently lying in the bed. Awake alert and oriented x3. Patient is status post rt nephroureterectomy. Pain is fairly controlled. Patient is on SPECIMEN TRANSPORTER pump. Patient does have a history of right nephrectomy. Laboratory data showed WBC 18.3 hemoglobin 6.9 and platelets 188 Sodium 134 potassium 4.4 chloride 98 BUN 67 creatinine worsened to 4.37. Calcium 11.8 and magnesium 1.6 Patient is being current IV hydration with half-normal saline at 100 cc/h. 07/27/2021 Patient is currently lying in bed. Still complains of right flank and abdominal pain. No fever no chills. No nausea vomiting or diarrhea. Patient was tachycardic this morning with heart rate around 107. Hemoglobin level improved to 7.7 after 1 unit of PRBC transfusion. Laboratory data showed WBC 15.7 hemoglobin 7.7 platelets 212 Sodium 134 potassium 4.4 chloride 104 BUN 42.1 and creatinine 2.7 and blood sugar is 46 this morning. Glipizide will be on hold and continue with insulin sliding scale. Encourage oral intake. 07/28/2021 Patient evaluated today resting in bed. She is postoperative day #5 right nephroureterectomy. She is currently denying any pain, no acute events overnight. She is requesting to lay on her side. Main complaint today is abdominal distention and states she has not had a BM in 5 days. She is passing some gas. She is distended with tympanic abdomen. Lactulose x 1 has been ordered. Labs today are pending. Patient is being followed closely by urology. 07/29/2021 Patient evaluated today in bed. SPECIMEN TRANSPORTER pump has been discontinued by primary and she is started on norco for pain management. Abdominal xray correlating for postoperative ileus with distal obstruction difficult to exclude. Still with tympanic abdomen. Hypoactive bowel sounds all 4 quadrants, she is passing gas. No BM. Diet decreased to clear liquid and lactulose was given yesterday. Encourage ambulation, encourage spirometry. Patient able to walk to bathroom with assistance, discourage use of bedside commode. Labs today show white count 14.99, hemoglobin 10.0, sodium 132, BUN 52.6, creatinine 2.7, blood glucose in the 150s. Magnesium 2.0. Patient is afebrile, heart rate 102, blood pressure 138/77, 98% room air. Review of Systems Constitutional: Denied any fatigue denied any fever. Cardio vascular: denied any chest pain, palpitations Gastrointestinal: denied any nausea, vomiting, diarrhea, Reports constipation Pulmonary: Denied any shortness of breath cough Neurologic denied any new focal deficits All inpatient medications were reviewed and appropriate changes in these medications as dictated in the interval history and assessment and plan. PHYSICAL EXAMINATION: GENERAL: The patient is alert and oriented x3, not in any acute distress. Well developed, well nourished. HEENT: Pupils are round and equally reacting to light. EOMI. No scleral icterus. No conjunctival pallor. Normocephalic, atraumatic. No pharyngeal erythema. No thyromegaly. CARDIOVASCULAR: S1 and S2 present. No murmurs, rubs, or gallops. PULMONARY: Chest is clear to auscultation, no wheezing or crackles. ABDOMEN: Soft, tender, distended, tympanic on examination, hypoactive bowel sounds. No palpable organomegaly. MUSCULOSKELETAL: No joint swelling or deformity. EXTREMITIES: No cyanosis, clubbing, or pedal edema. NEUROLOGICAL: Gross neurological examination did not reveal any focal deficits. SKIN: No rashes. right upper quadrant incision and medial lower quadrant abdominal incision present with staple closure Assessment and Plan Assessment Right kidney cancer status post right nephroureterectomy Anemia of chronic disease and mild acute blood loss anemia hemoglobin hemoglobin up to 10.0 Leukocytosis, reactive Type 2 diabetes mellitus Hypertension History of osteoarthritis History of asthma, not an active issue GI Prophylaxis DVT Prophylaxis Plan Bowel Regimine SPECIMEN TRANSPORTER pump discontinued per primary Clear liquid diet Repeat labs in AM Continue to encourage incentive spirometry Encourage ambulation PT/OT consultation Thank you kindly for this consultation. The impression and plan of care has been dictated by Megan Unger, Nurse Practitioner as directed. Dr. Joey MD I have performed a history and physical examination and medical decision making of this patient, discussed the same with the dictator, and agree with the dictators assessment and plan as written, documented as a scribe. Based on total visit time, I have performed more than 50% of this visit. Objective - Vital Signs Vital signs: Vital Signs Temp 97.8 F 07/29/21 07:28 Pulse 105 H 07/29/21 07:28 Resp 17 07/29/21 07:28 BP 169/94 07/29/21 07:28 Pulse Ox 95 07/29/21 07:28 Intake & Output 07/28/21 07/29/21 07/29/21 18:59 06:59 18:59 Output Total 500 300 Balance -500 -300 Output: Urine 500 300 Other: Voiding Method Bedside Commode External Catheter External Catheter - Labs CBC & Chem 7: 07/29/21 04:34 07/29/21 04:34 Labs: Abnormal Lab Results - Last 24 Hours (Table) 07/28/21 07/28/21 07/28/21 Range/Units 05:17 17:26 21:13 WBC 15.2 H (3.8-10.6) k/uL RBC 3.23 L (3.80-5.40) m/uL Hgb 9.9 L D (11.4-16.0) gm/dL Hct 31.1 L (34.0-46.0) % MCHC (32.0-37.0) g/dL Immature Gran # (0.00-0.04) X 10*3/uL Neutrophils # (1.80-7.70) X 10*3/uL Lymphocytes # (0.90-5.00) X 10*3/uL Monocytes # (0.20-1.00) X 10*3/uL Eosinophils # (0.04-0.35) X 10*3/uL Sodium (135-145) mmol/L Carbon Dioxide (20.0-27.5) mmol/L BUN (9.0-27.0) mg/dL Creatinine (0.6-1.5) mg/dL Est GFR (CKD-EPI)AfAm (60.0-200.0) Est GFR (CKD-EPI)NonAf (60.0-200.0) Glucose (70-110) mg/dL POC Glucose (mg/dL) 141 H 189 H (75-99) mg/dL Calcium (8.7-10.3) mg/dL 07/29/21 07/29/21 07/29/21 Range/Units 04:34 04:34 06:59 WBC 14.99 H (3.8-10.6) k/uL RBC 3.47 L (3.80-5.40) m/uL Hgb 10.0 L (11.4-16.0) gm/dL Hct 32.6 L (34.0-46.0) % MCHC 30.7 L (32.0-37.0) g/dL Immature Gran # 0.14 H (0.00-0.04) X 10*3/uL Neutrophils # 11.99 H (1.80-7.70) X 10*3/uL Lymphocytes # 0.80 L (0.90-5.00) X 10*3/uL Monocytes # 1.41 H (0.20-1.00) X 10*3/uL Eosinophils # 0.58 H (0.04-0.35) X 10*3/uL Sodium 132 L (135-145) mmol/L Carbon Dioxide 16.5 L (20.0-27.5) mmol/L BUN 53.6 H (9.0-27.0) mg/dL Creatinine 2.7 H (0.6-1.5) mg/dL Est GFR (CKD-EPI)AfAm 18.5 L (60.0-200.0) Est GFR (CKD-EPI)NonAf 16.0 L (60.0-200.0) Glucose 161 H (70-110) mg/dL POC Glucose (mg/dL) 160 H (75-99) mg/dL Calcium 8.0 L (8.7-10.3) mg/dL 07/29/21 Range/Units 11:28 WBC (3.8-10.6) k/uL RBC (3.80-5.40) m/uL Hgb (11.4-16.0) gm/dL Hct (34.0-46.0) % MCHC (32.0-37.0) g/dL Immature Gran # (0.00-0.04) X 10*3/uL Neutrophils # (1.80-7.70) X 10*3/uL Lymphocytes # (0.90-5.00) X 10*3/uL Monocytes # (0.20-1.00) X 10*3/uL Eosinophils # (0.04-0.35) X 10*3/uL Sodium (135-145) mmol/L Carbon Dioxide (20.0-27.5) mmol/L BUN (9.0-27.0) mg/dL Creatinine (0.6-1.5) mg/dL Est GFR (CKD-EPI)AfAm (60.0-200.0) Est GFR (CKD-EPI)NonAf (60.0-200.0) Glucose (70-110) mg/dL POC Glucose (mg/dL) 155 H (75-99) mg/dL Calcium (8.7-10.3) mg/dL Assessment and Plan Time with Patient: Less than 30
[2021-07-29 16:35] LABS: Glucose,Whole Blood 178 mg/dL (75-99)
[2021-07-29] MEDS: MONTELUKAST 10 MG TAB PO SCH (20:32)
[2021-07-29 20:34] LABS: Glucose,Whole Blood 151 mg/dL (75-99)
[2021-07-30] MEDS: SODIUM CHLORIDE 0.45% 1,000 ML IV SCH (02:25)
[2021-07-30] MEDS: HYDROcodone/APAP 5-325MG 1 EACH TAB PO PRN ×3 (02:26→22:02)
[2021-07-30] MEDS: LIDOCAINE 4% CREAM 5 GM TUBE TOPICAL PRN ×2 (02:33→23:22)
[2021-07-30 06:54] LABS: Glucose,Whole Blood 161 mg/dL (75-99)
[2021-07-30] MEDS ORDERED: SODIUM CHLORIDE 0.45% 1,000 ML IV ONE (09:06)
[2021-07-30] MEDS: HEPARIN SODIUM,PORCINE/PF 5,000 UNIT/0.5 ML SYRINGE SQ SCH ×2 (09:14→22:02)
[2021-07-30] MEDS: amLODIPine 5 MG TAB PO SCH (09:14)
[2021-07-30] MEDS: PANTOPRAZOLE 40 MG TABLET PO SCH (09:14)
[2021-07-30] MEDS: INSULIN ASPART (NovoLOG) 100 UNIT/ML VIAL SQ SCH ×4 (09:14→22:03)
--- NOTE | 2021-07-30 10:24 | XR ---
EXAMINATION TYPE: XR KUB DATE OF EXAM: 07/30/2021 10:10 AM CLINICAL HISTORY: Pain and constipation. TECHNIQUE: Two portable supine KUB images of the abdomen are obtained. COMPARISON: CT abdomen and pelvis July 05, 2021. Abdominal x-ray 2 days ago. FINDINGS: Exam suboptimal secondary to patient's large body habitus. Multiple cholecystectomy clips a re redemonstrated. There are persistent overlying horizontal clips in the right upper to mid abdomen. There are persistent surgical clips overlying the lower pelvis. Gas is seen in nondistended stomach along with nondistended small bowel loops. One gas-filled bowel loop in the left lower quadrant is sl ightly more prominent. Gas is seen in nondistended colon along the periphery. Degree of small bowel g aseous distention is improved from 2 days earlier. Elevated right hemidiaphragm redemonstrated. Oley us structures are intact. IMPRESSION: Improving gas prominent small bowel loops suggests resolving ileus or obstruction.
[2021-07-30 10:52] LABS: Basophils # (A) 0.08 X 10*3/uL (0.00-0.10); Basophils % (A) 0.7 %; Eosinophils # (A) 0.66 X 10*3/uL (0.04-0.35); Eosinophils % (A) 6.2 %; HCT 29.1 % (37.2-46.3); HGB 9.1 g/dL (12.0-15.0); Immature Grans, Automated 0.9 %; Lymphocytes # (A) 0.84 X 10*3/uL (0.90-5.00); Lymphocytes % (A) 7.9 %; MCH 29.1 pg (27.0-32.0); MCHC 31.3 g/dL (32.0-37.0); Mean Platelet Volume 10.3 fL (9.5-12.2); Monocytes # (A) 1.03 X 10*3/uL (0.20-1.00); Monocytes % (A) 9.6 %; NRBC Per 100 WBC 0 /100 WBCS (0.0-0.0); Neutrophils # (A) 7.97 X 10*3/uL (1.80-7.70); Neutrophils % (A) 74.7 %; Platelet Count 220 X 10*3/uL (140-440); RBC 3.13 X 10*6/uL (4.10-5.20); RDW 13.2 % (11.5-14.5); WBC 10.68 X 10*3/uL (4.50-10.00)
[2021-07-30 11:02] LABS: Glucose,Whole Blood 154 mg/dL (75-99)
[2021-07-30 14:41] VITALS: BMI 40.7
[2021-07-30 16:44] LABS: Glucose,Whole Blood 204 mg/dL (75-99)
[2021-07-30] MEDS ORDERED: bisacodyL 10 MG SUPP RECTAL STA (19:46)
--- NOTE | 2021-07-30 19:51 | P.PN ---
Subjective This is a pleasant 80 years old female with past medical history of diabetes mellitus, asthma, hypertension, osteoarthritis, right kidney cancer. She was admitted today under urology service and underwent right nephroureterectomy. Today is postop day #0. Medical consult has been requested for postoperative management of glucose and diabetes. Patient was in her bed in the room for 78, she was sleepy from anesthesia and during her surgery today, therefore information were limited Currently at to check his 105 At home patient is on glipizide 5 mg by mouth daily and sitagliptin 100 mg daily. Which is Currently switched to limit lifting 5 mg daily for nonformulary. Patient just came from surgery and he started eating therefore we would rec ommend to hold his diabetes medication today and continue with insulin sliding scale, discussed with bed side nurse 07/24/2021 Patient is awake and alert today, she is complaining from some little pain at the surgical site. She was started eating clear liquids diet and some Jello this morning. Her glucose is controlled. She is currently kept on glipizide 2.5 mg twice a day. linagliptin still on hold. She is a little short of breath most likely from post operative effect. However we will check chest x-rays, as her oxygen little bit on the low normal side. Patient does not have chest pain or significant cough and or tachypnea. WBCs elevated 19.1, most likely secondary to surgical effect as well as low hemoglobin of 8. She still on normal saline 100 mL per hour. Discussed with the primary team and surgery team to start on DVT prophylaxis on subcu heparin. 07/25/2021 Patient sitting in chair, not in distress, no specific complaint. She is hemodynamically stable. Labs done today hemoglobin was 6.7 compared to yesterday of 8. Hemoglobin and she is back to 8.2. She has leukocytosis with WBC 18,000. Creatinine is stable at 2.7. Glucose controlled on glipizide 2.5 twice a day. Limit lifting is on hold since admission as it is felt patient does not need it. Currently kept on normal saline 100 mL per hour Also she is on Protonix and subcu heparin. We will ask for UA, ordered Chest x-ray 2 yesterday was stable showing elevation of right hemidiaphragm, and atelectasis, grossly unremarkable lungs otherwise 07/26/2021 Patient is currently lying in the bed. Awake alert and oriented x3. Patient is status post rt nephroureterectomy. Pain is fairly controlled. Patient is on WAX PUMPER pump. Patient does have a history of right nephrectomy. Laboratory data showed WBC 18.3 hemoglobin 6.9 and platelets 188 Sodium 134 potassium 4.4 chloride 98 BUN 67 creatinine worsened to 4.37. Eduardo cium 11.8 and magnesium 1.6 Patient is being current IV hydration with half-normal saline at 100 cc/h. 07/27/2021 Patient is currently lying in bed. Still complains of right flank and abdominal pain. No fever no chills. No nausea vomiting or diarrhea. Patient was tachycardic this morning with heart rate around 107. Hemoglobin level improved to 7.7 after 1 unit of PRBC transfusion. Laboratory data showed WBC 15.7 hemoglobin 7.7 platelets 212 Sodium 134 potassium 4.4 chloride 104 BUN 42.1 and creatinine 2.7 and blood sugar is 46 this morning. Glipizide will be on hold and continue with insulin sliding scale. Encourage oral intake. 07/28/2021 Patient evaluated today resting in bed. She is postoperative day #5 right nephroureterectomy. She is currently denying any pain, no acute events overnight. She is requesting to lay on her side. Main complaint today is abdominal distention and states she has not had a BM in 5 days. She is passing some gas. She is distended with tympanic abdomen. Lactulose x 1 has been ordered. Labs today are pending. Patient is being followed closely by urology. 07/29/2021 Patient evaluated today in bed. WAX PUMPER pump has been discontinued by primary and she is started on norco for pain management. Abdominal xray correlating for postoperative ileus with distal obstruction difficult to exclude. Still with tympanic abdomen. Hypoactive bowel sounds all 4 quadrants, she is passing gas. No BM. Diet decreased to clear liquid and lactulose was given yesterday. Encourage ambulation, encourage spirometry. Patient able to walk to bathroom with assistance, discourage use of bedside commode. Labs today show white count 14.99, hemoglobin 10.0, sodium 132, BUN 52.6, creatinine 2.7, blood glucose in the 150s. Magnesium 2.0. Patient is afebrile, heart rate 102, blood pressure 138/77, 98% room air. Subjective: Resume in the care of the patient today 07/30/2021 Patient alert and awake. She developed postoperative ileus and she was on liquid diet but advanced today to regular diet by primary team. She still complaining from mild abdominal pain but is improving. Repeat KUB showing improved ileus. Patient is passing gases but no bowel movement. Dulcolax 1 time dose is given. WBC is 10.6, hemoglobin 9.1 Check CBC and BMP tomorrow Continue with normal saline at 50 mL per hour Currently glipizide and linagliptin on hold and glucose controlled with insulin sliding scale Objective - Vital Signs Vital signs: Vital Signs Temp 98.1 F 07/30/21 18:14 Pulse 104 H 07/30/21 18:14 Resp 20 07/30/21 07:47 BP 132/65 07/30/21 18:14 Pulse Ox 96 07/30/21 18:14 Intake & Output 07/30/21 07/30/21 07/31/21 06:59 18:59 06:59 Weight 97.8 kg Other: Voiding Method Toilet External Catheter # Voids 2 - Exam GENERAL: The patient is alert and oriented x3, not in any acute distress. Well developed, well nourished. HEENT: Pupils are round and equally reacting to light. EOMI. No scleral icterus. No conjunctival pallor. Normocephalic, atraumatic. No pharyngeal erythema. No thyromegaly. CARDIOVASCULAR: S1 and S2 present. No murmurs, rubs, or gallops. PULMONARY: Chest is clear to auscultation, no wheezing or crackles. -ABDOMEN: Soft, mild right-sided tenderness, nondistended, normoactive bowel sounds. No palpable organomegaly. right-side surgical wound with a Place, rest of the exam is deferred to surgery primary team MUSCULOSKELETAL: No joint swelling or deformity. EXTREMITIES: No cyanosis, clubbing, or pedal edema. NEUROLOGICAL: Gross neurological examination did not reveal any focal deficits. SKIN: No rashes. no petechiae. - Labs CBC & Chem 7: 07/30/21 04:08 07/29/21 04:34 Labs: Abnormal Lab Results - Last 24 Hours (Table) 07/29/21 07/30/21 07/30/21 Range/Units 20:33 04:08 06:53 WBC 10.68 H (4.50-10.00) X 10*3/uL RBC 3.13 L (4.10-5.20) X 10*6/uL Hgb 9.1 L (12.0-15.0) g/dL Hct 29.1 L (37.2-46.3) % MCHC 31.3 L (32.0-37.0) g/dL Immature Gran # 0.10 H (0.00-0.04) X 10*3/uL Neutrophils # 7.97 H (1.80-7.70) X 10*3/uL Lymphocytes # 0.84 L (0.90-5.00) X 10*3/uL Monocytes # 1.03 H (0.20-1.00) X 10*3/uL Eosinophils # 0.66 H (0.04-0.35) X 10*3/uL POC Glucose (mg/dL) 151 H 161 H (75-99) mg/dL 07/30/21 07/30/21 Range/Units 11:01 16:43 WBC (4.50-10.00) X 10*3/uL RBC (4.10-5.20) X 10*6/uL Hgb (12.0-15.0) g/dL Hct (37.2-46.3) % MCHC (32.0-37.0) g/dL Immature Gran # (0.00-0.04) X 10*3/uL Neutrophils # (1.80-7.70) X 10*3/uL Lymphocytes # (0.90-5.00) X 10*3/uL Monocytes # (0.20-1.00) X 10*3/uL Eosinophils # (0.04-0.35) X 10*3/uL POC Glucose (mg/dL) 154 H 204 H (75-99) mg/dL Assessment and Plan Assessment: Right kidney cancer status post right nephroureterectomy Postoperative ileus Type 2 diabetes mellitus Hypertension History of osteoarthritis History of asthma, not an active issue Plan: This is a pleasant 8 years old female who presents for right nephrectomy. Continue with monitoring glucose hold glipizide 2.5 twice a day and hold linagliptin for now. Keep monitoring glucose Continue with normal saline Encourage incentive spirometry Give Dulcolax 1 Labs and medication were reviewed.. Continue same treatment. Continue with symptomatic treatment. Resume home medication. Monitor lytes and vitals. DVT and GI prophylaxis. Further recommendations depends on the clinical course of the patient DVT prophylaxis: On heparin GI Prophylaxis: Ppi Thank you for consulting us, we will follow up with you
[2021-07-30 21:44] LABS: Glucose,Whole Blood 160 mg/dL (75-99)
[2021-07-30] MEDS: MONTELUKAST 10 MG TAB PO SCH (22:03)
[2021-07-31] MEDS: HYDROcodone/APAP 5-325MG 1 EACH TAB PO PRN ×4 (04:47→22:07)
[2021-07-31] MEDS: LIDOCAINE 4% CREAM 5 GM TUBE TOPICAL PRN (04:48)
[2021-07-31 06:56] LABS: Glucose,Whole Blood 136 mg/dL (75-99)
[2021-07-31] MEDS: PANTOPRAZOLE 40 MG TABLET PO SCH (07:37)
[2021-07-31] MEDS: amLODIPine 5 MG TAB PO SCH (07:37)
[2021-07-31] MEDS: HEPARIN SODIUM,PORCINE/PF 5,000 UNIT/0.5 ML SYRINGE SQ SCH ×2 (07:37→21:52)
[2021-07-31] MEDS: INSULIN ASPART (NovoLOG) 100 UNIT/ML VIAL SQ SCH ×4 (07:38→21:53)
[2021-07-31] MEDS ORDERED: bisacodyL 10 MG SUPP RECTAL PRN (08:42)
--- NOTE | 2021-07-31 09:17 | XR ---
EXAMINATION TYPE: XR KUB DATE OF EXAM: 07/31/2021 9:10 AM CLINICAL HISTORY: Lower abdominal pain. TECHNIQUE: Two portable supine KUB images of the abdomen are obtained. COMPARISON: Abdominal x-ray from yesterday and older studies. FINDINGS: Exam remains suboptimal secondary to portable technique and patient's large body habitus. M ultiple cholecystectomy clips are redemonstrated. There are persistent overlying horizontal clips in the right upper to mid abdomen. There are better visualized or new sutures extending vertically over the right abdomen There are persistent vertical oriented surgical clips overlying the lower pelvis. Gas is seen in nondistended stomach along with nondistended small bowel loops. Gas is seen in nondist ended colon along the periphery. No suspicious new or increasing gas prominent small bowel loops. Callie vated right hemidiaphragm redemonstrated. Osseous structures are intact. IMPRESSION: Continued Improving gas prominent small bowel loops. No suspicious dilatation to suggest obstruction currently.
[2021-07-31] MEDS: CEPHALEXIN 500 MG CAP PO SCH ×3 (10:09→21:53)
[2021-07-31] MEDS: FUROSEMIDE 20 MG TAB PO SCH (10:09)
[2021-07-31] MEDS: CAPSAICIN 0.025% CREAM 60 GM TUBE TOPICAL SCH ×3 (10:15→22:13)
[2021-07-31] MEDS: NYSTATIN 100,000UNIT/GM CREAM 30 GM TUBE TOPICAL SCH ×3 (10:16→22:13)
[2021-07-31 11:27] LABS: Glucose,Whole Blood 180 mg/dL (75-99)
--- NOTE | 2021-07-31 15:22 | P.PN ---
Subjective POD #8 S/P right NephU, abdomen soft nontender.. Indicated she's still passing flatus, denies any nausea or vomiting. Her pain is mainly at her joint rather than incision, evidence of candidiasis along the lower edge of the abdominal incision Objective - Vital Signs Vital signs: Vital Signs Temp 98.1 F 07/31/21 14:00 Pulse 99 07/31/21 14:00 Resp 16 07/31/21 14:00 BP 156/77 07/31/21 14:00 Pulse Ox 96 07/31/21 14:00 Intake & Output 07/30/21 07/31/21 07/31/21 18:59 06:59 18:59 Intake Total 592 Balance 592 Weight 97.8 kg Intake: Oral 592 Other: Voiding Method Toilet External Catheter # Voids 2 1 # Bowel Movements 1 - Constitutional General appearance: Present: no acute distress - Gastrointestinal General gastrointestinal: Present: soft. Absent: distended, tenderness - Integumentary Integumentary Comment(s): Subcostal incision is clean dry and intact. Lower incision clean dry and intact, evidence of candidiasis along the lower margin of the incision secondary to her abdominal fold - Psychiatric Psychiatric: Present: A&O x's 3 - Labs CBC & Chem 7: 07/30/21 04:08 07/29/21 04:34 Labs: Abnormal Lab Results - Last 24 Hours (Table) 07/30/21 07/30/21 07/31/21 Range/Units 16:43 21:43 06:54 POC Glucose (mg/dL) 204 H 160 H 136 H (75-99) mg/dL 07/31/21 Range/Units 11:26 POC Glucose (mg/dL) 180 H (75-99) mg/dL Assessment and Plan Assessment: POD # 8 S/P RT NephU, slow to progress given age and comorbidities -Pain control -Ambulate -Stable from discharge from urology standpoint, patient will likely will need placement to [id number]
[2021-07-31 16:29] LABS: Glucose,Whole Blood 154 mg/dL (75-99)
--- NOTE | 2021-07-31 18:07 | P.PN ---
Subjective This is a pleasant 80 years old female with past medical history of diabetes mellitus, asthma, hypertension, osteoarthritis, right kidney cancer. She was admitted today under urology service and underwent right nephroureterectomy. Today is postop day #0. Medical consult has been requested for postoperative management of glucose and diabetes. Patient was in her bed in the room for 78, she was sleepy from anesthesia and during her surgery today, therefore information were limited Currently at to check his 105 At home patient is on glipizide 5 mg by mouth daily and sitagliptin 100 mg daily. Which is Currently switched to limit lifting 5 mg daily for nonformulary. Patient just came from surgery and he started eating therefore we would rec ommend to hold his diabetes medication today and continue with insulin sliding scale, discussed with bed side nurse 07/24/2021 Patient is awake and alert today, she is complaining from some little pain at the surgical site. She was started eating clear liquids diet and some Jello this morning. Her glucose is controlled. She is currently kept on glipizide 2.5 mg twice a day. linagliptin still on hold. She is a little short of breath most likely from post operative effect. However we will check chest x-rays, as her oxygen little bit on the low normal side. Patient does not have chest pain or significant cough and or tachypnea. WBCs elevated 19.1, most likely secondary to surgical effect as well as low hemoglobin of 8. She still on normal saline 100 mL per hour. Discussed with the primary team and surgery team to start on DVT prophylaxis on subcu heparin. 07/25/2021 Patient sitting in chair, not in distress, no specific complaint. She is hemodynamically stable. Labs done today hemoglobin was 6.7 compared to yesterday of 8. Hemoglobin and she is back to 8.2. She has leukocytosis with WBC 18,000. Creatinine is stable at 2.7. Glucose controlled on glipizide 2.5 twice a day. Limit lifting is on hold since admission as it is felt patient does not need it. Currently kept on normal saline 100 mL per hour Also she is on Protonix and subcu heparin. We will ask for UA, ordered Chest x-ray 2 yesterday was stable showing elevation of right hemidiaphragm, and atelectasis, grossly unremarkable lungs otherwise 07/26/2021 Patient is currently lying in the bed. Awake alert and oriented x3. Patient is status post rt nephroureterectomy. Pain is fairly controlled. Patient is on GAS FITTER HELPER pump. Patient does have a history of right nephrectomy. Laboratory data showed WBC 18.3 hemoglobin 6.9 and platelets 188 Sodium 134 potassium 4.4 chloride 98 BUN 67 creatinine worsened to 4.37. Eduardo cium 11.8 and magnesium 1.6 Patient is being current IV hydration with half-normal saline at 100 cc/h. 07/27/2021 Patient is currently lying in bed. Still complains of right flank and abdominal pain. No fever no chills. No nausea vomiting or diarrhea. Patient was tachycardic this morning with heart rate around 107. Hemoglobin level improved to 7.7 after 1 unit of PRBC transfusion. Laboratory data showed WBC 15.7 hemoglobin 7.7 platelets 212 Sodium 134 potassium 4.4 chloride 104 BUN 42.1 and creatinine 2.7 and blood sugar is 46 this morning. Glipizide will be on hold and continue with insulin sliding scale. Encourage oral intake. 07/28/2021 Patient evaluated today resting in bed. She is postoperative day #5 right nephroureterectomy. She is currently denying any pain, no acute events overnight. She is requesting to lay on her side. Main complaint today is abdominal distention and states she has not had a BM in 5 days. She is passing some gas. She is distended with tympanic abdomen. Lactulose x 1 has been ordered. Labs today are pending. Patient is being followed closely by urology. 07/29/2021 Patient evaluated today in bed. GAS FITTER HELPER pump has been discontinued by primary and she is started on norco for pain management. Abdominal xray correlating for postoperative ileus with distal obstruction difficult to exclude. Still with tympanic abdomen. Hypoactive bowel sounds all 4 quadrants, she is passing gas. No BM. Diet decreased to clear liquid and lactulose was given yesterday. Encourage ambulation, encourage spirometry. Patient able to walk to bathroom with assistance, discourage use of bedside commode. Labs today show white count 14.99, hemoglobin 10.0, sodium 132, BUN 52.6, creatinine 2.7, blood glucose in the 150s. Magnesium 2.0. Patient is afebrile, heart rate 102, blood pressure 138/77, 98% room air. Subjective: Resume in the care of the patient today 07/30/2021 Patient alert and awake. She developed postoperative ileus and she was on liquid diet but advanced today to regular diet by primary team. She still complaining from mild abdominal pain but is improving. Repeat KUB showing improved ileus. Patient is passing gases but no bowel movement. Dulcolax 1 time dose is given. WBC is 10.6, hemoglobin 9.1 Check CBC and BMP tomorrow Continue with normal saline at 50 mL per hour Currently glipizide and linagliptin on hold and glucose controlled with insulin sliding scale 07/31/2021 pt is tolerating diet well, she has a good bowel movement eraly morning around 4 am , her abd pain is better , kub: no distension . acutally she is complaining from pain in the lower abd at the level of her lower incisional wound , with area surrounding it is macerated and fungal infection is suspceted as it is located in the mid of thick abd skin folds. although there is evidance of cellulitis , pt is started on nystatin and keflex. pt is medically stable , she is sitting in chair most of the time ,with no other physicial complaint labs reviewed she is on half normal saline at 5 ml per hr Objective - Vital Signs Vital signs: Vital Signs Temp 98.1 F 07/31/21 14:00 Pulse 99 07/31/21 14:00 Resp 16 07/31/21 14:00 BP 156/77 07/31/21 14:00 Pulse Ox 96 07/31/21 14:00 Intake & Output 07/30/21 07/31/21 07/31/21 18:59 06:59 18:59 Intake Total 592 Balance 592 Weight 97.8 kg Intake: Oral 592 Other: Voiding Method Toilet External Catheter # Voids 2 1 # Bowel Movements 1 - Exam GENERAL: The patient is alert and oriented x3, not in any acute distress. Well developed, well nourished. HEENT: Pupils are round and equally reacting to light. EOMI. No scleral icterus. No conjunctival pallor. Normocephalic, atraumatic. No pharyngeal erythema. No thyromegaly. CARDIOVASCULAR: S1 and S2 present. No murmurs, rubs, or gallops. PULMONARY: Chest is clear to auscultation, no wheezing or crackles. -ABDOMEN: Soft, mild right-sided tenderness, nondistended, normoactive bowel sounds. No palpable organomegaly. right-side surgical wound with a Place, rest of the exam is deferred to surgery primary team MUSCULOSKELETAL: No joint swelling or deformity. EXTREMITIES: No cyanosis, clubbing, or pedal edema. NEUROLOGICAL: Gross neurological examination did not reveal any focal deficits. SKIN: No rashes. no petechiae. - Labs CBC & Chem 7: 07/30/21 04:08 07/29/21 04:34 Labs: Abnormal Lab Results - Last 24 Hours (Table) 07/30/21 07/30/21 07/31/21 Range/Units 16:43 21:43 06:54 POC Glucose (mg/dL) 204 H 160 H 136 H (75-99) mg/dL 07/31/21 Range/Units 11:26 POC Glucose (mg/dL) 180 H (75-99) mg/dL Assessment and Plan Assessment: Right kidney cancer status post right nephroureterectomy Postoperative ileus, resolved lower abd fungal infection and cellulitis around the lower abd incision surgical wound Type 2 diabetes mellitus Hypertension History of osteoarthritis History of asthma, not an active issue Plan: This is a pleasant 8 years old female who presents for right nephrectomy. Continue with monitoring glucose hold glipizide 2.5 twice a day and hold linagliptin for now. Keep monitoring glucose Continue with normal saline start keflex and nystatin Encourage incentive spirometry Give Dulcolax 1 prn Labs and medication were reviewed.. Continue same treatment. Continue with symptomatic treatment. Resume home medication. Monitor lytes and vitals. DVT and GI prophylaxis. Further recommendations depends on the clinical course of the patient DVT prophylaxis: On heparin GI Prophylaxis: Ppi pt is pending placement Thank you for consulting us, we will follow up with you
[2021-07-31 19:06] LABS: Basophils # (A) 0.1 k/uL (0-0.2); Basophils % (A) 1 %; Eosinophils # (A) 0.5 k/uL (0-0.7); Eosinophils % (A) 5 %; HCT 32.8 % (34.0-46.0); HGB 10.1 gm/dL (11.4-16.0); Hypochromasia Moderate; Lymphocytes # (A) 1.1 k/uL (1.0-4.8); Lymphocytes % (A) 11 %; MCH 29.6 pg (25.0-35.0); MCHC 30.9 g/dL (31.0-37.0); MCV 95.9 fL (80.0-100.0); Mean Platelet Volume 7.9; Monocytes # (A) 0.6 k/uL (0-1.0); Monocytes % (A) 6 %; Neutrophils # (A) 7.8 k/uL (1.3-7.7); Neutrophils % (A) 75 %; Platelet Count 283 k/uL (150-450); RBC 3.42 m/uL (3.80-5.40); WBC 10.3 k/uL (3.8-10.6)
[2021-07-31 19:13] LABS: African American GFR (CKD) 18 (>60 ml/min/1.73 sqM); Anion Gap 8 mmol/L; Blood Urea Nitrogen 51 mg/dL (7-17); Calcium 8.6 mg/dL (8.4-10.2); Carbon Dioxide 20 mmol/L (22-30); Chloride 108 mmol/L (98-107); Glucose 190 mg/dL (74-99); Non-African American GFR(CKD) 16 (>60 ml/min/1.73 sqM); Potassium 5.3 mmol/L (3.5-5.1); Sodium 136 mmol/L (137-145)
[2021-07-31 20:53] LABS: Glucose,Whole Blood 166 mg/dL (75-99)
[2021-07-31] MEDS ORDERED: FUROSEMIDE 10 MG/ML 2 ML VIAL IV ONE (21:17)
[2021-07-31] MEDS: MONTELUKAST 10 MG TAB PO SCH (21:53)
[2021-08-01] MEDS: HYDROcodone/APAP 5-325MG 1 EACH TAB PO PRN ×4 (03:41→20:11)
[2021-08-01 07:11] LABS: Glucose,Whole Blood 135 mg/dL (75-99)
[2021-08-01] MEDS: amLODIPine 5 MG TAB PO SCH (08:16)
[2021-08-01] MEDS: PANTOPRAZOLE 40 MG TABLET PO SCH (08:16)
[2021-08-01] MEDS: INSULIN ASPART (NovoLOG) 100 UNIT/ML VIAL SQ SCH ×4 (08:16→20:12)
[2021-08-01] MEDS: CEPHALEXIN 500 MG CAP PO SCH ×4 (08:16→20:11)
[2021-08-01] MEDS: FUROSEMIDE 20 MG TAB PO SCH (08:16)
[2021-08-01] MEDS: HEPARIN SODIUM,PORCINE/PF 5,000 UNIT/0.5 ML SYRINGE SQ SCH ×2 (08:17→20:11)
[2021-08-01 11:41] LABS: Glucose,Whole Blood 158 mg/dL (75-99)
--- NOTE | 2021-08-01 13:26 | P.PN ---
Subjective This is a pleasant 80 years old female with past medical history of diabetes mellitus, asthma, hypertension, osteoarthritis, right kidney cancer. She was admitted today under urology service and underwent right nephroureterectomy. Today is postop day #0. Medical consult has been requested for postoperative management of glucose and diabetes. Patient was in her bed in the room for 78, she was sleepy from anesthesia and during her surgery today, therefore information were limited Currently at to check his 105 At home patient is on glipizide 5 mg by mouth daily and sitagliptin 100 mg daily. Which is Currently switched to limit lifting 5 mg daily for nonformulary. Patient just came from surgery and he started eating therefore we would rec ommend to hold his diabetes medication today and continue with insulin sliding scale, discussed with bed side nurse 07/24/2021 Patient is awake and alert today, she is complaining from some little pain at the surgical site. She was started eating clear liquids diet and some Jello this morning. Her glucose is controlled. She is currently kept on glipizide 2.5 mg twice a day. linagliptin still on hold. She is a little short of breath most likely from post operative effect. However we will check chest x-rays, as her oxygen little bit on the low normal side. Patient does not have chest pain or significant cough and or tachypnea. WBCs elevated 19.1, most likely secondary to surgical effect as well as low hemoglobin of 8. She still on normal saline 100 mL per hour. Discussed with the primary team and surgery team to start on DVT prophylaxis on subcu heparin. 07/25/2021 Patient sitting in chair, not in distress, no specific complaint. She is hemodynamically stable. Labs done today hemoglobin was 6.7 compared to yesterday of 8. Hemoglobin and she is back to 8.2. She has leukocytosis with WBC 18,000. Creatinine is stable at 2.7. Glucose controlled on glipizide 2.5 twice a day. Limit lifting is on hold since admission as it is felt patient does not need it. Currently kept on normal saline 100 mL per hour Also she is on Protonix and subcu heparin. We will ask for UA, ordered Chest x-ray 2 yesterday was stable showing elevation of right hemidiaphragm, and atelectasis, grossly unremarkable lungs otherwise 07/26/2021 Patient is currently lying in the bed. Awake alert and oriented x3. Patient is status post rt nephroureterectomy. Pain is fairly controlled. Patient is on SITE COORDINATOR pump. Patient does have a history of right nephrectomy. Laboratory data showed WBC 18.3 hemoglobin 6.9 and platelets 188 Sodium 134 potassium 4.4 chloride 98 BUN 67 creatinine worsened to 4.37. Eduardo cium 11.8 and magnesium 1.6 Patient is being current IV hydration with half-normal saline at 100 cc/h. 07/27/2021 Patient is currently lying in bed. Still complains of right flank and abdominal pain. No fever no chills. No nausea vomiting or diarrhea. Patient was tachycardic this morning with heart rate around 107. Hemoglobin level improved to 7.7 after 1 unit of PRBC transfusion. Laboratory data showed WBC 15.7 hemoglobin 7.7 platelets 212 Sodium 134 potassium 4.4 chloride 104 BUN 42.1 and creatinine 2.7 and blood sugar is 46 this morning. Glipizide will be on hold and continue with insulin sliding scale. Encourage oral intake. 07/28/2021 Patient evaluated today resting in bed. She is postoperative day #5 right nephroureterectomy. She is currently denying any pain, no acute events overnight. She is requesting to lay on her side. Main complaint today is abdominal distention and states she has not had a BM in 5 days. She is passing some gas. She is distended with tympanic abdomen. Lactulose x 1 has been ordered. Labs today are pending. Patient is being followed closely by urology. 07/29/2021 Patient evaluated today in bed. SITE COORDINATOR pump has been discontinued by primary and she is started on norco for pain management. Abdominal xray correlating for postoperative ileus with distal obstruction difficult to exclude. Still with tympanic abdomen. Hypoactive bowel sounds all 4 quadrants, she is passing gas. No BM. Diet decreased to clear liquid and lactulose was given yesterday. Encourage ambulation, encourage spirometry. Patient able to walk to bathroom with assistance, discourage use of bedside commode. Labs today show white count 14.99, hemoglobin 10.0, sodium 132, BUN 52.6, creatinine 2.7, blood glucose in the 150s. Magnesium 2.0. Patient is afebrile, heart rate 102, blood pressure 138/77, 98% room air. Subjective: Resume in the care of the patient today 07/30/2021 Patient alert and awake. She developed postoperative ileus and she was on liquid diet but advanced today to regular diet by primary team. She still complaining from mild abdominal pain but is improving. Repeat KUB showing improved ileus. Patient is passing gases but no bowel movement. Dulcolax 1 time dose is given. WBC is 10.6, hemoglobin 9.1 Check CBC and BMP tomorrow Continue with normal saline at 50 mL per hour Currently glipizide and linagliptin on hold and glucose controlled with insulin sliding scale 07/31/2021 pt is tolerating diet well, she has a good bowel movement eraly morning around 4 am , her abd pain is better , kub: no distension . acutally she is complaining from pain in the lower abd at the level of her lower incisional wound , with area surrounding it is macerated and fungal infection is suspceted as it is located in the mid of thick abd skin folds. although there is evidance of cellulitis , pt is started on nystatin and keflex. pt is medically stable , she is sitting in chair most of the time ,with no other physicial complaint labs reviewed she is on half normal saline at 5 ml per hr 08/01/2021 Patient clinically looks his stable. She is fully awake and oriented. She is improving. Her bowel obstruction resolved and she had bowel movements yesterday and this morning. She is tolerating that well. No abdominal pain but she has pain at the surgical site in the lower abdominal fold. Her surgical wound cellulitis looks improving. She is started on Keflex and nystatin yesterday. Of the fluid, this stopped. WBCs 10.3, hemoglobin 10.1. Creatinine at baseline at 2.7. Calcium 5.3. Repeat potassium today is pending. She is a [employer] stable. She remains on Keflex and nystatin. IV fluids stopped. Discussed with staff and bedside nurse. Patient is medically stable for discharge pending placement Her glipizide and Linagliptin are still on hold both, her sugar is controlled on ISS Objective - Vital Signs Vital signs: Vital Signs Temp 98.2 F 08/01/21 08:00 Pulse 91 08/01/21 08:32 Resp 16 08/01/21 08:32 BP 131/73 08/01/21 08:00 Pulse Ox 97 08/01/21 08:00 Intake & Output 07/31/21 08/01/21 08/01/21 18:59 06:59 18:59 Intake Total 888 296 Balance 888 296 Intake: Oral 888 296 Other: Voiding Method Toilet Toilet Toilet External Catheter External Catheter External Catheter # Voids 10 # Bowel Movements 1 - Exam GENERAL: The patient is alert and oriented x3, not in any acute distress. Well developed, well nourished. HEENT: Pupils are round and equally reacting to light. EOMI. No scleral icterus. No conjunctival pallor. Normocephalic, atraumatic. No pharyngeal erythema. No thyromegaly. CARDIOVASCULAR: S1 and S2 present. No murmurs, rubs, or gallops. PULMONARY: Chest is clear to auscultation, no wheezing or crackles. -ABDOMEN: Soft, mild right-sided tenderness, nondistended, normoactive bowel sounds. No palpable organomegaly. right-side surgical wound with a Place, rest of the exam is deferred to surgery primary team MUSCULOSKELETAL: No joint swelling or deformity. EXTREMITIES: No cyanosis, clubbing, or pedal edema. NEUROLOGICAL: Gross neurological examination did not reveal any focal deficits. SKIN: No rashes. no petechiae. - Labs CBC & Chem 7: 07/31/21 18:29 07/31/21 18:29 Labs: Abnormal Lab Results - Last 24 Hours (Table) 07/31/21 07/31/21 07/31/21 Range/Units 16:27 18:29 18:29 RBC 3.42 L (3.80-5.40) m/uL Hgb 10.1 L (11.4-16.0) gm/dL Hct 32.8 L (34.0-46.0) % MCHC 30.9 L (31.0-37.0) g/dL Neutrophils # 7.8 H (1.3-7.7) k/uL Sodium 136 L (137-145) mmol/L Potassium 5.3 H (3.5-5.1) mmol/L Chloride 108 H (98-107) mmol/L Carbon Dioxide 20 L (22-30) mmol/L BUN 51 H (7-17) mg/dL Creatinine 2.72 H (0.52-1.04) mg/dL Glucose 190 H (74-99) mg/dL POC Glucose (mg/dL) 154 H (75-99) mg/dL 07/31/21 08/01/21 08/01/21 Range/Units 20:51 07:10 11:40 RBC (3.80-5.40) m/uL Hgb (11.4-16.0) gm/dL Hct (34.0-46.0) % MCHC (31.0-37.0) g/dL Neutrophils # (1.3-7.7) k/uL Sodium (137-145) mmol/L Potassium (3.5-5.1) mmol/L Chloride (98-107) mmol/L Carbon Dioxide (22-30) mmol/L BUN (7-17) mg/dL Creatinine (0.52-1.04) mg/dL Glucose (74-99) mg/dL POC Glucose (mg/dL) 166 H 135 H 158 H (75-99) mg/dL Assessment and Plan Assessment: Right kidney cancer status post right nephroureterectomy Postoperative ileus, resolved lower abd fungal infection and cellulitis around the lower abd incision surgical wound Type 2 diabetes mellitus Hypertension History of osteoarthritis History of asthma, not an active issue Plan: This is a pleasant 8 years old female who presents for right nephrectomy. Continue with monitoring glucose hold glipizide 2.5 twice a day and hold linagliptin for now. Keep monitoring glucose Continue with normal saline start keflex and nystatin Encourage incentive spirometry Give Dulcolax 1 prn Labs and medication were reviewed.. Continue same treatment. Continue with symptomatic treatment. Resume home medication. Monitor lytes and vitals. DVT and GI prophylaxis. Further recommendations depends on the clinical course of the patient DVT prophylaxis: On heparin GI Prophylaxis: Ppi pt is pending placement Thank you for consulting us, we will follow up with you
--- NOTE | 2021-08-01 14:15 | P.PN ---
Subjective POD #9 S/P right NephU, abdomen soft nontender.. Indicated she's still passing flatus, denies any nausea or vomiting. Her pain is mainly at her joint rather than incision, evidence of candidiasis along the lower edge of the abdominal incision. Plan to discharge patient to [facility] tomorrow Objective - Vital Signs Vital signs: Vital Signs Temp 98.6 F 08/01/21 14:00 Pulse 88 08/01/21 14:00 Resp 16 08/01/21 14:00 BP 136/77 08/01/21 14:00 Pulse Ox 98 08/01/21 14:00 Intake & Output 07/31/21 08/01/21 08/01/21 18:59 06:59 18:59 Intake Total 888 592 Balance 888 592 Intake: Oral 888 592 Other: Voiding Method Toilet Toilet Toilet External Catheter External Catheter External Catheter # Voids 10 # Bowel Movements 1 - Constitutional General appearance: Present: no acute distress - Gastrointestinal General gastrointestinal: Present: soft. Absent: distended, tenderness - Psychiatric Psychiatric: Present: A&O x's 3 - Labs CBC & Chem 7: 07/31/21 18:29 07/31/21 18:29 Labs: Abnormal Lab Results - Last 24 Hours (Table) 07/31/21 07/31/21 07/31/21 Range/Units 16:27 18:29 18:29 RBC 3.42 L (3.80-5.40) m/uL Hgb 10.1 L (11.4-16.0) gm/dL Hct 32.8 L (34.0-46.0) % MCHC 30.9 L (31.0-37.0) g/dL Neutrophils # 7.8 H (1.3-7.7) k/uL Sodium 136 L (137-145) mmol/L Potassium 5.3 H (3.5-5.1) mmol/L Chloride 108 H (98-107) mmol/L Carbon Dioxide 20 L (22-30) mmol/L BUN 51 H (7-17) mg/dL Creatinine 2.72 H (0.52-1.04) mg/dL Glucose 190 H (74-99) mg/dL POC Glucose (mg/dL) 154 H (75-99) mg/dL 07/31/21 08/01/2108/01/22 Range/Units 20:51 07:10 11:40 RBC (3.80-5.40) m/uL Hgb (11.4-16.0) gm/dL Hct (34.0-46.0) % MCHC (31.0-37.0) g/dL Neutrophils # (1.3-7.7) k/uL Sodium (137-145) mmol/L Potassium (3.5-5.1) mmol/L Chloride (98-107) mmol/L Carbon Dioxide (22-30) mmol/L BUN (7-17) mg/dL Creatinine (0.52-1.04) mg/dL Glucose (74-99) mg/dL POC Glucose (mg/dL) 166 H 135 H 158 H (75-99) mg/dL Assessment and Plan Assessment: POD # 9 S/P RT NephU, slow to progress given age and comorbidities -Pain control -Ambulate -Stable from discharge from urology standpoint, plan to discharge patient to [facility] tomorrow
[2021-08-01] MEDS: CAPSAICIN 0.025% CREAM 60 GM TUBE TOPICAL SCH ×3 (14:53→23:36)
[2021-08-01] MEDS: NYSTATIN 100,000UNIT/GM CREAM 30 GM TUBE TOPICAL SCH ×3 (14:53→23:36)
[2021-08-01 16:31] LABS: Glucose,Whole Blood 191 mg/dL (75-99)
[2021-08-01] MEDS: MONTELUKAST 10 MG TAB PO SCH (20:11)
[2021-08-01 20:12] LABS: Glucose,Whole Blood 178 mg/dL (75-99)
[2021-08-01 22:42] VITALS: RESP 18
[2021-08-02] MEDS: HYDROcodone/APAP 5-325MG 1 EACH TAB PO PRN ×3 (01:31→12:35)
[2021-08-02 07:07] LABS: Glucose,Whole Blood 143 mg/dL (75-99)
[2021-08-02] MEDS: FUROSEMIDE 20 MG TAB PO SCH (07:53)
[2021-08-02] MEDS: amLODIPine 5 MG TAB PO SCH (07:54)
[2021-08-02] MEDS: INSULIN ASPART (NovoLOG) 100 UNIT/ML VIAL SQ SCH ×2 (07:54→11:46)
[2021-08-02] MEDS: CEPHALEXIN 500 MG CAP PO SCH (07:54)
[2021-08-02] MEDS: PANTOPRAZOLE 40 MG TABLET PO SCH (07:54)
[2021-08-02] MEDS: HEPARIN SODIUM,PORCINE/PF 5,000 UNIT/0.5 ML SYRINGE SQ SCH (07:55)
[2021-08-02] MEDS: NYSTATIN 100,000UNIT/GM CREAM 30 GM TUBE TOPICAL SCH (07:56)
[2021-08-02] MEDS: CAPSAICIN 0.025% CREAM 60 GM TUBE TOPICAL SCH (07:56)
[2021-08-02 08:54] VITALS: BP 146/81; PULSE 104; TEMP 98.1
[2021-08-02] MEDS ORDERED: CEPHALEXIN 500 MG CAP PO SCH (09:00)
[2021-08-02 11:19] LABS: Glucose,Whole Blood 183 mg/dL (75-99)
--- NOTE | 2021-08-02 11:22 | P.DS ---
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 Underwent a nephroureterectomy on July [address] Zhao. Please see op note dated July 23 for surgery detail. She had a prolonged hospital course secondary to her comorbidities, age and ileus. She required 2 units of transfusion on postop day #2 for hemoglobin of 6.6. But of note her hemoglobin was 8 preoperatively. She responded appropriately after transfusion. Steinberg catheter was removed On POD #3. She was very slow to progress. Internal medical consult was placed for medical management. Physical therapy evaluate the patient and recommended subacute rehab. She was discharged to subacute rehab on postop day #9. At time of discharge she was tolerating a diet, ambulating, pain was well controlled. She will follow up with Dr. Byrd 1 week Plan - Discharge Summary Discharge Rx Participant: No New Discharge Prescriptions: New Lidocaine 4% Cream [Lmx 4] 1 applic TOPICAL Q6HR PRN PRN Reason: Pain INSULIN ASPART (NovoLOG) [NovoLOG (formulary)] 0 unit SQ ACHS ml Cephalexin [Keflex] 500 mg PO Q8HR 7 Days #21 cap Benzocaine/Menthol Lozeng [Cepacol lozenge] 1 each MUCOUS MEM Q4HR PRN lozenge PRN Reason: throat discomfort bisacodyL [Dulcolax] 10 mg RECTAL DAILY PRN supp PRN Reason: Constipation Nystatin 100,000Unit/gm Cream [Mycostatin Cream] 1 applic TOPICAL TID 7 Days #1 cream Capsaicin Cream [Trixaicin Cream] 1 applic TOPICAL TID cream HYDROcodone/APAP 5-325MG [[place] 5-325] 1 each PO Q8HR PRN 3 Days #9 tab PRN Reason: Pain Continue Pantoprazole Sodium [Protonix] 40 mg PO QAM Sodium Bicarbonate Tab 650 mg PO TID amLODIPine [Norvasc] 5 mg PO QAM Montelukast Sodium [Singulair] 10 mg PO HS Furosemide [Lasix] 20 mg PO TUTH Diclofenac Sodium [Voltaren Arthritis Pain 1% Gel] 1 applic TOPICAL DAILY PRN PRN Reason: Pain Discontinued HYDROcodone/APAP 5-325MG [[place] 5-325] 1 - 2 tab PO TID PRN PRN Reason: Pain glipiZIDE XL [Glucotrol XL] 5 mg PO DAILY sitaGLIPtin PHOSPHATE [Januvia] 100 mg PO DAILY@1200 Phenazopyridine [Pyridium] 200 mg PO TID PRN #9 tab PRN Reason: Pain ALPRAZolam [Xanax] 0.5 mg PO DAILY PRN PRN Reason: Anxiety Discharge Medication List Montelukast Sodium [Singulair] 10 mg PO HS 08/05/20 [History] Pantoprazole Sodium [Protonix] 40 mg PO QAM 08/05/20 [History] Furosemide [Lasix] 20 mg PO TUTH 07/05/21 [History] Sodium Bicarbonate Tab 650 mg PO TID 07/05/21 [History] amLODIPine [Norvasc] 5 mg PO QAM 07/05/21 [History] Diclofenac Sodium [Voltaren Arthritis Pain 1% Gel] 1 applic TOPICAL DAILY PRN 07/21/21 [History] Benzocaine/Menthol Lozeng [Cepacol lozenge] 1 each MUCOUS MEM Q4HR PRN lozenge 08/01/21 [Rx] Capsaicin Cream [Trixaicin Cream] 1 applic TOPICAL TID cream 08/01/21 [Rx] INSULIN ASPART (NovoLOG) [NovoLOG (formulary)] 0 unit SQ ACHS ml 08/01/21 [Rx] Lidocaine 4% Cream [Lmx 4] 1 applic TOPICAL Q6HR PRN 08/01/21 [Rx] Nystatin 100,000Unit/gm Cream [Mycostatin Cream] 1 applic TOPICAL TID 7 Days #1 cream 08/01/21 [Rx] bisacodyL [Dulcolax] 10 mg RECTAL DAILY PRN supp 08/01/21 [Rx] Cephalexin [Keflex] 500 mg PO Q8HR 7 Days #21 cap 08/02/21 [Rx] HYDROcodone/APAP 5-325MG [[place] 5-325] 1 each PO Q8HR PRN 3 Days #9 tab 08/02/21 [Rx] Activity/Diet/Wound Care/Special Instructions: [facility] rehab diabetic diet; low carbohydrate 1600 kcal per day Activity as tolerated ((Discharge instructions:-)) - We recommend wound care for her lower abdominal wound - keep holding her glipizide 5 g once a day and Januvia 100 mg daily; Her sugar is controlled with insulin sliding scale only for now Discharge Disposition: TRANSFER TO SNF/ECF
--- NOTE | 2021-08-02 21:33 | P.PN ---
Subjective This is a pleasant 80 years old female with past medical history of diabetes mellitus, asthma, hypertension, osteoarthritis, right kidney cancer. She was admitted today under urology service and underwent right nephroureterectomy. Today is postop day #0. Medical consult has been requested for postoperative management of glucose and diabetes. Patient was in her bed in the room for 78, she was sleepy from anesthesia and during her surgery today, therefore information were limited Currently at to check his 105 At home patient is on glipizide 5 mg by mouth daily and sitagliptin 100 mg daily. Which is Currently switched to limit lifting 5 mg daily for nonformulary. Patient just came from surgery and he started eating therefore we would rec ommend to hold his diabetes medication today and continue with insulin sliding scale, discussed with bed side nurse 07/24/2021 Patient is awake and alert today, she is complaining from some little pain at the surgical site. She was started eating clear liquids diet and some Jello this morning. Her glucose is controlled. She is currently kept on glipizide 2.5 mg twice a day. linagliptin still on hold. She is a little short of breath most likely from post operative effect. However we will check chest x-rays, as her oxygen little bit on the low normal side. Patient does not have chest pain or significant cough and or tachypnea. WBCs elevated 19.1, most likely secondary to surgical effect as well as low hemoglobin of 8. She still on normal saline 100 mL per hour. Discussed with the primary team and surgery team to start on DVT prophylaxis on subcu heparin. 07/25/2021 Patient sitting in chair, not in distress, no specific complaint. She is hemodynamically stable. Labs done today hemoglobin was 6.7 compared to yesterday of 8. Hemoglobin and she is back to 8.2. She has leukocytosis with WBC 18,000. Creatinine is stable at 2.7. Glucose controlled on glipizide 2.5 twice a day. Limit lifting is on hold since admission as it is felt patient does not need it. Currently kept on normal saline 100 mL per hour Also she is on Protonix and subcu heparin. We will ask for UA, ordered Chest x-ray 2 yesterday was stable showing elevation of right hemidiaphragm, and atelectasis, grossly unremarkable lungs otherwise 07/26/2021 Patient is currently lying in the bed. Awake alert and oriented x3. Patient is status post rt nephroureterectomy. Pain is fairly controlled. Patient is on PACKAGE DELIVERY ROOM SERVICE RUNNER pump. Patient does have a history of right nephrectomy. Laboratory data showed WBC 18.3 hemoglobin 6.9 and platelets 188 Sodium 134 potassium 4.4 chloride 98 BUN 67 creatinine worsened to 4.37. Eduardo cium 11.8 and magnesium 1.6 Patient is being current IV hydration with half-normal saline at 100 cc/h. 07/27/2021 Patient is currently lying in bed. Still complains of right flank and abdominal pain. No fever no chills. No nausea vomiting or diarrhea. Patient was tachycardic this morning with heart rate around 107. Hemoglobin level improved to 7.7 after 1 unit of PRBC transfusion. Laboratory data showed WBC 15.7 hemoglobin 7.7 platelets 212 Sodium 134 potassium 4.4 chloride 104 BUN 42.1 and creatinine 2.7 and blood sugar is 46 this morning. Glipizide will be on hold and continue with insulin sliding scale. Encourage oral intake. 07/28/2021 Patient evaluated today resting in bed. She is postoperative day #5 right nephroureterectomy. She is currently denying any pain, no acute events overnight. She is requesting to lay on her side. Main complaint today is abdominal distention and states she has not had a BM in 5 days. She is passing some gas. She is distended with tympanic abdomen. Lactulose x 1 has been ordered. Labs today are pending. Patient is being followed closely by urology. 07/29/2021 Patient evaluated today in bed. PACKAGE DELIVERY ROOM SERVICE RUNNER pump has been discontinued by primary and she is started on norco for pain management. Abdominal xray correlating for postoperative ileus with distal obstruction difficult to exclude. Still with tympanic abdomen. Hypoactive bowel sounds all 4 quadrants, she is passing gas. No BM. Diet decreased to clear liquid and lactulose was given yesterday. Encourage ambulation, encourage spirometry. Patient able to walk to bathroom with assistance, discourage use of bedside commode. Labs today show white count 14.99, hemoglobin 10.0, sodium 132, BUN 52.6, creatinine 2.7, blood glucose in the 150s. Magnesium 2.0. Patient is afebrile, heart rate 102, blood pressure 138/77, 98% room air. Subjective: Resume in the care of the patient today 07/30/2021 Patient alert and awake. She developed postoperative ileus and she was on liquid diet but advanced today to regular diet by primary team. She still complaining from mild abdominal pain but is improving. Repeat KUB showing improved ileus. Patient is passing gases but no bowel movement. Dulcolax 1 time dose is given. WBC is 10.6, hemoglobin 9.1 Check CBC and BMP tomorrow Continue with normal saline at 50 mL per hour Currently glipizide and linagliptin on hold and glucose controlled with insulin sliding scale 07/31/2021 pt is tolerating diet well, she has a good bowel movement eraly morning around 4 am , her abd pain is better , kub: no distension . acutally she is complaining from pain in the lower abd at the level of her lower incisional wound , with area surrounding it is macerated and fungal infection is suspceted as it is located in the mid of thick abd skin folds. although there is evidance of cellulitis , pt is started on nystatin and keflex. pt is medically stable , she is sitting in chair most of the time ,with no other physicial complaint labs reviewed she is on half normal saline at 5 ml per hr 08/01/2021 Patient clinically looks his stable. She is fully awake and oriented. She is improving. Her bowel obstruction resolved and she had bowel movements yesterday and this morning. She is tolerating that well. No abdominal pain but she has pain at the surgical site in the lower abdominal fold. Her surgical wound cellulitis looks improving. She is started on Keflex and nystatin yesterday. Of the fluid, this stopped. WBCs 10.3, hemoglobin 10.1. Creatinine at baseline at 2.7. Calcium 5.3. Repeat potassium today is pending. She is a [employer] stable. She remains on Keflex and nystatin. IV fluids stopped. Discussed with staff and bedside nurse. Patient is medically stable for discharge pending placement Her glipizide and Linagliptin are still on hold both, her sugar is controlled on ISS 08/02/2021 Patient today keep doing well, she is fully awake and oriented, she is tolerating diet, no abdominal pain other than lower abdominal cellulitis pain and had small bowel movement today. Her pain and cellulitis in the lower abdomen improving although there was some discharge in the wound area. However patient with no fever or leukocytosis. Al so patient will be discharged on nystatin and Keflex for 7 days with close outpatient follow-up. Also she feels benefit from Sitting for Her Knee Pain. She Is Hemodynamically Stable. Looks like Patient Improving and Back to Baseline Other Than Generalized Weakness and She Is Able to Go to Rehab Today. Patient is medically stable for transfer to ECF today. Case discussed with the urologist today Objective - Vital Signs Vital signs: Vital Signs Temp 98.1 F 08/02/21 08:00 Pulse 104 H 08/02/21 08:00 Resp 18 08/02/21 08:00 BP 146/81 08/02/21 08:00 Pulse Ox 97 08/02/21 08:00 Intake & Output 08/01/21 08/02/21 08/02/21 18:59 06:59 18:59 Intake Total 888 Balance 888 Intake: Oral 888 Other: Voiding Method Toilet Toilet Toilet External Catheter External Catheter External Catheter # Voids 6 2 # Bowel Movements 0 - Exam GENERAL: The patient is alert and oriented x3, not in any acute distress. Well developed, well nourished. HEENT: Pupils are round and equally reacting to light. EOMI. No scleral icterus. No conjunctival pallor. Normocephalic, atraumatic. No pharyngeal erythema. No thyromegaly. CARDIOVASCULAR: S1 and S2 present. No murmurs, rubs, or gallops. PULMONARY: Chest is clear to auscultation, no wheezing or crackles. -ABDOMEN: Soft, mild right-sided tenderness, nondistended, normoactive bowel sounds. No palpable organomegaly. right-side surgical wound with a Place, rest of the exam is deferred to surgery primary team MUSCULOSKELETAL: No joint swelling or deformity. EXTREMITIES: No cyanosis, clubbing, or pedal edema. NEUROLOGICAL: Gross neurological examination did not reveal any focal deficits. SKIN: No rashes. no petechiae. - Labs CBC & Chem 7: 07/31/21 18:29 08/01/21 14:11 Labs: Abnormal Lab Results - Last 24 Hours (Table) 08/01/21 08/01/21 08/01/21 Range/Units 11:40 16:30 20:05 POC Glucose (mg/dL) 158 H 191 H 178 H (75-99) mg/dL 08/02/21 Range/Units 07:05 POC Glucose (mg/dL) 143 H (75-99) mg/dL Assessment and Plan Assessment: Right kidney cancer status post right nephroureterectomy Postoperative ileus, resolved lower abd fungal infection and cellulitis around the lower abd incision surgical wound Type 2 diabetes mellitus Hypertension History of osteoarthritis History of asthma, not an active issue Plan: This is a pleasant 8 years old female who presents for right nephrectomy. Continue with monitoring glucose hold glipizide 2.5 twice a day and hold linagliptin for now. Keep monitoring glucose. Continue with insulin sliding scale continue with keflex and nystatin 7 days Encourage incentive spirometry Give Dulcolax 1 prn Labs and medication were reviewed.. Continue same treatment. Continue with symptomatic treatment. Resume home medication. Monitor lytes and vitals. DVT and GI prophylaxis. Further recommendations depends on the clinical course of the patient DVT prophylaxis: On heparin GI Prophylaxis: Ppi Patient is medically stable for transfer to F today. Close outpatient follow-up are discussed with the patient with recommendation to follow up with PCP in one week and she agrees Thank you for consulting us, we will follow up with you
--- NOTE | 2021-08-06 11:22 | CDI ---
Documentation Clarification Form Date: 08/06/21 From: Fiona Ratliff Admit Date: 07/23/2021 09:16:00 AM Patient Name: Cathy Burton Visit Number: [id number] Discharge Date: 08/02/2021 01:30:00 PM ATTENTION: The Clinical Documentation Specialists (CDI) and [employer] Coding Staff appreciate your assistance in clarifying documentation. Please respond to the clarification below the line at the bottom and electronically sign. The CDI & [employer] Coding staff will review the response and follow-up if needed. Please note: Queries are made part of the Legal Health Record. If you have any questions, please contact the author of this message via ITS. Dr. Gregory Zhao, Unspecified CKD is documented in the H&P. Additional clarification regarding the stage of CKD is requested. History/Risk Factors: HTN, cancer of right ureter and kidney, hydronephrosis Clinical Indicators: Current BUN: 49, 67, 42.1, 49, 53.6, 51 Current CR: 2.79, 4.37, 2.7, 2.54, 2.7, 2.72 Current GFR: 15, 9, 16.0, 17, 16.0, 16 Treatment: Under went right nephroureterectomy. Please clarify the stage of the CKD, if known: [ ] CKD Stage 1 (GFR > 90) [ ] CKD Stage 2 (GFR 60-89) [ ] CKD Stage 3 (GFR 30-59) [ ] CKD Stage 3a (GFR 45-59) [ ] CKD Stage 3b (GFR 30-44) [ ] CKD Stage 4 (GFR 15-29) [ ] CKD Stage 5 (GFR <15) [ ] ESRD [ ] Other, please specify [ ] Unable to determine The patients chronic kidney disease is due to htn aggravated by a right nephroureterectomy MTDD
--- NOTE | 2021-08-07 09:06 | CDI ---
Documentation Clarification Form Date: 08/07/2021 08:50:08 AM From: Tasneem Piper CCS, CCDS Admit Date: 07/23/2021 09:16:00 AM Patient Name: Cathy Burton Visit Number: [id number] Discharge Date: 08/02/2021 01:30:00 PM ATTENTION: The Clinical Documentation Specialists (CDI) and [facility] Coding Staff appreciate your assistance in clarifying documentation. Please respond to the clarification below the line at the bottom and electronically sign. The CDI & [facility] Coding staff will review the response and follow-up if needed. Please note: Queries are made part of the Legal Health Record. If you have any questions, please contact the author of this message via ITS. Dr. Franky Patel: Ileus and Postoperative Ileus is documented in the following notes: 07/29 Medical Management Progress Note: Abdominal xray correlating for postoperative ileus with distal obstruction difficult to exclude. 07/30 - 08/02 Medical Management Progress Notes: Right kidney cancer status post right nephroureterectomy Postoperative Ileus. 08/01 Medical Management Progress Note: Bowel obstruction resolved. 08/02 Discharge Summary: She had a prolonged hospital course secondary to her comorbidities, age and Ileus. Additional clarification is requested regarding the relationship, if any, that exists between the diagnosis of Ileus (Postoperative Ileus and the procedure. Patients Admitting Diagnosis per the 07/23 Procedure Note: Right ureteral cancer. Post-Operative Diagnosis: Same. Procedure performed 07/23: Right Nephroureterectomy. History/Risk Factors per the 07/22 History & Physical: Right Kidney Cancer status post partial Nephrectomy, DM, Hypertension, Osteoarthritis, Asthma. Clinical Indicators: Presented on 07/23 for elective procedure as described above. Per the 07/23 Procedure Note the patient tolerated the procedure well and was admitted postoperatively. 07/28 Abdominal XR: Correlate for postoperative Ileus. Distal obstruction difficult to exclude. 07/30 XR KUB: Improving gas prominent small bowel loops suggests resolving ileus or obstruction. 07/31 XR KUB: Continued Improving gas prominent small bowel loops. No suspicious dilatation to suggest obstruction currently. Treatment 07/29: Bowel Regime, DIE CAST ENGINEER pump discontinued, started on Cresco. Clear liquid diet, Lactulose given (07/28). Encouraged ambulation. 07/30: Dulcolax x1. Diet advanced today, IV normal sale 50mL/Hr. 07/31: IV half normal saline 5 mL/Hr, Dulcolax x1/prn. What relationship, if any, exists between the diagnosis of Postoperative Ileus and the procedure: [ ] Ileus is a complication of surgical procedure [ ] Ileus is an expected outcome of the surgical procedure [ X ] Ileus is related to the patients co-morbid condition(s) of Previous abdominal surgery and limited mobility due to arthritis and obesity and is not a complication of the procedure [ ] Other please specify: [ ] Unable to determine (Template Last Revised: June 2020) MTDD
--- NOTE | 2021-08-07 09:31 | CDI ---
Documentation Clarification Form Date: 08/07/2021 09:20:00 AM From: Tasneem PiperMALI fay, CCDS Admit Date: 07/23/2021 09:16:00 AM Patient Name: Cathy Burton Visit Number: [id number] Discharge Date: 08/02/2021 01:30:00 PM ATTENTION: The Clinical Documentation Specialists (CDI) and [facility] Coding Staff appreciate your assistance in clarifying documentation. Please respond to the clarification below the line at the bottom and electronically sign. The CDI & [facility] Coding staff will review the response and follow-up if needed. Please note: Queries are made part of the Legal Health Record. If you have any questions, please contact the author of this message via ITS. Dr. Taylor Sheet: Infection and Cellulitis status post Right Nephroureterectomy on 07/23 is documented in the following notes: 07/31, 08/01 & 08/02 Medical Management Progress Notes: lower abdominal fungal infection and cellulitis around the lower abdominal incision surgical wound Additional clarification is requested regarding the relationship, if any, that exists between the diagnosis of Cellulitis and the procedure. Patients Admitting Diagnosis per the 07/23 Procedure Note: Right ureteral cancer. Post-Operative Diagnosis: Same. Procedure performed 07/23: Right Nephroureterectomy. History/Risk Factors per the 07/22 History & Physical: Right Kidney Cancer status post partial Nephrectomy, DM, Hypertension, Osteoarthritis, Asthma. Clinical Indicators: Presented on 07/23 for elective procedure as described above. Per the 07/23 Procedure Note the patient tolerated the procedure well and was admitted postoperatively. Per the same Progress Notes as described above, the following is documented: Actually, she is complaining from pain in the lower abdomen at the level of her lower incisional wound, with area surrounding it is macerated and fungal infection is suspected as it is located in the mid of thick abdominal skin folds. Although there is evidence of cellulitis, patient is started on Nystatin and Keflex. Treatment 07/31: po Keflex 500 mg TID, Topical Nystatin TID 08/01: po Keflex 500 mg TID What relationship, if any, exists between the diagnosis of Abdominal Cellulitis and the procedure: [ ] Cellulitis is a complication of surgical procedure [ ] Cellulitis is an expected outcome of the surgical procedure [ ] Cellulitis is related to patients co-morbid condition(s) of (please specify condition): and is not a complication of the procedure [ ] Other please specify: [ ] Unable to determine (Template Last Revised: June 2020) Cellulitis is related to patients co-morbid condition , including obesity MTDD
== END 2021-08-02 13:30 | DRG 657 ==
LOC: 2ORMAIN 09:16 → 4SSUR 14:21
PROVIDERS: ADMIT Urology; ATTEND Urology
PROC: 0TT00ZZ Resection of Right Kidney, Open Approach (ICD-10-PCS; principal; 2021-07-23 11:15)
PROC: 0TT60ZZ Resection of Right Ureter, Open Approach (ICD-10-PCS; principal; 2021-07-23 11:15)
PROC: 30233N1 Transfusion of Nonautologous Red Blood Cells into Peripheral Vein, Percutaneous Approach (ICD-10-PCS; 2021-07-27)
DX: C66.1 Malignant neoplasm of right ureter (principal); D62 Acute posthemorrhagic anemia; N17.9 Acute kidney failure, unspecified; N13.30 Unspecified hydronephrosis; K56.7 Ileus, unspecified; C64.1 Malignant neoplasm of right kidney, except renal pelvis; J98.11 Atelectasis; L03.311 Cellulitis of abdominal wall; Z68.41 Body mass index [BMI] 40.0-44.9, adult; D63.1 Anemia in chronic kidney disease; E11.22 Type 2 diabetes mellitus with diabetic chronic kidney disease; E66.9 Obesity, unspecified; D63.0 Anemia in neoplastic disease; B36.8 Other specified superficial mycoses; N18.9 Chronic kidney disease, unspecified; I12.9 Hypertensive chronic kidney disease with stage 1 through stage 4 chronic kidney disease, or unspecified chronic kidney disease; J45.909 Unspecified asthma, uncomplicated; M19.90 Unspecified osteoarthritis, unspecified site; Z79.84 Long term (current) use of oral hypoglycemic drugs; Z79.899 Other long term (current) drug therapy; Z90.49 Acquired absence of other specified parts of digestive tract; Z98.891 History of uterine scar from previous surgery; Z87.19 Personal history of other diseases of the digestive system; Z98.890 Other specified postprocedural states; Z71.3 Dietary counseling and surveillance; Z88.1 Allergy status to other antibiotic agents; Z91.041 Radiographic dye allergy status; Z91.013 Allergy to seafood; Z88.2 Allergy status to sulfonamides; Z88.8 Allergy status to other drugs, medicaments and biological substances; Z91.048 Other nonmedicinal substance allergy status; Z83.79 Family history of other diseases of the digestive system; Z80.3 Family history of malignant neoplasm of breast
CPT/HCPCS: 71045; 74018; 74019; 80048; 81001; 83735; 84132; 85025; 85027; 85045; 86850; 86900; 86901; 86920; 88307; 94760

== ENCOUNTER → 2022-01-21 | Outpatient (CLI) | payer MEDICARE ==
--- NOTE | 2022-01-21 15:28 | BD ---
EXAMINATION TYPE: Axial Bone Density DATE OF EXAM: 01/21/2022 COMPARISON: NONE CLINICAL HISTORY: 81 years year old Female. ICD-10 CODE: Z78.0 ASYMPTOMATIC MENOPAUSAL STATE Height: 5 FT 1 IN Weight: 207 FRAX RISK QUESTIONS: Alcohol (3 or more units per day): NO Family History (Parent hip fracture): NO Glucocorticoids (More than 3mos): NO (Ex: prednisone, prednisolone, methylprednisolone, dexamethasone, and hydrocortisone). History of Fracture in Adulthood: NO Secondary Osteoporosis: 1. Type 1 Diabetes: NO 2. Hyperthyroidism: NO 3. Menopause before 45: NO 4. Malnutrition: NO 5. Chronic liver disease: NO Rheumatoid Arthritis: NO Current Tobacco Use: NO RISK FACTORS HISTORY OF: Surgery to Spine/Hip(right/left)/Wrist (right/left): NO Family History of Osteoporosis: NO Active: NO Diet low in dairy products/other sources of calcium: NO Postmenopausal woman: YES Take estrogen and/or progesterone medications: NO Lost more than 2 inches in height since high school: NO Frequent falls: NO Poor Health: GOOD Hyperparathyroidism: NO Adrenal Insufficiency: REMOVED KIDNEY CANCER MEDICATIONS: Additional Medications: PANTOPRAZOLE, AMLODIPINE, JANUVIA, MONTELUKAST, FUROSEMIDE,HYDROCODONE Additional History: EXAM MEASUREMENTS: Bone mineral densitometry was performed using the [employer]. Bone mineral density as measured about the Lumbar spine is: ----- L1-L4(G/cm2): 1.450 T Score Values are as follows: ----- L1: 1.6 ----- L2: 2.1 ----- L3: 2.9 ----- L4: 2.3 ----- L1-L4: 2.3 Bone mineral density has: INCREASED 0.9 % since study of: 2017 Bone mineral density about the R hip (g/cm2): 0.880 Bone mineral density about the L hip (g/cm2): 0.910 T Score values are as follows: -----R Neck: -1.1 -----L Neck: -0.9 -----R Total: -0.2 -----L Total: 0.3 Bone mineral density has: DECREASED -6.4 % since study of: 2017 FRAX%s: The graph provided illustrates a 13.9 % chance for a major osteoporotic fx and a 3.1 % chance for the hips probability for fx in 10 years time. IMPRESSION: Osteopenia (T Score between -2.5 and -1). There is slightly increased risk of fracture and the patient may be considered for treatment. Re-Screen 2-5 years. NOTE: T-SCORE=SD OF THE YOUNG ADULT MEAN.
== END | disposition home or self-care (01) ==
LOC: RADBDWWP 14:29
PROVIDERS: ATTEND Family Medicine
DX: M85.89 Other specified disorders of bone density and structure, multiple sites (principal); Z78.0 Asymptomatic menopausal state
CPT/HCPCS: 77080

== ENCOUNTER 2022-09-18 08:46 | Inpatient (IN) | payer MEDICARE ==
[2022-09-18] MEDS ORDERED: FUROSEMIDE 10 MG/ML 10 ML VIAL IV STA (09:07)
[2022-09-18] MEDS ORDERED: NITROGLYCERIN OINT 1 INCH/GM PACKET TOPICAL STA (09:08)
--- NOTE | 2022-09-18 09:11 | ED ---
General Adult HPI - General Chief complaint: Shortness of Breath Stated complaint: sob Time Seen by Provider: 09/18/22 09:00 Source: patient, RN notes reviewed, old records reviewed Mode of arrival: EMS Limitations: no limitations - History of Present Illness Initial comments: This is an 81-year-old female presents emergency Department complaining of di fficulty breathing. Patient states his been ongoing for at least a week and she was given inhaler by her physician and they have not helped at all. Patient states she has chronic edema to her legs and she takes Lasix for a couple days and is off 1 day. Patient states she's had no chest pain or palpitations. Patient denies any fever chills or cough per patient states last night breathing got considerably worse and was very difficult to lie down at all. Patient again denies any pain but she is having shortness of breath. Patient states exertion definitely makes it worse. Patient states she has a past medical history of high blood pressure diabetes and has had a nephrectomy for renal cancer - Related Data Home Medications Medication Instructions Recorded Confirmed Montelukast Sodium [Singulair] 10 mg PO HS 08/05/20 07/21/21 Pantoprazole Sodium [Protonix] 40 mg PO QAM 08/05/20 07/21/21 Furosemide [Lasix] 20 mg PO TUTH 07/05/21 07/21/21 Sodium Bicarbonate Tab 650 mg PO TID 07/05/21 07/21/21 amLODIPine [Norvasc] 5 mg PO QAM 07/05/21 07/21/21 Diclofenac Sodium [Voltaren 1 applic TOPICAL DAILY PRN 07/21/21 07/21/21 Arthritis Pain 1% Gel] Previous Rx's Medication Instructions Recorded Benzocaine/Menthol Lozeng [Cepacol 1 each MUCOUS MEM Q4HR PRN lozenge 08/01/21 lozenge] Capsaicin Cream [Trixaicin Cream] 1 applic TOPICAL TID cream 08/01/21 INSULIN ASPART (NovoLOG) [NovoLOG 0 unit SQ ACHS ml 08/01/21 (formulary)] Lidocaine 4% Cream [Lmx 4] 1 applic TOPICAL Q6HR PRN 08/01/21 Nystatin 100,000Unit/gm Cream 1 applic TOPICAL TID 7 Days #1 08/01/21 [Mycostatin Cream] cream bisacodyL [Dulcolax] 10 mg RECTAL DAILY PRN supp 08/01/21 Cephalexin [Keflex] 500 mg PO Q8HR 7 Days #21 cap 08/02/21 HYDROcodone/APAP 5-325MG [[place] 1 each PO Q8HR PRN 3 Days #9 tab 08/02/21 5-325] Allergies Allergy/AdvReac Type Severity Reaction Status Date / Time adhesive tape Allergy brown skin Verified 07/23/21 09:37 azithromycin Allergy Rash/Hives Verified 07/23/21 09:37 [From Zithromax Z-Fidel] Iodine and Iodide Containing Allergy Rash/Hives Verified 07/23/21 09:37 Produc shellfish derived [Shellfish] Allergy Rash/Hives Verified 07/23/21 09:37 Sulfa (Sulfonamide Allergy Rash/Hives Verified 07/23/21 09:37 Antibiotics) iron AdvReac Nausea & Verified 07/23/21 09:37 Vomiting & Diarrhea,hypoglycemia Review of Systems ROS Statement: Those systems with pertinent positive or pertinent negative responses have been documented in the HPI. ROS Other: All systems not noted in ROS Statement are negative. Past Medical History Past Medical History: Cancer, Diabetes Mellitus, Hypertension Additional Past Medical History / Comment(s): kidney issues History of Any Multi-Drug Resistant Organisms: None Reported Past Surgical History: Bladder Surgery, Section Additional Past Surgical History / Comment(s): R nephrectomy Past Anesthesia/Blood Transfusion Reactions: No Reported Reaction Additional Past Anesthesia/Blood Transfusion Reaction / Comment(s): no problems blood transfusion Past Psychological History: No Psychological Hx Reported Smoking Status: Never smoker Past Alcohol Use History: None Reported Past Drug Use History: None Reported - Past Family History Mother Family Medical History: No Reported History Sister(s) Family Medical History: Cancer Additional Family Medical History / Comment(s): breast Father Family Medical History: Liver Disease General Exam - General Exam Comments Initial Comments: GENERAL: Patient is well-developed and well-nourished. Patient is nontoxic and well- hydrated and is in mild distress. ENT: Neck is soft and supple. No significant lymphadenopathy is noted. Oropharynx is clear. Moist mucous membranes. Neck has full range of motion without eliciting any pain. EYES: The sclera were anicteric and conjunctiva were pink and moist. Extraocular movements were intact and pupils were equal round and reactive to light. Eyelids were unremarkable. PULMONARY: Unlabored respirations. Good breath sounds bilaterally. Patient has crackles in the bases bilaterally CARDIOVASCULAR: There is a regular rate and rhythm without any murmurs gallops or rubs. ABDOMEN: Soft and nontender with normal bowel sounds. SKIN: Skin is clear with no lesions or rashes and otherwise unremarkable. NEUROLOGIC: Patient is alert and oriented x3. Cranial nerves II through XII are grossly intact. Motor and sensory are also intact. Normal speech, volume and content. Symmetrical smile. MUSCULOSKELETAL: Normal extremities with adequate strength and full range of motion. 2+ edema LYMPHATICS: No significant lymphadenopathy is noted PSYCHIATRIC: Normal psychiatric evaluation. Limitations: no limitations Course Vital Signs 09/18/22 09/18/22 08:57 10:13 Temperature 98 F Pulse Rate 99 94 Respiratory 26 H 18 Rate Blood Pressure 198/74 194/87 O2 Sat by Pulse 96 95 Oximetry Medical Decision Making - Medical Decision Making EKG was interpreted by myself shows a sinus rhythm at 98 bpm FL interval 216 QRS is 94 QT interval 362 QTC is 418. Patient's EKG shows occasional PVC there is no ST segment elevation. Was pt. sent in by a medical professional or institution (, PA, [employer]ER [employer], urgent care, hospital, or correction...) When possible be specific @ -No Did you speak to anyone other than the patient for history (EMS, parent, family, police, friend...)? What history was obtained from this source @ -No Did you review nursing and triage notes (agree or disagree)? Why? @ -I reviewed and agree with nursing and triage notes Were old charts reviewed (outside hosp., previous admission, EMS record, old EKG, old radiological studies, urgent care reports/EKG's, correction records)? Report findings @ -I reviewed prior lab work prior radiological studies in prior charts on this patient Differential Diagnosis (chest pain, altered mental status, abdominal pain women, abdominal pain men, vaginal bleeding, weakness, fever, dyspnea, syncope, headache, dizziness, GI bleed, back pain, seizure, CVA, palpatations, mental health, musculoskeletal)? @ -Differential Dyspnea: Coronary syndrome, arrhythmia, tamponade, asthma, COPD, pulmonary embolism, pneumonia, pneumothorax, pulmonary effusion, anaphylaxis, diabetic ketoacidosis, flailed chest, pulmonary contusion, diaphragmatic rupture, anemia, neuromuscular, this is not meant to be an all-inclusive list. EKG interpreted by me (3pts min.). @ -As above X-rays interpreted by me (1pt min.). @ -Chest x-ray is consistent with pulmonary edema CT interpreted by me (1pt min.). @ -None done U/S interpreted by me (1pt. min.). @ -None done What testing was considered but not performed or refused? (CT, X-rays, U/S, labs)? Why? @ -None What meds were considered but not given or refused? Why? @ -None Did you discuss the management of the patient with other professionals (professionals i.e. , PA, [employer]ER [employer], lab, RT, psych nurse, social problems specialist, av specialist, t eacher, antisubmarine weapons officer, case liner)? Give summary @ -I spoke with the [facility] hospitalist and they agreed to admit the patient admitted the patient I wrote admitting orders Was smoking cessation discussed for >3mins.? @ -No Was critical care preformed (if so, how long)? @ -No Were there social determinants of health that impacted care today? How? (Homelessness, low income, unemployed, alcoholism, drug addiction, transportation, low edu. Level, literacy, decrease access to med. care, [facility], rehab)? @ -No Was there de-escalation of care discussed even if they declined (Discuss DNR or withdrawal of care, Hospice)? DNR status @ -No What co-morbidities impacted this encounter? (DM, HTN, Smoking, COPD, CAD, Cancer, CVA, ARF, Chemo, Hep., AIDS, mental health diagnosis, sleep apnea, morbid obesity)? @ -None Was patient admitted / discharged? Hospital course, mention meds given and route, prescriptions, significant lab abnormalities, going to OR and other p ertinent info. @ -Patient had pulmonary edema and was given Lasix and Nitropaste emergency department. Patient was admitted she [facility] hospitalist who I spoke with. Cardiology will be consulted. Undiagnosed new problem with uncertain prognosis? @ -No Drug Therapy requiring intensive monitoring for toxicity (Heparin, Nitro, Insulin, Cardizem)? @ -No Were any procedures done? @ -No Diagnosis/symptom? @ -Pulmonary edema Acute, or Chronic, or Acute on Chronic? @ -Acute Uncomplicated (without systemic symptoms) or Complicated (systemic symptoms)? @ -Complicated Side effects of treatment? @ -No Exacerbation, Progression, or Severe Exacerbation? @ -No Poses a threat to life or bodily function? How? (Chest pain, USA, VT, pneumonia, PE, COPD, DKA, ARF, appy, cholecystitis, CVA, Diverticulitis, Homicidal, Suicidal, threat to staff... and all critical care pts) @ -Yes this could lead to hypoxia and end organ dysfunction - Lab Data Result diagrams: 09/18/22 09:30 09/18/22 09:30 Lab Results 09/18/22 09/18/22 09/18/22 Range/Units 09:30 09:30 09:30 WBC 8.8 (3.8-10.6) k/uL RBC 3.48 L (3.80-5.40) m/uL Hgb 9.2 L (11.4-16.0) gm/dL Hct 29.5 L (34.0-46.0) % MCV 84.7 (80.0-100.0) fL MCH 26.4 (25.0-35.0) pg MCHC 31.1 (31.0-37.0) g/dL RDW 15.8 H (11.5-15.5) % Plt Count 245 (150-450) k/uL MPV 8.3 Neutrophils % 84 % Lymphocytes % 8 % Monocytes % 4 % Eosinophils % 2 % Basophils % 0 % Neutrophils # 7.4 (1.3-7.7) k/uL Lymphocytes # 0.7 L (1.0-4.8) k/uL Monocytes # 0.4 (0-1.0) k/uL Eosinophils # 0.2 (0-0.7) k/uL Basophils # 0.0 (0-0.2) k/uL Hypochromasia Marked PT 11.0 (9.0-12.0) sec INR 1.1 (<1.2) APTT 29.6 (22.0-30.0) sec Sodium 143 (137-145) mmol/L Potassium 4.6 (3.5-5.1) mmol/L Chloride 115 H (98-107) mmol/L Carbon Dioxide 18 L (22-30) mmol/L Anion Gap 10 mmol/L BUN 32 H (7-17) mg/dL Creatinine 2.68 H (0.52-1.04) mg/dL Est GFR (CKD-EPI)AfAm 19 (>60 ml/min/1.73 sqM) Est GFR (CKD-EPI)NonAf 16 (>60 ml/min/1.73 sqM) Glucose 176 H (74-99) mg/dL Plasma Lactic Acid Jg (0.7-2.0) mmol/L Calcium 9.1 (8.4-10.2) mg/dL Magnesium 2.1 (1.6-2.3) mg/dL Total Bilirubin 0.5 (0.2-1.3) mg/dL AST 19 (14-36) U/L ALT 14 (4-34) U/L Alkaline Phosphatase 81 (38-126) U/L Troponin I (0.000-0.034) ng/mL NT-Pro-B Natriuret Pep pg/mL Total Protein 8.0 (6.3-8.2) g/dL Albumin 4.2 (3.5-5.0) g/dL 09/18/22 09/18/22 09/18/22 Range/Units 09:30 09:30 09:30 WBC (3.8-10.6) k/uL RBC (3.80-5.40) m/uL Hgb (11.4-16.0) gm/dL Hct (34.0-46.0) % MCV (80.0-100.0) fL MCH (25.0-35.0) pg MCHC (31.0-37.0) g/dL RDW (11.5-15.5) % Plt Count (150-450) k/uL MPV Neutrophils % % Lymphocytes % % Monocytes % % Eosinophils % % Basophils % % Neutrophils # (1.3-7.7) k/uL Lymphocytes # (1.0-4.8) k/uL Monocytes # (0-1.0) k/uL Eosinophils # (0-0.7) k/uL Basophils # (0-0.2) k/uL Hypochromasia PT (9.0-12.0) sec INR (<1.2) APTT (22.0-30.0) sec Sodium (137-145) mmol/L Potassium (3.5-5.1) mmol/L Chloride (98-107) mmol/L Carbon Dioxide (22-30) mmol/L Anion Gap mmol/L BUN (7-17) mg/dL Creatinine (0.52-1.04) mg/dL Est GFR (CKD-EPI)AfAm (>60 ml/min/1.73 sqM) Est GFR (CKD-EPI)NonAf (>60 ml/min/1.73 sqM) Glucose (74-99) mg/dL Plasma Lactic Acid Jg 1.0 (0.7-2.0) mmol/L Calcium (8.4-10.2) mg/dL Magnesium (1.6-2.3) mg/dL Total Bilirubin (0.2-1.3) mg/dL AST (14-36) U/L ALT (4-34) U/L Alkaline Phosphatase (38-126) U/L Troponin I <0.012 (0.000-0.034) ng/mL NT-Pro-B Natriuret Pep 1580 pg/mL Total Protein (6.3-8.2) g/dL Albumin (3.5-5.0) g/dL Disposition Clinical Impression: Acute pulmonary edema Disposition: ADMITTED IP TO THIS HOSP Referrals: Irene Mann DO [Primary Care Provider] - 1-2 days Time of Disposition: 10:40
[2022-09-18 09:46] LABS: Basophils % (A) 0 %; Eosinophils # (A) 0.2 k/uL (0-0.7); Eosinophils % (A) 2 %; HCT 29.5 % (34.0-46.0); HGB 9.2 gm/dL (11.4-16.0); Hypochromasia Marked; Lymphocytes # (A) 0.7 k/uL (1.0-4.8); Lymphocytes % (A) 8 %; MCH 26.4 pg (25.0-35.0); MCHC 31.1 g/dL (31.0-37.0); MCV 84.7 fL (80.0-100.0); Mean Platelet Volume 8.3; Monocytes # (A) 0.4 k/uL (0-1.0); Monocytes % (A) 4 %; Neutrophils # (A) 7.4 k/uL (1.3-7.7); Neutrophils % (A) 84 %; Platelet Count 245 k/uL (150-450); RBC 3.48 m/uL (3.80-5.40); RDW 15.8 % (11.5-15.5); WBC 8.8 k/uL (3.8-10.6)
[2022-09-18 09:54] LABS: INR 1.1 (<1.2); Partial Thromboplastin Time 29.6 sec (22.0-30.0)
[2022-09-18 09:56] LABS: ALT 14 U/L (4-34); AST 19 U/L (14-36); African American GFR (CKD) 19 (>60 ml/min/1.73 sqM); Albumin 4.2 g/dL (3.5-5.0); Alkaline Phosphatase 81 U/L (38-126); Anion Gap 10 mmol/L; Blood Urea Nitrogen 32 mg/dL (7-17); Calcium 9.1 mg/dL (8.4-10.2); Carbon Dioxide 18 mmol/L (22-30); Chloride 115 mmol/L (98-107); Glucose 176 mg/dL (74-99); Magnesium 2.1 mg/dL (1.6-2.3); Non-African American GFR(CKD) 16 (>60 ml/min/1.73 sqM); Potassium 4.6 mmol/L (3.5-5.1); Sodium 143 mmol/L (137-145); Total Bilirubin 0.5 mg/dL (0.2-1.3)
--- NOTE | 2022-09-18 09:58 | XR ---
EXAMINATION TYPE: XR chest 2V DATE OF EXAM: 09/18/2022 COMPARISON: 07/24/2021 HISTORY: 81-year-old female shortness of breath, difficulty breathing TECHNIQUE: AP and lateral views FINDINGS: Heart mildly enlarged. Diffuse interstitial and vascular prominence. Some mild patchy density at the right base. Asymmetric elevation right hemidiaphragm. IMPRESSION: 1. Cardiomegaly and interstitial/vascular densities. Correlate for mild CHF with pulmonary vascular c ongestion. 2. Redemonstrated asymmetric elevation right hemidiaphragm. If concern for hemidiaphragmatic paralysi s, a fluoroscopic sniff test could be performed.
[2022-09-18] MEDS ORDERED: DEXTROSE 50% SYRINGE 50 ML IVP PRN ×2 (14:37)
[2022-09-18] MEDS: ALBUTEROL NEBULIZED 2.5 MG/3 ML INHALATION SCH ×2 (15:26→21:02)
[2022-09-18] MEDS: FUROSEMIDE 10 MG/ML 4 ML VIAL IV SCH ×2 (16:35→23:26)
[2022-09-18] MEDS: amLODIPine 10 MG TAB PO SCH (16:36)
[2022-09-18 17:01] LABS: Glucose,Whole Blood 137 mg/dL (70-110)
[2022-09-18] MEDS: INSULIN ASPART (NovoLOG) 100 UNIT/ML VIAL SQ SCH ×2 (17:01→20:30)
[2022-09-18 20:22] LABS: Glucose,Whole Blood 144 mg/dL (70-110)
[2022-09-18] MEDS: MONTELUKAST 10 MG TAB PO SCH (20:29)
[2022-09-18] MEDS: HYDROcodone/APAP 5-325MG 1 EACH TAB PO PRN (23:25)
--- NOTE | 2022-09-19 00:06 | P.HPIM ---
History of Present Illness H&P Date: 09/18/22 Chief Complaint: Shortness of breath Patient is a 81-year-old female with known history of hypertension, diabetes type 2 [id number], history of renal cancer status post right nephrectomy, asthma and no prior history of smoking presents to ER with complaints of difficulty in breathing. Patient has been having worsening shortness of breath and leg swelling for the past 1 week. Patient was given inhaler by her primary care physician but is not helping her. Patient is having leg swelling increase from her baseline. Patient does take Lasix 2 to 3 days a week. Otherwise denies any complaints of chest pain. No nausea vomiting or abdominal pain diarrhea. No cough or sputum production. No fever no chills. Patient states that last night her breathing got considerably worse and had difficulty to lie down. Patient was brought to the hospital by her family. 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 Chest x-ray showed cardiomegaly and interstitial/vascular densities. Correlate for mild CHF with pulmonary vascular congestion. Redemonstrated asymmetric elevation right hemidiaphragm if concern for hemidiaphragmatic paralysis if fluoroscopy sniff test could be performed. EKG showed sinus rhythm with first-degree AV block. Laboratory data showed WBC 8.8 hemoglobin 9.2 and platelets 245 Sodium 143 potassium 4.6 chloride 115 bicarb is 18 BUN 32 and creatinine 2.68 and blood sugar 176. Liver enzymes are not elevated. Troponin less than 0.012 and proBNP is 1580 Blood pressure was elevated at 198/74 on admission. Review of Systems Constitutional: Patient denies any fever or chills . no Generalized weakness. Abdomen: Patient denied any nausea or vomiting or abd. pain Cardiovascular: Patient denies any chest pain. Patient does have shortness of breath and leg swelling. No palpitations. Respiratory: patient denied any cough . no sputum production. Patient does have shortness of breath Neurologic: Patient denied any numbness or tingling headache. Musculoskeletal: Patient denies any complaints of joint swelling or deformity. Skin: Negative Psychiatric: Negative Endocrine: No heat or cold intolerance. No recent weight gain. Genitourinary: No dysuria or hematuria. All other 14 point ROS negative except the above Past Medical History Past Medical History: Cancer, Diabetes Mellitus, Hypertension Additional Past Medical History / Comment(s): kidney issues History of Any Multi-Drug Resistant Organisms: None Reported Past Surgical History: Bladder Surgery, Section Additional Past Surgical History / Comment(s): R nephrectomy Past Anesthesia/Blood Transfusion Reactions: No Reported Reaction Additional Past Anesthesia/Blood Transfusion Reaction / Comment(s): no problems blood transfusion Past Psychological History: No Psychological Hx Reported Smoking Status: Never smoker Past Alcohol Use History: None Reported Past Drug Use History: None Reported - Past Family History Mother Family Medical History: No Reported History Sister(s) Family Medical History: Cancer Additional Family Medical History / Comment(s): breast Father Family Medical History: Liver Disease Medications and Allergies Home Medications Medication Instructions Recorded Confirmed Type Montelukast Sodium [Singulair] 10 mg PO HS 08/05/20 09/18/22 History Pantoprazole Sodium [Protonix] 40 mg PO DAILY 08/05/20 09/18/22 History amLODIPine [Norvasc] 10 mg PO DAILY 07/05/21 09/18/22 History Albuterol Inhaler [Ventolin Hfa 2 puff INHALATION RT-Q4H PRN 09/18/22 09/18/22 History Inhaler] Fluticasone Propion/Salmeterol 1 puff INHALATION RT-BID 09/18/22 09/18/22 History [Advair 250-50 Diskus] Furosemide [Lasix] 40 mg PO DAILY 09/18/22 09/18/22 History HYDROcodone/APAP 5-325MG [[place] 1 tab PO Q8H PRN 09/18/22 09/18/22 History 5-325] sitaGLIPtin [Januvia] 100 mg PO DAILY 09/18/22 09/18/22 History Allergies Allergy/AdvReac Type Severity Reaction Status Date / Time adhesive tape Allergy brown skin Verified 09/18/22 10:58 azithromycin Allergy Rash/Hives Verified 09/18/22 10:58 [From Zithromax Z-Fidel] Iodine and Iodide Containing Allergy Rash/Hives Verified 09/18/22 10:58 Produc shellfish derived [Shellfish] Allergy Rash/Hives Verified 09/18/22 10:58 Sulfa (Sulfonamide Allergy Rash/Hives Verified 09/18/22 10:58 Antibiotics) iron AdvReac Nausea & Verified 09/18/22 10:58 Vomiting & Diarrhea,hypoglycemia Physical Exam Vitals: Vital Signs Temp Pulse Resp BP Pulse Ox 09/18/22 13:00 85 22 192/88 97 09/18/22 12:00 88 20 187/78 97 09/18/22 11:00 90 24 185/75 96 09/18/22 10:13 94 18 194/87 95 09/18/22 08:57 98 F 99 26 H 198/74 96 Intake and Output 09/17/22 09/18/22 09/18/22 22:59 06:59 14:59 Output Total 400 Balance -400 Output: Urine 400 Other: Weight 97.069 kg PHYSICAL EXAMINATION: Patient is lying in the bed comfortably, no acute distress, awake alert and oriented.. HEENT: Normocephalic. Neck is supple. Pupils reactive. Nostrils clear. Oral cavity is moist. Neck reveals no JVD, carotid bruits, or thyromegaly. CHEST EXAMINATION: Trachea is central. Symmetrical expansion. Bibasilar diminished sounds. Mild expiratory wheeze. No rhonchi.. CARDIAC: Normal S1, S2 with no gallops. No murmurs ABDOMEN: Soft. Bowel sounds present. Nontender. No organomegaly. No abdominal bruits. Extremities: Lower extremity 2+ pedal edema. No clubbing or cyanosis Neurologically awake, alert, oriented x3 with well-coordinated movements. No focal deficits noted Skin: No rash or skin lesions. Psychiatric: Coperative. Nonsuicidal, Musculoskeletal: No joint swelling or deformity. Normal range of motion. Results CBC & Chem 7: 09/18/22 09:30 09/18/22 09:30 Labs: Abnormal Lab Results - Last 24 Hours (Table) 09/18/22 09/18/22 Range/Units 09:30 09:30 RBC 3.48 L (3.80-5.40) m/uL Hgb 9.2 L (11.4-16.0) gm/dL Hct 29.5 L (34.0-46.0) % RDW 15.8 H (11.5-15.5) % Lymphocytes # 0.7 L (1.0-4.8) k/uL Chloride 115 H (98-107) mmol/L Carbon Dioxide 18 L (22-30) mmol/L BUN 32 H (7-17) mg/dL Creatinine 2.68 H (0.52-1.04) mg/dL Glucose 176 H (74-99) mg/dL Thrombosis Risk Factor Assmnt - DVT/VTE Prophylaxis DVT/VTE Prophylaxis: Pharmacologic Prophylaxis ordered Assessment and Plan Assessment: Worsening shortness of breath and leg swelling Acute CHF with ejection fraction of known at this time. 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 DVT prophylaxis with Lovenox subcu Plan: Patient will be continued on telemetry monitoring. Was started on Lasix 40 mg every 8 hourly. Continue with home blood pressure medications. 2D echocardiogram was ordered. Continue with insulin sliding scale and better blood sugar control. Cardiology and nephrology will be consulted. Follow-up closely. Prognosis guarded at this time. Time with Patient: Greater than 30
[2022-09-19] MEDS: SYMBICORT 80-4.5 MCG INHALER INHALATION SCH (01:02)
[2022-09-19 05:12] LABS: Basophils % (A) 1 %; Eosinophils # (A) 0.3 k/uL (0-0.7); Eosinophils % (A) 4 %; HCT 27.6 % (34.0-46.0); HGB 8.2 gm/dL (11.4-16.0); Hypochromasia Marked; Lymphocytes # (A) 1.2 k/uL (1.0-4.8); Lymphocytes % (A) 16 %; MCH 25.5 pg (25.0-35.0); MCHC 29.8 g/dL (31.0-37.0); MCV 85.7 fL (80.0-100.0); Mean Platelet Volume 9.3; Monocytes # (A) 0.4 k/uL (0-1.0); Monocytes % (A) 6 %; Neutrophils # (A) 4.9 k/uL (1.3-7.7); Neutrophils % (A) 70 %; Platelet Count 210 k/uL (150-450); RBC 3.21 m/uL (3.80-5.40)
[2022-09-19 05:45] LABS: African American GFR (CKD) 17 (>60 ml/min/1.73 sqM); Anion Gap 9 mmol/L; Blood Urea Nitrogen 37 mg/dL (7-17); Calcium 8.9 mg/dL (8.4-10.2); Carbon Dioxide 20 mmol/L (22-30); Chloride 113 mmol/L (98-107); Glucose 117 mg/dL (74-99); Non-African American GFR(CKD) 15 (>60 ml/min/1.73 sqM); Potassium 4.7 mmol/L (3.5-5.1); Sodium 142 mmol/L (137-145)
[2022-09-19 06:18] LABS: Glucose,Whole Blood 122 mg/dL (70-110)
[2022-09-19] MEDS: INSULIN ASPART (NovoLOG) 100 UNIT/ML VIAL SQ SCH ×4 (06:22→20:17)
--- NOTE | 2022-09-19 07:45 | P.CRDCN ---
History of Present Illness Consult date: 09/19/22 Chief complaint: SOB History of present illness: The patient is a very pleasant 81-year-old female patient with a past medical history significant for diabetes and hypertension and dyslipidemia and chronic kidney disease and chronic anemia and history of right nephrectomy secondary to cancer presented to the hospital complaining of shortness of breath and bilateral lower extremity edema. The symptoms started about a week ago with increasing in the shortness of breath which has progressed and also increasing in the lower extremity edema. She was receiving Lasix but she states she has been taken at an as-needed basis. No history of coronary artery disease and she never informed that she has congestive heart failure or any cardiac arrhythmia and never seen by a frog or oyster farmworker before. No symptoms of any chest pain or chest discomfort and no dizziness or light of this and no feeling of heart racing or fluttering and no presyncope or syncope. No fever or chills or cough or sputum production. She underwent further workup including EKG showing sinus mechanism was low voltage QRS. Troponin first set came in to be unremarkable. Blood work came in to be abnormal was a hemoglobin of 8.20 to have chronic anemia and as her baseline also creatinine came in to be 2.86 and also does her baseline. Currently she is on Lasix IV. An echo is in process to be done The examination is remarkable for regular rhythm with systolic murmur at the right upper sternal border and severe bilateral lower extremity edema and diminished breathing sounds bilaterally Assessment Heart failure exacerbation with evidence of right and left heart failure of unknown etiology Chronic kidney disease History of nephrectomy [place] anemia Multiple comorbid conditions including hypertension and dyslipidemia and diabetes Plan Continue the current medical regimen Continue the current dose of Lasix IV Follow-up on the echocardiogram which was ordered Follow-up with the patient Past Medical History Past Medical History: Cancer, Diabetes Mellitus, Hypertension Additional Past Medical History / Comment(s): kidney issues History of Any Multi-Drug Resistant Organisms: None Reported Past Surgical History: Bladder Surgery, Section Additional Past Surgical History / Comment(s): R nephrectomy Past Anesthesia/Blood Transfusion Reactions: No Reported Reaction Additional Past Anesthesia/Blood Transfusion Reaction / Comment(s): no problems blood transfusion Past Psychological History: No Psychological Hx Reported Smoking Status: Never smoker Past Alcohol Use History: None Reported Past Drug Use History: None Reported - Past Family History Mother Family Medical History: No Reported History Sister(s) Family Medical History: Cancer Additional Family Medical History / Comment(s): breast Father Family Medical History: Liver Disease Medications and Allergies Home Medications Medication Instructions Recorded Confirmed Type Montelukast Sodium [Singulair] 10 mg PO HS 08/05/20 09/18/22 History Pantoprazole Sodium [Protonix] 40 mg PO DAILY 08/05/20 09/18/22 History amLODIPine [Norvasc] 10 mg PO DAILY 07/05/21 09/18/22 History Albuterol Inhaler [Ventolin Hfa 2 puff INHALATION RT-Q4H PRN 09/18/22 09/18/22 History Inhaler] Fluticasone Propion/Salmeterol 1 puff INHALATION RT-BID 09/18/22 09/18/22 History [Advair 250-50 Diskus] Furosemide [Lasix] 40 mg PO DAILY 09/18/22 09/18/22 History HYDROcodone/APAP 5-325MG [[place] 1 tab PO Q8H PRN 09/18/22 09/18/22 History 5-325] sitaGLIPtin [Januvia] 100 mg PO DAILY 09/18/22 09/18/22 History Allergies Allergy/AdvReac Type Severity Reaction Status Date / Time adhesive tape Allergy brown skin Verified 09/18/22 10:58 azithromycin Allergy Rash/Hives Verified 09/18/22 10:58 [From Zithromax Z-Fidel] Iodine and Iodide Containing Allergy Rash/Hives Verified 09/18/22 10:58 Produc shellfish derived [Shellfish] Allergy Rash/Hives Verified 09/18/22 10:58 Sulfa (Sulfonamide Allergy Rash/Hives Verified 09/18/22 10:58 Antibiotics) iron AdvReac Nausea & Verified 09/18/22 10:58 Vomiting & Diarrhea,hypoglycemia Physical Exam Vitals: Vital Signs Temp Pulse Pulse Resp BP BP Pulse Ox 09/19/22 04:00 84 16 154/65 95 09/18/22 23:57 83 17 171/76 95 09/18/22 20:00 97.8 F 79 18 164/75 96 09/18/22 16:11 75 16 179/90 98 09/18/22 15:39 78 09/18/22 15:30 77 09/18/22 13:00 85 22 192/88 97 09/18/22 12:00 88 20 187/78 97 09/18/22 11:00 90 24 185/75 96 09/18/22 10:13 94 18 194/87 95 09/18/22 08:57 98 F 99 26 H 198/74 96 Intake and Output 09/18/22 09/19/22 09/19/22 22:59 06:59 14:59 Intake Total 180 Output Total 300 950 100 Balance -120 -950 -100 Intake: Oral 180 Output: Urine 300 950 100 Other: # Voids 2 1 # Bowel Movements 1 Weight 97.069 kg 97.6 kg Results 09/19/22 04:37 09/19/22 04:37 Cardiac Enzymes 09/18/22 09/18/22 Range/Units 09:30 09:30 AST 19 (14-36) U/L Troponin I <0.012 (0.000-0.034) ng/mL Coagulation 09/18/22 Range/Units 09:30 PT 11.0 (9.0-12.0) sec APTT 29.6 (22.0-30.0) sec CBC 09/18/22 09/19/22 Range/Units 09:30 04:37 WBC 8.8 7.0 (3.8-10.6) k/uL RBC 3.48 L 3.21 L (3.80-5.40) m/uL Hgb 9.2 L 8.2 L (11.4-16.0) gm/dL Hct 29.5 L 27.6 L (34.0-46.0) % Plt Count 245 210 (150-450) k/uL Comprehensive Metabolic Panel 09/18/22 09/19/22 Range/Units 09:30 04:37 Sodium 143 142 (137-145) mmol/L Potassium 4.6 4.7 (3.5-5.1) mmol/L Chloride 115 H 113 H (98-107) mmol/L Carbon Dioxide 18 L 20 L (22-30) mmol/L BUN 32 H 37 H (7-17) mg/dL Creatinine 2.68 H 2.86 H (0.52-1.04) mg/dL Glucose 176 H 117 H (74-99) mg/dL Calcium 9.1 8.9 (8.4-10.2) mg/dL AST 19 (14-36) U/L ALT 14 (4-34) U/L Alkaline Phosphatase 81 (38-126) U/L Total Protein 8.0 (6.3-8.2) g/dL Albumin 4.2 (3.5-5.0) g/dL Current Medications Generic Name Dose Route Start Last Admin Trade Name Freq PRN Reason Stop Dose Admin Hydrocodone Bitart/Acetaminophen 1 each 09/18/22 14:36 09/18/22 23:25 Hydrocodone/Apap 5-325mg 1 Each Tab PO 1 each Q8H PRN Administration Pain Albuterol Sulfate 2.5 mg 09/19/22 08:00 Albuterol Nebulized 2.5 Mg/3 Ml INHALATION RT-QID KIP Amlodipine Besylate 10 mg 09/18/22 14:45 09/18/22 16:36 Amlodipine 10 Mg Tab PO 10 mg DAILY KIP Administration Aspirin 81 mg 09/19/22 09:00 Aspirin 81 Mg PO DAILY KIP Budesonide/Formoterol Fumarate 2 puff 09/18/22 20:00 09/19/22 01:02 Symbicort 80-4.5 Mcg Inhaler INHALATION Not Given RT-BID KIP Dextrose/Water 25 ml 09/18/22 14:37 Dextrose 50% Syringe 50 Ml IVP PER PROTOCOL PRN Hypoglycemia Protocol Dextrose/Water 50 ml 09/18/22 14:37 Dextrose 50% Syringe 50 Ml IVP PER PROTOCOL PRN Hypoglycemia Protocol Enoxaparin Sodium 40 mg 09/19/22 09:00 Enoxaparin 40 Mg/0.4 Ml Syringe SQ DAILY KIP Furosemide 40 mg 09/18/22 16:00 09/18/22 23:26 Furosemide 10 Mg/Ml 4 Ml Vial IV 40 mg Q8H KIP Administration Insulin Aspart 0 unit 09/18/22 17:30 09/19/22 06:22 Insulin Aspart (Novolog) 100 Unit/Ml Vial SQ Not Given ACHS KIP Protocol Montelukast Sodium 10 mg 09/18/22 21:00 09/18/22 20:29 Montelukast 10 Mg Tab PO 10 mg HS KIP Administration Nitroglycerin 1 inch 09/19/22 13:00 Nitroglycerin Oint 1 Inch/Gm Packet TOPICAL QID KIP Pantoprazole Sodium 40 mg 09/19/22 09:00 Pantoprazole 40 Mg Tablet PO DAILY KIP Intake and Output 09/18/22 09/19/2223 22:59 06:59 14:59 Intake Total 180 Output Total 300 950 100 Balance -120 -950 -100 Intake: Oral 180 Output: Urine 300 950 100 Other: # Voids 2 1 # Bowel Movements 1 Weight 97.069 kg 97.6 kg 09/19/22 04:37 09/19/22 04:37
[2022-09-19] MEDS: ALBUTEROL NEBULIZED 2.5 MG/3 ML INHALATION SCH ×4 (08:13→22:50)
[2022-09-19] MEDS ORDERED: ENOXAPARIN 40 MG/0.4 ML SYRINGE SQ SCH (09:00)
[2022-09-19] MEDS: FUROSEMIDE 10 MG/ML 4 ML VIAL IV SCH ×3 (09:21→23:12)
[2022-09-19] MEDS: ASPIRIN 81 MG PO SCH (09:21)
[2022-09-19] MEDS: amLODIPine 10 MG TAB PO SCH (09:21)
[2022-09-19] MEDS: PANTOPRAZOLE 40 MG TABLET PO SCH (09:21)
[2022-09-19] MEDS: ENOXAPARIN 30 MG/0.3 ML SYRINGE SQ SCH (09:22)
--- NOTE | 2022-09-19 11:30 | P.NPCON ---
History of Present Illness - History of Present Illness Patient is an 81-year-old female with history of hypertension, type 2 diabetes, chronic kidney disease NKF stage IV with baseline creatinine about 2.5-2.6 mg/dL as of 08/29/2021. Patient has a history of right renal cell cancer status post right nephrectomy about 1 year ago. Patient has not followed up as outpatient. Ptient is admitted to the hospital with complaints of increased shortness of breath progressively worsening over the last few weeks. Patient also has incre asing lower extremity swelling. No complaints of chest pain Patient has been voiding well. 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 Blood pressure is not low Patient has been voiding on her own. Review of Systems As per HPI Past Medical History Past Medical History: Cancer, Diabetes Mellitus, Hypertension Additional Past Medical History / Comment(s): kidney issues History of Any Multi-Drug Resistant Organisms: None Reported Past Surgical History: Bladder Surgery, Section Additional Past Surgical History / Comment(s): R nephrectomy Past Anesthesia/Blood Transfusion Reactions: No Reported Reaction Additional Past Anesthesia/Blood Transfusion Reaction / Comment(s): no problems blood transfusion Past Psychological History: No Psychological Hx Reported Smoking Status: Never smoker Past Alcohol Use History: None Reported Past Drug Use History: None Reported - Past Family History Mother Family Medical History: No Reported History Sister(s) Family Medical History: Cancer Additional Family Medical History / Comment(s): breast Father Family Medical History: Liver Disease Medications and Allergies Home Medications Medication Instructions Recorded Confirmed Type Montelukast Sodium [Singulair] 10 mg PO HS 08/05/20 09/18/22 History Pantoprazole Sodium [Protonix] 40 mg PO DAILY 08/05/20 09/18/22 History amLODIPine [Norvasc] 10 mg PO DAILY 07/05/21 09/18/22 History Albuterol Inhaler [Ventolin Hfa 2 puff INHALATION RT-Q4H PRN 09/18/22 09/18/22 History Inhaler] Fluticasone Propion/Salmeterol 1 puff INHALATION RT-BID 09/18/22 09/18/22 History [Advair 250-50 Diskus] Furosemide [Lasix] 40 mg PO DAILY 09/18/22 09/18/22 History HYDROcodone/APAP 5-325MG [[place] 1 tab PO Q8H PRN 09/18/22 09/18/22 History 5-325] sitaGLIPtin [Januvia] 100 mg PO DAILY 09/18/22 09/18/22 History Allergies Allergy/AdvReac Type Severity Reaction Status Date / Time adhesive tape Allergy brown skin Verified 09/18/22 10:58 azithromycin Allergy Rash/Hives Verified 09/18/22 10:58 [From Zithromax Z-Fidel] Iodine and Iodide Containing Allergy Rash/Hives Verified 09/18/22 10:58 Produc shellfish derived [Shellfish] Allergy Rash/Hives Verified 09/18/22 10:58 Sulfa (Sulfonamide Allergy Rash/Hives Verified 09/18/22 10:58 Antibiotics) iron AdvReac Nausea & Verified 09/18/22 10:58 Vomiting & Diarrhea,hypoglycemia Physical Exam Vitals: Vital Signs Temp Pulse Pulse Resp BP BP Pulse Ox 09/19/22 08:18 98 09/19/22 08:13 78 09/19/22 04:00 84 16 154/65 95 09/18/22 23:57 83 17 171/76 95 09/18/22 20:00 97.8 F 79 18 164/75 96 09/18/22 16:11 75 16 179/90 98 09/18/22 15:39 78 09/18/22 15:30 77 09/18/22 13:00 85 22 192/88 97 09/18/22 12:00 88 20 187/78 97 Intake and Output 09/18/22 09/19/22 09/19/22 22:59 06:59 14:59 Intake Total 180 180 Output Total 300 950 250 Balance -120 -950 -70 Intake: Oral 180 180 Output: Urine 300 950 250 Other: # Voids 2 1 # Bowel Movements 1 Weight 97.069 kg 97.6 kg Patient is awake, comfortable, alert oriented 3 No acute distress Examination of the heart S1 and S2 Examination of the lungs bilateral breath sounds are heard Abdomen is soft obese Examination lower extremity shows 4+ edema bilaterally with weeping noted DATA POWER CONSULTANT exam grossly intact Results - Lab Results Most recent lab results Calcium 8.9 mg/dL (8.4-10.2) 09/19/22 04:37 Magnesium 2.1 mg/dL (1.6-2.3) 09/18/22 09:30 09/19/22 04:37 09/19/22 04:37 Assessment and Plan Assessment: 1. Chronic kidney disease NKF stage IV secondary to solitary kidney and nephrosclerosis. Check UA. Serum creatinine was about 2.6 mg/dL in August 2021. Renal function appears to be at baseline 2. Status post right nephrectomy for right renal cell cancer in July 2021 3. Acute CHF with ejection fraction not known 4. Volume overload 5. Type 2 diabetes, [id number] 6. 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 Anemia rule out iron deficiency Plan: Continue current dose of Lasix Check ultrasound of the kidneys Check UA Check iron profile Add Aranesp is iron replete. Follow-up as outpatient for ALBERTO Cuellar. Thank you for the consultation. We will continue to follow the patient with you during her hospitalization
[2022-09-19 11:41] LABS: Glucose,Whole Blood 166 mg/dL (70-110)
--- NOTE | 2022-09-19 12:11 | CA ---
Transthoracic Echo Report Name: Cathy Burton Age: 81 Gender: F : 1940 Exam Date: 09/19/2022 08:32 Exam Location: [facility] Ht (in): 61 Wt (lb): 214 Ordering Physician: Kevin Nieves MD Attending/Referring Phys: Pest Control Supervisor Amena Kang RDCS Procedure CPT: Indications: chf Cardiac Hx: Technical Quality: Good Contrast 1: Total Dose (mL): Contrast 2: Total Dose (mL): MEASUREMENTS (Male / Female) Normal Values 2D ECHO LV Diastolic Diameter PLAX 3.7 cm 4.2 - 5.9 / 3.9 - 5.3 cm LV Systolic Diameter PLAX 2.5 cm IVS Diastolic Thickness 1.3 cm 0.6 - 1.0 / 0.6 - 0.9 cm LVPW Diastolic Thickness 1.3 cm 0.6 - 1.0 / 0.6 - 0.9 cm LV Relative Wall Thickness 0.7 RV Internal Dim ED PLAX 3.4 cm LA Systolic Diameter LX 4.2 cm 3.0 - 4.0 / 2.7 - 3.8 cm LV Diastolic Volume MOD BP 95.3 cm??? 67 - 155 / 56 - 104 cm??? LV Systolic Volume MOD BP 33.2 cm??? 22 - 58 / 19 - 49 cm??? LV Ejection Fraction MOD BP 65.1 % >= 55 % LV Cardiac Index MOD BP 2514.1 cm???/min???m??? LV Diastolic Volume MOD 4C 72.0 cm??? LV Systolic Volume MOD 4C 27.4 cm??? LV Ejection Fraction MOD 4C 62.0 % LV Cardiac Index MOD 4C 1809.2 cm???/min???m??? LV Diastolic Length 4C 6.1 cm LV Systolic Length 4C 5.7 cm LV Diastolic Volume MOD 2C 113.6 cm??? LV Systolic Volume MOD 2C 40.4 cm??? LV Ejection Fraction MOD 2C 64.4 % LV Cardiac Index MOD 2C 2966.7 cm???/min???m??? LV Diastolic Length 2C 6.8 cm LV Systolic Length 2C 5.8 cm M-MODE Aortic Root Diameter MM 3.0 cm MV E Point Septal Separation 0.5 cm AV Cusp Separation MM 2.0 cm DOPPLER AV Peak Velocity 216.8 cm/s AV Peak Gradient 18.8 mmHg AV Mean Velocity 151.1 cm/s AV Mean Gradient 10.2 mmHg AV Velocity Time Integral 49.4 cm LVOT Peak Velocity 127.8 cm/s LVOT Peak Gradient 6.5 mmHg MV Peak Velocity 200.6 cm/s MV Peak Gradient 16.1 mmHg MV Mean Velocity 121.5 cm/s MV Mean Gradient 6.9 mmHg MV Velocity Time Integral 50.4 cm MV Area PHT 3.6 cm??? Mitral E Point Velocity 154.2 cm/s Mitral A Point Velocity 159.5 cm/s Mitral E to A Ratio 1.0 MV Deceleration Time 210.2 ms MV E' Velocity 7.3 cm/s Mitral E to MV E' Ratio 21.2 TR Peak Velocity 310.3 cm/s TR Peak Gradient 38.5 mmHg Right Ventricular Systolic Press 42.5 mmHg FINDINGS Left Ventricle Left ventricular ejection fraction is estimated at 55-60 %. Small left ventricular cavity. Moderately increased septal wall thickness. Moderately increased posterior wall thickness. Right Ventricle Mild right ventricular dilatation. Mild pulmonary hypertension. Right Atrium Normal right atrial size. Left Atrium Mildly increased left atrial diameter. Mitral Valve Mitral valve thickened. Mild mitral annular calcification. Mild mitral regurgitation. Aortic Valve Aortic valve not well visualized. Mild aortic stenosis with a peak gradient of 19 mmHg and a mean gradient of 10 mmHg. Tricuspid Valve Structurally normal tricuspid valve. Mild tricuspid regurgitation. Pulmonic Valve Pulmonic valve not well visualized. No pulmonic regurgitation. Pericardium Normal pericardium. No pericardial effusion. Aorta Normal size aortic root and proximal ascending aorta. CONCLUSIONS Normal LV systolic function Mild aortic stenosis. The aortic valve is poorly visualized Previewed by: Dr. Stanford Nunes MD (Electronically Signed) Final Date: 19 September 2022 12:11
[2022-09-19] MEDS: NITROGLYCERIN OINT 1 INCH/GM PACKET TOPICAL SCH ×3 (12:36→20:19)
[2022-09-19 12:43] LABS: Appearance,Urine Clear (Clear); Bilirubin,Urine Negative (Negative); Blood,Urine Negative (Negative); Color,Urine Colorless; Glucose,Urine (UA) Negative (Negative); Ketones,Urine Negative (Negative); Leukocyte Esterase,Urine Negative (Negative); Nitrite,Urine Negative (Negative); Protein,Urine Trace (Negative); Specific Gravity,Urine 1.006 (1.001-1.035); Urobilinogen,Urine <2.0 mg/dL (<2.0)
[2022-09-19 12:49] VITALS: BMI 40.6
--- NOTE | 2022-09-19 15:22 | US ---
EXAMINATION TYPE: US kidneys/renal and bladder DATE OF EXAM: 09/19/2022 COMPARISON: NONE CLINICAL INDICATION: Female, 81 years old with history of CKD; Right nephrectomy, CKD EXAM MEASUREMENTS: Right Kidney: Surgically absent cortical medullary differentiation is maintained. Left Kidney: 10.1 x 3.6 x 5.4 cm Right Kidney: Surgically absent Left Kidney: wnl Bladder: not distended There is no evidence for hydronephrosis at this point in time. No nephrolithiasis is seen. No clover s are identified. IMPRESSION: 1. No evidence for obstructive uropathy on the left. 2. The right kidney is absent.
[2022-09-19 16:40] LABS: Glucose,Whole Blood 159 mg/dL (70-110)
[2022-09-19 20:08] LABS: Glucose,Whole Blood 154 mg/dL (70-110)
[2022-09-19] MEDS: MONTELUKAST 10 MG TAB PO SCH (20:17)
[2022-09-19] MEDS: HYDROcodone/APAP 5-325MG 1 EACH TAB PO PRN (23:12)
[2022-09-20] MEDS: SYMBICORT 80-4.5 MCG INHALER INHALATION SCH ×3 (00:16→22:01)
[2022-09-20 06:12] LABS: Glucose,Whole Blood 111 mg/dL (70-110)
[2022-09-20] MEDS: INSULIN ASPART (NovoLOG) 100 UNIT/ML VIAL SQ SCH ×4 (06:24→20:13)
[2022-09-20 07:55] LABS: Basophils % (A) 1 %; Eosinophils # (A) 0.2 k/uL (0-0.7); Eosinophils % (A) 4 %; HCT 28.8 % (34.0-46.0); HGB 8.8 gm/dL (11.4-16.0); Hypochromasia Marked; Lymphocytes % (A) 16 %; MCH 26.4 pg (25.0-35.0); MCHC 30.5 g/dL (31.0-37.0); MCV 86.7 fL (80.0-100.0); Mean Platelet Volume 8.3; Monocytes # (A) 0.5 k/uL (0-1.0); Monocytes % (A) 8 %; Neutrophils # (A) 4.7 k/uL (1.3-7.7); Neutrophils % (A) 71 %; Platelet Count 216 k/uL (150-450); RBC 3.32 m/uL (3.80-5.40); RDW 15.9 % (11.5-15.5); WBC 6.7 k/uL (3.8-10.6)
[2022-09-20 08:17] LABS: African American GFR (CKD) 17 (>60 ml/min/1.73 sqM); Anion Gap 12 mmol/L; Blood Urea Nitrogen 44 mg/dL (7-17); Calcium 9.2 mg/dL (8.4-10.2); Carbon Dioxide 20 mmol/L (22-30); Chloride 111 mmol/L (98-107); Glucose 113 mg/dL (74-99); Non-African American GFR(CKD) 14 (>60 ml/min/1.73 sqM); Potassium 4.5 mmol/L (3.5-5.1); Sodium 143 mmol/L (137-145)
[2022-09-20] MEDS: PANTOPRAZOLE 40 MG TABLET PO SCH (08:47)
[2022-09-20] MEDS: amLODIPine 10 MG TAB PO SCH (08:47)
[2022-09-20] MEDS: ASPIRIN 81 MG PO SCH (08:47)
[2022-09-20] MEDS: ENOXAPARIN 30 MG/0.3 ML SYRINGE SQ SCH (08:48)
[2022-09-20] MEDS: FUROSEMIDE 10 MG/ML 4 ML VIAL IV SCH ×3 (08:48→23:45)
[2022-09-20] MEDS: NITROGLYCERIN OINT 1 INCH/GM PACKET TOPICAL SCH ×4 (08:48→20:12)
[2022-09-20] MEDS: ALBUTEROL NEBULIZED 2.5 MG/3 ML INHALATION SCH ×4 (09:02→22:01)
--- NOTE | 2022-09-20 09:45 | P.PN ---
Subjective Progress Note Date: 09/20/22 Principal diagnosis: CHF The patient is a very pleasant 81-year-old female patient with a past medical history significant for diabetes and hypertension and dyslipidemia and chronic kidney disease and chronic anemia and history of right nephrectomy secondary to cancer presented to the hospital complaining of shortness of breath and bilateral lower extremity edema. The symptoms started about a week ago with increasing in the shortness of breath which has progressed and also increasing in the lower extremity edema. She was receiving Lasix but she states she has been taken at an as-needed basis. No history of coronary artery disease and she never informed that she has congestive heart failure or any cardiac arrhythmia and never seen by a educational sign language interpreter before. No symptoms of any chest pain or chest discomfort and no dizziness or light of this and no feeling of heart racing or fluttering and no presyncope or syncope. No fever or chills or cough or sputum production. She underwent further workup including EKG showing sinus mechanism was low voltage QRS. Troponin first set came in to be unremarkable. Blood work came in to be abnormal was a hemoglobin of 8.20 to have chronic anemia and as her baseline also creatinine came in to be 2.86 and also does her baseline. Currently she is on Lasix IV. An echo is in process to be done 09/20/2022 The patient was seen and evaluated this morning. She is feeling better. She has been diuresing very well. She is not hypoxic but she continues to have severe bilateral lower extremity edema. She lost 5 pounds overnight. Kidney function has been stable. Hemoglobin has been stable. I advised continue the patient on IV diuretics for additional 24 hours with continue monitoring the kidney function and electrolytes and continue monitoring the hemoglobin. The echo revealed normal biventricular dimension and systolic function with mild aortic stenosis. The examination is remarkable for regular rhythm with systolic murmur at the right upper sternal border and severe bilateral lower extremity edema and diminished breathing sounds bilaterally Assessment Heart failure exacerbation with evidence of right and left heart failure with preserved ejection fraction Chronic kidney disease appears to be stable History of nephrectomy Anemia appears to be stable Mild aortic stenoses Plan Continue the current medical regimen Continue the current dose of Lasix IV Continue monitoring the kidney function and electrolytes and hemoglobin Follow-up with the patient Objective - Vital Signs Vital signs: Vital Signs Temp 97.8 F 09/20/22 08:00 Pulse 82 09/20/22 09:19 Resp 20 09/20/22 08:00 BP 151/85 09/20/22 08:00 Pulse Ox 98 09/20/22 09:06 FiO2 Intake & Output 09/19/22 09/20/22 09/20/22 18:59 06:59 18:59 Intake Total 660 180 Output Total 825 1350 950 Balance -165 -1350 -770 Weight 97.6 kg 95.5 kg Intake: Oral 660 180 Output: Urine 825 1350 950 Other: # Voids 1 - Labs CBC & Chem 7: 09/20/22 07:06 09/20/22 07:06 Labs: Abnormal Lab Results - Last 24 Hours (Table) 09/19/22 09/19/22 09/19/22 Range/Units 04:37 11:39 12:25 RBC (3.80-5.40) m/uL Hgb (11.4-16.0) gm/dL Hct (34.0-46.0) % MCHC (31.0-37.0) g/dL RDW (11.5-15.5) % Chloride (98-107) mmol/L Carbon Dioxide (22-30) mmol/L BUN (7-17) mg/dL Creatinine (0.52-1.04) mg/dL Glucose (74-99) mg/dL POC Glucose (mg/dL) 166 H (70-110) mg/dL Hemoglobin A1c 7.1 H (<=6.0) % Urine Protein Trace H (Negative) 09/19/22 09/19/22 09/20/22 Range/Units 16:39 20:07 06:11 RBC (3.80-5.40) m/uL Hgb (11.4-16.0) gm/dL Hct (34.0-46.0) % MCHC (31.0-37.0) g/dL RDW (11.5-15.5) % Chloride (98-107) mmol/L Carbon Dioxide (22-30) mmol/L BUN (7-17) mg/dL Creatinine (0.52-1.04) mg/dL Glucose (74-99) mg/dL POC Glucose (mg/dL) 159 H 154 H 111 H (70-110) mg/dL Hemoglobin A1c (<=6.0) % Urine Protein (Negative) 09/20/22 09/20/22 Range/Units 07:06 07:06 RBC 3.32 L (3.80-5.40) m/uL Hgb 8.8 L (11.4-16.0) gm/dL Hct 28.8 L (34.0-46.0) % MCHC 30.5 L (31.0-37.0) g/dL RDW 15.9 H (11.5-15.5) % Chloride 111 H (98-107) mmol/L Carbon Dioxide 20 L (22-30) mmol/L BUN 44 H (7-17) mg/dL Creatinine 2.95 H (0.52-1.04) mg/dL Glucose 113 H (74-99) mg/dL POC Glucose (mg/dL) (70-110) mg/dL Hemoglobin A1c (<=6.0) % Urine Protein (Negative)
[2022-09-20 11:55] LABS: Glucose,Whole Blood 156 mg/dL (70-110)
--- NOTE | 2022-09-20 12:51 | P.PN ---
Subjective Patient is seen for follow-up for chronic kidney disease and acute kidney injury. She is currently being diuresed for volume overload and CHF exacerbation. Blood pressure is not low Serum creatinine increased to 2.9 mg/dL Urine output at 2.1 L. Next Overall patient states she is feeling better. Objective - Vital Signs Vital signs: Vital Signs Temp 97.7 F 09/20/22 11:57 Pulse 84 09/20/22 12:18 Resp 20 09/20/22 11:57 BP 134/62 09/20/22 11:57 Pulse Ox 97 09/20/22 11:57 FiO2 Intake & Output 09/19/22 09/20/22 09/20/22 18:59 06:59 18:59 Intake Total 660 180 Output Total 825 1350 1150 Balance -165 -1350 -970 Weight 97.6 kg 95.5 kg Intake: Oral 660 180 Output: Urine 825 1350 1150 Other: # Voids 1 - Exam Patient is awake, comfortable, no acute distress Examination of the heart S1 and S2 Examination lungs decreased breath sounds at the bases no crackles or wheezing is heard Abdomen is soft obese nontender Examination lower extremity shows edema 3+ bilaterally SCALLOP BINDER exam grossly intact - Labs CBC & Chem 7: 09/20/22 07:06 09/20/22 07:06 Labs: Abnormal Lab Results - Last 24 Hours (Table) 09/19/22 09/19/22 09/19/22 Range/Units 04:37 16:39 20:07 RBC (3.80-5.40) m/uL Hgb (11.4-16.0) gm/dL Hct (34.0-46.0) % MCHC (31.0-37.0) g/dL RDW (11.5-15.5) % Chloride (98-107) mmol/L Carbon Dioxide (22-30) mmol/L BUN (7-17) mg/dL Creatinine (0.52-1.04) mg/dL Glucose (74-99) mg/dL POC Glucose (mg/dL) 159 H 154 H (70-110) mg/dL Hemoglobin A1c 7.1 H (<=6.0) % 09/20/22 09/20/22 09/20/22 Range/Units 06:11 07:06 07:06 RBC 3.32 L (3.80-5.40) m/uL Hgb 8.8 L (11.4-16.0) gm/dL Hct 28.8 L (34.0-46.0) % MCHC 30.5 L (31.0-37.0) g/dL RDW 15.9 H (11.5-15.5) % Chloride 111 H (98-107) mmol/L Carbon Dioxide 20 L (22-30) mmol/L BUN 44 H (7-17) mg/dL Creatinine 2.95 H (0.52-1.04) mg/dL Glucose 113 H (74-99) mg/dL POC Glucose (mg/dL) 111 H (70-110) mg/dL Hemoglobin A1c (<=6.0) % 09/20/22 Range/Units 11:53 RBC (3.80-5.40) m/uL Hgb (11.4-16.0) gm/dL Hct (34.0-46.0) % MCHC (31.0-37.0) g/dL RDW (11.5-15.5) % Chloride (98-107) mmol/L Carbon Dioxide (22-30) mmol/L BUN (7-17) mg/dL Creatinine (0.52-1.04) mg/dL Glucose (74-99) mg/dL POC Glucose (mg/dL) 156 H (70-110) mg/dL Hemoglobin A1c (<=6.0) % Assessment and Plan Assessment: 1. Chronic kidney disease NKF stage IV secondary to solitary kidney and nephrosclerosis. UA is benign. Serum creatinine was about 2.6 mg/dL in August 2021. Renal function appears to be close to baseline 2. Status post right nephrectomy for right renal cell cancer in July 2021 3. Acute CHF with ejection fraction not known 4. Volume overload 5. Type 2 diabetes, [id number] 6. 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 Anemia rule out iron deficiency Plan: Continue current dose of Lasix DC Norvasc due to significant lower extremity edema Check iron profile Repeat labs in a.m. Accurate I's and O's
[2022-09-20 16:49] LABS: Glucose,Whole Blood 150 mg/dL (70-110)
[2022-09-20] MEDS: carvediloL 3.125 MG TAB PO SCH (17:03)
[2022-09-20 19:53] LABS: Glucose,Whole Blood 141 mg/dL (70-110)
[2022-09-20] MEDS: MONTELUKAST 10 MG TAB PO SCH (20:12)
[2022-09-20] MEDS: HYDROcodone/APAP 5-325MG 1 EACH TAB PO PRN (20:59)
--- NOTE | 2022-09-21 01:08 | P.PN ---
Subjective Progress Note Date: 09/19/22 Patient is a 81-year-old female with known history of hypertension, diabetes type 2 [id number], history of renal cancer status post right nephrectomy, asthma and no prior history of smoking presents to ER with complaints of difficulty in breathing. Patient has been having worsening shortness of breath and leg swelling for the past 1 week. Patient was given inhaler by her primary care physician but is not helping her. Patient is having leg swelling increase from her baseline. Patient does take Lasix 2 to 3 days a week. Otherwise denies any complaints of chest pain. No nausea vomiting or abdominal pain diarrhea. No cough or sputum production. No fever no chills. Patient states that last night her breathing got considerably worse and had difficulty to lie down. Patient was brought to the hospital by her family. Patient states that she is supposed to follow with her telephone betting clerk due to wound on her back and biopsy showed squamous cell carcinoma. Chest x-ray showed cardiomegaly and interstitial/vascular densities. Correlate for mild CHF with pulmonary vascular congestion. Redemonstrated asymmetric elevation right hemidiaphragm if concern for hemidiaphragmatic paralysis if fluoroscopy sniff test could be performed. EKG showed sinus rhythm with first-degree AV block. Laboratory data showed WBC 8.8 hemoglobin 9.2 and platelets 245 Sodium 143 potassium 4.6 chloride 115 bicarb is 18 BUN 32 and creatinine 2.68 and blood sugar 176. Liver enzymes are not elevated. Troponin less than 0.012 and proBNP is 1580 Blood pressure was elevated at 198/74 on admission. 09/19/2022 Patient is currently sitting on side of the bed. Awake alert and oriented x3. Still having significant bilateral lower extremity edema. Patient is being current on IV Lasix 40 mg every 8 hourly. Shortness of breath did improve. No nausea vomiting abdominal pain or diarrhea. No cough or sputum production. Laboratory data showed WBC 7.0 hemoglobin 8.1 platelets 210 Sodium 142 potassium 4.7 chloride 113 bicarb is 20 BUN 37 creatinine 2.86 and blood sugar is 117 and calcium 7.1. Nephrology and cardiology is on board. 2D echocardiogram was done. Current medications reviewed. Objective - Vital Signs Vital signs: Vital Signs Temp 98 F 09/19/22 20:00 Pulse 84 09/19/22 20:00 Resp 18 09/19/22 20:00 BP 160/72 09/19/22 20:00 Pulse Ox 98 09/19/22 20:00 FiO2 Intake & Output 09/19/22 09/19/22 09/20/22 06:59 18:59 06:59 Intake Total 660 Output Total 1000 825 450 Balance -1000 -165 -450 Weight 97.6 kg 97.6 kg Intake: Oral 660 Output: Urine 1000 825 450 Other: # Voids 2 1 # Bowel Movements 1 - Exam PHYSICAL EXAMINATION: Patient is lying in the bed comfortably, no acute distress, awake alert and oriented.. HEENT: Normocephalic. Neck is supple. Pupils reactive. Nostrils clear. Oral cavity is moist. Neck reveals no JVD, carotid bruits, or thyromegaly. CHEST EXAMINATION: Trachea is central. Symmetrical expansion. Bibasilar diminished sounds. Mild expiratory wheeze. No rhonchi.. CARDIAC: Normal S1, S2 with no gallops. No murmurs ABDOMEN: Soft. Bowel sounds present. Nontender. No organomegaly. No abdominal bruits. Extremities: Lower extremity 2+ pedal edema. No clubbing or cyanosis Neurologically awake, alert, oriented x3 with well-coordinated movements. No focal deficits noted Skin: No rash or skin lesions. Psychiatric: Coperative. Nonsuicidal, Musculoskeletal: No joint swelling or deformity. Normal range of motion. - Labs CBC & Chem 7: 09/20/22 07:06 09/20/22 07:06 Labs: Abnormal Lab Results - Last 24 Hours (Table) 09/19/22 09/19/22 09/19/22 Range/Units 04:37 04:37 04:37 RBC 3.21 L (3.80-5.40) m/uL Hgb 8.2 L (11.4-16.0) gm/dL Hct 27.6 L (34.0-46.0) % MCHC 29.8 L (31.0-37.0) g/dL RDW 16.0 H (11.5-15.5) % Chloride 113 H (98-107) mmol/L Carbon Dioxide 20 L (22-30) mmol/L BUN 37 H (7-17) mg/dL Creatinine 2.86 H (0.52-1.04) mg/dL Glucose 117 H (74-99) mg/dL POC Glucose (mg/dL) (70-110) mg/dL Hemoglobin A1c 7.1 H (<=6.0) % Urine Protein (Negative) 09/19/22 09/19/22 09/19/22 Range/Units 06:16 11:39 12:25 RBC (3.80-5.40) m/uL Hgb (11.4-16.0) gm/dL Hct (34.0-46.0) % MCHC (31.0-37.0) g/dL RDW (11.5-15.5) % Chloride (98-107) mmol/L Carbon Dioxide (22-30) mmol/L BUN (7-17) mg/dL Creatinine (0.52-1.04) mg/dL Glucose (74-99) mg/dL POC Glucose (mg/dL) 122 H 166 H (70-110) mg/dL Hemoglobin A1c (<=6.0) % Urine Protein Trace H (Negative) 09/19/22 09/19/22 Range/Units 16:39 20:07 RBC (3.80-5.40) m/uL Hgb (11.4-16.0) gm/dL Hct (34.0-46.0) % MCHC (31.0-37.0) g/dL RDW (11.5-15.5) % Chloride (98-107) mmol/L Carbon Dioxide (22-30) mmol/L BUN (7-17) mg/dL Creatinine (0.52-1.04) mg/dL Glucose (74-99) mg/dL POC Glucose (mg/dL) 159 H 154 H (70-110) mg/dL Hemoglobin A1c (<=6.0) % Urine Protein (Negative) Assessment and Plan Assessment: Worsening shortness of breath and leg swelling Acute CHF with ejection fraction of known at this time. 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 DVT prophylaxis with Lovenox subcu Plan: Patient will be continued on telemetry monitoring. Was started on Lasix 40 mg e very 8 hourly. Continue with home blood pressure medications. 2D echocardiogram was ordered. Continue with insulin sliding scale and better blood sugar control. Cardiology and nephrology is on board. Renal ultrasound duplex was ordered. Urinalysis is negative for infection..Follow-up renal function closely. Follow-up closely. Prognosis guarded at this time. Time with Patient: Greater than 30
--- NOTE | 2022-09-21 01:11 | P.PN ---
Subjective Progress Note Date: 09/20/22 Patient is a 81-year-old female with known history of hypertension, diabetes type 2 [id number], history of renal cancer status post right nephrectomy, asthma and no prior history of smoking presents to ER with complaints of difficulty in breathing. Patient has been having worsening shortness of breath and leg swelling for the past 1 week. Patient was given inhaler by her primary care physician but is not helping her. Patient is having leg swelling increase from her baseline. Patient does take Lasix 2 to 3 days a week. Otherwise denies any complaints of chest pain. No nausea vomiting or abdominal pain diarrhea. No cough or sputum production. No fever no chills. Patient states that last night her breathing got considerably worse and had difficulty to lie down. Patient was brought to the hospital by her family. 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 Chest x-ray showed cardiomegaly and interstitial/vascular densities. Correlate for mild CHF with pulmonary vascular congestion. Redemonstrated asymmetric elevation right hemidiaphragm if concern for hemidiaphragmatic paralysis if fluoroscopy sniff test could be performed. EKG showed sinus rhythm with first-degree AV block. Laboratory data showed WBC 8.8 hemoglobin 9.2 and platelets 245 Sodium 143 potassium 4.6 chloride 115 bicarb is 18 BUN 32 and creatinine 2.68 and blood sugar 176. Liver enzymes are not elevated. Troponin less than 0.012 and proBNP is 1580 Blood pressure was elevated at 198/74 on admission. 09/19/2022 Patient is currently sitting on side of the bed. Awake alert and oriented x3. Still having significant bilateral lower extremity edema. Patient is being current on IV Lasix 40 mg every 8 hourly. Shortness of breath did improve. No nausea vomiting abdominal pain or diarrhea. No cough or sputum production. Laboratory data showed WBC 7.0 hemoglobin 8.1 platelets 210 Sodium 142 potassium 4.7 chloride 113 bicarb is 20 BUN 37 creatinine 2.86 and blood sugar is 117 and calcium 7.1. Nephrology and cardiology is on board. 2D echocardiogram was done. 09/20/2022 Patient is resting in bed. Awake alert mild x3. Feels tired today. No complaints of chest pain or worsening shortness of breath. Patient is able to ambulate in the hallway. Patient is otherwise diuresing well. No complaints of nausea vomiting abdominal pain or diarrhea. 2D echocardiogram showed normal LV systolic function. Mild aortic stenosis. Aortic valve is poorly visualized. Small left ventricular cavity. Moderately increased septal wall thickness. Moderately increased posterior wall thickness. Mild pulmonary hypertension. Otherwise patient does have urine output at 2.1 L. Patient lost about 5 LBS today. Feels better. Otherwise renal function showed increased creatinine level to 2.95. Other laboratory data showed WBC 6.7 hemoglobin 8.8 and platelets 216 Sodium 143 potassium 4.5 chloride 101 bicarb is 20 BUN 44 and creatinine 2.95 and blood sugar is 113. Calcium 9.2. Current medications reviewed. Objective - Vital Signs Vital signs: Vital Signs Temp 97.7 F 09/20/22 11:57 Pulse 84 09/20/22 12:18 Resp 20 09/20/22 11:57 BP 134/62 09/20/22 11:57 Pulse Ox 97 09/20/22 11:57 FiO2 Intake & Output 09/19/22 09/20/22 09/20/22 18:59 06:59 18:59 Intake Total 660 360 Output Total 825 1350 1600 Balance -165 -1350 -1240 Weight 97.6 kg 95.5 kg Intake: Oral 660 360 Output: Urine 825 1350 1600 Other: # Voids 1 - Exam PHYSICAL EXAMINATION: Patient is lying in the bed comfortably, no acute distress, awake alert and oriented.. HEENT: Normocephalic. Neck is supple. Pupils reactive. Nostrils clear. Oral cavity is moist. Neck reveals no JVD, carotid bruits, or thyromegaly. CHEST EXAMINATION: Trachea is central. Symmetrical expansion. Bibasilar diminished sounds. Mild expiratory wheeze. No rhonchi.. CARDIAC: Normal S1, S2 with no gallops. No murmurs ABDOMEN: Soft. Bowel sounds present. Nontender. No organomegaly. No abdominal bruits. Extremities: Lower extremity 2+ pedal edema. No clubbing or cyanosis Neurologically awake, alert, oriented x3 with well-coordinated movements. No focal deficits noted Skin: No rash or skin lesions. Psychiatric: Coperative. Nonsuicidal, Musculoskeletal: No joint swelling or deformity. Normal range of motion. - Labs CBC & Chem 7: 09/20/22 07:06 09/20/22 07:06 Labs: Abnormal Lab Results - Last 24 Hours (Table) 09/19/22 09/19/22 09/20/22 Range/Units 16:39 20:07 06:11 RBC (3.80-5.40) m/uL Hgb (11.4-16.0) gm/dL Hct (34.0-46.0) % MCHC (31.0-37.0) g/dL RDW (11.5-15.5) % Chloride (98-107) mmol/L Carbon Dioxide (22-30) mmol/L BUN (7-17) mg/dL Creatinine (0.52-1.04) mg/dL Glucose (74-99) mg/dL POC Glucose (mg/dL) 159 H 154 H 111 H (70-110) mg/dL 09/20/22 09/20/22 09/20/22 Range/Units 07:06 07:06 11:53 RBC 3.32 L (3.80-5.40) m/uL Hgb 8.8 L (11.4-16.0) gm/dL Hct 28.8 L (34.0-46.0) % MCHC 30.5 L (31.0-37.0) g/dL RDW 15.9 H (11.5-15.5) % Chloride 111 H (98-107) mmol/L Carbon Dioxide 20 L (22-30) mmol/L BUN 44 H (7-17) mg/dL Creatinine 2.95 H (0.52-1.04) mg/dL Glucose 113 H (74-99) mg/dL POC Glucose (mg/dL) 156 H (70-110) mg/dL Assessment and Plan Assessment: Worsening shortness of breath and leg swelling Acute CHF with ejection fraction of known at this time. Fluid overload Chronic kidney disease with baseline creatinine level around 2.6 RAIMUNDO with diuresis History of right renal cell carcinoma status post right nephrectomy Normocytic anemia with elevated RDW. Rule out iron deficiency. 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 DVT prophylaxis with Lovenox subcu Plan: Patient will be continued on telemetry monitoring. Was started on Lasix 40 mg every 8 hourly. Norvasc has been discontinued. 2D echocardiogram showed normal LV systolic function. Mild aortic stenosis. Aortic valve is poorly visualized. Small left ventricular cavity. Moderately increased septal wall thickness. Moderately increased posterior wall thickness. Mild pulmonary hypertension. Continue with insulin sliding scale and better blood sugar control. Cardiology and nephrology is on board. Renal ultrasound duplex was ordered. Urinalysis is negative for infection..monitor renal function closely. Follow-up closely. Prognosis guarded at this time. Time with Patient: Greater than 30
[2022-09-21 06:21] LABS: Glucose,Whole Blood 110 mg/dL (70-110)
[2022-09-21 08:26] LABS: Basophils # (A) 0.1 k/uL (0-0.2); Basophils % (A) 1 %; Eosinophils # (A) 0.4 k/uL (0-0.7); Eosinophils % (A) 6 %; HCT 30.2 % (34.0-46.0); HGB 9.2 gm/dL (11.4-16.0); Hypochromasia Marked; Lymphocytes # (A) 1.1 k/uL (1.0-4.8); Lymphocytes % (A) 15 %; MCH 26.4 pg (25.0-35.0); MCHC 30.5 g/dL (31.0-37.0); MCV 86.5 fL (80.0-100.0); Mean Platelet Volume 8.8; Monocytes # (A) 0.6 k/uL (0-1.0); Monocytes % (A) 8 %; Neutrophils # (A) 5.1 k/uL (1.3-7.7); Neutrophils % (A) 69 %; Platelet Count 252 k/uL (150-450); WBC 7.4 k/uL (3.8-10.6)
[2022-09-21 08:49] LABS: % Iron Saturation 7.03 (12.00-50.00)
[2022-09-21 08:50] LABS: African American GFR (CKD) 15 (>60 ml/min/1.73 sqM); Anion Gap 12 mmol/L; Blood Urea Nitrogen 55 mg/dL (7-17); Calcium 9.3 mg/dL (8.4-10.2); Carbon Dioxide 24 mmol/L (22-30); Chloride 105 mmol/L (98-107); Glucose 138 mg/dL (74-99); Non-African American GFR(CKD) 13 (>60 ml/min/1.73 sqM); Potassium 4.9 mmol/L (3.5-5.1); Sodium 141 mmol/L (137-145)
[2022-09-21] MEDS: ALBUTEROL NEBULIZED 2.5 MG/3 ML INHALATION SCH ×4 (08:59→21:21)
[2022-09-21] MEDS: SYMBICORT 80-4.5 MCG INHALER INHALATION SCH ×2 (08:59→21:21)
[2022-09-21] MEDS: ASPIRIN 81 MG PO SCH (09:19)
[2022-09-21] MEDS: INSULIN ASPART (NovoLOG) 100 UNIT/ML VIAL SQ SCH ×5 (09:20→22:49)
[2022-09-21] MEDS: FUROSEMIDE 10 MG/ML 4 ML VIAL IV SCH (09:20)
[2022-09-21] MEDS: carvediloL 3.125 MG TAB PO SCH ×2 (09:20→18:08)
[2022-09-21] MEDS: ENOXAPARIN 30 MG/0.3 ML SYRINGE SQ SCH (09:20)
[2022-09-21] MEDS: PANTOPRAZOLE 40 MG TABLET PO SCH (09:20)
[2022-09-21 11:22] LABS: Glucose,Whole Blood 123 mg/dL (70-110)
--- NOTE | 2022-09-21 12:24 | P.PN ---
Subjective Patient is seen for follow-up for chronic kidney disease and acute kidney injury. She is currently being diuresed for volume overload and CHF exacerbation. Blood pressure is not low Serum creatinine increased to 3.1 mg/dL Urine output at 3.0 L for 24 hours Weight is down by about 3 kg. O2 sats 96% on room air. Overall patient states she is feeling better but continues with significant lower extremity swelling. Norvasc was discontinued yesterday. Objective - Vital Signs Vital signs: Vital Signs Temp 97.9 F 09/21/22 12:00 Pulse 66 09/21/22 12:00 Resp 18 09/21/22 12:00 BP 141/61 09/21/22 12:00 Pulse Ox 96 09/21/22 12:00 FiO2 Intake & Output 09/20/22 09/21/22 09/21/22 18:59 06:59 18:59 Intake Total 780 360 Output Total 1900 1100 675 Balance -1120 -1100 -315 Weight 94 kg Intake: Oral 780 360 Output: Urine 1900 1100 675 Other: # Voids 1 - Exam Patient is awake, comfortable, no acute distress Examination of the heart S1 and S2 Examination lungs decreased breath sounds at the bases, no crackles or wheezing is heard Abdomen is soft obese nontender Examination lower extremity shows edema 3+ bilaterally TELEVISION PROGRAM DIRECTOR exam grossly intact - Labs CBC & Chem 7: 09/21/22 07:38 09/21/22 07:38 Labs: Abnormal Lab Results - Last 24 Hours (Table) 09/19/22 09/20/22 09/20/22 Range/Units 04:37 16:47 19:50 RBC (3.80-5.40) m/uL Hgb (11.4-16.0) gm/dL Hct (34.0-46.0) % MCHC (31.0-37.0) g/dL RDW (11.5-15.5) % BUN (7-17) mg/dL Creatinine (0.52-1.04) mg/dL Glucose (74-99) mg/dL POC Glucose (mg/dL) 150 H 141 H (70-110) mg/dL Iron 26 L (50-175) UG/DL % Saturation 7.03 L (12.00-50.00) 06/19/23 06/19/23 06/19/23 Range/Units 07:38 07:38 11:21 RBC 3.50 L (3.80-5.40) m/uL Hgb 9.2 L (11.4-16.0) gm/dL Hct 30.2 L (34.0-46.0) % MCHC 30.5 L (31.0-37.0) g/dL RDW 16.0 H (11.5-15.5) % BUN 55 H (7-17) mg/dL Creatinine 3.12 H (0.52-1.04) mg/dL Glucose 138 H (74-99) mg/dL POC Glucose (mg/dL) 123 H (70-110) mg/dL Iron (50-175) UG/DL % Saturation (12.00-50.00) Assessment and Plan Assessment: 1. Chronic kidney disease NKF stage IV secondary to solitary kidney and nephrosclerosis. UA is benign. Serum creatinine was about 2.6 mg/dL in August 2021. Renal function has been slowly worsening. Lasix will be decreased today. Norvasc was also discontinued due to lower extremity edema. Patient's r espiratory status has improved significantly. Briefly discuss renal replacement therapy and patient is reluctant at this time. 2. Status post right nephrectomy for right renal cell cancer in July 2021 3. Acute CHF with preserved ejection fraction 4. Volume overload 5. Type 2 diabetes, [id number]-jjzmiboer 6. 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 Anemia rule out iron deficiency Plan: Continue off of Norvasc Decrease Lasix Repeat labs in a.m. Briefly discuss renal replacement therapy and patient is reluctant. No indication for urgent dialysis today. We will continue to monitor on a daily basis. So far respiratory status has improved and edema is expected to improve further with discontinuation of amlodipine. Weight is down by about 3 kg.
--- NOTE | 2022-09-21 14:00 | P.PN ---
Subjective Progress Note Date: 09/21/22 The patient is a very pleasant 81-year-old female patient with a past medical history significant for diabetes and hypertension and dyslipidemia and chronic kidney disease and chronic anemia and history of right nephrectomy secondary to cancer presented to the hospital complaining of shortness of breath and bilateral lower extremity edema. The symptoms started about a week ago with increasing in the shortness of breath which has progressed and also increasing in the lower extremity edema. She was receiving Lasix but she states she has been taken at an as-needed basis. No history of coronary artery disease and she never informed that she has congestive heart failure or any cardiac arrhythmia and never seen by a furnace keeper before. No symptoms of any chest pain or chest discomfort and no dizziness or light of this and no feeling of heart racing or fluttering and no presyncope or syncope. No fever or chills or cough or sputum production. She underwent further workup including EKG showing sinus mechanism was low voltage QRS. Troponin first set came in to be unremarkable. Blood work came in to be abnormal was a hemoglobin of 8.20 to have chronic anemia and as her baseline also creatinine came in to be 2.86 and also does her baseline. Currently she is on Lasix IV. An echo is in process to be done 09/20/2022 The patient was seen and evaluated this morning. She is feeling better. She has been diuresing very well. She is not hypoxic but she continues to have severe bilateral lower extremity edema. She lost 5 pounds overnight. Kidney function has been stable. Hemoglobin has been stable. I advised continue the patient on IV diuretics for additional 24 hours with continue monitoring the kidney function and electrolytes and continue monitoring the hemoglobin. The echo revealed normal biventricular dimension and systolic function with mild aortic stenosis. 09/21 Patient is seen today in follow-up. She states that her breathing is better today. She does have shortness of breath with activity and she has improvement of lower extremity edema. Blood pressure 141/61, heart rate in the 60s and 70s, pulse ox 96% on room air. Repeat blood work reveals hemoglobin 9.2. Potassium 4.9, BUN 55 creatinine 3.12. Patient is currently on Lasix 40 mg IV every 8 hours managed by nephrology. The examination is remarkable for regular rhythm with systolic murmur at the rig ht upper sternal border and severe bilateral lower extremity edema and diminished breathing sounds bilaterally Assessment Heart failure exacerbation with evidence of right and left heart failure with preserved ejection fraction Chronic kidney disease and acute kidney injury History of nephrectomy Anemia appears to be stable Mild aortic stenoses Plan Continue the current medical regimen Continue Lasix IV to decrease to once daily per nephrology Continue monitoring the kidney function and electrolytes and hemoglobin Follow-up with the patient Nurse practitioner note has been reviewed, I agree with the documented findings and plan of care. Patient was seen and examined. Objective - Vital Signs Vital signs: Vital Signs Temp 98 F 09/20/22 20:00 Pulse 75 09/21/22 04:00 Resp 18 09/21/22 04:00 BP 139/72 09/21/22 04:00 Pulse Ox 93 L 09/21/22 04:00 FiO2 Intake & Output 09/20/22 09/21/22 09/21/22 18:59 06:59 18:59 Intake Total 780 Output Total 1900 1100 Balance -1120 -1100 Weight 94 kg Intake: Oral 780 Output: Urine 1900 1100 - Labs CBC & Chem 7: 09/21/22 07:38 09/21/22 07:38 Labs: Abnormal Lab Results - Last 24 Hours (Table) 09/20/22 09/20/22 09/20/22 Range/Units 11:53 16:47 19:50 POC Glucose (mg/dL) 156 H 150 H 141 H (70-110) mg/dL
[2022-09-21 17:59] LABS: Glucose,Whole Blood 198 mg/dL (70-110)
[2022-09-21] MEDS ORDERED: ALPRAZolam 0.25 MG TAB PO PRN (20:00)
[2022-09-21 21:09] LABS: Glucose,Whole Blood 158 mg/dL (70-110)
[2022-09-21] MEDS: MONTELUKAST 10 MG TAB PO SCH (21:44)
[2022-09-21] MEDS: HYDROcodone/APAP 5-325MG 1 EACH TAB PO PRN (21:48)
--- NOTE | 2022-09-22 03:04 | PN ---
PROGRESS NOTE DATE OF SERVICE: 09/21/2022 SUBJECTIVE: This is an 81-year-old woman, who was admitted with worsening CHF, is being closely monitored. No chest pain. No palpitations. No fever. OBJECTIVE: VITAL SIGNS: Pulse is 70, blood pressure 140/69, respirations 18. CHEST: A few scattered rhonchi. CARDIOVASCULAR: S1, S2. ABDOMEN: Soft. LEGS: No edema. LABORATORY DATA: Reviewed. Creatinine 3.12. ASSESSMENT: 1. Congestive heart failure acute exacerbation. 2. Chronic kidney disease, stage 3. 3. History of right renal cell carcinoma. 4. Diabetes mellitus, type 2. 5. Multiple medical issues. RECOMMENDATIONS AND DISCUSSION: Recommend to continue current management and symptomatic treatment. Repeat labs will be ordered. Closely follow with Nephrology and Cardiology. Prognosis guarded. Further recommendations to follow. MMODL / IJN: [id number] /
[2022-09-22] MEDS: INSULIN ASPART (NovoLOG) 100 UNIT/ML VIAL SQ SCH ×4 (05:52→20:34)
[2022-09-22] MEDS: carvediloL 3.125 MG TAB PO SCH (05:52)
[2022-09-22 05:59] LABS: Glucose,Whole Blood 111 mg/dL (70-110)
[2022-09-22 08:20] LABS: Basophils # (A) 0.1 k/uL (0-0.2); Basophils % (A) 1 %; Eosinophils # (A) 0.4 k/uL (0-0.7); Eosinophils % (A) 5 %; HCT 27.8 % (34.0-46.0); HGB 8.7 gm/dL (11.4-16.0); Hypochromasia Marked; Lymphocytes # (A) 1.2 k/uL (1.0-4.8); Lymphocytes % (A) 17 %; MCH 26.6 pg (25.0-35.0); MCHC 31.2 g/dL (31.0-37.0); MCV 85.1 fL (80.0-100.0); Mean Platelet Volume 8.7; Monocytes # (A) 0.6 k/uL (0-1.0); Monocytes % (A) 8 %; Neutrophils # (A) 4.9 k/uL (1.3-7.7); Neutrophils % (A) 68 %; Platelet Count 232 k/uL (150-450); RBC 3.26 m/uL (3.80-5.40); RDW 15.9 % (11.5-15.5); WBC 7.2 k/uL (3.8-10.6)
[2022-09-22 08:25] LABS: African American GFR (CKD) 16 (>60 ml/min/1.73 sqM); Anion Gap 12 mmol/L; Blood Urea Nitrogen 63 mg/dL (7-17); Calcium 8.7 mg/dL (8.4-10.2); Carbon Dioxide 22 mmol/L (22-30); Chloride 106 mmol/L (98-107); Glucose 137 mg/dL (74-99); Non-African American GFR(CKD) 14 (>60 ml/min/1.73 sqM); Potassium 4.8 mmol/L (3.5-5.1); Sodium 140 mmol/L (137-145)
[2022-09-22] MEDS: ENOXAPARIN 30 MG/0.3 ML SYRINGE SQ SCH ×2 (08:57→09:01)
[2022-09-22] MEDS: FUROSEMIDE 10 MG/ML 4 ML VIAL IV SCH (08:58)
[2022-09-22] MEDS: ASPIRIN 81 MG PO SCH (08:58)
[2022-09-22] MEDS: PANTOPRAZOLE 40 MG TABLET PO SCH (08:58)
[2022-09-22] MEDS: SYMBICORT 80-4.5 MCG INHALER INHALATION SCH ×2 (09:21→19:17)
[2022-09-22] MEDS: ALBUTEROL NEBULIZED 2.5 MG/3 ML INHALATION SCH ×4 (09:21→19:17)
[2022-09-22] MEDS ORDERED: carvediloL 3.125 MG TAB PO STA (10:19)
[2022-09-22 11:38] LABS: Glucose,Whole Blood 150 mg/dL (70-110)
--- NOTE | 2022-09-22 13:22 | P.PN ---
Subjective Patient is seen for follow-up for chronic kidney disease and acute kidney injury. She is currently being diuresed for volume overload and CHF exacerbation. Blood pressure is not low Serum creatinine increased to 3.1 mg/dL from 2.6 on admission, down to 3.0 today. Lasix was decreased yesterday Urine output at 1.2 L for 24 hours Weight is down by about 4 kg. O2 sats 96% on room air. Overall patient states she is feeling better but continues with significant lower extremity swelling. Norvasc was discontinued yesterday. Objective - Vital Signs Vital signs: Vital Signs Temp 97.5 F L 09/22/22 11:48 Pulse 64 09/22/22 12:32 Resp 16 09/22/22 11:48 BP 138/71 09/22/22 11:48 Pulse Ox 96 09/22/22 11:48 FiO2 Intake & Output 09/21/22 09/22/22 09/22/22 18:59 06:59 18:59 Intake Total 980 895 Output Total 675 550 675 Balance 305 -550 220 Weight 93 kg Intake: Oral 980 895 Output: Urine 675 550 675 Other: Voiding Method Toilet Toilet # Voids 1 1 1 # Bowel Movements 1 - Exam Patient is awake, comfortable, no acute distress Examination of the heart S1 and S2 Examination lungs decreased breath sounds at the bases, no crackles or wheezing is heard Abdomen is soft obese nontender Examination lower extremity shows edema 3+ bilaterally CAR GROOMER exam grossly intact - Labs CBC & Chem 7: 09/22/22 07:51 09/22/22 07:51 Labs: Abnormal Lab Results - Last 24 Hours (Table) 09/21/22 09/21/22 09/22/22 Range/Units 17:57 20:58 05:52 RBC (3.80-5.40) m/uL Hgb (11.4-16.0) gm/dL Hct (34.0-46.0) % RDW (11.5-15.5) % BUN (7-17) mg/dL Creatinine (0.52-1.04) mg/dL Glucose (74-99) mg/dL POC Glucose (mg/dL) 198 H 158 H 111 H (70-110) mg/dL 09/22/22 09/22/22 09/22/22 Range/Units 07:51 07:51 11:36 RBC 3.26 L (3.80-5.40) m/uL Hgb 8.7 L (11.4-16.0) gm/dL Hct 27.8 L (34.0-46.0) % RDW 15.9 H (11.5-15.5) % BUN 63 H (7-17) mg/dL Creatinine 3.09 H (0.52-1.04) mg/dL Glucose 137 H (74-99) mg/dL POC Glucose (mg/dL) 150 H (70-110) mg/dL Assessment and Plan Assessment: 1. Chronic kidney disease NKF stage IV secondary to solitary kidney and nephrosclerosis. UA is benign. Serum creatinine was about 2.6 mg/dL in August 2021. Renal function has been slowly worsening. Lasix was decreased yesterday. Norvasc was also discontinued due to lower extremity edema. Patient's respiratory status has improved significantly. Briefly discuss renal replacement therapy and patient is reluctant at this time. No indication for renal replacement therapy at this time. Serum creatinine seems to have stabilized and possibly improving. 2. Status post right nephrectomy for right renal cell cancer in July 2021 3. Acute CHF with preserved ejection fraction 4. Volume overload 5. Type 2 diabetes, [id number] 6. 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 Anemia of chronic disease with underlying iron deficiency. Plan: Continue off of Norvasc Continue current dose of Lasix Add IV iron now as volume status is better Add Aranesp once patient has had at least a couple of doses of IV iron Repeat labs in a.m. Briefly discuss renal replacement therapy and patient is reluctant. No indication for urgent dialysis today. We will continue to monitor on a daily basis. So far respiratory status has improved and edema is expected to improve further with discontinuation of amlodipine. Weight is down by about 4 kg.
--- NOTE | 2022-09-22 14:36 | P.PN ---
Subjective Progress Note Date: 09/22/22 The patient is a very pleasant 81-year-old female patient with a past medical history significant for diabetes and hypertension and dyslipidemia and chronic kidney disease and chronic anemia and history of right nephrectomy secondary to cancer presented to the hospital complaining of shortness of breath and bilateral lower extremity edema. The symptoms started about a week ago with increasing in the shortness of breath which has progressed and also increasing in the lower extremity edema. She was receiving Lasix but she states she has been taken at an as-needed basis. No history of coronary artery disease and she never informed that she has congestive heart failure or any cardiac arrhythmia and never seen by a wire repairer before. No symptoms of any chest pain or chest discomfort and no dizziness or light of this and no feeling of heart racing or fluttering and no presyncope or syncope. No fever or chills or cough or sputum production. She underwent further workup including EKG showing sinus mechanism was low voltage QRS. Troponin first set came in to be unremarkable. Blood work came in to be abnormal was a hemoglobin of 8.20 to have chronic anemia and as her baseline also creatinine came in to be 2.86 and also does her baseline. Currently she is on Lasix IV. An echo is in process to be done 09/20/2022 The patient was seen and evaluated this morning. She is feeling better. She has been diuresing very well. She is not hypoxic but she continues to have severe bilateral lower extremity edema. She lost 5 pounds overnight. Kidney function has been stable. Hemoglobin has been stable. I advised continue the patient on IV diuretics for additional 24 hours with continue monitoring the kidney function and electrolytes and continue monitoring the hemoglobin. The echo revealed normal biventricular dimension and systolic function with mild aortic stenosis. 09/21 Patient is seen today in follow-up. She states that her breathing is better today. She does have shortness of breath with activity and she has improvement of lower extremity edema. Blood pressure 141/61, heart rate in the 60s and 70s, pulse ox 96% on room air. Repeat blood work reveals hemoglobin 9.2. Potassium 4.9, BUN 55 creatinine 3.12. Patient is currently on Lasix 40 mg IV every 8 hours managed by nephrology. 09/22 Patient states that she is breathing well today. She has been on Lasix 40 mg IV daily managed by Dr. Walker. Blood pressure is 146/69, heart rate in the 60s and 70s. We will plan to increase Coreg to 6.25 mg twice daily. The examination is remarkable for regular rhythm with systolic murmur at the right upper sternal border and severe bilateral lower extremity edema and diminished breathing sounds bilaterally Assessment Heart failure exacerbation with evidence of right and left heart failure with preserved ejection fraction Chronic kidney disease and acute kidney injury History of nephrectomy Anemia appears to be stable Mild aortic stenoses Plan Continue the current medical regimen Continue Lasix IV per nephrology Continue monitoring the kidney function and electrolytes and hemoglobin Increase Coreg to 6.25 mg twice daily for better pressure control. Cardiology we'll sign off and follow on an as-needed basis. Please reconsult for any new concerns. Nurse practitioner note has been reviewed, I agree with the documented findings and plan of care. Patient was seen and examined. Objective - Vital Signs Vital signs: Vital Signs Temp 97.7 F 09/22/22 09:06 Pulse 70 09/22/22 10:01 Resp 16 09/22/22 09:06 BP 146/69 09/22/22 09:06 Pulse Ox 96 09/22/22 09:06 FiO2 Intake & Output 09/21/22 09/22/22 09/22/22 18:59 06:59 18:59 Intake Total 980 895 Output Total 675 550 275 Balance 305 -550 620 Weight 93 kg Intake: Oral 980 895 Output: Urine 675 550 275 Other: Voiding Method Toilet Toilet # Voids 1 1 # Bowel Movements 1 - Labs CBC & Chem 7: 09/22/22 07:51 09/22/22 07:51 Labs: Abnormal Lab Results - Last 24 Hours (Table) 09/21/22 09/21/22 09/21/22 Range/Units 11:21 17:57 20:58 RBC (3.80-5.40) m/uL Hgb (11.4-16.0) gm/dL Hct (34.0-46.0) % RDW (11.5-15.5) % BUN (7-17) mg/dL Creatinine (0.52-1.04) mg/dL Glucose (74-99) mg/dL POC Glucose (mg/dL) 123 H 198 H 158 H (70-110) mg/dL 09/22/22 09/22/22 09/22/22 Range/Units 05:52 07:51 07:51 RBC 3.26 L (3.80-5.40) m/uL Hgb 8.7 L (11.4-16.0) gm/dL Hct 27.8 L (34.0-46.0) % RDW 15.9 H (11.5-15.5) % BUN 63 H (7-17) mg/dL Creatinine 3.09 H (0.52-1.04) mg/dL Glucose 137 H (74-99) mg/dL POC Glucose (mg/dL) 111 H (70-110) mg/dL
[2022-09-22] MEDS: SODIUM FERRIC GLUCONAT-SUCROSE 125 MG in SODIUM CHLORIDE 0.9% 100 ML IVPB SCH (15:41)
--- NOTE | 2022-09-22 16:10 | PN ---
PROGRESS NOTE DATE OF SERVICE: 09/22/2022 SUBJECTIVE: This is an 81-year-old woman, who was admitted with worsening CHF. She also had renal failure. The patient also complains of diarrhea. No chest pain. No palpitations. No fever. OBJECTIVE: VITAL SIGNS: Pulse 67, blood pressure 136/70, respirations 16. CHEST: Few scattered rhonchi. CARDIOVASCULAR: S1 and S2. ABDOMEN: Soft and nontender. LABORATORY DATA: Reviewed. Creatinine 3.09. ASSESSMENT: 1. Congestive heart failure acute exacerbation. 2. Chronic kidney disease, stage 3. 3. History of right renal cell carcinoma. 4. Diabetes mellitus, type 2. 5. Multiple medical issues. RECOMMENDATIONS: Recommend to continue current medications. We will check Clostridium difficile. If negative, Imodium p.r.n. Otherwise, continue to monitor followup labs tomorrow. Closely follow up with Cardiology and Pulmonology. Check Clostridium difficile and stool culture. Further recommendations to follow. MMODL / IJN: [id number] /
[2022-09-22 16:29] LABS: Glucose,Whole Blood 151 mg/dL (70-110)
[2022-09-22] MEDS: carvediloL 6.25 MG TAB PO SCH (17:24)
[2022-09-22] MEDS: MONTELUKAST 10 MG TAB PO SCH (20:00)
[2022-09-22 20:32] LABS: Glucose,Whole Blood 165 mg/dL (70-110)
[2022-09-22 21:17] VITALS: RESP 16
[2022-09-22] MEDS: HYDROcodone/APAP 5-325MG 1 EACH TAB PO PRN (22:44)
[2022-09-23 05:29] LABS: Glucose,Whole Blood 128 mg/dL (70-110)
[2022-09-23 06:19] LABS: Glucose,Whole Blood 125 mg/dL (70-110)
[2022-09-23] MEDS: INSULIN ASPART (NovoLOG) 100 UNIT/ML VIAL SQ SCH ×2 (06:20→12:12)
[2022-09-23] MEDS: carvediloL 6.25 MG TAB PO SCH (06:27)
[2022-09-23] MEDS: ALBUTEROL NEBULIZED 2.5 MG/3 ML INHALATION SCH ×2 (07:14→12:00)
[2022-09-23] MEDS: SYMBICORT 80-4.5 MCG INHALER INHALATION SCH (07:14)
[2022-09-23 08:51] LABS: Basophils % (A) 1 %; Eosinophils # (A) 0.3 k/uL (0-0.7); Eosinophils % (A) 5 %; HCT 28.8 % (34.0-46.0); HGB 8.6 gm/dL (11.4-16.0); Hypochromasia Marked; Lymphocytes # (A) 1.2 k/uL (1.0-4.8); Lymphocytes % (A) 18 %; MCH 25.3 pg (25.0-35.0); MCHC 29.8 g/dL (31.0-37.0); MCV 84.7 fL (80.0-100.0); Mean Platelet Volume 8.9; Monocytes # (A) 0.5 k/uL (0-1.0); Monocytes % (A) 8 %; Neutrophils # (A) 4.6 k/uL (1.3-7.7); Neutrophils % (A) 66 %; Platelet Count 232 k/uL (150-450); RDW 15.5 % (11.5-15.5)
[2022-09-23 08:59] LABS: African American GFR (CKD) 15 (>60 ml/min/1.73 sqM); Anion Gap 14 mmol/L; Blood Urea Nitrogen 70 mg/dL (7-17); Calcium 8.7 mg/dL (8.4-10.2); Carbon Dioxide 22 mmol/L (22-30); Chloride 103 mmol/L (98-107); Glucose 116 mg/dL (74-99); Non-African American GFR(CKD) 13 (>60 ml/min/1.73 sqM); Potassium 4.9 mmol/L (3.5-5.1); Sodium 139 mmol/L (137-145)
[2022-09-23 10:03] VITALS: BP 133/74; PULSE 67; TEMP 97.6
[2022-09-23] MEDS: SODIUM FERRIC GLUCONAT-SUCROSE 125 MG in SODIUM CHLORIDE 0.9% 100 ML IVPB SCH (10:04)
[2022-09-23] MEDS: FUROSEMIDE 10 MG/ML 4 ML VIAL IV SCH (10:04)
[2022-09-23] MEDS: PANTOPRAZOLE 40 MG TABLET PO SCH (10:04)
[2022-09-23] MEDS: ASPIRIN 81 MG PO SCH (10:04)
[2022-09-23 11:30] LABS: Glucose,Whole Blood 149 mg/dL (70-110)
--- NOTE | 2022-09-23 11:54 | P.PN ---
Subjective Patient is seen in follow-up for acute kidney injury on chronic kidney disease. Renal function stable. On IV Lasix. Nonoliguric. Denies chest pain or shortness of breath. Hemodynamically stable. On room air. Vital signs are stable. General: No acute distress. HEENT: Head exam is unremarkable. LUNGS: No acute rhonchi or wheezes. HEART: Rate and Rhythm are regular. ABDOMEN: Soft, obese. EXTREMITITES: 1+ edema. Objective - Vital Signs Vital signs: Vital Signs Temp 97.6 F 09/23/22 08:00 Pulse 67 09/23/22 08:00 Resp 16 09/23/22 08:00 BP 133/74 09/23/22 08:00 Pulse Ox 96 09/23/22 08:00 FiO2 Intake & Output 09/22/22 09/23/22 09/23/22 18:59 06:59 18:59 Intake Total 1367 118 Output Total 1300 1075 250 Balance 67 -1075 -132 Weight 92.6 kg Intake: Oral 1367 118 Output: Urine 1300 1075 250 Other: Voiding Method Toilet Toilet # Voids 1 2 # Bowel Movements 1 - Labs CBC & Chem 7: 09/23/22 07:40 09/23/22 07:40 Labs: Abnormal Lab Results - Last 24 Hours (Table) 09/22/22 09/22/22 09/23/22 Range/Units 16:25 20:24 04:41 RBC (3.80-5.40) m/uL Hgb (11.4-16.0) gm/dL Hct (34.0-46.0) % MCHC (31.0-37.0) g/dL BUN (7-17) mg/dL Creatinine (0.52-1.04) mg/dL Glucose (74-99) mg/dL POC Glucose (mg/dL) 151 H 165 H 128 H (70-110) mg/dL 09/23/22 09/23/22 09/23/22 Range/Units 05:51 07:40 07:40 RBC 3.40 L (3.80-5.40) m/uL Hgb 8.6 L (11.4-16.0) gm/dL Hct 28.8 L (34.0-46.0) % MCHC 29.8 L (31.0-37.0) g/dL BUN 70 H (7-17) mg/dL Creatinine 3.23 H (0.52-1.04) mg/dL Glucose 116 H (74-99) mg/dL POC Glucose (mg/dL) 125 H (70-110) mg/dL 09/23/22 Range/Units 11:26 RBC (3.80-5.40) m/uL Hgb (11.4-16.0) gm/dL Hct (34.0-46.0) % MCHC (31.0-37.0) g/dL BUN (7-17) mg/dL Creatinine (0.52-1.04) mg/dL Glucose (74-99) mg/dL POC Glucose (mg/dL) 149 H (70-110) mg/dL Assessment and Plan Plan: Assessment: 1. Acute kidney injury secondary to ATN secondary to cardiorenal syndrome. Creatinine fairly stable at 3.24 today. UA fairly benign. No hydronephrosis noted on kidney ultrasound. 2. Chronic kidney disease stage IV secondary to solitary left kidney and nephrosclerosis. Creatinine 2.6 in August 2021. 3. Diabetes mellitus. 4. Volume overload. Improving with diuresis. 5. Status post right nephrectomy. 6. Anemia of chronic kidney disease with iron deficiency. Receiving IV iron. Plan: Change IV Lasix to 60 mg orally once daily. Advised patient to maintain fluid restriction of less than 50 ounces per day and low-salt diet. Repeat BMP and magnesium level 2-3 days postdischarge. Follow up outpatient in 1 week. Patient has spent to discuss or start renal replacement therapy. Will further educate and address outpatient.
[2022-09-24] MEDS ORDERED: FUROSEMIDE 20 MG TAB PO SCH (09:00)
--- NOTE | 2022-09-24 15:09 | P.DS ---
Providers Date of admission: 09/21/22 13:53 Expected date of discharge: 09/23/22 Attending physician: Violeta Cunningham Consults: 09/18/22 10:51 Consult Physician Routine Consulting Provider: [facility] Consult Reason/Comments: Acute pulmonary edema Do you want consulting provider notified?: Yes 09/19/22 00:07 Consult Physician Routine Consulting Provider: Laurie Walker Consult Reason/Comments: CKD Do you want consulting provider notified?: Yes, Notify in am Primary care physician: Irene Perdomo Hospital Course: Final diagnosis Worsening shortness of breath and leg swelling with acute CHF exacerbation Chronic kidney disease with baseline creatinine level around 2.6 RAIMUNDO with diuresis History of right renal cell carcinoma status post right nephrectomy Normocytic anemia with elevated RDW. Rule out iron deficiency. 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 DVT prophylaxis Discharge disposition Patient is being discharged in a stable condition with guarded prognosis to home. Patient will follow-up with Dr. Perdomo in the outpatient setting upon discharge. Patient is to follow-up with cardiology as well as nephrology as scheduled. Total time taken is greater than 35 minutes. Hospital course This is a 81-year-old female who was recently admitted with increasing shortness of breath along with lower extremity edema. Followed by cardiology. Nephrology evaluated the patient with worsening kidney functions on top of chronic kidney disease maintained on IV Lasix. Patient does have history of right renal cell carcinoma with right nephrectomy and briefly nephrology discussed the option of possible renal replacement patient is reluctant. Kidney function slightly improving and patient continues to make urine and nephrology recommending close outpatient follow-up. Patient has been cleared by consultations for discharge. Please refer to consultation notes for further HPI. Encourage the patient to continue using Servando wraps for compression stockings to bilateral lower extremities and elevated while at rest. Recommend follow-up labs in the next few days to monitor kidney functions. Currently no reports of chest pain, shortness of breath, or palpitations. Patient is afebrile. No reports of nausea or vomiting and patient is tolerating diet. Patient will be discharged home today. Physical exam: Gen: This is a 81-year-old female who is awake, alert and oriented 3, well- developed, well-nourished, obese HEENT: Head is atraumatic, normocephalic. Pupils equal, round. Sclerae is anicteric. NECK: Supple. No JVD. No lymphadenopathy. No thyromegaly. LUNGS: Diminished breath sounds bilaterally with no wheezing or rhonchi. No intercostal retractions. HEART: Regular rate and rhythm. No murmur. ABDOMEN: Soft. Obese Bowel sounds are present. No masses. No tenderness. EXTREMITIES: No pedal edema. No calf tenderness. Bilateral lower extremity edema, non-pitting NEUROLOGICAL: Patient is awake, alert and oriented x3. Cranial nerves 2 through 12 are grossly intact. Please refer to medication reconciliation sheet for a list of medications. The impression and plan of care has been dictated by Mari Abrams, Nurse Practitioner as directed. Dr. Octavio MD I have performed a history and examination and MDM of this patient, discussed the same with the dictator, and agree with the dictator's assessment and plan as written ,documented as a scribe. Based on total visit time, I have performed more than 50% of the visit. Patient Condition at Discharge: Fair Plan - Discharge Summary Discharge Rx Participant: No New Discharge Prescriptions: New Aspirin 81 mg PO DAILY #30 tab carvediloL [Coreg] 6.25 mg PO BID-W/MEALS 30 Days #60 tab Continue Pantoprazole Sodium [Protonix] 40 mg PO DAILY Albuterol Inhaler [Ventolin Hfa Inhaler] 2 puff INHALATION RT-Q4H PRN PRN Reason: Shortness Of Breath Furosemide [Lasix] 40 mg PO DAILY sitaGLIPtin [Januvia] 100 mg PO DAILY HYDROcodone/APAP 5-325MG [[place] 5-325] 1 tab PO Q8H PRN PRN Reason: Pain Montelukast Sodium [Singulair] 10 mg PO HS Fluticasone Propion/Salmeterol [Advair 250-50 Diskus] 1 puff INHALATION RT- BID Discontinued amLODIPine [Norvasc] 10 mg PO DAILY Discharge Medication List Montelukast Sodium [Singulair] 10 mg PO HS 08/05/20 [History] Pantoprazole Sodium [Protonix] 40 mg PO DAILY 08/05/20 [History] Albuterol Inhaler [Ventolin Hfa Inhaler] 2 puff INHALATION RT-Q4H PRN 09/18/22 [History] Fluticasone Propion/Salmeterol [Advair 250-50 Diskus] 1 puff INHALATION RT-BID 09/18/22 [History] Furosemide [Lasix] 40 mg PO DAILY 09/18/22 [History] HYDROcodone/APAP 5-325MG [[place] 5-325] 1 tab PO Q8H PRN 09/18/22 [History] sitaGLIPtin [Januvia] 100 mg PO DAILY 09/18/22 [History] Aspirin 81 mg PO DAILY #30 tab 09/23/22 [Rx] carvediloL [Coreg] 6.25 mg PO BID-W/MEALS 30 Days #60 tab 09/23/22 [Rx] Follow up Appointment(s)/Referral(s): Laurie Walker MD [STAFF PHYSICIAN] - 09/30/22 2:20 pm Stanford Nunes MD [STAFF PHYSICIAN] - 1 Week (Patient to call and make appointment, nurse unable to reach office at this time) Irene Perdomo DO [Primary Care Provider] - 09/25/22 10:00 am (Please bring discharge packet with you to appointment) Ambulatory/Diagnostic Orders: Complete Blood Count w/diff [LAB.AMB] Time Frame: 3 Days, Location: None Selected Patient Instructions/Handouts: Heart Failure (DC), Iron Rich Diet (DC) Activity/Diet/Wound Care/Special Instructions: activity Limited until follow-up Follow-up with primary care provider on discharge follow-up with nephrology this week Continue taking medications as prescribed Continue renal diet heart healthy diet Recommend repeat labs in the next 2-3 days Discharge Disposition: HOME SELF-CARE
== END 2022-09-23 14:41 | disposition home or self-care (01) | DRG 291 ==
LOC: EC 08:46 → 3SCARD 10:52 → OBSVTOIN 09-21 13:53
PROVIDERS: ADMIT Hospitalist; ATTEND Hospitalist
DX: I13.0 Hypertensive heart and chronic kidney disease with heart failure and stage 1 through stage 4 chronic kidney disease, or unspecified chronic kidney disease (principal); I50.33 Acute on chronic diastolic (congestive) heart failure; N17.0 Acute kidney failure with tubular necrosis; Z68.41 Body mass index [BMI] 40.0-44.9, adult; N18.4 Chronic kidney disease, stage 4 (severe); E11.22 Type 2 diabetes mellitus with diabetic chronic kidney disease; D50.9 Iron deficiency anemia, unspecified; D63.1 Anemia in chronic kidney disease; C44.529 Squamous cell carcinoma of skin of other part of trunk; I44.0 Atrioventricular block, first degree; I27.20 Pulmonary hypertension, unspecified; E78.5 Hyperlipidemia, unspecified; T50.1X5A Adverse effect of loop [high-ceiling] diuretics, initial encounter; J45.909 Unspecified asthma, uncomplicated; E66.01 Morbid (severe) obesity due to excess calories; Z28.310 Unvaccinated for COVID-19; Z71.3 Dietary counseling and surveillance; Z85.528 Personal history of other malignant neoplasm of kidney; Z90.5 Acquired absence of kidney; Z88.2 Allergy status to sulfonamides; Z91.041 Radiographic dye allergy status; Z88.1 Allergy status to other antibiotic agents; Z79.899 Other long term (current) drug therapy; Z79.84 Long term (current) use of oral hypoglycemic drugs; Z79.4 Long term (current) use of insulin
CPT/HCPCS: 36415; 71046; 76770; 80048; 80053; 80061; 81003; 83036; 83540; 83550; 83605; 83735; 83880; 84484; 85025; 85610; 85730; 93005; 93306; 94640; 94760

== ENCOUNTER → 2022-12-09 | Day surgery (SDC) | payer MEDICARE ==
[~2022-12-09] MED LIST changes: +ALPRAZolam 0.25 MG TAB PO PRN; +ALPRAZolam 0.5 MG TAB PO PRN; +ASPIRIN 325 MG TAB PO STA; +ATORVASTATIN 80 MG TAB PO STA; -DEXAMETHASONE SOD PHOSPHATE 4 MG/ML 1 ML VIAL IV ONE; +HEPARIN SODIUM 1,000 UN/ML (10ML VL) IV ONE; +HEPARIN SODIUM 1,000 UN/ML (10ML VL) ONE; +HEPARIN SODIUM,PORCINE (1 ML) 2,500 UNIT in SODIUM CHLORIDE 0.9% 250 ML IRRIGATION PRN; +HEPARIN SODIUM,PORCINE 10,000 UNIT in SODIUM CHLORIDE 0.9% 1,000 ML IRRIGATION PRN; +HYDROmorphone 0.5 MG/0.5 ML SYRINGE IVP ONE; -HYDROmorphone 0.5 MG/0.5 ML SYRINGE IVP PRN; +IOPAMIDOL-250 100ML BTL INTRAARTER ONE; +LIDOCAINE 1% INJ 10MG/ML (5 ML VIAL-PF) SQ ONE; +MIDAZOLAM 2 MG/2 ML VIAL IVP ONE; +NITROGLYCERIN SL TABS 0.4 MG TAB SUBLINGUAL PRN; -ONDANSETRON 4 MG/2 ML VIAL IVP ONE; +RX INFO: IV CONTRAST WAS GIVEN 1 EACH MISC MISCELLANE PRN; +SODIUM CHLORIDE 0.9% 1,000 ML IV ONE; +SODIUM CHLORIDE 0.9% 1,000 ML IV SCH; +SODIUM CHLORIDE 0.9% 1,000 ML in EMPTY BAG 1 BAG IV SCH; +VERAPAMIL 2.5 MG/ML 2 ML AMP ONE; +VERAPAMIL SYRINGE (5 MG/10 ML) INTRAARTER ONE
[2022-12-09 07:46] VITALS: TEMP 97.7
[2022-12-09 08:02] LABS: African American GFR (CKD) 13 (>60 ml/min/1.73 sqM); Anion Gap 12 mmol/L; Calcium 8.9 mg/dL (8.4-10.2); Carbon Dioxide 17 mmol/L (22-30); Chloride 104 mmol/L (98-107); Glucose 495 mg/dL (74-99); Non-African American GFR(CKD) 11 (>60 ml/min/1.73 sqM); Potassium 5.7 mmol/L (3.5-5.1); Sodium 133 mmol/L (137-145)
[2022-12-09 08:13] LABS: Blood Urea Nitrogen 106 mg/dL (7-17)
--- NOTE | 2022-12-09 10:54 | P.PCN ---
Date of Procedure: 12/09/22 Operative Findings: CARDIAC CATHETERIZATION PERFORMING PHYSICIAN: Stanford Nunes MD, RPVI PROCEDURE PERFORMED: 1. Selective right and left coronary angiogram 2. Left heart catheterization 3. Ultrasound guided access of the right radial artery cath INDICATION: Shortness of breath in this 82-year-old female patient with multiple risk factors for CAD who underwent a stress test and that showed an anterior ischemia COMPLICATION: None APPROACH: Right radial artery LEVEL OF SEDATION: Moderate with a sedation length of 12 minutes PROCEDURE DESCRIPTION: After obtaining an informed consent, the patient was brought to cardiac director geophysical laboratory. Local anesthesia was performed using lidocaine subcutaneously. The right radial artery was cannulated using Seldinger technique, the guidewire passed easily, following that we advanced a 5-[place]ib[place]ian sheath dilator assembly, the wire and dilator were removed and sheath was flushed. Following that, 2 mg of verapamil along with 5000 unit heparin were given. Selective right and left coronary angiogram using a 6-[place]ib[place] JR4 and JL 3.5 catheters. Following that we did left heart catheterization using 6-[place]ib[place]ian pigtail catheter. The procedure was completed there was no complication. SELECTIVE CORONARY ANGIOGRAM: The right coronary artery: Large caliber vessel and a dominant vessel. The RCA has intermediate lesion in the midportion appears to be in the range of 40-50% Left main: Is angiographically normal. The left circumflex: Large caliber vessel nondominant vessel. The left circumflex gives rises into an OM1 which has intermediate lesion appeared to be in the range of 40-50% and OM 2 which has mild disease only. The left anterior descending artery: Large caliber vessel. The LAD has mild disease only. Gives rises into the first and second diagonal branches appeared to be angiographically normal HEMODYNAMICS: The LVEDP was 20 mmHg was no significant gradient across aortic valve CONCLUSION: 1. 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 Elevated left-sided filling pressure POSTPROCEDURE MANAGEMENT: Medical treatment
[2022-12-09 16:02] VITALS: RESP 16
[2022-12-09 16:32] VITALS: BP 134/69; PULSE 76
== END ==
LOC: CATHCVL 07:05
PROVIDERS: ATTEND Internal Medicine Interventional Cardiology
DX: I25.10 Atherosclerotic heart disease of native coronary artery without angina pectoris (principal); E78.5 Hyperlipidemia, unspecified; E11.9 Type 2 diabetes mellitus without complications; I11.0 Hypertensive heart disease with heart failure; I50.32 Chronic diastolic (congestive) heart failure; I38 Endocarditis, valve unspecified; Z90.5 Acquired absence of kidney; Z79.899 Other long term (current) drug therapy
CPT/HCPCS: 93458; 76937; 80048; C1769; C1894; J2250; J2001; J1644; J1170; Q9966